=== PATIENT | male | born 1980 | race Caucasian/White ===

== ENCOUNTER 2021-09-10 12:20 | Emergency (ER) | payer MEDICAID, SELFPAY ==
[2021-09-10 12:48] VITALS: BP 107/55; PULSE 60; RESP 16; TEMP 36.7; O2SAT 99; BMI 38.3
[2021-09-10 13:46] LABS: MANUAL DIFF FLAG NO
[2021-09-10 13:49] LABS: Basophils Absolute Auto 0.1 X10*3/uL (0.0-0.2); Basophils Percent Auto 0.8 % (0-2); Eosinophils Absolute Auto 0.3 X10*3/uL (0.0-0.4); Eosinophils Percent Auto 4.6 % (0-4); Hematocrit 36.3 % (42.0-52.0); Hemoglobin 10.7 g/dl (14.0-18.0); Imm Gran Abs Auto 0.03 X10*3/uL (0.00-0.03); Imm Gran Pct Auto 0.5 % (0.0-0.4); Lymphocytes Percent Auto 31.7 % (20-40); Mean Corpuscular HGB Conc 29.5 g/dl (31.0-36.0); Mean Corpuscular Hemoglobin 20.7 pg (27.0-33.0); Mean Corpuscular Volume 70.1 fL (80.0-98.0); Mean Platelet Volume 9.8 fL (9.4-12.4); Monocytes Absolute Auto 0.5 X10*3/uL (0.1-1.2); Monocytes Percent Auto 7.6 % (2-11); Neutrophils Absolute Auto 3.5 x10*3/uL (2.0-8.3); Neutrophils Percent Auto 54.8 % (45-73); Platelet Count 247 X10*3/uL (160-400); Red Blood Count 5.18 X10*6/uL (4.60-5.80); Red Cell Distribution Width 19.3 % (11.0-16.0); White Blood Count 6.3 X10*3/uL (4.8-10.8)
[2021-09-10 14:06] LABS: Acetone, serum QL Negative (Negative)
[2021-09-10 14:10] LABS: Alanine Aminotransferase 11 U/L (0-40); Albumin Level 4.1 g/dL (3.5-5.0); Alkaline Phosphatase 96 U/L (39-117); Anion Gap 13 (12-20); Aspartate Amino Transferase 12 U/L (5-37); Bilirubin Total < 0.2 mg/dL (0.0-1.0); Blood Urea Nitrogen 14 mg/dL (9-16); Calcium 8.9 mg/dL (8.4-10.2); Carbon Dioxide 26 mmol/L (22-29); Chloride 104 mmol/L (96-108); Creatinine Clr Calc Pharmacy 173.2; Estimated Glomerular Filt Rate > 60; Glucose Random 164 mg/dL (60-115); Magnesium 2.1 mg/dL (1.6-2.6); Potassium 4.3 mmol/L (3.3-5.1); Sodium 139 mmol/L (135-145); Total Protein 7.9 g/dL (6.5-8.0)
--- NOTE | 2021-09-10 14:14 | ED_ITS ---
HPI - Neuro Symptoms/Deficit General Chief Complaint: General Medical Stated Complaint: Numb on feet Time Seen by Provider: 09/10/21 13:04 Source: patient Mode of arrival: ambulatory Limitations: no limitations History of Present Illness HPI Narrative: 41-year-old male reports he is a diabetic although has not been on his metformin for many years presenting to the ED with complaints of numbness to his feet and toes for the past few years that are getting worse. 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 Denies any headache, dizziness, changes in vision, jaw pain, chest pain, shortness of breath, dyspnea on exertion, orthopnea, palpitations, abdominal pain, dysuria, nausea/vomiting/diarrhea constipation, lower extremity edema or calf tenderness, recent travel or sick contacts, rashes, recent falls or injury or any other symptoms complaints concerns at this time. Related Data Previous Rx's Medication Instructions Recorded alcohol swabs (Alcohol Prep Pads) 1 pad topical BID As directed 09/10/21 check blood sugar twice a day before m #200 ea blood sugar diagnostic (FreeStyle #100 ea 09/10/21 Lite Strips) blood-glucose meter (FreeStyle #1 ea 09/10/21 Lite Meter kit) ferrous sulfate 325 mg (65 mg 325 mg PO DAILY anemia #30 tabs 09/10/21 iron) tablet lancets 28 gauge (FreeStyle #100 ea 09/10/21 Lancets) metformin 500 mg tablet 500 mg PO DAILY Diabetes #30 tabs 09/10/21 Allergies Allergy/AdvReac Type Severity Reaction Status Date / Time No Known Allergies Allergy Verified 09/10/21 12:51 [No Known Allergies*] Review of Systems Review of Systems: Constitutional : No Fever, No Chills, No Night Sweats, No Fatigue, No Malaise ENT/Mouth : No Ear Pain, No Nasal Congestion, No Sinus Pain, No sore throat, No Rhinorrhea Eyes: No Eye Pain, No Swelling, No Redness, No Foreign Body, No Discharge, No Vision Changes Cardiovascular : No Chest Pain, No SOB, No Dyspnea on Exertion, No Orthopnea, No Palpitations Respiratory : No Cough, No Sputum, No Wheezing, No Dyspnea Gastrointestinal : No Nausea, No Vomiting, No Diarrhea, No Constipation, No abdominal Pain, No Hematochezia, No Melena Genitourinary : No Dysuria, No Urinary Frequency, No Urinary Incontinence, No Urgency, No Flank Pain Musculoskeletal : No joint pain, No Myalgias Skin : No lacerations Neuro : + paresthesias to bilateral feet/toes, No Focal weakness, no general weakness, No Loss of Consciousness, No Dizziness, No Headache Yes all other systems are reviewed and are negative [facility] Past Medical History Attestation statement: The following information was validated with the patient. Source: old records reviewed and nursing notes reviewed Social History Social History Advance Directives: No Advance Directives Information Provided: No Physical Exam 2 Vital Signs: Vital Signs: Last Vital Signs Temp 98.0 F 09/10/21 12:48 Pulse 60 09/10/21 12:48 Resp 16 09/10/21 12:48 BP 107/55 L 09/10/21 12:48 Pulse Ox 99 09/10/21 12:48 O2 Del Method 09/10/21 12:48 BMI result Body Mass Index 38.3 vital signs have been reviewed as normal and appeared to be correct. Blood pressure 107/55. Heart rate normal. Respiration rate normal. Temperature normal. Oxygen saturation normal. Appearance: Alert. Oriented X3. No acute distress. Head: Normal external exam. Normocephalic. Atraumatic. Eyes: PERRLA. EOMI. Conjunctiva and sclera normal. Eyelids normal. ENT: Pharynx normal. Uvula midline. Moist mucous membranes. No lesions/ulcerations or masses noted on the tongue. Normal voice. No trismus noted. No drooling noted. No muffled voice noted. Neck: Normal inspection. Neck supple. FROM. No adenopathy. Thyroid Normal. No tracheal deviation noted. No crepitus is noted. No meningeal signs. No neck mass noted. No signs of trauma noted. CVS: Normal heart rate and rhythm. Heart sound normal. Pulses normal throughout. No murmurs/rales/gallops. Respiratory: No respiratory distress. Painless inspiration. Breath sounds normal. No wheezes/rales/rhonchi noted. Chest nontender. No crepitus is noted. No signs of trauma noted. No accessory muscle usage noted or decreased air movement noted. No signs of trauma. Abdomen: Soft and nontender. Bowel sounds normal in all 4 quadrants. No distention noted. No organomegaly noted. No visible injury noted. Back: No CVA tenderness. Full range of motion noted. Nontender. Skin: Skin warm and dry. Normal skin color. Normal skin turgor. No rashes/lesions/lacerations noted. Extremities: No lower extremity edema. No calf tenderness is noted. Extremities exhibit normal range of motion and nontender. Neuro: Oriented X 3. No motor deficit. No sensory deficit. Reflexes normal. Normal steady gait. No focal neuro deficits noted. CN's II-XII intact bilaterally? Vascular: + radial pulses/+ 2 distal pedal pulses/+2 dorsalis pedis b/l. Normal cap refill. No cyanosis noted to upper extremity nails and lower extremity toes nails. Course Course Course Narrative: 41-year-old male reports he is a diabetic although has not been on his metformin for many years presenting to the ED with complaints of numbness to his feet and toes for the past few years that are getting worse. 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 Labs were obtained and patient with the hemoglobin and hematocrit of 10.7/36.3. I discussed this with the patient and he reported that he does not have a history of anemia although intermittently he will have some bright red bloody stools that is mixed in the stool not just clots or bright red blood in the toilet without any stool. He has not had any and approximately a week or 2. He reports this is not occurring at this time. Denies any abdominal pain. I did recommend a stool occult exam or at least to visualize for possible hemorrhoids and patient is adamantly refusing. Reports that he cannot give us a sample at this time. Therefore he will be referred to GI for possible stool occult positive with anemia although cannot confirm at this time. Will start on iron supplements His random glucose is 164. Estimated average glucose is 130 and his hemoglobin A1c is 6.4. Therefore patient will be restarted back on his metformin will start on a low dose of 500 mg daily. Patient's acetone level negative. All other labs are within normal limits. Patient most likely paresthesias from untreated diabetes/neuropathy. Will DC home with instructions follow-up with PCP and Gastroenterology. Patient understands agrees this plan along with instructions return if any new or worsening symptoms. MDM - Neuro Symptoms/Deficit Medical Records Attestation: I reviewed the patient's medical records. Lab Data Attestation: I reviewed the patient's lab results. Result diagrams: 09/10/21 13:42 09/10/21 13:42 Labs: Lab Results 09/10/21 09/10/21 09/10/21 Range/Units 13:42 13:42 13:42 WBC 6.3 (4.8-10.8) X10*3/uL RBC 5.18 (4.60-5.80) X10*6/uL Hgb 10.7 L (14.0-18.0) g/dl Hct 36.3 L (42.0-52.0) % MCV 70.1 L (80.0-98.0) fL MCH 20.7 L (27.0-33.0) pg MCHC 29.5 L (31.0-36.0) g/dl RDW 19.3 H (11.0-16.0) % Plt Count 247 (160-400) X10*3/uL MPV 9.8 (9.4-12.4) fL Immature Gran % (Auto) 0.5 H (0.0-0.4) % Neut % (Auto) 54.8 (45-73) % Lymph % (Auto) 31.7 (20-40) % [place] % (Auto) 7.6 (2-11) % Eos % (Auto) 4.6 H (0-4) % Baso % (Auto) 0.8 (0-2) % Lymph # (Auto) 2.0 (1.2-4.9) X10*3/uL [place] # (Auto) 0.5 (0.1-1.2) X10*3/uL Eos # (Auto) 0.3 (0.0-0.4) X10*3/uL Baso # (Auto) 0.1 (0.0-0.2) X10*3/uL Abs Immat Gran (auto) 0.03 (0.00-0.03) X10*3/uL Absolute Neuts (auto) 3.5 (2.0-8.3) x10*3/uL Absolute Nucleated RBC 0.000 (0.0-0.012) X10*3/uL Nucleated RBC % (auto) 0.0 (0.0-0.2) /100WBC Sodium 139 (135-145) mmol/L Potassium 4.3 (3.3-5.1) mmol/L Chloride 104 (96-108) mmol/L Carbon Dioxide 26 (22-29) mmol/L Anion Gap 13 (12-20) BUN 14 (9-16) mg/dL Creatinine 0.77 (0.5-1.4) mg/dL Estim Creat Clear Calc 173.2 Estimated GFR > 60 Random Glucose 164 H (60-115) mg/dL Estimat Average Glucose 137 mg/dL Hemoglobin A1c % 6.4 % Calcium 8.9 (8.4-10.2) mg/dL Magnesium 2.1 (1.6-2.6) mg/dL Total Bilirubin < 0.2 (0.0-1.0) mg/dL AST 12 (5-37) U/L ALT 11 (0-40) U/L Alkaline Phosphatase 96 (39-117) U/L Total Creatine Kinase 78 (38-174) U/L Total Protein 7.9 (6.5-8.0) g/dL Albumin 4.1 (3.5-5.0) g/dL Acetone, Qual (Negative) 09/10/21 Range/Units 13:42 WBC (4.8-10.8) X10*3/uL RBC (4.60-5.80) X10*6/uL Hgb (14.0-18.0) g/dl Hct (42.0-52.0) % MCV (80.0-98.0) fL MCH (27.0-33.0) pg MCHC (31.0-36.0) g/dl RDW (11.0-16.0) % Plt Count (160-400) X10*3/uL MPV (9.4-12.4) fL Immature Gran % (Auto) (0.0-0.4) % Neut % (Auto) (45-73) % Lymph % (Auto) (20-40) % [place] % (Auto) (2-11) % Eos % (Auto) (0-4) % Baso % (Auto) (0-2) % Lymph # (Auto) (1.2-4.9) X10*3/uL [place] # (Auto) (0.1-1.2) X10*3/uL Eos # (Auto) (0.0-0.4) X10*3/uL Baso # (Auto) (0.0-0.2) X10*3/uL Abs Immat Gran (auto) (0.00-0.03) X10*3/uL Absolute Neuts (auto) (2.0-8.3) x10*3/uL Absolute Nucleated RBC (0.0-0.012) X10*3/uL Nucleated RBC % (auto) (0.0-0.2) /100WBC Sodium (135-145) mmol/L Potassium (3.3-5.1) mmol/L Chloride (96-108) mmol/L Carbon Dioxide (22-29) mmol/L Anion Gap (12-20) BUN (9-16) mg/dL Creatinine (0.5-1.4) mg/dL Estim Creat Clear Calc Estimated GFR Random Glucose (60-115) mg/dL Estimat Average Glucose mg/dL Hemoglobin A1c % % Calcium (8.4-10.2) mg/dL Magnesium (1.6-2.6) mg/dL Total Bilirubin (0.0-1.0) mg/dL AST (5-37) U/L ALT (0-40) U/L Alkaline Phosphatase (39-117) U/L Total Creatine Kinase (38-174) U/L Total Protein (6.5-8.0) g/dL Albumin (3.5-5.0) g/dL Acetone, Qual Negative (Negative) Discharge Plan Discharge Clinical Impression: Anemia, Diabetes, Neuropathy Patient Disposition: Home, Self-Care Instructions: Foot Care for People with Diabetes (ED), Peripheral Neuropathy (ED), Anemia (ED), How to Check your Blood Sugar (ED), Type 2 Diabetes Management for Adults (ED) Additional Instructions: You were noted to be anemic I did offer performing a rectal exam to perform a stool test to see if you are bleeding rectally although your refused. This is very important. Return if any new or worsening symptoms specially if you develop new or worsening rectal bleeding and follow-up with the inside sales person. You should check your blood sugar at least twice a day before meals. You should find a primary care provider you can continue your metformin. Prescriptions: New metformin 500 mg tablet 500 mg PO DAILY Qty: 30 0RF (DME) lancets [FreeStyle Lancets] 28 gauge misc See Rx Instructions .Route Qty: 100 0RF Rx Instructions: As directed at least twice a day check blood sugars and document (DME) blood-glucose meter [FreeStyle Lite Meter] Kit See Rx Instructions .Route Qty: 1 0RF Rx Instructions: As directed check blood sugar at least twice a day before meals (DME) FreeStyle Lite Strips Strip See Rx Instructions .Route Qty: 100 0RF Rx Instructions: As directed check blood sugar twice a day before meals alcohol swabs [Alcohol Prep Pads] Pads, Medicated 1 pad topical BID Qty: 200 0RF ferrous sulfate 325 mg (65 mg iron) tablet 325 mg PO DAILY Qty: 30 0RF Referrals: Rina Poole MD [Physician] - 1 week (For anemia ) Physician,None [Primary Care Provider] - 2 days (your pcp)
[2021-09-10 14:19] LABS: Estimated Average Glucose 137 mg/dL; Hemoglobin A1c % 6.4 %
== END 2021-09-10 14:48 | disposition home or self-care (01) ==
PROVIDERS: Physician Assistant Medical; Emergency Provider Internal Medicine
DX: E11.40 Type 2 diabetes mellitus with diabetic neuropathy, unspecified (principal); D64.9 Anemia, unspecified
CPT/HCPCS: 36415; 80053; 82009; 82550; 83036; 83735; 85025; 99283

== ENCOUNTER 2021-10-27 13:27 | Emergency (ER) | payer MEDICAID, SELFPAY ==
--- NOTE | ~2021-10-27 | US_ITS ---
EXAMINATION: US VENOUS ULTRASOUND WITH DOPPLER LOWER EXTREMITY, RIGHT CLINICAL INFORMATION: Right lower extremity pain COMPARISON: None TECHNIQUE: Ultrasound of the deep veins is performed from the hip to the calf with compression sonography and color and pulse Doppler assessment. Spectral analysis with color-flow imaging is performed. FINDINGS: There is normal venous compression and respiratory variation and augmented flow. The visualized common femoral vein, superficial femoral vein, profunda femoral vein, popliteal vein, and the trifurcation region shows no evidence of deep venous thrombosis. There is no significant popliteal fossa cyst. The contralateral left common femoral vein appears normal. If the patient's symptoms persist, followup ultrasound in 5 days 7 days might be of value to exclude proximal propagation from a non-visualized calf vein. US/US venous duplex LE RT IMPRESSION: No DVT demonstrated in the right lower extremity.
[2021-10-27 13:44] VITALS: BP 122/83; PULSE 90; RESP 16; TEMP 37.7; O2SAT 95; BMI 37.6
== END 2021-10-27 18:33 | disposition left against medical advice (07) ==
PROVIDERS: Emergency Provider Emergency Medicine
DX: R60.0 Localized edema (principal); Z91.14 Patient's other noncompliance with medication regimen
CPT/HCPCS: 93971; 99281; 99284

== ENCOUNTER 2022-02-25 05:32 | Emergency (ER) | payer MEDICAID, SELFPAY ==
--- NOTE | ~2022-02-25 | XR_ITS ---
EXAMINATION: XR CHEST CLINICAL INFORMATION: Chest pain and wheezing COMPARISON: None TECHNIQUE: 2 views of the chest were obtained. FINDINGS: Lungs are hypoinflated. Heart size normal. Peribronchial thickening is present. No focal consolidations or pleural effusions. No lung masses. Degenerative changes are seen spine. XR/XR chest 2V IMPRESSION: Hypoinflated lungs with peribronchial thickening. No focal consolidation.
--- NOTE | 2022-02-25 05:33 | ECG_ITS ---
Test Reason : chest pain Blood Pressure : / mmHG Vent. Rate : 079 BPM Atrial Rate : 079 BPM P-R Int : 168 ms QRS Dur : 094 ms QT Int : 398 ms P-R-T Axes : 048 001 -09 degrees QTc Int : 456 ms Normal sinus rhythm Normal ECG No previous ECGs available Referred By: Generic ED Physician Electronically Signed By:GREG KIMBALL MD
[2022-02-25 05:41] VITALS: BP 126/78; PULSE 77; RESP 16; O2SAT 98; BMI 37.6
[2022-02-25 06:01] LABS: Glucose, Whole Blood 151 mg/dL (60-115)
--- NOTE | 2022-02-25 06:29 | MHC.EDTECH ---
Patient is a difficult draw - Able to get labs. Delayed & difficult draw
[2022-02-25 06:42] LABS: Basophils Percent Auto 0.5 % (0-2); Eosinophils Absolute Auto 0.2 X10*3/uL (0.0-0.4); Hematocrit 35.6 % (42.0-52.0); Hemoglobin 10.9 g/dl (14.0-18.0); Imm Gran Abs Auto 0.02 X10*3/uL (0.00-0.03); Imm Gran Pct Auto 0.4 % (0.0-0.4); Lymphocytes Absolute Auto 1.7 X10*3/uL (1.2-4.9); Lymphocytes Percent Auto 31.4 % (20-40); MANUAL DIFF FLAG SCAN; Mean Corpuscular HGB Conc 30.6 g/dl (31.0-36.0); Mean Corpuscular Hemoglobin 22.3 pg (27.0-33.0); Mean Corpuscular Volume 72.8 fL (80.0-98.0); Monocytes Absolute Auto 0.4 X10*3/uL (0.1-1.2); Monocytes Percent Auto 7.7 % (2-11); Neutrophils Absolute Auto 3.1 x10*3/uL (2.0-8.3); PLT CLUMP 1; Red Blood Count 4.89 X10*6/uL (4.60-5.80); Red Cell Distribution Width 17.1 % (11.0-16.0); SCAN SMEAR FLAG 1
[2022-02-25 06:44] LABS: White Blood Count 5.5 X10*3/uL (4.8-10.8)
[2022-02-25 06:55] LABS: Anion Gap 15 (12-20); Blood Urea Nitrogen 14 mg/dL (9-16); Calcium 8.8 mg/dL (8.4-10.2); Carbon Dioxide 24 mmol/L (22-29); Chloride 104 mmol/L (96-108); Creatinine Clr Calc Pharmacy 174.3; Estimated Glomerular Filt Rate > 60; Glucose Random 158 mg/dL (60-115); Potassium 4.2 mmol/L (3.3-5.1); Sodium 139 mmol/L (135-145)
[2022-02-25 06:59] LABS: Platelet Count 234 X10*3/uL (160-400); SLIDE REVIEW VERIFIED
[2022-02-25 07:32] LABS: Troponin-I High Sensitivity < 3.5 ng/L (<3.5-35.0)
--- NOTE | 2022-02-25 07:44 | PC.NURSE ---
PAtient sleeping is easily aroused neuros intact no distress noted. Patient reports pain improved will CTM
--- NOTE | 2022-02-25 08:07 | PC.NURSE ---
Wheezing noted on auscultation patient said he initially came to ED with chest pain felt lump in chest. Pain resolved denies personal asthma history does report familial history will CTM
--- NOTE | 2022-02-25 08:11 | ED_ITS ---
HPI - Chest Pain General Chief Complaint: Chest Pain Stated Complaint: chest pain, leg pain Time Seen by Provider: 02/25/22 07:58 Source: patient Mode of arrival: ambulatory Limitations: no limitations History of Present Illness HPI narrative: 42-year-old male with history of diabetes, obesity, active smoker who presents to the ER for evaluation of central chest pain intermittent for the last 1 week. He states the pain comes and goes, got really bad last night. It did not radiate and was sharp, It was associated with some shortness of breath and wheezing. He has been coughing. No known fevers or sick contacts. No productive cough. No current chest pain. He is tired - he states he has not slept in 2 days because his kids have kept him up. MD complaint: chest pain Onset (ago): week(s) (1) Timing of current episode: episodic Prior episodes: Yes Onset: during rest Pain location: substernal Pain radiation: none Severity: moderate Quality: sharp Relieving factors: nothing Exacerbating factors: nothing Context: recent illness Associated symptoms: dyspnea Treatment prior to arrival: none Risk Factors Coronary artery disease risk factors: diabetes and smoking history Thoracic aortic dissection risk factors: none Related Data Previous Rx's Medication Instructions Recorded alcohol swabs (Alcohol Prep Pads) 1 pad topical BID As directed 09/10/21 check blood sugar twice a day before m #200 ea blood sugar diagnostic (FreeStyle #100 ea 09/10/21 Lite Strips) blood-glucose meter (FreeStyle #1 ea 09/10/21 Lite Meter kit) ferrous sulfate 325 mg (65 mg 325 mg PO DAILY anemia #30 tabs 09/10/21 iron) tablet lancets 28 gauge (FreeStyle #100 ea 09/10/21 Lancets) metformin 500 mg tablet 500 mg PO DAILY Diabetes #30 tabs 09/10/21 albuterol sulfate 90 mcg/actuation 1 inh inhalation QID PRN shortness 02/25/22 aerosol inhaler of breath or wheezing #6.7 grams prednisone 20 mg tablet 40 mg PO DAILY #10 tabs 02/25/22 Allergies Allergy/AdvReac Type Severity Reaction Status Date / Time No Known Allergies Allergy Verified 02/25/22 05:44 [No Known Allergies*] Review of Systems Review of Systems: Yes all other systems are reviewed and are negative [facility] Social History Social History Alcohol intake: unknown Smoked in Last 30 Days: No Use of substances other than those prescribed or required for medical reasons: Unknown Advance Directives: No Advance Directives Information Provided: Yes Physical Exam Vital Signs: Vital Signs: Last Vital Signs Pulse 66 02/25/22 08:36 Resp 18 02/25/22 08:36 BP 101/66 02/25/22 08:13 Pulse Ox 96 02/25/22 08:13 O2 Del Method 02/25/22 08:13 BMI result Body Mass Index 37.6 Appearance: Alert. Oriented X3. No acute distress. Eyes: Pupils equal, round and reactive to light. ENT: Pharynx normal. Neck: Normal inspection. Neck supple. CVS: Normal heart rate and rhythm. Pulses normal. Respiratory: No respiratory distress. Breath sounds With diffuse inspiratory and expiratory wheezes throughout. Abdomen: Soft and nontender. +BS x4 Skin: Skin warm and dry. Normal skin color. Normal skin turgor. No rashes. Extremities: No lower extremity edema. No calf tenderness or swelling. Neuro: Oriented X 3. No motor deficit. No sensory deficit. Course Course Course Narrative: 42-year-old male with history of diabetes, active smoker, noncompliant with medications who presents to the ER for evaluation of substernal chest pain intermittent for the last 1 week. Seems to be more associated with shortness of breath and wheezing. On exam he is wheezy throughout. Will check chest x-ray and viral swabs. His troponin is negative which is reassuring against ACS. No current chest pain at this time. Reevaluation(s) Reevaluation #1: CXR without infiltrate. aeration significantly improved and wheezing improved after nebulizer treatment. His cardiac workup was unremarkable. No current chest pain. Most likely related to his wheezing and chest congestion. Will discharge with albuterol and prednisone. Will have him follow up with pulmonology and his PCP. Stable for discharge home. The importance of compliance and follow-up was stress. Patient expressed understanding. Medications Administered Discontinued Medications Generic Name Dose Route Start Last Admin Trade Name Freq PRN Reason Stop Dose Admin Albuterol Sulfate 5 mg 02/25/22 08:05 02/25/22 08:36 Albuterol Sulfate (0.083%) 2.5 Mg/3 Ml Vial.Neb INHALE 02/25/22 08:06 5 mg ONCE ONE Administration Medical Decision Making Differential Diagnosis Differential Diagnoses: The differential diagnosis associated with the presentation includes atypical chest pain, ACS, costochondritis, bronchitis, asthma / COPD exacerbation, COVID, flu, viral process, less likely PE, dissection Lab Data [facility] Lab Attestation statement: I reviewed the patient's lab results. stable microcytic anemia, mild hyperglycemia 150s, no CKD, troponin is negative 02/25/22 06:28 02/25/22 06:28 Labs: Lab Results 02/25/22 02/25/22 02/25/22 Range/Units 05:40 06:28 06:28 WBC 5.5 (4.8-10.8) X10*3/uL RBC 4.89 (4.60-5.80) X10*6/uL Hgb 10.9 L (14.0-18.0) g/dl Hct 35.6 L (42.0-52.0) % MCV 72.8 L (80.0-98.0) fL MCH 22.3 L (27.0-33.0) pg MCHC 30.6 L (31.0-36.0) g/dl RDW 17.1 H (11.0-16.0) % Plt Count 234 (160-400) X10*3/uL MPV Not Reportable Immature Gran % (Auto) 0.4 (0.0-0.4) % Neut % (Auto) 56.0 (45-73) % Lymph % (Auto) 31.4 (20-40) % [place] % (Auto) 7.7 (2-11) % Eos % (Auto) 4.0 (0-4) % Baso % (Auto) 0.5 (0-2) % Lymph # (Auto) 1.7 (1.2-4.9) X10*3/uL [place] # (Auto) 0.4 (0.1-1.2) X10*3/uL Eos # (Auto) 0.2 (0.0-0.4) X10*3/uL Baso # (Auto) 0.0 (0.0-0.2) X10*3/uL Abs Immat Gran (auto) 0.02 (0.00-0.03) X10*3/uL Absolute Neuts (auto) 3.1 (2.0-8.3) x10*3/uL Absolute Nucleated RBC 0.000 (0.0-0.012) X10*3/uL Nucleated RBC % (auto) 0.0 (0.0-0.2) /100WBC Smear Tech's Comments VERIFIED Sodium 139 (135-145) mmol/L Potassium 4.2 (3.3-5.1) mmol/L Chloride 104 (96-108) mmol/L Carbon Dioxide 24 (22-29) mmol/L Anion Gap 15 (12-20) BUN 14 (9-16) mg/dL Creatinine 0.75 (0.5-1.4) mg/dL Estim Creat Clear Calc 174.3 Estimated GFR > 60 POC Glucose 151 H (60-115) mg/dL Random Glucose 158 H (60-115) mg/dL Calcium 8.8 (8.4-10.2) mg/dL Troponin I High Sens (<3.5-35.0) ng/L COVID-19 (ROSSANA) (Negative) COVID-19 Clin Com Influenza Type A (JONELLE) (Negative) Influenza Type B (JONELLE) (Negative) Influenza A & B Note 02/25/22 02/25/22 02/25/22 Range/Units 06:28 08:12 08:12 WBC (4.8-10.8) X10*3/uL RBC (4.60-5.80) X10*6/uL Hgb (14.0-18.0) g/dl Hct (42.0-52.0) % MCV (80.0-98.0) fL MCH (27.0-33.0) pg MCHC (31.0-36.0) g/dl RDW (11.0-16.0) % Plt Count (160-400) X10*3/uL MPV Immature Gran % (Auto) (0.0-0.4) % Neut % (Auto) (45-73) % Lymph % (Auto) (20-40) % [place] % (Auto) (2-11) % Eos % (Auto) (0-4) % Baso % (Auto) (0-2) % Lymph # (Auto) (1.2-4.9) X10*3/uL [place] # (Auto) (0.1-1.2) X10*3/uL Eos # (Auto) (0.0-0.4) X10*3/uL Baso # (Auto) (0.0-0.2) X10*3/uL Abs Immat Gran (auto) (0.00-0.03) X10*3/uL Absolute Neuts (auto) (2.0-8.3) x10*3/uL Absolute Nucleated RBC (0.0-0.012) X10*3/uL Nucleated RBC % (auto) (0.0-0.2) /100WBC Smear Tech's Comments Sodium (135-145) mmol/L Potassium (3.3-5.1) mmol/L Chloride (96-108) mmol/L Carbon Dioxide (22-29) mmol/L Anion Gap (12-20) BUN (9-16) mg/dL Creatinine (0.5-1.4) mg/dL Estim Creat Clear Calc Estimated GFR POC Glucose (60-115) mg/dL Random Glucose (60-115) mg/dL Calcium (8.4-10.2) mg/dL Troponin I High Sens < 3.5 (<3.5-35.0) ng/L COVID-19 (ROSSANA) Negative (Negative) COVID-19 Clin Com See Note Influenza Type A (JONELLE) Negative (Negative) Influenza Type B (JONELLE) Negative (Negative) Influenza A & B Note See Note Independent Interpretation I performed an independent interpretation of an: EKG and Plain X-Ray Interpretation: Chest x-ray without focal infiltrate EKG done at 05:40 showing normal sinus rhythm, ventricular rate 79 beats per minute, normal NH interval, normal QTC, no ST segment elevations or depressions. No prior EKGs to compare. Radiology Impression Discussion of test interpretation with radiology: I have reviewed the rad iologist's reading. Radiologist Impression: MPRESSION: Hypoinflated lungs with peribronchial thickening. No focal consolidation External Record Review External record reviewed: Outpatient record, Prior outpatient labs and Prior outpatient radiology Prescription Management I considered prescription management with: Antibiotic No formal diagnosis of COPD, no role in treating for COPD exacerbation at this time. Will hold off on antibiotics Chronic Conditions Patient?s care impacted by: Diabetes, Hypertension and Other ( noncompliance) Social Determinants Patient?s care significantly limited by Social Determinants of Health including: Other Social Determinant of Health noncompliance, poor outpatient follow-up Scores Heart Score History: -0- slightly suspicious ECG: -0- normal Age: -0- < or = 45 Risk factory: -2- 3 or more risk factors or treated atherosclerosis Troponin: -0- < or = normal limit Score: 2 Risk: 1.7% Critical Care Time Critical Care Time Critical Care Time: No Discharge Plan Discharge Clinical Impression: Bronchitis, Microcytic anemia, Diabetes Patient Disposition: Home, Self-Care Instructions: Acute Bronchitis (ED), Type 2 Diabetes Management for Adults (ED) Additional Instructions: Your lab workup today was unremarkable. Your EKG and blood work for your heart were normal. Your lungs were very wheezy, this is most likely what was causing your pain. Do your best to quit smoking. Recommend following up with pulmonology for further evaluation of your lungs. You most likely have underlying lung disease from your smoking. Take the prescribed steroid medication to help decrease the inflammation in your lungs. Use the prescribed inhaler every 4 hours as needed for wheezing and shortness of breath. Follow up with your PCP next week. It is important that you take all of your medications as directed. Prescriptions: New albuterol sulfate 90 mcg/actuation HFA aerosol inhaler 1 inh inhalation QID PRN (Reason: shortness of breath or wheezing) Qty: 6.7 0RF prednisone 20 mg tablet 40 mg PO DAILY Qty: 10 0RF No Action metformin 500 mg tablet 500 mg PO DAILY Qty: 30 0RF (DME) lancets [FreeStyle Lancets] 28 gauge misc See Rx Instructions .Route Qty: 100 0RF Rx Instructions: As directed at least twice a day check blood sugars and document (DME) blood-glucose meter [FreeStyle Lite Meter] Kit See Rx Instructions .Route Qty: 1 0RF Rx Instructions: As directed check blood sugar at least twice a day before meals (DME) FreeStyle Lite Strips Strip See Rx Instructions .Route Qty: 100 0RF Rx Instructions: As directed check blood sugar twice a day before meals alcohol swabs [Alcohol Prep Pads] Pads, Medicated 1 pad topical BID Qty: 200 0RF ferrous sulfate 325 mg (65 mg iron) tablet 325 mg PO DAILY Qty: 30 0RF Referrals: [facility] Pulmonology Services [Provider Group] (wheezing, smoker, no dx lung disease) Center,[facility] [Primary Care Provider] -
[2022-02-25 08:13] VITALS: BP 101/66; PULSE 59; RESP 14; O2SAT 96
[2022-02-25 08:35] LABS: COVID-19 Test Negative (Negative); IDNOW Serial# 16C4AD1C
[2022-02-25 08:36] VITALS: PULSE 66; RESP 18; O2SAT 97
[2022-02-25 08:36] LABS: IDNOW Serial# BCCEAD1C; Influenza A Negative (Negative); Influenza B2 Negative (Negative)
[2022-02-25] MEDS: Albuterol Sulfate (0.083%) 2.5 MG/3 ML VIAL.NEB 5 MG INHALE (08:36)
--- NOTE | 2022-02-25 08:46 | PC.NURSE ---
Addendum entered by Mike Haider RN 02/25/22 08:47: Not in error on wrong patient will CTM Original Note: Patient remains hypertensive reports some improvement in pain. Patient reports that she does still make urine will CTM
--- NOTE | 2022-02-25 09:37 | PC.NURSE ---
Improved breath sounds post breathing treatment no distress noted no wheezes appreciated post treatment
[2022-02-25 09:52] VITALS: BP 101/66
[2022-02-25 10:03] VITALS: BP 139/97; PULSE 85; RESP 20; TEMP 36.9; O2SAT 100
== END 2022-02-25 10:14 | disposition home or self-care (01) ==
PROVIDERS: Physician Assistant; Emergency Provider Emergency Medicine Emergency Medical Services
DX: J40 Bronchitis, not specified as acute or chronic (principal); D64.9 Anemia, unspecified; R07.89 Other chest pain; E11.9 Type 2 diabetes mellitus without complications; Z20.822 Contact with and (suspected) exposure to COVID-19; Z20.828 Contact with and (suspected) exposure to other viral communicable diseases; Z87.891 Personal history of nicotine dependence; Z79.899 Other long term (current) drug therapy; Z79.4 Long term (current) use of insulin
CPT/HCPCS: 36415; 71046; 80048; 82947; 84484; 85025; 87502; 87635; 93005; 94640; 99284; 99285

== ENCOUNTER 2022-04-21 10:32 | Emergency (ER) | payer MEDICAID, SELFPAY ==
--- NOTE | ~2022-04-21 | US_ITS ---
EXAMINATION: US VENOUS ULTRASOUND WITH DOPPLER LOWER EXTREMITY, RIGHT CLINICAL INFORMATION: Right leg redness and swelling COMPARISON: None TECHNIQUE: Ultrasound of the deep veins is performed from the hip to the calf with compression sonography and color and pulse Doppler assessment. Spectral analysis with color-flow imaging is performed. FINDINGS: There is normal venous compression and respiratory variation and augmented flow. The visualized common femoral vein, superficial femoral vein, profunda femoral vein, popliteal vein, and the trifurcation region shows no evidence of deep venous thrombosis. There is no significant popliteal fossa cyst. There is an prominent right groin lymph node present measuring 0.4 x 0.6 x 2.0 cm If the patient's symptoms persist, followup ultrasound in 5 days 7 days might be of value to exclude proximal propagation from a non-visualized calf vein. US/US venous duplex LE RT IMPRESSION: No DVT demonstrated in the right lower extremity.
[2022-04-21 10:41] VITALS: BP 141/87; PULSE 94; RESP 16; TEMP 36.8; O2SAT 99; BMI 36.2
[2022-04-21 12:10] VITALS: BP 109/63; PULSE 81; RESP 14; TEMP 37; O2SAT 95
--- NOTE | 2022-04-21 12:13 | ED_ITS ---
HPI - Extremity Injury (Lower) General Chief Complaint: Extremity Injury, Lower Stated Complaint: R leg swelling/redness Time Seen by Provider: 04/21/22 12:10 Source: patient Mode of arrival: ambulatory Limitations: no limitations History of Present Illness HPI Narrative: 42 yo male with history of active IV drug use presents to the ER for evaluation of RLE redness, swelling that he woke up with today. He states there was mild redness yesterday but it got acutely worse today. He denies every injecting into his legs. He denies any fever or chills at home. He denies any areas of drainage. He denies any injury to the area. He does report his grandparents have had history of blood clots and he is worried about that. He states he injects cocaine into his hands only. It is intermittent and not every day. 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 He denies any history of fentanyl or heroin use. complaint: leg injury Onset (ago): day(s) (1) Place: home Severity: mild Severity scale (1-10): 4 Exacerbating factors: palpation Context: other (IV drug use) Associated symptoms: ambulatory Other symptoms: none Related Data Previous Rx's Medication Instructions Recorded alcohol swabs (Alcohol Prep Pads) 1 pad topical BID As directed 09/10/21 check blood sugar twice a day before m #200 ea blood sugar diagnostic (FreeStyle #100 ea 09/10/21 Lite Strips) blood-glucose meter (FreeStyle #1 ea 09/10/21 Lite Meter kit) ferrous sulfate 325 mg (65 mg 325 mg PO DAILY anemia #30 tabs 09/10/21 iron) tablet lancets 28 gauge (FreeStyle #100 ea 09/10/21 Lancets) metformin 500 mg tablet 500 mg PO DAILY Diabetes #30 tabs 09/10/21 albuterol sulfate 90 mcg/actuation 1 inh inhalation QID PRN shortness 02/25/22 aerosol inhaler of breath or wheezing #6.7 grams prednisone 20 mg tablet 40 mg PO DAILY #10 tabs 02/25/22 cephalexin 500 mg capsule 500 mg PO Q6H 7 days #28 caps 04/21/22 doxycycline hyclate 100 mg tablet 100 mg PO BID #14 tabs 04/21/22 Allergies Allergy/AdvReac Type Severity Reaction Status Date / Time No Known Allergies Allergy Verified 04/21/22 10:41 [No Known Allergies*] Review of Systems Review of Systems: Yes all other systems are reviewed and are negative [facility] Past Medical History Medical History (Updated 04/21/22 @ 14:03 by PRASAD Villa) Hiatal hernia Social History Social History Alcohol intake: never Smoked in Last 30 Days: Yes Use of substances other than those prescribed or required for medical reasons: No Advance Directives: No Advance Directives Information Provided: Yes Physical Exam Vital Signs: Vital Signs: Last Vital Signs Temp 97.4 F 04/21/22 13:54 Pulse 77 04/21/22 13:54 Resp 18 04/21/22 13:54 BP 110/64 04/21/22 13:54 Pulse Ox 96 04/21/22 13:54 O2 Del Method 04/21/22 13:54 BMI result Body Mass Index 36.2 Appearance: Alert. Oriented X3. No acute distress. Eyes: Pupils equal, round and reactive to light. ENT: Pharynx normal. Neck: Normal inspection. Neck supple. CVS: Normal heart rate and rhythm. Pulses normal. No murmur Respiratory: No respiratory distress. Breath sounds normal. Abdomen: Soft and nontender. +BS x4 Skin: Skin warm and dry. Normal skin color. Normal skin turgor. No rashes. Extremities: right anterior lower leg over the rodriguez with diffuse erythema, warmth, mild tenderness. mild generalized swelling, no calf tenderness. NV intact distally. no track ashley on the LE. dry cracked skin on all finger and toes. Neuro: Oriented X 3. No motor deficit. No sensory deficit. Medical Decision Making Medical Decision Making MDM Narrative: 42-year-old male with history of IV cocaine use presents the ER for evaluation of right lower extremity redness, warmth, swelling and tenderness that started today. He does not inject in the lower extremities. No evidence of abscess on examination. Compartments are soft and compressible. No evidence of compartment syndrome. Most likely cellulitis. Vital signs stable. He does not appear septic. Ultrasound does not show any evidence of DVT or fluid collection. Will discharge home with oral antibiotics and outpatient follow-up. Stable for discharge home Differential Diagnosis Differential Diagnoses: The differential diagnosis associated with the presentation includes Lower extremity cellulitis, less likely deep tissue infection or abscess, dermatitis, erysipelas, lower extremity deep vein thrombosis Admission/Observation Consideration of admission/observation: Escalation of care including admission /observation considered Given his history of intravenous drug use, considered admission however he has no leukocytosis, fevers while in the emergency department and his workup is otherwise unremarkable. At this time comfortable discharge home with oral antibiotics and outpatient follow-up. Lab Data MDM Lab Attestation statement: I reviewed the patient's lab results. No leukocytosis, no major metabolic derangement, moderate elevation of the nonspecific inflammatory markers 04/21/22 12:51 04/21/22 12:51 Labs: Lab Results 04/21/22 04/21/22 04/21/22 Range/Units 12:51 12:51 12:51 WBC 6.8 (4.8-10.8) X10*3/uL RBC 4.31 L (4.60-5.80) X10*6/uL Hgb 9.9 L (14.0-18.0) g/dl Hct 31.7 L (42.0-52.0) % MCV 73.5 L (80.0-98.0) fL MCH 23.0 L (27.0-33.0) pg MCHC 31.2 (31.0-36.0) g/dl RDW 15.9 (11.0-16.0) % Plt Count 250 (160-400) X10*3/uL MPV 9.8 (9.4-12.4) fL Immature Gran % (Auto) 0.3 (0.0-0.4) % Neut % (Auto) 68.9 (45-73) % Lymph % (Auto) 19.4 L (20-40) % Placer % (Auto) 9.0 (2-11) % Eos % (Auto) 2.1 (0-4) % Baso % (Auto) 0.3 (0-2) % Lymph # (Auto) 1.3 (1.2-4.9) X10*3/uL Placer # (Auto) 0.6 (0.1-1.2) X10*3/uL Eos # (Auto) 0.1 (0.0-0.4) X10*3/uL Baso # (Auto) 0.0 (0.0-0.2) X10*3/uL Abs Immat Gran (auto) 0.02 (0.00-0.03) X10*3/uL Absolute Neuts (auto) 4.7 (2.0-8.3) x10*3/uL Absolute Nucleated RBC 0.000 (0.0-0.012) X10*3/uL Nucleated RBC % (auto) 0.0 (0.0-0.2) /100WBC ESR (0-15) MM/HR PT (10.0-13.1) SEC INR (0.9-1.1) APTT (26.0-36.4) SEC Sodium 136 (135-145) mmol/L Potassium 3.8 (3.3-5.1) mmol/L Chloride 102 (96-108) mmol/L Carbon Dioxide 27 (22-29) mmol/L Anion Gap 11 L (12-20) BUN 11 (9-16) mg/dL Creatinine 0.77 (0.5-1.4) mg/dL Estim Creat Clear Calc 166.5 Estimated GFR > 60 Random Glucose 170 H (60-115) mg/dL Lactic Acid 1.4 (0.5-2.0) mmol/L Calcium 8.8 (8.4-10.2) mg/dL Magnesium 1.9 (1.6-2.6) mg/dL Total Bilirubin 0.5 (0.0-1.0) mg/dL Direct Bilirubin < 0.2 (0.0-0.5) mg/dL AST 14 (5-37) U/L ALT 14 (0-40) U/L Alkaline Phosphatase 82 (39-117) U/L C-Reactive Protein 5.78 H (< or = 0.50) mg/dL B-Natriuretic Peptide (<100) pg/mL Total Protein 7.1 (6.5-8.0) g/dL Albumin 3.6 (3.5-5.0) g/dL Urine Color Urine Appearance Urine pH (5.0-9.0) Ur Specific [place] (1.005-1.025) Urine Protein (Neg-Trace) mg/dL Urine Glucose (UA) (Negative) mg/dL Urine Ketones (Negative) mg/dL Urine Blood (Negative) Urine Nitrite (Negative) Ur Leukocyte Esterase (Negative) COVID-19 (ROSSANA) (Negative) COVID-19 Clin Com 04/21/22 04/21/22 04/21/22 Range/Units 12:51 12:51 12:51 WBC (4.8-10.8) X10*3/uL RBC (4.60-5.80) X10*6/uL Hgb (14.0-18.0) g/dl Hct (42.0-52.0) % MCV (80.0-98.0) fL MCH (27.0-33.0) pg MCHC (31.0-36.0) g/dl RDW (11.0-16.0) % Plt Count (160-400) X10*3/uL MPV (9.4-12.4) fL Immature Gran % (Auto) (0.0-0.4) % Neut % (Auto) (45-73) % Lymph % (Auto) (20-40) % Placer % (Auto) (2-11) % Eos % (Auto) (0-4) % Baso % (Auto) (0-2) % Lymph # (Auto) (1.2-4.9) X10*3/uL [place]acer # (Auto) (0.1-1.2) X10*3/uL Eos # (Auto) (0.0-0.4) X10*3/uL Baso # (Auto) (0.0-0.2) X10*3/uL Abs Immat Gran (auto) (0.00-0.03) X10*3/uL Absolute Neuts (auto) (2.0-8.3) x10*3/uL Absolute Nucleated RBC (0.0-0.012) X10*3/uL Nucleated RBC % (auto) (0.0-0.2) /100WBC ESR 43 H (0-15) MM/HR PT 14.4 H (10.0-13.1) SEC INR 1.2 H (0.9-1.1) APTT 32.5 (26.0-36.4) SEC Sodium (135-145) mmol/L Potassium (3.3-5.1) mmol/L Chloride (96-108) mmol/L Carbon Dioxide (22-29) mmol/L Anion Gap (12-20) BUN (9-16) mg/dL Creatinine (0.5-1.4) mg/dL Estim Creat Clear Calc Estimated GFR Random Glucose (60-115) mg/dL Lactic Acid (0.5-2.0) mmol/L Calcium (8.4-10.2) mg/dL Magnesium (1.6-2.6) mg/dL Total Bilirubin (0.0-1.0) mg/dL Direct Bilirubin (0.0-0.5) mg/dL AST (5-37) U/L ALT (0-40) U/L Alkaline Phosphatase (39-117) U/L C-Reactive Protein (< or = 0.50) mg/dL B-Natriuretic Peptide (<100) pg/mL Total Protein (6.5-8.0) g/dL Albumin (3.5-5.0) g/dL Urine Color Urine Appearance Urine pH (5.0-9.0) Ur Specific [place] (1.005-1.025) Urine Protein (Neg-Trace) mg/dL Urine Glucose (UA) (Negative) mg/dL Urine Ketones (Negative) mg/dL Urine Blood (Negative) Urine Nitrite (Negative) Ur Leukocyte Esterase (Negative) COVID-19 (ROSSANA) Negative (Negative) COVID-19 Clin Com See Note 04/21/22 04/21/22 Range/Units 12:51 13:29 WBC (4.8-10.8) X10*3/uL RBC (4.60-5.80) X10*6/uL Hgb (14.0-18.0) g/dl Hct (42.0-52.0) % MCV (80.0-98.0) fL MCH (27.0-33.0) pg MCHC (31.0-36.0) g/dl RDW (11.0-16.0) % Plt Count (160-400) X10*3/uL MPV (9.4-12.4) fL Immature Gran % (Auto) (0.0-0.4) % Neut % (Auto) (45-73) % Lymph % (Auto) (20-40) % [place]acer % (Auto) (2-11) % Eos % (Auto) (0-4) % Baso % (Auto) (0-2) % Lymph # (Auto) (1.2-4.9) X10*3/uL Placer # (Auto) (0.1-1.2) X10*3/uL Eos # (Auto) (0.0-0.4) X10*3/uL Baso # (Auto) (0.0-0.2) X10*3/uL Abs Immat Gran (auto) (0.00-0.03) X10*3/uL Absolute Neuts (auto) (2.0-8.3) x10*3/uL Absolute Nucleated RBC (0.0-0.012) X10*3/uL Nucleated RBC % (auto) (0.0-0.2) /100WBC ESR (0-15) MM/HR PT (10.0-13.1) SEC INR (0.9-1.1) APTT (26.0-36.4) SEC Sodium (135-145) mmol/L Potassium (3.3-5.1) mmol/L Chloride (96-108) mmol/L Carbon Dioxide (22-29) mmol/L Anion Gap (12-20) BUN (9-16) mg/dL Creatinine (0.5-1.4) mg/dL Estim Creat Clear Calc Estimated GFR Random Glucose (60-115) mg/dL Lactic Acid (0.5-2.0) mmol/L Calcium (8.4-10.2) mg/dL Magnesium (1.6-2.6) mg/dL Total Bilirubin (0.0-1.0) mg/dL Direct Bilirubin (0.0-0.5) mg/dL AST (5-37) U/L ALT (0-40) U/L Alkaline Phosphatase (39-117) U/L C-Reactive Protein (< or = 0.50) mg/dL B-Natriuretic Peptide 17 (<100) pg/mL Total Protein (6.5-8.0) g/dL Albumin (3.5-5.0) g/dL Urine Color Yellow Urine Appearance Clear Urine pH 5.5 (5.0-9.0) Ur Specific [place] 1.020 (1.005-1.025) Urine Protein Trace (Neg-Trace) mg/dL Urine Glucose (UA) 100 H (Negative) mg/dL Urine Ketones Negative (Negative) mg/dL Urine Blood Negative (Negative) Urine Nitrite Negative (Negative) Ur Leukocyte Esterase Negative (Negative) COVID-19 (ROSSANA) (Negative) COVID-19 Clin Com Independent Interpretation I performed an independent interpretation of an: Ultrasound Interpretation: ultrasound reviewed, no evidence of acute DVT or fluid collection Radiology Impression Discussion of test interpretation with radiology: I have reviewed the radiologist's reading. Radiologist Impression: EXAMINATION:? US VENOUS ULTRASOUND WITH DOPPLER LOWER EXTREMITY, RIGHT CLINICAL INFORMATION:? Right leg redness and swelling COMPARISON:? None TECHNIQUE: Ultrasound of the deep veins is performed from the hip to the calf with compression sonography and color and pulse Doppler assessment. Spectral analysis with color-flow imaging is performed. FINDINGS: There is normal venous compression and respiratory variation and augmented flow. The visualized common femoral vein, superficial femoral vein, profunda femoral vein, popliteal vein, and the trifurcation region shows no evidence of deep venous thrombosis. ? There is no significant popliteal fossa cyst. There is an prominent right groin lymph node present measuring 0.4 x 0.6 x 2.0 cm If the patient's symptoms persist, followup ultrasound in 5 days 7 days might be of value to exclude proximal propagation from a non-visualized calf vein. US/US venous duplex LE RT IMPRESSION: No DVT demonstrated in the right lower extremity. External Record Review External record reviewed: Outpatient record and Prior outpatient labs Prescription Management I considered prescription management with: Antibiotic Chronic Conditions Patient?s care impacted by: Other (IV drug use) Critical Care Time Critical Care Time Critical Care Time: No Discharge Plan Discharge Clinical Impression: Cellulitis of right leg Patient Disposition: Home, Self-Care Instructions: Cellulitis (ED) Additional Instructions: Your lab workup today was reassuring. Your ultrasound did not show evidence of blood clot. Take the prescribed antibiotics as directed. Complete the entire course. Use warm compresses to the area to help increased blood flow. Elevate her leg when possible. Take Motrin and Tylenol as needed for pain. Do not use IV drugs, they can kill you. Recommend detox. If you develop new or worsening symptoms call 911 or come back to the ER for further evaluation. Prescriptions: New cephalexin 500 mg capsule 500 mg PO Q6H 7 Days Qty: 28 0RF doxycycline hyclate 100 mg tablet 100 mg PO BID Qty: 14 0RF No Action albuterol sulfate 90 mcg/actuation HFA aerosol inhaler 1 inh inhalation QID PRN (Reason: shortness of breath or wheezing) Qty: 6.7 0RF prednisone 20 mg tablet 40 mg PO DAILY Qty: 10 0RF metformin 500 mg tablet 500 mg PO DAILY Qty: 30 0RF (DME) lancets [FreeStyle Lancets] 28 gauge misc See Rx Instructions .Route Qty: 100 0RF Rx Instructions: As directed at least twice a day check blood sugars and document (DME) blood-glucose meter [FreeStyle Lite Meter] Kit See Rx Instructions .Route Qty: 1 0RF Rx Instructions: As directed check blood sugar at least twice a day before meals (DME) FreeStyle Lite Strips Strip See Rx Instructions .Route Qty: 100 0RF Rx Instructions: As directed check blood sugar twice a day before meals alcohol swabs [Alcohol Prep Pads] Pads, Medicated 1 pad topical BID Qty: 200 0RF ferrous sulfate 325 mg (65 mg iron) tablet 325 mg PO DAILY Qty: 30 0RF Interventions: ED Discharge Assessment Last Done: 04/21/22 14:10 Discharge Date/Time: 04/21/22 14:10
--- NOTE | 2022-04-21 12:25 | PC.NURSE ---
ultrasound at bedside will have labs drawn by tech when they are completed with the us
--- NOTE | 2022-04-21 12:37 | PC.NURSE ---
pt AOx3, VSS. RLL redness and swelling. US tech in.
[2022-04-21 13:00] LABS: MANUAL DIFF FLAG NO
[2022-04-21 13:06] LABS: Basophils Percent Auto 0.3 % (0-2); Eosinophils Absolute Auto 0.1 X10*3/uL (0.0-0.4); Eosinophils Percent Auto 2.1 % (0-4); Hematocrit 31.7 % (42.0-52.0); Hemoglobin 9.9 g/dl (14.0-18.0); Imm Gran Abs Auto 0.02 X10*3/uL (0.00-0.03); Imm Gran Pct Auto 0.3 % (0.0-0.4); Lymphocytes Absolute Auto 1.3 X10*3/uL (1.2-4.9); Lymphocytes Percent Auto 19.4 % (20-40); Mean Corpuscular HGB Conc 31.2 g/dl (31.0-36.0); Mean Corpuscular Volume 73.5 fL (80.0-98.0); Mean Platelet Volume 9.8 fL (9.4-12.4); Monocytes Absolute Auto 0.6 X10*3/uL (0.1-1.2); Neutrophils Absolute Auto 4.7 x10*3/uL (2.0-8.3); Neutrophils Percent Auto 68.9 % (45-73); Platelet Count 250 X10*3/uL (160-400); Red Blood Count 4.31 X10*6/uL (4.60-5.80); Red Cell Distribution Width 15.9 % (11.0-16.0); White Blood Count 6.8 X10*3/uL (4.8-10.8)
--- NOTE | 2022-04-21 13:09 | PC.NURSE ---
labs and blood cultures drawn and set to lab by tech
[2022-04-21 13:12] LABS: INTERNATIONAL NORM RATIO 1.2 (0.9-1.1); Prothrombin Time 14.4 SEC (10.0-13.1)
[2022-04-21 13:13] LABS: Lactic Acid 1.4 mmol/L (0.5-2.0)
[2022-04-21 13:14] LABS: Partial Thromboplastin Time 32.5 SEC (26.0-36.4)
[2022-04-21 13:18] LABS: COVID-19 Test Negative (Negative); IDNOW Serial# 08D9AD1C
[2022-04-21 13:19] LABS: Alanine Aminotransferase 14 U/L (0-40); Albumin Level 3.6 g/dL (3.5-5.0); Alkaline Phosphatase 82 U/L (39-117); Anion Gap 11 (12-20); Aspartate Amino Transferase 14 U/L (5-37); Bilirubin Direct < 0.2 mg/dL (0.0-0.5); Bilirubin Total 0.5 mg/dL (0.0-1.0); Blood Urea Nitrogen 11 mg/dL (9-16); C Reactive Protein 5.78 mg/dL (< or = 0.50); Calcium 8.8 mg/dL (8.4-10.2); Carbon Dioxide 27 mmol/L (22-29); Chloride 102 mmol/L (96-108); Creatinine Clr Calc Pharmacy 166.5; Estimated Glomerular Filt Rate > 60; Glucose Random 170 mg/dL (60-115); Magnesium 1.9 mg/dL (1.6-2.6); Potassium 3.8 mmol/L (3.3-5.1); Sodium 136 mmol/L (135-145); Total Protein 7.1 g/dL (6.5-8.0)
[2022-04-21 13:23] LABS: B Type Natriuretic Peptide 17 pg/mL (<100)
--- NOTE | 2022-04-21 13:29 | PC.NURSE ---
urine collected and sent to lab
[2022-04-21 13:41] LABS: Appearance Urine Clear; Color Urine Yellow; Glucose Urine UA 100 mg/dL (Negative); Leukocyte Esterase Urine Negative (Negative); Nitrite Urine Negative (Negative); PH 5.5 (5.0-9.0); Urine Blood Negative (Negative); Urine Ketones Negative (Negative); Urine Protein Trace mg/dL (Neg-Trace)
[2022-04-21 13:44] LABS: Erythrocyte Sedimentation Rate 43 MM/HR (0-15)
[2022-04-21 13:54] VITALS: BP 110/64; PULSE 77; RESP 18; TEMP 36.3; O2SAT 96
--- NOTE | 2022-04-21 13:55 | PC.NURSE ---
ppt resting, awaiting lab results. VSS. will cont to monitor.
--- NOTE | 2022-04-21 14:39 | MHC.RECOVRN ---
Attempted to meet with pt, however, was dc before meeting. Spoke with pt over the phone as pt had requested to meet with CARE Team in triage. Pt reports using cocaine, IV, intermittently and is not looking for support for reducing or abstaining at this time. Pt utilizes [facility] and will continue to do so. Denies other questions or concerns at this time.
== END 2022-04-21 14:10 | disposition home or self-care (01) ==
PROVIDERS: Physician Assistant; Emergency Provider Emergency Medicine
DX: L03.115 Cellulitis of right lower limb (principal); R60.0 Localized edema; R06.02 Shortness of breath; Z20.822 Contact with and (suspected) exposure to COVID-19; Z20.828 Contact with and (suspected) exposure to other viral communicable diseases; Z79.899 Other long term (current) drug therapy
CPT/HCPCS: 36415; 80048; 80076; 81003; 83605; 83735; 83880; 85025; 85610; 85652; 85730; 86140; 87040; 87635; 93971; 99284

== ENCOUNTER 2022-06-04 03:48 | Emergency (ER) | payer MEDICAID, SELFPAY ==
--- NOTE | ~2022-06-04 | CT_ITS ---
EXAMINATION: CT CHEST WITHOUT CONTRAST CLINICAL INFORMATION: Fall with left rib fracture. COMPARISON: Chest radiograph 02/25/2022 TECHNIQUE: Multidetector volumetric CT imaging of the chest was done. Axial MIP volume rendering provided. Sagittal and coronal reformatted images were obtained. This CT examination was performed using dose optimization techniques as appropriate, variously including the following: *Automated exposure control *Adjustment of mA and/or kV according to patient size (this includes techniques or standardized protocols for targeted exams where dose is matched to indication/reason for exam; i.e. extremities or head) *Use of iterative reconstruction technique DLP: 605 mGy-cm FINDINGS: CATTLE TESTER: Unremarkable. LUNGS: Minimal secretions in the right main bronchus. The central airways otherwise patent. Mild bronchial wall thickening. There is no consolidation. No pulmonary nodules identified. No pneumothorax. MEDIASTINUM: Normal heart size. No pericardial effusion. No mediastinal lymphadenopathy. Partially visualized thyroid gland appears normal. Moderate hiatal hernia. CORONARY ARTERY CALCIFICATION: None visualized on this study. PLEURA: There is no pleural effusion. No pleural mass or thickening. AXILLA: No lymphadenopathy. UPPER ABDOMEN: No acute abnormality. Prominent stool in the colon. OSSEOUS STRUCTURES: No acute or suspicious osseous abnormality. Bony fusion of the T9-T10 vertebral bodies. Posterior elements intact. Mild degenerative changes of the spine. No rib fractures are identified. CT/CT chest wo IV con IMPRESSION: 1. No acute traumatic finding of the chest. No rib fracture identified. 2. Moderate hiatal hernia. 3. Bronchial wall thickening can be seen with a small airways process such as asthma or atypical/viral infection. Fleischner guidelines were followed.
[2022-06-04 03:58] VITALS: BP 131/79; PULSE 78; RESP 20; TEMP 36.6; O2SAT 97; BMI 38.3
--- NOTE | 2022-06-04 04:34 | ED.GENADULT ---
HPI - General Adult General Chief complaint: General Medical Stated complaint: rib inj fell 2 days ago and feet issues Time Seen by Provider: 06/04/22 04:06 Source: patient Mode of arrival: ambulatory Limitations: no limitations History of Present Illness HPI narrative: Patient the Healthy was taking shower 2 days ago slipped and fell hitting his left lower ribs to the edge of the bathtub since then having the pain which got worse today after patient coughed no abdominal pain no nausea no vomiting no head injury no loss of consciousness no prior history of rib fracture no shortness of breath Related Data Previous Rx's Medication Instructions Recorded alcohol swabs (Alcohol Prep Pads) 1 pad topical BID As directed 09/10/21 check blood sugar twice a day before m #200 ea blood sugar diagnostic (FreeStyle #100 ea 09/10/21 Lite Strips) blood-glucose meter (FreeStyle #1 ea 09/10/21 Lite Meter kit) ferrous sulfate 325 mg (65 mg 325 mg PO DAILY anemia #30 tabs 09/10/21 iron) tablet lancets 28 gauge (FreeStyle #100 ea 09/10/21 Lancets) metformin 500 mg tablet 500 mg PO DAILY Diabetes #30 tabs 09/10/21 albuterol sulfate 90 mcg/actuation 1 inh inhalation QID PRN shortness 02/25/22 aerosol inhaler of breath or wheezing #6.7 grams prednisone 20 mg tablet 40 mg PO DAILY #10 tabs 02/25/22 cephalexin 500 mg capsule 500 mg PO Q6H 7 days #28 caps 04/21/22 doxycycline hyclate 100 mg tablet 100 mg PO BID #14 tabs 04/21/22 benzonatate 200 mg capsule 200 mg PO TID PRN cough #30 caps 06/04/22 oxycodone 5 mg tablet 5 mg PO Q6H PRN pain #20 tabs 06/04/22 Allergies Allergy/AdvReac Type Severity Reaction Status Date / Time No Known Allergies Allergy Verified 06/04/22 04:01 [No Known Allergies*] Review of Systems Review of Systems: Yes all other systems are reviewed and are negative PMFSH Past Medical History Medical History Hiatal hernia Social History Social History Alcohol intake: never Advance Directives: No Advance Directives Information Provided: Yes Physical Exam ED Vital Signs: Vital Signs - 24 hr 06/04/22 03:58 Temperature 97.8 F Pulse Rate 78 Respiratory Rate 20 Blood Pressure 131/79 Pulse Oximetry 97 Oxygen Delivery Method Room Air BMI result Body Mass Index 38.3 Appearance: Alert. Oriented X3. No acute distress. Eyes: PERRLA, ENT: Pharynx normal. Oral Mucosa moist Neck: Normal inspection. Neck supple. CVS: Normal heart rate and rhythm. Pulses normal. Respiratory: No respiratory distress. Equal air entry bilateral, no wheezing/rales/rhonchi tenderness left lower ribs anteriorly Abdomen: Soft and nontender. Bowel sounds are present, no mass palpable, no CVA tenderness Skin: Skin warm and dry. Normal skin color. Normal skin turgor. Extremities: No lower extremity edema. No calf tenderness Neuro: Oriented X 3. No motor deficit. No sensory deficit.No cerebellar signs , cranial nerves II-XII intact Medications Administered Discontinued Medications Generic Name Dose Route Start Last Admin Trade Name Freq PRN Reason Stop Dose Admin Morphine Sulfate 10 mg 06/04/22 05:02 06/04/22 05:12 Morphine Sulfate 10 Mg/Ml Cartridge IM 06/04/22 05:03 10 mg ONCE ONE Administration Protocol Procedures FAST Exam FAST Exam 1: Fluid in Morison's pouch: No Fluid in [place]: No Fluid around bladder, Transverse view: No Fluid around bladder, Sagittal view: No Fluid in Pericardial Sac: No Gross Wall Motion Abnormality: No Study normal for this patient: No Images saved for further review: No Additional Comments: Negative fast scan Medical Decision Making Medical Decision Making MDM Narrative: Patient with left rib contusion see CT scan in negative for fracture no pleural effusion fast is negative will discharge patient home on oxycodone for pain Discharge Plan Discharge Clinical Impression: Rib contusion Patient Disposition: Home, Self-Care Instructions: Rib Contusion (ED) Additional Instructions: A CT scan is negative for any fracture but possible you have microfractures Take pain medication as prescribed Report to ER if acute shortness of breath or worsening of pain Prescriptions: New benzonatate 200 mg capsule 200 mg PO TID PRN (Reason: cough) Qty: 30 0RF oxycodone 5 mg tablet 5 mg PO Q6H PRN (Reason: pain) Qty: 20 0RF Rx Instructions: Partial Fill upon patient request. No Action albuterol sulfate 90 mcg/actuation HFA aerosol inhaler 1 inh inhalation QID PRN (Reason: shortness of breath or wheezing) Qty: 6.7 0RF prednisone 20 mg tablet 40 mg PO DAILY Qty: 10 0RF cephalexin 500 mg capsule 500 mg PO Q6H 7 Days Qty: 28 0RF doxycycline hyclate 100 mg tablet 100 mg PO BID Qty: 14 0RF metformin 500 mg tablet 500 mg PO DAILY Qty: 30 0RF (DME) lancets [FreeStyle Lancets] 28 gauge misc See Rx Instructions .Route Qty: 100 0RF Rx Instructions: As directed at least twice a day check blood sugars and document (DME) blood-glucose meter [FreeStyle Lite Meter] Kit See Rx Instructions .Route Qty: 1 0RF Rx Instructions: As directed check blood sugar at least twice a day before meals (DME) FreeStyle Lite Strips Strip See Rx Instructions .Route Qty: 100 0RF Rx Instructions: As directed check blood sugar twice a day before meals alcohol swabs [Alcohol Prep Pads] Pads, Medicated 1 pad topical BID Qty: 200 0RF ferrous sulfate 325 mg (65 mg iron) tablet 325 mg PO DAILY Qty: 30 0RF
--- NOTE | 2022-06-04 04:59 | PC.NURSE ---
unable to obtain iv access on pt or blood work. 3 different RN's attempted iv line, followed by provider attempt at ultra sound guided iv. pt is tough stick and no luck with iv access - pt politely would like to stop trying for iv access. will obtain dry CT scan and give pain medicine IM. abdominal bed side ultra sound done by MD Bang to r/o splenic injury.
[2022-06-04] MEDS: Morphine Sulfate 10 MG/ML CARTRIDGE IM (05:12)
[2022-06-04 06:27] VITALS: RESP 18; O2SAT 98
== END 2022-06-04 06:28 | disposition home or self-care (01) ==
PROVIDERS: Emergency Provider Internal Medicine
DX: S20.212A Contusion of left front wall of thorax, initial encounter (principal); W18.2XXA Fall in (into) shower or empty bathtub, initial encounter; Y93.E1 Activity, personal bathing and showering; Y92.031 Bathroom in apartment as the place of occurrence of the external cause; Y99.8 Other external cause status; Z79.899 Other long term (current) drug therapy
CPT/HCPCS: 71250; 96372; 99283; 99284; J2270

== ENCOUNTER 2022-06-09 18:30 | Emergency (ER) | payer MEDICAID, SELFPAY ==
--- NOTE | ~2022-06-09 | XR_ITS ---
EXAMINATION: XR RIBS, LEFT CLINICAL INFORMATION: Fall. Left-sided pain. COMPARISON: None available. TECHNIQUE: Frontal view of the chest 3 views of the left ribs were obtained. A BB was placed in area of clinical concern at the lower left ribs. FINDINGS: Lungs are clear. No consolidation, pneumothorax, or pleural effusion. The cardiomediastinal silhouette and pulmonary vasculature are normal. Osseous structures are unremarkable. Ribs are intact. No fractures are identified. XR/XR ribs LT min 3V w CXR1V IMPRESSION: Unremarkable examination.
[2022-06-09 18:32] VITALS: BP 118/82; PULSE 84; RESP 18; TEMP 36.6; O2SAT 98; BMI 37.7
--- NOTE | 2022-06-09 18:34 | ED.GENADULT ---
HPI - General Adult General Stated complaint: rib fx left side ,sob,swollen area Related Data Previous Rx's Medication Instructions Recorded alcohol swabs (Alcohol Prep Pads) 1 pad topical BID As directed 09/10/21 check blood sugar twice a day before m #200 ea blood sugar diagnostic (FreeStyle #100 ea 09/10/21 Lite Strips) blood-glucose meter (FreeStyle #1 ea 09/10/21 Lite Meter kit) ferrous sulfate 325 mg (65 mg 325 mg PO DAILY anemia #30 tabs 09/10/21 iron) tablet lancets 28 gauge (FreeStyle #100 ea 09/10/21 Lancets) metformin 500 mg tablet 500 mg PO DAILY Diabetes #30 tabs 09/10/21 albuterol sulfate 90 mcg/actuation 1 inh inhalation QID PRN shortness 02/25/22 aerosol inhaler of breath or wheezing #6.7 grams prednisone 20 mg tablet 40 mg PO DAILY #10 tabs 02/25/22 cephalexin 500 mg capsule 500 mg PO Q6H 7 days #28 caps 04/21/22 doxycycline hyclate 100 mg tablet 100 mg PO BID #14 tabs 04/21/22 benzonatate 200 mg capsule 200 mg PO TID PRN cough #30 caps 06/04/22 oxycodone 5 mg tablet 5 mg PO Q6H PRN pain #20 tabs 06/04/22 Allergies Allergy/AdvReac Type Severity Reaction Status Date / Time No Known Allergies Allergy Verified 06/04/22 04:01 [No Known Allergies*] PMFSH Past Medical History Medical History Hiatal hernia Social History Social History Alcohol intake: never Course Course Course Narrative: This is an RME: Additional HPI, ROS, PE not included below will be deferred to primary provider. 42-year-old male presents with left-sided rib pain to lower ribs, patient reports a fall about a week ago, since then has been having increasing shortness of breath, pain, trouble with deep breathing. Physical exam left-sided tenderness to anterior/ lateral ribs lower. Vital signs stable. Breath sounds present. Unlikely pneumothorax. Will obtain x-ray and rib series. To note patient had a CT of the chest done on 06/04/2022 which showed no acute traumatic findings on the chest. No rib fractures. Moderate hiatal hernia. Rhonchial wall thickening. However no rib fractures was diagnosed with rib contusion Discharge Plan Discharge Prescriptions: No Action albuterol sulfate 90 mcg/actuation HFA aerosol inhaler 1 inh inhalation QID PRN (Reason: shortness of breath or wheezing) Qty: 6.7 0RF prednisone 20 mg tablet 40 mg PO DAILY Qty: 10 0RF cephalexin 500 mg capsule 500 mg PO Q6H 7 Days Qty: 28 0RF doxycycline hyclate 100 mg tablet 100 mg PO BID Qty: 14 0RF metformin 500 mg tablet 500 mg PO DAILY Qty: 30 0RF (DME) lancets [FreeStyle Lancets] 28 gauge misc See Rx Instructions .Route Qty: 100 0RF Rx Instructions: As directed at least twice a day check blood sugars and document (DME) blood-glucose meter [FreeStyle Lite Meter] Kit See Rx Instructions .Route Qty: 1 0RF Rx Instructions: As directed check blood sugar at least twice a day before meals (DME) FreeStyle Lite Strips Strip See Rx Instructions .Route Qty: 100 0RF Rx Instructions: As directed check blood sugar twice a day before meals alcohol swabs [Alcohol Prep Pads] Pads, Medicated 1 pad topical BID Qty: 200 0RF ferrous sulfate 325 mg (65 mg iron) tablet 325 mg PO DAILY Qty: 30 0RF benzonatate 200 mg capsule 200 mg PO TID PRN (Reason: cough) Qty: 30 0RF oxycodone 5 mg tablet 5 mg PO Q6H PRN (Reason: pain) Qty: 20 0RF Rx Instructions: Partial Fill upon patient request.
== END 2022-06-09 19:52 | disposition left against medical advice (07) ==
PROVIDERS: Emergency Provider Emergency Medicine
DX: R07.81 Pleurodynia (principal); R06.02 Shortness of breath
CPT/HCPCS: 71101; 99282; 99283

== ENCOUNTER 2022-09-17 12:08 | Emergency (ER) | payer MEDICAID, SELFPAY ==
--- NOTE | ~2022-09-17 | XR_ITS ---
EXAMINATION: XR CHEST CLINICAL INFORMATION: Cough and fever. Rule out pneumonia. COMPARISON: 06/09/2022 TECHNIQUE: Frontal view of the chest was obtained. FINDINGS: The lungs are well expanded. There is no focal consolidation, edema, or effusion. Bronchial wall thickening noted. No pneumothorax. The cardiomediastinal silhouette is within normal limits. No acute osseous abnormality. XR/XR chest 1V IMPRESSION: No dense consolidation. Bronchial wall thickening can be seen with a small airways process such as asthma or atypical/viral infection.
[2022-09-17 12:19] VITALS: BP 133/86; BP 158/90; PULSE 100; PULSE 71; RESP 16; TEMP 36.6; O2SAT 100; O2SAT 98; BMI 26.5
--- NOTE | 2022-09-17 13:00 | ECG_ITS ---
Test Reason : CHEST PAIN Blood Pressure : / mmHG Vent. Rate : 078 BPM Atrial Rate : 078 BPM P-R Int : 148 ms QRS Dur : 090 ms QT Int : 414 ms P-R-T Axes : 058 018 016 degrees QTc Int : 471 ms Normal sinus rhythm Normal ECG When compared with ECG of 25-FEB-2022 05:40, No significant change was found Referred By: Carl Avila Electronically Signed By:Charli Haddad
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
[2022-09-17] MEDS: LORazepam 2 MG/ML VIAL IVPUSH (13:08)
[2022-09-17] MEDS: 0.9 % Sodium Chloride 1,000 ML 999 ML IV (13:09)
--- NOTE | 2022-09-17 13:22 | PC.NURSE ---
Pt had a 30 min seizure iv access L arm pit current getting labs.
[2022-09-17 13:40] LABS: MANUAL DIFF FLAG NO
[2022-09-17 13:44] LABS: Basophils Percent Auto 0.6 % (0-2); Eosinophils Absolute Auto 0.1 X10*3/uL (0.0-0.4); Eosinophils Percent Auto 1.4 % (0-4); Hematocrit 36.8 % (42.0-52.0); Hemoglobin 11.3 g/dl (14.0-18.0); Imm Gran Abs Auto 0.02 X10*3/uL (0.00-0.03); Imm Gran Pct Auto 0.3 % (0.0-0.4); Lymphocytes Absolute Auto 0.8 X10*3/uL (1.2-4.9); Mean Corpuscular HGB Conc 30.7 g/dl (31.0-36.0); Mean Corpuscular Volume 74.9 fL (80.0-98.0); Monocytes Absolute Auto 0.3 X10*3/uL (0.1-1.2); Monocytes Percent Auto 3.9 % (2-11); Neutrophils Absolute Auto 5.6 x10*3/uL (2.0-8.3); Neutrophils Percent Auto 81.8 % (45-73); Platelet Count 201 X10*3/uL (160-400); Red Blood Count 4.91 X10*6/uL (4.60-5.80); Red Cell Distribution Width 16.7 % (11.0-16.0); White Blood Count 6.9 X10*3/uL (4.8-10.8)
[2022-09-17 13:52] LABS: INTERNATIONAL NORM RATIO 1.2 (0.9-1.1); Prothrombin Time 14.1 SEC (11.1-13.3)
[2022-09-17 13:55] LABS: Partial Thromboplastin Time 32.9 SEC (26.0-36.4)
[2022-09-17 14:07] LABS: Lactic Acid 1.5 mmol/L (0.5-2.0)
[2022-09-17 14:12] LABS: Amphetamine Screen Urine Not Detected (Not Detect); Barbiturates, Urine Not Detected (Not Detect); Benzodiazepines Screen Urine Not Detected (Not Detect); Cannabinoid Screen Urine Not Detected (Not Detect); Cocaine Screen Urine POSITIVE (Not Detect); Fentanyl, urine POSITIVE (Not Detect); Opiate Screen Urine POSITIVE (Not Detect); Phencyclidine Screen Urine Not Detected (Not Detect)
[2022-09-17 14:14] LABS: Alanine Aminotransferase 15 U/L (0-40); Albumin Level 3.8 g/dL (3.5-5.0); Alkaline Phosphatase 82 U/L (39-117); Anion Gap 10 (12-20); Aspartate Amino Transferase 18 U/L (5-37); Bilirubin Total 0.3 mg/dL (0.0-1.0); Blood Urea Nitrogen 15 mg/dL (9-16); Calcium 9.2 mg/dL (8.4-10.2); Carbon Dioxide 29 mmol/L (22-29); Chloride 109 mmol/L (96-108); Creatinine Clr Calc Pharmacy 143.2; Estimated Glomerular Filt Rate > 60; Glucose Random 94 mg/dL (60-115); Lipase 72 U/L (8-78); Potassium 3.6 mmol/L (3.3-5.1); Sodium 144 mmol/L (135-145); Total Protein 7.3 g/dL (6.5-8.0)
[2022-09-17 14:15] LABS: Erythrocyte Sedimentation Rate 16 MM/HR (0-15)
[2022-09-17 14:17] LABS: Ethanol < 10 mg/dL
[2022-09-17 14:19] LABS: COVID-19 Test Negative (Negative); IDNOW Serial# 08D9AD1C
[2022-09-17 14:30] LABS: Troponin-I High Sensitivity < 2.7 ng/L (<3.5-35.0)
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
[2022-09-17] MEDS: methADONE HCl 20 MG/2 ML ORAL.CONC PO (18:22)
[2022-09-17] MEDS: Naloxone HCl Nasal TAKE HOME 4 MG SPRAY 8 MG NOSTRILALT (18:22)
[2022-09-17] MEDS: levETIRAcetam 1,000 MG TABLET 1000 MG PO (18:22)
[2022-09-17 18:31] VITALS: BP 145/84; PULSE 84; RESP 16; TEMP 37; O2SAT 98
--- NOTE | 2022-09-17 18:37 | MHC.RECOVSUP ---
? Reason for consult:OPI o? Current location:[facility]? o? Identified substance use concern:? -? Overdose -? Support ?? Intervention: o? Community resources provided ? Plan:Outpatient treatment ? Additional information:assistant softball coach met with this pt and discussed treatment options, pt declined because he isn't going to leave his gf behind I offered to help them both but this pt stated he wants to try to outpatient treatment first before he tries inpatient.
== END 2022-09-17 18:32 | disposition home or self-care (01) ==
PROVIDERS: Emergency Provider Emergency Medicine Emergency Medical Services
DX: G40.409 Other generalized epilepsy and epileptic syndromes, not intractable, without status epilepticus (principal); T40.1X1A Poisoning by heroin, accidental (unintentional), initial encounter; T40.5X1A Poisoning by cocaine, accidental (unintentional), initial encounter; T40.411A Poisoning by fentanyl or fentanyl analogs, accidental (unintentional), initial encounter; R40.4 Transient alteration of awareness; Y92.9 Unspecified place or not applicable; E11.9 Type 2 diabetes mellitus without complications; I10 Essential (primary) hypertension; F11.20 Opioid dependence, uncomplicated; Z20.822 Contact with and (suspected) exposure to COVID-19
CPT/HCPCS: 36415; 71045; 80053; 80307; 83605; 83690; 84484; 85025; 85610; 85652; 85730; 86140; 87040; 87635; 93005; 96361; 96374; 99284; J2060

== ENCOUNTER → 2022-09-17 13:00 | Outpatient (BNV) | payer MEDICAID, SELFPAY | PROVIDERS: Emergency Provider Emergency Medicine Emergency Medical Services; Visit Provider Internal Medicine Cardiovascular Disease | DX: R07.9 Chest pain, unspecified (principal) | CPT/HCPCS: 93010 ==

== ENCOUNTER 2023-11-11 18:20 | Inpatient (IN) | payer MEDICAID, SELFPAY ==
--- NOTE | ~2023-11-11 | US_ITS ---
EXAMINATION: US ABDOMEN LIMITED CLINICAL INFORMATION: This assess for abscess. COMPARISON: Previous day CT scan TECHNIQUE: Targeted ultrasound of the left scapular region. FINDINGS: Targeted ultrasound demonstrates diffuse subcutaneous edema but no organized fluid collection. No soft tissue mass or adenopathy. US/US abdomen limited IMPRESSION: No abscess. Electronically signed by: Denys Bianchi MD 11/12/2023 05:24 PM EDT
--- NOTE | ~2023-11-11 | CT_ITS ---
EXAMINATION: CT LUMBAR SPINE WITHOUT AND WITH CONTRAST CLINICAL INFORMATION: Excruciating mid and lower back pain, IV drug use, staph bacteremia COMPARISON: None available. TECHNIQUE: CT imaging of the lumbar spine without contrast. This CT examination was performed using dose optimization techniques as appropriate, variously including the following: *Automated exposure control *Adjustment of mA and/or kV according to patient size (this includes techniques or standardized protocols for targeted exams where dose is matched to indication/reason for exam; i.e. extremities or head) *Use of iterative reconstruction technique DLP: 697 mGy-cm FINDINGS: The lumbar spine maintains normal alignment. Vertebral body heights are maintained. There is a small disc osteophyte complex and mild ligamentum flavum hypertrophy resulting in mild canal and bilateral foraminal stenosis at L3-L4 and L4-L5. At S1, there is a large disc osteophyte complex resulting in mild-moderate canal stenosis. The paravertebral soft tissues and psoas musculature is unremarkable. There is a trace left pleural effusion. CT/CT lumbar spine wo/w IV con IMPRESSION: 1. Mild degenerative disease of the lumbar spine. 2. Trace left pleural effusion. Electronically signed by: Raiza Valenzuela MD 11/14/2023 12:28 PM EDT
--- NOTE | ~2023-11-11 | CT_ITS ---
EXAMINATION: CT CHEST WITH CONTRAST CLINICAL INFORMATION: Left-sided chest pain, febrile with left posterior thoracic mass COMPARISON: Chest radiograph 09/17/2022, CT chest 06/04/2022 TECHNIQUE: Multidetector volumetric CT imaging of the chest was obtained after the administration of 85 mL of Omnipaque 350 intravenous contrast without immediate adverse reactions. Axial MIP volume rendering provided. Sagittal and coronal reformatted images were obtained. This CT examination was performed using dose optimization techniques as appropriate, variously including the following: *Automated exposure control *Adjustment of mA and/or kV according to patient size (this includes techniques or standardized protocols for targeted exams where dose is matched to indication/reason for exam; i.e. extremities or head) *Use of iterative reconstruction technique DLP: 594 mGy-cm FINDINGS: LUNGS: There is a groundglass infiltrate in the right upper lobe measuring 2.0 x 1.7 x 1.3 cm mean (5:241 and 7:106). No other nodules, masses or infiltrates are seen. MEDIASTINUM: The mediastinum is normal. PLEURA: There is no pleural effusion. No pleural mass or thickening. AXILLA: Multiple prominent lymph nodes are present in the left axilla with none measuring greater than 1 cm in short axis dimension CHEST WALL: In the left chest wall, there are expansile changes in the posterior musculature, the serratus anterior and the latissimus dorsi, with surrounding streaky changes in the subcutaneous fat. UPPER ABDOMEN: The spleen is enlarged at 13.3 cm. The liver is enlarged measuring at least 19 cm in length but is not all included on this study. Probable fatty infiltration. A small hiatal hernia is present. OSSEOUS STRUCTURES: Unremarkable. CT/CT chest w IV con IMPRESSION: 1. Expansile changes in the left chest wall musculature with surrounding streaky changes in the subcutaneous fat. Findings are most consistent with an infectious process. No discrete abscess is seen. 2. Groundglass infiltrate right upper lobe. 3. Incidental note made of enlarged fatty liver, splenomegaly and small hiatal hernia. Fleischner guidelines were followed. Electronically signed by: Charles Gaytan MD 11/12/2023 02:04 AM EDT
--- NOTE | 2023-11-11 18:23 | ECG_ITS ---
Test Reason : chest pain Blood Pressure : / mmHG Vent. Rate : 094 BPM Atrial Rate : 094 BPM P-R Int : 152 ms QRS Dur : 086 ms QT Int : 340 ms P-R-T Axes : 059 029 018 degrees QTc Int : 425 ms Normal sinus rhythm Normal ECG When compared with ECG of 17-SEP-2022 13:41, QT has shortened Referred By: Generic ED Physician Electronically Signed By:GEOVANNY CROOKS
[2023-11-11 19:12] VITALS: BP 109/75; PULSE 87; RESP 20; TEMP 37.4; O2SAT 93; BMI 26.0
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
[2023-11-11 20:31] LABS: MANUAL DIFF FLAG NO
[2023-11-11 20:32] LABS: Basophils Percent Auto 0.2 % (0-2); Eosinophils Absolute Auto 0.3 X10*3/uL (0.0-0.4); Eosinophils Percent Auto 2.3 % (0-4); Hematocrit 34.3 % (42.0-52.0); Hemoglobin 11.1 g/dl (14.0-18.0); Imm Gran Abs Auto 0.08 X10*3/uL (0.00-0.03); Imm Gran Pct Auto 0.6 % (0.0-0.4); Lymphocytes Absolute Auto 1.6 X10*3/uL (1.2-4.9); Lymphocytes Percent Auto 11.3 % (20-40); Mean Corpuscular HGB Conc 32.4 g/dl (31.0-36.0); Mean Corpuscular Hemoglobin 24.5 pg (27.0-33.0); Mean Corpuscular Volume 75.7 fL (80.0-98.0); Mean Platelet Volume 9.1 fL (9.4-12.4); Monocytes Absolute Auto 0.9 X10*3/uL (0.1-1.2); Neutrophils Absolute Auto 11.4 x10*3/uL (2.0-8.3); Neutrophils Percent Auto 79.6 % (45-73); Platelet Count 359 X10*3/uL (160-400); Red Blood Count 4.53 X10*6/uL (4.60-5.80); Red Cell Distribution Width 14.5 % (11.0-16.0); White Blood Count 14.4 X10*3/uL (4.8-10.8)
[2023-11-11 20:41] LABS: Lactic Acid 1.2 mmol/L (0.5-2.0)
[2023-11-11 20:46] LABS: Alanine Aminotransferase 9 U/L (0-40); Albumin Level 3.8 g/dL (3.5-5.0); Alkaline Phosphatase 81 U/L (39-117); Anion Gap 11 (12-20); Aspartate Amino Transferase 11 U/L (5-37); Bilirubin Total 0.3 mg/dL (0.0-1.0); Blood Urea Nitrogen 10 mg/dL (9-16); C Reactive Protein 9.68 mg/dL (< or = 0.50); Calcium 9.3 mg/dL (8.4-10.2); Carbon Dioxide 28 mmol/L (22-29); Chloride 101 mmol/L (96-108); Estimated Glomerular Filt Rate > 60; Glucose Random 141 mg/dL (60-115); Lipase 10 U/L (8-78); Magnesium 2.3 mg/dL (1.6-2.6); Potassium 4.4 mmol/L (3.3-5.1); Sodium 136 mmol/L (135-145); Total Protein 8.8 g/dL (6.5-8.0)
[2023-11-11 20:47] LABS: Ethanol < 10 mg/dL
[2023-11-11 20:57] LABS: Troponin-I High Sensitivity < 2.7 ng/L (<3.5-35.0)
[2023-11-11 22:33] VITALS: BP 107/51; PULSE 84; RESP 16; TEMP 38.4; O2SAT 96
[2023-11-11] MEDS: Albuterol Sulfate 2.5 MG, Albuterol/Iprat 2.5/0.5MG 3 ML 3 ML INHALE (22:38)
[2023-11-11 22:39] VITALS: PULSE 94; RESP 22; O2SAT 95
[2023-11-11] MEDS: Acetaminophen 325 MG TABLET 975 MG PO (22:43)
[2023-11-11 23:15] LABS: Erythrocyte Sedimentation Rate 83 MM/HR (0-15)
[2023-11-11] MEDS: cefTRIAXone sodium 1 GM in 0.9 % Sodium Chloride 50 ML IV (23:34)
[2023-11-11] MEDS: 0.9 % Sodium Chloride 1,000 ML 999 ML IV (23:34)
[2023-11-12] VITALS (18 sets, daily range): BP systolic 92–129; BP diastolic 48–80; PULSE 68–98; RESP 16–25; TEMP 36.6–39.1; O2SAT 90–98
[2023-11-12] MEDS: iohexoL 350 MG/ML 100 ML INFUS..BTL 85 ML IV (00:07)
[2023-11-12] MEDS: LORazepam 2 MG/ML VIAL IVPUSH (00:13)
[2023-11-12] MEDS: methADONE HCl 20 MG/2 ML ORAL.CONC 30 MG PO (00:13)
[2023-11-12 00:48] LABS: Appearance Urine Clear; Color Urine Yellow; Glucose Urine UA Negative (Negative); Leukocyte Esterase Urine Negative (Negative); Nitrite Urine Negative (Negative); Urine Blood Negative (Negative); Urine Ketones Negative (Negative); Urine Protein Negative (Neg-Trace)
[2023-11-12 00:59] LABS: Amphetamine Screen Urine Not Detected (Not Detect); Barbiturates, Urine Not Detected (Not Detect); Benzodiazepines Screen Urine Not Detected (Not Detect); Buprenorphine Scr Not Detected (Not Detect); Cannabinoid Screen Urine Not Detected (Not Detect); Cocaine Screen Urine POSITIVE (Not Detect); Fentanyl, urine POSITIVE (Not Detect); Methadone Screen, Urine Not Detected (Not Detect); Opiate Screen Urine POSITIVE (Not Detect); Oxycodone Screen Urine Not Detected (Not Detect); Phencyclidine Screen Urine Not Detected (Not Detect)
[2023-11-12] MEDS: 0.9 % Sodium Chloride 1,000 ML 999 ML IV (01:30)
--- NOTE | 2023-11-12 01:38 | PC.NURSE ---
This RN attempted to get IV, unsuccessfully, request other RN to try which was also unsuccessful. Provider made aware. T/w requested to give abx IM but provider uncomfortable ordering abx IM for sepsis pt. Medication delayed d/t IV access. Provider will attempt with U/S. placed #20 IV in R-AC, 2nd set of bc received and sent to lab, abx and fluids administered. BP 90/50's Provider made aware and another L-fluids ordered.
[2023-11-12 02:07] LABS: Influenza A PCR NEGATIVE (Negative); Influenza B PCR NEGATIVE (Negative); Resp Syncy Virus RNA Qual PCR NEGATIVE (Negative); SARS COV2 PCR INHOUSE NEGATIVE (Negative)
--- NOTE | 2023-11-12 03:45 | P.HPHOSP_ITS ---
History of Present Illness Date of Service: 11/12/23 Attending physician on admission: Dannie Lynn Chief Complaint: Left-sided chest pain At the time of my evaluation patient was sedated as he received treatment with Ativan 2 mg and methadone 30 mg PO. Saul Caro is a 43 years old man with past medical history significant for IVDU that according to ED provider he came to the emergency department complaining of left-sided chest pain and left upper back mass that the patient noted 3 days ago. Patient also had a mechanical fall a week ago. A chest CTA was obtained that showed expansile changes in the left chest wall musculature with surrounding streaky changes in the subcutaneous fat consistent with infectious process with no discrete abscess seen. It also showed ground-glass infiltrates in the right upper lobe. His blood workup showed leukocytosis of 14.4. Hemoglobin is at baseline and platelets are normal. There are no significant electrolyte imbalances. Renal function and LFTs are normal. Lipase is normal. CRP is 9.68. ECG showed normal sinus rhythm without ischemic changes. ED tx: APAP 975 mg p.o., ceftriaxone 1 g IV, NS 1 L bolus, methadone 30 mg p.o., albuterol inhaler, Lilly Zofran 2 mg IV, NS 2 L bolus. Review of Systems 2 Review of Systems: Unable to stand, patient is very sedated [facility] Medical History (Updated 11/12/23 @ 04:32 by Dannie Lynn MD) IVDU (intravenous drug user) Type 2 diabetes mellitus Hiatal hernia Social History Alcohol intake: never Smoked in Last 30 Days: Yes Substance Use Type: Crack/Cocaine, IV Drugs and Opiates Substance Use Frequency: Chronic Longstanding Last Used Substance: Hours (ago) Advance Directives: No Advance Directives Information Provided: No Meds Allergies Allergy/AdvReac Type Severity Reaction Status Date / Time No Known Allergies Allergy Verified 11/11/23 19:22 [No Known Allergies*] Active Medications: Current Medications Acetaminophen (Acetaminophen 325 Mg Tablet) 650 mg PO Q6H PRN PRN Reason: Pain, Mild (Pain Scale 1-3), fever or headache Enoxaparin Sodium (Enoxaparin Sodium 40 Mg/0.4 Ml Syringe) 40 mg SUBCUT Q24H [facility] Vancomycin HCl (Vancomycin/Ns) 2,000 mg in 500 mls @ 250 mls/hr IV ONCE ONE Stop: 11/12/23 05:11 Lactated Ringer's (Lr) 1,000 mls @ 999 mls/hr IV .Q1H1M STA Stop: 11/12/23 04:38 Lactated Ringer's (Lr) 1,000 mls @ 150 mls/hr IVCONT .Q6H40M [facility] Ondansetron HCl (Ondansetron Hcl 4 Mg/2 Ml Vial) 4 mg IVPUSH Q8H PRN PRN Reason: Nausea and Vomiting Pharmacy Consult (Consult Rx Vancomycin Dosing) 1 each MISCELLANE DAILY PRN PRN Reason: Consult order Pharmacy Consult (Consult Rx Vancomycin Dosing) 1 each MISCELLANE DAILY PRN PRN Reason: Consult order Sodium Chloride (0.9 % Sodium Chloride Flush 3 Ml Syringe) 3 ml IVFLUSH QSHIFT MARU Physical Exam 2 Vital Signs and Narrative: Vital Signs: Last Vital Signs Temp 98.7 F 11/12/23 02:05 Pulse 81 11/12/23 02:05 Resp 23 H 11/12/23 02:05 BP 100/52 L 11/12/23 02:05 Pulse Ox 94 11/12/23 02:05 O2 Del Method Nasal Cannula 11/12/23 02:05 O2 Flow Rate 2 11/12/23 02:05 BMI result Body Mass Index 26.0 Constitutional - Sedated, difficult to arouse HEENT - Atraumatic head. Heart - RRR, No murmurs. Lungs - Normal lung expansion, Normal respiratory effort, No respiratory distress, CTA bilaterally Abdomen - NT / ND; +BS; No rebound or guarding - No CVA tenderness Extremities - no calf tenderness bilaterally, no swelling Musculoskeletal - Normal inspection, normal ROM Skin - Warm/Dry Neurological - Alert & oriented x3, CN II-XII in tact, 5/5 strength BUE and BLE Psychological - Appropriate affect Results Labs 11/11/23 20:24 11/11/23 20:24 Labs: Laboratory Results - last 24 hr 11/11/23 11/12/23 11/12/23 20:24 00:38 01:25 MCV 75.7 L MCH 24.5 L MCHC 32.4 RDW 14.5 Plt Count 359 D MPV 9.1 L Immature Gran % (Auto) 0.6 H Neut % (Auto) 79.6 H Lymph % (Auto) 11.3 L [place] % (Auto) 6.0 Eos % (Auto) 2.3 Baso % (Auto) 0.2 Lymph # (Auto) 1.6 [place] # (Auto) 0.9 Eos # (Auto) 0.3 Baso # (Auto) 0.0 Abs Immat Gran (auto) 0.08 H Absolute Neuts (auto) 11.4 H Absolute Nucleated RBC 0.000 Nucleated RBC % (auto) 0.0 ESR 83 H Anion Gap 11 L Estim Creat Clear Calc 150.0 Estimated GFR > 60 Random Glucose 141 H Lactic Acid 1.2 Calcium 9.3 Magnesium 2.3 Total Bilirubin 0.3 AST 11 ALT 9 Alkaline Phosphatase 81 Troponin I High Sens < 2.7 C-Reactive Protein 9.68 H Total Protein 8.8 H Albumin 3.8 Lipase 10 Urine Color Yellow Urine Appearance Clear Urine pH 7.0 Ur Specific [place] 1.010 Urine Protein Negative Urine Glucose (UA) Negative Urine Ketones Negative Urine Blood Negative Urine Nitrite Negative Ur Leukocyte Esterase Negative Urine Opiates Screen POSITIVE H Ur Buprenorphine Scrn Not Detected Ur Oxycodone Screen Not Detected Urine Methadone Screen Not Detected Urine Fentanyl Screen POSITIVE H Ur Barbiturates Screen Not Detected Ur Phencyclidine Scrn Not Detected Ur Amphetamines Screen Not Detected U Benzodiazepines Scrn Not Detected Urine Cocaine Screen POSITIVE H U Marijuana (THC) Screen Not Detected Ethyl Alcohol < 10 Influenza Type A (PCR) NEGATIVE Influenza Type B (PCR) NEGATIVE RSV RNA Qual (PCR) NEGATIVE SARS-CoV-2 RNA (RT-PCR) NEGATIVE Imaging Radiologist's Impressions: Impressions Chest CT 11/11/23 21:37 IMPRESSION: 1. Expansile changes in the left chest wall musculature with surrounding streaky changes in the subcutaneous fat. Findings are most consistent with an infectious process. No discrete abscess is seen. 2. Groundglass infiltrate right upper lobe. 3. Incidental note made of enlarged fatty liver, splenomegaly and small hiatal hernia. Fleischner guidelines were followed. Electronically signed by: Charles Gaytan MD 11/12/2023 02:04 AM EDT Assessment and Plan (1) Pneumonia: Qualifiers: Pneumonia type: aspiration pneumonia Laterality: right Lung location: upper lobe of lung Aspiration pneumonia type: unspecified Qualified Code(s): J 69.0 - Pneumonitis due to inhalation of food and vomit Status: Acute (2) Cellulitis of chest wall: Status: Acute Plan Saul Caro is a 43 y/o woman admitted with: * SIRS criteria (not severe sepsis) secondary to left extensive chest wall cellulitis --> extending to left upper back. Admit to hospitalist service. Continue vancomycin. Blood cultures obtained -will follow results. * Shortness on breath, ground-glass infiltrate in the right upper lobe, aspiration? Aspiration precautions. NPO. Start treatment with Zosyn 3.375 g IV every 6 hours. Pulse oximetry. Supplemental oxygen as needed. Bronchodilator therapy as needed. * Polysubstance abuse: Urine drug screen positive for cocaine, fentanyl and opiates. Received Ativan 2 mg IV and methadone 30 mg PO by ED. Patient is currently sedated. It is unclear to me if patient is on a methadone program. Addiction medicine consult. * Type 2 diabetes mellitus. Blood glucose monitoring every 6 hours while NPO. Insulin sliding scale. Check hemoglobin A1c. DVT prophylaxis: Lovenox Code status: Full Patient will need hospitalization for at least 2 midnights for extensive chest wall cellulitis management with IV antibiotic therapy Quality Stroke Does the patient have a stroke diagnosis?: No VTE Prior VTE?: No VTE Risk Level:: Medical - moderate - high VTE Device Contraindication: Treatment Not Indicated VTE Drug Contraindication: N/A - Med Ordered
[2023-11-12] MEDS: vancomycin/NS 2,000 MG/500 ML PLAST..BAG 250 MG IV (03:53)
[2023-11-12] MEDS: Lactated Ringers 1,000 ML 999 ML IV (03:53)
[2023-11-12 04:56] LABS: Glucose, Whole Blood 78 mg/dL (60-115)
[2023-11-12] MEDS: Lactated Ringers 1,000 ML 150 ML IVCONT ×3 (05:02→20:05)
[2023-11-12] MEDS: Enoxaparin Sodium 40 MG/0.4 ML SYRINGE SUBCUT (06:18)
[2023-11-12] MEDS: Piperacillin Sodium/Tazobactam 3.375 GM in 0.9 % Sodium Chloride 50 ML IV ×3 (06:19→20:05)
--- NOTE | 2023-11-12 07:15 | PHA.PROG ---
Admission Date/Time: November 12, 2023 03:36 Indication: Skin Weight in k.7 kg Adjusted body weight in Kg: Ione body weight in Kg: Obesity Dosing Indication % IBW: Serum Creatinine - Last 168 Hours 11/11/23 20:24 Creatinine 0.69 Estimated CrCl and GFR - Last 168 Hours 11/11/23 20:24 Estim Creat Clear Calc 150.0 Estimated GFR > 60 Vancomycin Loading Dose: 2000 mg Current Vancomycin Dosing Regimen: 1250mg q12h Vancomycin Monitoring using AUC goal of 400 - 600 range with trough as surrogate marker: 459 mg/L Date and Time for next Vancomycin Level to be drawn: 11/12 @1400 Pharmacist Comments on Vancomycin Plan: Will start 1250 mg q12h, aiming for a projected trough of 13.4 for skin infection. Vancomycin dosing will take advantage of [facility] as a clinical decision support tool that uses Bayesian modeling to calculate individual patient's pharmacokinetic parameters and forecast the patient's drug concentration time course with the target goal AUC 24 range of 400 - 600 mg/L/hr.
[2023-11-12 08:03] LABS: Glucose, Whole Blood 73 mg/dL (60-115)
[2023-11-12 08:23] LABS: MANUAL DIFF FLAG NO
[2023-11-12 08:26] LABS: Basophils Percent Auto 0.4 % (0-2); Eosinophils Absolute Auto 0.3 X10*3/uL (0.0-0.4); Eosinophils Percent Auto 2.5 % (0-4); Hematocrit 31.7 % (42.0-52.0); Hemoglobin 10.1 g/dl (14.0-18.0); Imm Gran Abs Auto 0.05 X10*3/uL (0.00-0.03); Imm Gran Pct Auto 0.4 % (0.0-0.4); Lymphocytes Absolute Auto 1.5 X10*3/uL (1.2-4.9); Lymphocytes Percent Auto 12.9 % (20-40); Mean Corpuscular HGB Conc 31.9 g/dl (31.0-36.0); Mean Corpuscular Hemoglobin 24.3 pg (27.0-33.0); Mean Corpuscular Volume 76.2 fL (80.0-98.0); Mean Platelet Volume 9.2 fL (9.4-12.4); Monocytes Absolute Auto 0.8 X10*3/uL (0.1-1.2); Monocytes Percent Auto 7.1 % (2-11); Neutrophils Absolute Auto 8.7 x10*3/uL (2.0-8.3); Neutrophils Percent Auto 76.7 % (45-73); Platelet Count 288 X10*3/uL (160-400); Red Blood Count 4.16 X10*6/uL (4.60-5.80); Red Cell Distribution Width 14.7 % (11.0-16.0); White Blood Count 11.3 X10*3/uL (4.8-10.8)
[2023-11-12 08:41] LABS: Anion Gap 11 (12-20); Blood Urea Nitrogen 7 mg/dL (9-16); Calcium 8.6 mg/dL (8.4-10.2); Carbon Dioxide 25 mmol/L (22-29); Chloride 106 mmol/L (96-108); Creatinine Clr Calc Pharmacy 166.9; Estimated Glomerular Filt Rate > 60; Glucose Random 84 mg/dL (60-115); Potassium 4.2 mmol/L (3.3-5.1); Sodium 138 mmol/L (135-145)
--- NOTE | 2023-11-12 08:42 | PHA.MEDREC ---
Addendum entered by Armando Reina 11/12/23 08:49: reviewed Original Note: Pharmacy Consult ? Medication Reconciliation Pharmacy has completed the medication reconciliation. Spouse confirms pt not on any prescribed medications. Was on methadone 80 mg daily at [facility] per spouse, but has been off for a while now.
--- NOTE | 2023-11-12 10:02 | PM.EVENT ---
Event Note Date of Service: 11/12/23 Event Note: pt seen/examined, admitted this morning vitals stable, somnolent 43/m diabetes, polysub abuse here with sepsis d/t left chest wall cellulitis, aspiration PNA Sepsis d/t Left chest wall cellulitis and Asp PNA, 1/2 gram positive cocci in blood -Continue Vanc and Zosyn, started 11/11 -Follow cultures. Polysubstance abuse (opioid, cocaine, fentanyl) -given ativan 2 mg , methadone 30 in ED , no record of outpatient Methadone -addiction med consult -follow resp status closely, fairly somnolent now ? [id number] and random glucose normal, last A1C in 2021 was 6, today 5.9 Time Spent With Patient Time: Total time managing care of this patient today ____ minutes.
[2023-11-12 10:16] LABS: Estimated Average Glucose 123 mg/dL; Hemoglobin A1C 106.8079 umol/L; Hemoglobin A1c % 5.9 % (<6.0); Total Hemoglobin (HGBA1C) 2597.1789 umol/L
--- NOTE | 2023-11-12 10:28 | HO.ADDICT_ITS ---
History of Present Illness Date of Service: 11/12/2023 Chief Complaint: Left chest wall cellulitis Reason for Consult: SERA Sources of Information: chart reviewed Additional Sources of Information: patient's girlfriend HPI Narrative: Patient medically admitted with pneumonia and chest wall cellulitis During admission in ED, patient reported to ED provider that he was experiencing opiate withdrawal sx Methadone 30mg administered UDS +fentanyl, opiates and cocaine Patient seen in room 367 History obtained from GF as patient would not wake for interview She reports he uses approx 20 bundles daily denies alcohol use reports that he was previously on methadone (more than a year ago, and at that time his dose was 75mg) He appeared comfortable while sleeping --no diaphoresis or restlessness noted GF reports he appears more comfortable than when he presented to ED initially Review of Systems Review of Systems Yes Unobtainable due to mental status Diagnostics Vital Signs (24Hr): Vital Signs - 24 hr 11/11/23 19:12 11/11/23 22:33 11/11/23 22:39 Temperature 99.3 F 101.1 F H Pulse Rate 87 84 94 Respiratory Rate 20 16 22 H Blood Pressure 109/75 107/51 L Pulse Oximetry 93 96 Oxygen Delivery Method Room Air Room Air Oxygen Flow Rate 11/12/23 00:15 11/12/23 00:45 11/12/23 01:21 Temperature 98.9 F Pulse Rate 87 89 86 Respiratory Rate 18 25 H 22 H Blood Pressure 102/52 L 93/48 L 94/55 L Pulse Oximetry 92 92 92 Oxygen Delivery Method Room Air Room Air Room Air Oxygen Flow Rate 11/12/23 01:29 11/12/23 02:05 11/12/23 03:00 Temperature 98.7 F 98.7 F 98.6 F Pulse Rate 83 81 78 Respiratory Rate 20 23 H 24 H Blood Pressure 94/53 L 100/52 L 95/56 L Pulse Oximetry 90 L 94 95 Oxygen Delivery Method Room Air Nasal Cannula Nasal Cannula Oxygen Flow Rate 2 2 11/12/23 03:30 11/12/23 04:00 11/12/23 04:16 Temperature 98 F 98.0 F Pulse Rate 79 78 75 Respiratory Rate 24 H 24 H 22 H Blood Pressure 102/65 101/64 103/63 Pulse Oximetry 96 96 96 Oxygen Delivery Method Nasal Cannula Nasal Cannula Nasal Cannula Oxygen Flow Rate 2 2 2 11/12/23 04:30 11/12/23 05:31 11/12/23 06:41 Temperature 98 F Pulse Rate 73 68 78 Respiratory Rate 23 H 18 24 H Blood Pressure 108/70 114/73 92/58 L Pulse Oximetry 98 95 95 Oxygen Delivery Method Nasal Cannula Nasal Cannula Nasal Cannula Oxygen Flow Rate 2 2 2 11/12/23 06:50 11/12/23 07:11 Temperature 98.4 F 98.7 F Pulse Rate 69 70 Respiratory Rate 21 H 24 H Blood Pressure 106/70 122/80 Pulse Oximetry 97 97 Oxygen Delivery Method Nasal Cannula Nasal Cannula Oxygen Flow Rate 2 2 BMI result Body Mass Index 26.0 Labs 11/12/23 08:15 11/12/23 08:15 Labs: Laboratory Results - last 48 hr 11/11/23 11/12/23 11/12/23 20:24 00:38 01:25 WBC 14.4 H RBC 4.53 L Hgb 11.1 L Hct 34.3 L MCV 75.7 L MCH 24.5 L MCHC 32.4 RDW 14.5 Plt Count 359 D MPV 9.1 L Immature Gran % (Auto) 0.6 H Neut % (Auto) 79.6 H Lymph % (Auto) 11.3 L [place] % (Auto) 6.0 Eos % (Auto) 2.3 Baso % (Auto) 0.2 Lymph # (Auto) 1.6 [place] # (Auto) 0.9 Eos # (Auto) 0.3 Baso # (Auto) 0.0 Abs Immat Gran (auto) 0.08 H Absolute Neuts (auto) 11.4 H Absolute Nucleated RBC 0.000 Nucleated RBC % (auto) 0.0 ESR 83 H Sodium 136 Potassium 4.4 Chloride 101 Carbon Dioxide 28 Anion Gap 11 L BUN 10 Creatinine 0.69 Estim Creat Clear Calc 150.0 Estimated GFR > 60 POC Glucose Random Glucose 141 H Estimat Average Glucose Hemoglobin A1c % Lactic Acid 1.2 Calcium 9.3 Magnesium 2.3 Total Bilirubin 0.3 AST 11 ALT 9 Alkaline Phosphatase 81 Troponin I High Sens < 2.7 C-Reactive Protein 9.68 H Total Protein 8.8 H Albumin 3.8 Lipase 10 Urine Color Yellow Urine Appearance Clear Urine pH 7.0 Ur Specific [place] 1.010 Urine Protein Negative Urine Glucose (UA) Negative Urine Ketones Negative Urine Blood Negative Urine Nitrite Negative Ur Leukocyte Esterase Negative Urine Opiates Screen POSITIVE H Ur Buprenorphine Scrn Not Detected Ur Oxycodone Screen Not Detected Urine Methadone Screen Not Detected Urine Fentanyl Screen POSITIVE H Ur Barbiturates Screen Not Detected Ur Phencyclidine Scrn Not Detected Ur Amphetamines Screen Not Detected U Benzodiazepines Scrn Not Detected Urine Cocaine Screen POSITIVE H U Marijuana (THC) Screen Not Detected Ethyl Alcohol < 10 Influenza Type A (PCR) NEGATIVE Influenza Type B (PCR) NEGATIVE RSV RNA Qual (PCR) NEGATIVE SARS-CoV-2 RNA (RT-PCR) NEGATIVE 11/12/23 11/12/23 11/12/23 04:52 07:59 08:15 WBC 11.3 H RBC 4.16 L Hgb 10.1 L Hct 31.7 L MCV 76.2 L MCH 24.3 L MCHC 31.9 RDW 14.7 Plt Count 288 MPV 9.2 L Immature Gran % (Auto) 0.4 Neut % (Auto) 76.7 H Lymph % (Auto) 12.9 L [place] % (Auto) 7.1 Eos % (Auto) 2.5 Baso % (Auto) 0.4 Lymph # (Auto) 1.5 [place] # (Auto) 0.8 Eos # (Auto) 0.3 Baso # (Auto) 0.0 Abs Immat Gran (auto) 0.05 H Absolute Neuts (auto) 8.7 H Absolute Nucleated RBC 0.000 Nucleated RBC % (auto) 0.0 ESR Sodium 138 Potassium 4.2 Chloride 106 Carbon Dioxide 25 Anion Gap 11 L BUN 7 L Creatinine 0.62 Estim Creat Clear Calc 166.9 Estimated GFR > 60 POC Glucose 78 73 Random Glucose 84 Estimat Average Glucose 123 Hemoglobin A1c % 5.9 Lactic Acid Calcium 8.6 D Magnesium 2.0 Total Bilirubin AST ALT Alkaline Phosphatase Troponin I High Sens C-Reactive Protein Total Protein Albumin Lipase Urine Color Urine Appearance Urine pH Ur Specific [place] Urine Protein Urine Glucose (UA) Urine Ketones Urine Blood Urine Nitrite Ur Leukocyte Esterase Urine Opiates Screen Ur Buprenorphine Scrn Ur Oxycodone Screen Urine Methadone Screen Urine Fentanyl Screen Ur Barbiturates Screen Ur Phencyclidine Scrn Ur Amphetamines Screen U Benzodiazepines Scrn Urine Cocaine Screen U Marijuana (THC) Screen Ethyl Alcohol Influenza Type A (PCR) Influenza Type B (PCR) RSV RNA Qual (PCR) SARS-CoV-2 RNA (RT-PCR) Imaging Radiology Impressions: ITS Impressions Chest CT 11/11/23 21:37 IMPRESSION: 1. Expansile changes in the left chest wall musculature with surrounding streaky changes in the subcutaneous fat. Findings are most consistent with an infectious process. No discrete abscess is seen. 2. Groundglass infiltrate right upper lobe. 3. Incidental note made of enlarged fatty liver, splenomegaly and small hiatal hernia. Fleischner guidelines were followed. Electronically signed by: Charles Gaytan MD 11/12/2023 02:04 AM EDT Mental Status Exam Mental Status Exam Level of Consciousness: Lethargic (asleep) Medications Medications Current Medications Acetaminophen (Acetaminophen 325 Mg Tablet) 975 mg PO Q6H PRN PRN Reason: Pain, Mild (Pain Scale 1-3), fever or headache Albuterol Sulfate (Albuterol Sulfate (0.083%) 2.5 Mg/3 Ml Vial.Neb) 2.5 mg INHALE Q2H PRN PRN Reason: Shortness of Breath/Wheezing Enoxaparin Sodium (Enoxaparin Sodium 40 Mg/0.4 Ml Syringe) 40 mg SUBCUT Q24H [facility] Glucose (Glucose Gel 15 Gm Gel..Gram.) 15 gm PO Q15M PRN; Protocol PRN Reason: per Hypoglycemia Standing Ord. Lactated Ringer's (Lr) 1,000 mls @ 150 mls/hr IVCONT .Q6H40M [facility] Last Admin: 11/12/23 05:02 Dose: 150 mls/hr Dextrose (D10) 250 mls @ 750 mls/hr IV Q15M PRN; Protocol PRN Reason: per Hypoglycemia Standing Ord. Piperacillin Sod/Tazobactam (Sod 3.375 gm/ Sodium Chloride) 50 mls @ 100 mls/hr IV Q6H [facility] Vancomycin HCl 1,250 mg/ (Sodium Chloride) 250 mls @ 166.667 mls/hr IV Q12H [facility] Insulin Human Lispro (Insulin Lispro 100 Unit/Ml 3 Ml Vial) 0.1 - 10 unit SUBCUT Q6H [facility]; Protocol Last Admin: 11/12/23 07:29 Dose: Not Given Ondansetron HCl (Ondansetron Hcl 4 Mg/2 Ml Vial) 4 mg IVPUSH Q8H PRN PRN Reason: Nausea and Vomiting Pharmacy Consult (Consult Rx Vancomycin Dosing) 1 each MISCELLANE DAILY PRN PRN Reason: Consult order Sodium Chloride (0.9 % Sodium Chloride Flush 3 Ml Syringe) 3 ml IVFLUSH QSHIFT [facility] Last Admin: 11/12/23 07:27 Dose: Not Given Allergies Allergies Allergy/AdvReac Type Severity Reaction Status Date / Time No Known Allergies Allergy Verified 11/11/23 19:22 [No Known Allergies*] Assessment & Plan Assessment & Plan (1) Opioid use disorder, severe, dependence: Status: Acute Code(s): F11.20 - Opioid dependence, uncomplicated Assessment and Plan: * methadone 10mg PRN max 2 doses * AM dose to be determined Total time managing care of this patient today __25__ minutes. PMFSH Past Medical History Medical History (Updated 11/12/23 @ 17:24 by Levi Hart MD) IVDU (intravenous drug user) Type 2 diabetes mellitus Hiatal hernia Social History Social History Household Members: Unknown / Unable to assess Housing: Unknown / Unable to assess Do you presently have visiting nurse or other home services: No Alcohol intake: never Patient Tobacco Use Status: Tobacco use Unknown Substance Use Type: Crack/Cocaine service: No
[2023-11-12 11:10] LABS: Glucose, Whole Blood 85 mg/dL (60-115)
--- NOTE | 2023-11-12 15:13 | MHC.CM.PN ---
Male 43 DX Chest wall cellulitis aspiration PNA. PMH TBI OD. Patient lives with his . She reports that he was on Methadone in the past for a while . She states that there was a plan for admission to a treatment program arranged for yesterday. T/w spoke with patients regarding the [facility]. She was informed that the Recovery team with meet with the patient during this admission. Emotional support and encouragement were provided. Discharge planning was discussed with patients . It was explained that if IV ABX are needed terminal carman(6 weeks), the patient will need to go to a facility. If Methadone is continued, pt will need to be placed in a SNF located in the [facility]. There are no local SNFs providing methadone tx at this time. CM will follow for discharge needs.
[2023-11-12] MEDS: vancomycin HCL 1,250 MG in 0.9 % Sodium Chloride 250 ML 166.67 MG IV (16:53)
--- NOTE | 2023-11-12 17:21 | PM.CNGS ---
History of Present Illness Consult details Consult date: 11/12/23 Narrative: Patient is a 43-year-old male with history of polysubstance abuse, diabetes, and recent a (approximately week ago) to the left chest tube presents here with apparently chest wall cellulitis. He had a CT scan at that time which demonstrated this but did not comment on a fluid collection which is evident in the posterior left chest in the infra scapular area. Patient was very sedated and somnolent and not able to give a coherent history. [facility] Past Medical History Medical History (Updated 11/12/23 @ 17:24 by Levi Hart MD) IVDU (intravenous drug user) Type 2 diabetes mellitus Hiatal hernia Social History Social History Household Members: Unknown / Unable to assess Housing: Unknown / Unable to assess Do you presently have visiting nurse or other home services: No Alcohol intake: never Patient Tobacco Use Status: Tobacco use Unknown Substance Use Type: Crack/Cocaine service: No Meds Allergies Allergy/AdvReac Type Severity Reaction Status Date / Time No Known Allergies Allergy Verified 11/11/23 19:22 [No Known Allergies*] Active Medications: Current Medications Acetaminophen (Acetaminophen 325 Mg Tablet) 975 mg PO Q6H PRN PRN Reason: Pain, Mild (Pain Scale 1-3), fever or headache Albuterol Sulfate (Albuterol Sulfate (0.083%) 2.5 Mg/3 Ml Vial.Neb) 2.5 mg INHALE Q2H PRN PRN Reason: Shortness of Breath/Wheezing Enoxaparin Sodium (Enoxaparin Sodium 40 Mg/0.4 Ml Syringe) 40 mg SUBCUT Q24H [facility] Glucose (Glucose Gel 15 Gm Gel..Gram.) 15 gm PO Q15M PRN; Protocol PRN Reason: per Hypoglycemia Standing Ord. Lactated Ringer's (Lr) 1,000 mls @ 150 mls/hr IVCONT .Q6H40M [facility] Last Admin: 11/12/23 11:38 Dose: 150 mls/hr Dextrose (D10) 250 mls @ 750 mls/hr IV Q15M PRN; Protocol PRN Reason: per Hypoglycemia Standing Ord. Piperacillin Sod/Tazobactam (Sod 3.375 gm/ Sodium Chloride) 50 mls @ 100 mls/hr IV Q6H [facility] Last Infusion: 11/12/23 13:49 Dose: Infused Vancomycin HCl 1,250 mg/ (Sodium Chloride) 250 mls @ 166.667 mls/hr IV Q12H [facility] Last Admin: 11/12/23 16:53 Dose: 166.67 mls/hr Insulin Human Lispro (Insulin Lispro 100 Unit/Ml 3 Ml Vial) 0.1 - 10 unit SUBCUT Q6H [facility]; Protocol Last Admin: 11/12/23 13:08 Dose: Not Given Methadone HCl (Methadone Hcl 20 Mg/2 Ml Oral.Conc) 10 mg PO Q3H PRN PRN Reason: Opiate Withdrawal Morphine Sulfate (Morphine Sulfate 2 Mg/Ml Cartridge) 2 mg IVPUSH Q4H PRN; Protocol PRN Reason: Pain, Severe (Pain Scale 7-10) Ondansetron HCl (Ondansetron Hcl 4 Mg/2 Ml Vial) 4 mg IVPUSH Q8H PRN PRN Reason: Nausea and Vomiting Pharmacy Consult (Consult Rx Vancomycin Dosing) 1 each MISCELLANE DAILY PRN PRN Reason: Consult order Sodium Chloride (0.9 % Sodium Chloride Flush 3 Ml Syringe) 3 ml IVFLUSH QSHIFT [facility] Last Admin: 11/12/23 15:38 Dose: Not Given Home Medications ?Medication ?Instructions ?Recorded ?Confirmed ?Last Taken ?Type No Known Home Meds 11/12/23 11/12/23 Unknown History Physical Exam Vital Signs: Vital Signs: Last Vital Signs Temp 102.3 F H 11/12/23 15:03 Pulse 98 11/12/23 15:03 Resp 18 11/12/23 15:03 BP 129/69 11/12/23 15:03 Pulse Ox 98 11/12/23 15:03 O2 Del Method Nasal Cannula 11/12/23 15:03 O2 Flow Rate 2 11/12/23 15:03 BMI result Body Mass Index 26.0 Chest: Other: Patient has a fluctuant area of the left mid chest wall just below the scapula. This can be consistent with either hematoma, seroma, or abscess. Ultrasound of the area is ordered. Results Labs 11/12/23 08:15 11/12/23 08:15 Labs: Abnormal lab results 11/11/23 11/12/23 11/12/23 Range/Units 20:24 00:38 08:15 WBC 14.4 H 11.3 H (4.8-10.8) X10*3/uL RBC 4.53 L 4.16 L (4.60-5.80) X10*6/uL Hgb 11.1 L 10.1 L (14.0-18.0) g/dl Hct 34.3 L 31.7 L (42.0-52.0) % MCV 75.7 L 76.2 L (80.0-98.0) fL MCH 24.5 L 24.3 L (27.0-33.0) pg MPV 9.1 L 9.2 L (9.4-12.4) fL Immature Gran % (Auto) 0.6 H (0.0-0.4) % Neut % (Auto) 79.6 H 76.7 H (45-73) % Lymph % (Auto) 11.3 L 12.9 L (20-40) % Abs Immat Gran (auto) 0.08 H 0.05 H (0.00-0.03) X10*3/uL Absolute Neuts (auto) 11.4 H 8.7 H (2.0-8.3) x10*3/uL ESR 83 H (0-15) MM/HR Anion Gap 11 L 11 L (12-20) BUN 7 L (9-16) mg/dL Random Glucose 141 H (60-115) mg/dL C-Reactive Protein 9.68 H (< or = 0.50) mg/dL Total Protein 8.8 H (6.5-8.0) g/dL Urine Opiates Screen POSITIVE H (Not Detect) Urine Fentanyl Screen POSITIVE H (Not Detect) Urine Cocaine Screen POSITIVE H (Not Detect) Short CBC 11/11/23 11/12/23 Range/Units 20:24 08:15 WBC 14.4 H 11.3 H (4.8-10.8) X10*3/uL Hgb 11.1 L 10.1 L (14.0-18.0) g/dl Hct 34.3 L 31.7 L (42.0-52.0) % Plt Count 359 D 288 (160-400) X10*3/uL BMP 11/11/23 11/12/23 20:24 08:15 Sodium 136 138 Potassium 4.4 4.2 Chloride 101 106 Carbon Dioxide 28 25 BUN 10 7 L Creatinine 0.69 0.62 Calcium 9.3 8.6 D Liver Function 11/11/23 Range/Units 20:24 Total Bilirubin 0.3 (0.0-1.0) mg/dL AST 11 (5-37) U/L ALT 9 (0-40) U/L Alkaline Phosphatase 81 (39-117) U/L Albumin 3.8 (3.5-5.0) g/dL Urine 11/12/23 Range/Units 00:38 Urine Color Yellow Urine Appearance Clear Urine pH 7.0 (5.0-9.0) Ur Specific [place] 1.010 (1.005-1.025) Urine Protein Negative (Neg-Trace) mg/dL Urine Glucose (UA) Negative (Negative) mg/dL All other labs normal. Assessment and Plan (1) Opioid use disorder, severe, dependence: Status: Acute (2) Cellulitis of chest wall: Status: Acute (3) Pneumonia: Qualifiers: Aspiration pneumonia type: unspecified Laterality: right Lung location: upper lobe of lung Pneumonia type: aspiration pneumonia Qualified Code(s): J69.0 - Pneumonitis due to inhalation of food and vomit Status: Acute (4) Chest wall trauma: Status: Acute Plan Further interventions and studies will be directed by the patient's clinical course and results of ultrasound. Consideration for IR drainage of this collection with pigtail catheter is recommended. To follow with you Procedures Date of Service Date of Service: 11/12/23
[2023-11-12 20:04] LABS: Glucose, Whole Blood 270 mg/dL (60-115)
[2023-11-12] MEDS: 0.9 % Sodium Chloride Flush 3 ML SYRINGE IVFLUSH (20:08)
[2023-11-12] MEDS: Insulin Lispro 100 UNIT/ML 3 ML VIAL SUBCUT (20:13)
[2023-11-12] MEDS: Morphine Sulfate 2 MG/ML CARTRIDGE IVPUSH (22:39)
[2023-11-12] MEDS: methADONE HCl 20 MG/2 ML ORAL.CONC 10 MG PO (23:06)
[2023-11-13] VITALS (12 sets, daily range): BP systolic 115–138; BP diastolic 59–86; PULSE 61–88; RESP 16–20; TEMP 35.9–37.3; O2SAT 93–95
[2023-11-13] MEDS: Piperacillin Sodium/Tazobactam 3.375 GM in 0.9 % Sodium Chloride 50 ML IV ×4 (01:42→20:57)
[2023-11-13] MEDS: Lactated Ringers 1,000 ML 150 ML IVCONT ×2 (02:14→10:51)
[2023-11-13] MEDS: vancomycin HCL 1,250 MG in 0.9 % Sodium Chloride 250 ML 166.67 MG IV (02:16)
--- NOTE | 2023-11-13 03:00 | PC.NURSE ---
took pt care at 1900 with pt sleeping on and off in chair, camera in room. around 2300, pt woke up suddenly crying in pain unable to sit or lay down. prn morphine given for pain with little to no result. withdraw? pt anxious , restless, shaking, unable to sit still with stuffy nose and sweating c/o withdraw. prn methadone given. pt observed more comfortable asleep in chair. chair alarm in place, pt room next to nursing station, camera in room. [facility]
[2023-11-13] MEDS: Albuterol Sulfate (0.083%) 2.5 MG/3 ML VIAL.NEB INHALE ×2 (07:34→09:30)
[2023-11-13 07:46] LABS: Glucose, Whole Blood 104 mg/dL (60-115)
[2023-11-13 07:55] LABS: Creatinine Clr Calc Pharmacy 166.9; Estimated Glomerular Filt Rate > 60
[2023-11-13] MEDS: methADONE HCl 20 MG/2 ML ORAL.CONC 30 MG PO (08:19)
[2023-11-13] MEDS: Magnesium Sulfate/H2O 2 GM/50 ML PIGGYBACK IV (09:11)
[2023-11-13] MEDS: predniSONE 20 MG TABLET 40 MG PO (09:57)
[2023-11-13] MEDS: Morphine Sulfate 2 MG/ML CARTRIDGE IVPUSH ×3 (10:38→20:00)
[2023-11-13] MEDS: guaiFENesin DM 100/10/5 ML 5 ML SYRUP PO ×2 (10:51→23:54)
[2023-11-13] MEDS: methADONE HCl 20 MG/2 ML ORAL.CONC 10 MG PO ×2 (11:16→13:08)
[2023-11-13 11:19] LABS: Glucose, Whole Blood 319 mg/dL (60-115)
[2023-11-13] MEDS: Insulin Lispro 100 UNIT/ML 3 ML VIAL SUBCUT ×3 (11:27→20:57)
[2023-11-13] MEDS: Acetaminophen 325 MG TABLET 975 MG PO (12:19)
[2023-11-13 12:32] LABS: Glucose, Whole Blood 195 mg/dL (60-115)
--- NOTE | 2023-11-13 13:04 | PC.NURSE ---
PT recieved 30mg methadone 10/6 AM per APR, pt reports being sweaty, hot and cold, anxious, headache, and body aches. Given PRN 2mg morphine per APR. Upon reassessment pt still having withdrawal symptoms- given 10mg PRN methadone per APR. 1230 pt complains of continued hot and cold feeling, sweaty and headache, POC checked 195. Melissa Lockwood made aware of continued withdrawal symptoms. Telephone order for 1x dose of 10mg methadone now and his daily dose will be adjusted tomorrow. methadone given per APR.
--- NOTE | 2023-11-13 13:19 | PM.PNGS ---
Subjective Subjective Date of Service: 11/13/23 Interval history: Patient is still somnolent, sleepy. Communicative minimally Ultrasound demonstrates edema of left back but no drainable collection. Physical Exam Vital Signs: Vital Signs: Last Vital Signs Temp 99.1 F 11/13/23 12:00 Pulse 85 11/13/23 12:00 Resp 20 11/13/23 12:00 BP 115/65 11/13/23 12:00 Pulse Ox 95 11/13/23 12:00 O2 Del Method Room Air 11/13/23 12:00 O2 Flow Rate 2 11/12/23 19:26 BMI result Body Mass Index 26.0 Chest: Other: Left back area status quo. No evidence of overlying erythema. What was felt clinical to be a seroma is just edema by ultrasound. Objective Data Active Medications Acetaminophen (Acetaminophen 325 Mg Tablet) 975 mg PO Q6H PRN PRN Reason: Pain, Mild (Pain Scale 1-3), fever or headache Last Admin: 11/13/23 12:19 Dose: 975 mg Documented By: CB Albuterol Sulfate (Albuterol Sulfate (0.083%) 2.5 Mg/3 Ml Vial.Neb) 2.5 mg INHALE Q2H PRN PRN Reason: Shortness of Breath/Wheezing Last Admin: 11/13/23 09:30 Dose: 2.5 mg Documented By: ANNA Enoxaparin Sodium (Enoxaparin Sodium 40 Mg/0.4 Ml Syringe) 40 mg SUBCUT Q24H [facility] Last Admin: 11/13/23 05:19 Dose: Not Given Documented By: GEOVANY Non-Admin Reason: Patient Refused Glucose (Glucose Gel 15 Gm Gel..Gram.) 15 gm PO Q15M PRN; Protocol PRN Reason: per Hypoglycemia Standing Ord. Guaifenesin/Dextromethorphan (Guaifenesin Dm 100/10/5 Ml 5 Ml Syrup) 5 ml PO Q4H PRN PRN Reason: Cough Last Admin: 11/13/23 10:51 Dose: 5 ml Documented By: AINSLEY Dextrose (D10) 250 mls @ 750 mls/hr IV Q15M PRN; Protocol PRN Reason: per Hypoglycemia Standing Ord. Vancomycin HCl 1,250 mg/ (Sodium Chloride) 250 mls @ 166.667 mls/hr IV Q12H [facility] Last Infusion: 11/13/23 04:04 Dose: Infused Documented By: GEOVANY Piperacillin Sod/Tazobactam (Sod 3.375 gm/ Sodium Chloride) 50 mls @ 100 mls/hr IV Q6H [facility] Last Infusion: 11/13/23 09:11 Dose: Infused Documented By: CB Insulin Human Lispro (Insulin Lispro 100 Unit/Ml 3 Ml Vial) 0.1 - 10 unit SUBCUT QIDACHS [facility]; Protocol Last Admin: 11/13/23 11:27 Dose: 8 unit Documented By: CB Methadone HCl (Methadone Hcl 20 Mg/2 Ml Oral.Conc) 30 mg PO DAILY@0800 [facility] Last Admin: 11/13/23 08:19 Dose: 30 mg Documented By: CB Co-signed By: ONI Morphine Sulfate (Morphine Sulfate 2 Mg/Ml Cartridge) 2 mg IVPUSH Q4H PRN; Protocol PRN Reason: Pain, Severe (Pain Scale 7-10) Last Admin: 11/13/23 10:38 Dose: 2 mg Documented By: CB Ondansetron HCl (Ondansetron Hcl 4 Mg/2 Ml Vial) 4 mg IVPUSH Q8H PRN PRN Reason: Nausea and Vomiting Pharmacy Consult (Consult Rx Vancomycin Dosing) 1 each MISCELLANE DAILY PRN PRN Reason: Consult order Prednisone (Prednisone 20 Mg Tablet) 40 mg PO DAILY [facility] Last Admin: 11/13/23 09:57 Dose: 40 mg Documented By: CB Sodium Chloride (0.9 % Sodium Chloride Flush 3 Ml Syringe) 3 ml IVFLUSH QSHIFT [facility] Last Admin: 11/13/23 06:58 Dose: Not Given Documented By: CB Non-Admin Reason: IV Running Labs 11/12/23 08:15 11/13/23 06:53 Labs: Laboratory Results - last 24 hr 11/12/23 11/13/23 11/13/23 19:33 06:53 07:33 Estim Creat Clear Calc 166.9 Estimated GFR > 60 POC Glucose 270 H 104 Total Creatine Kinase 27 L 11/13/23 11/13/23 11:04 12:28 Estim Creat Clear Calc Estimated GFR POC Glucose 319 H 195 H Total Creatine Kinase Microbiology Microbiology Results: Microbiology 11/11/23 23:39 Blood Culture - Preliminary Blood - Venous Staphylococcus aureus 11/11/23 20:24 Blood Culture - Preliminary Blood - Venous Staphylococcus aureus Procedures Date of Service Date of Service: 11/13/23 Progress Note: A&P Assessment and plan (1) Chest wall trauma: Status: Acute (2) Cellulitis of chest wall: Status: Acute Plan Continue current plan. No acute surgical issues at this time. Time Spent With Patient Time: Total time managing care of this patient today ____ minutes. Quality Stroke Does the patient have a stroke diagnosis?: No VTE Prior VTE?: No VTE Risk Level:: Medical - moderate - high VTE Device Contraindication: Treatment Not Indicated VTE Drug Contraindication: N/A - Med Ordered
--- NOTE | 2023-11-13 13:49 | HO.PM.IMPN ---
Subjective Subjective Date of Service: 11/13/23 Interval History: c/o dyspnea, wheeze, cough last fever 102.3 yesterday at 15:00 L chest wall pain improved Review of Systems Review of Systems: Yes all other systems are reviewed and are negative Physical Exam Vital Signs: Vital Signs: Last Vital Signs Temp 99.1 F 11/13/23 12:00 Pulse 85 11/13/23 12:00 Resp 20 11/13/23 12:00 BP 115/65 11/13/23 12:00 Pulse Ox 95 11/13/23 12:00 O2 Del Method Room Air 11/13/23 12:00 O2 Flow Rate 2 11/12/23 19:26 BMI result Body Mass Index 26.0 Gen: in no acute distress HEENT: sclera anicteric, moist mucus membranes Neck: supple Lungs: coarse inspiratory rhonchi and expiratory wheezing throughout Heart: regular rate and rhythm, no murmurs Abd: soft, non-tender, non-distended Ext: no edema Skin: warm/well-perfused Neuro: alert and oriented x3, no focal findings Psych: appropriate affect Objective Data Active Medications Acetaminophen (Acetaminophen 325 Mg Tablet) 975 mg PO Q6H PRN PRN Reason: Pain, Mild (Pain Scale 1-3), fever or headache Last Admin: 11/13/23 12:19 Dose: 975 mg Documented By: CB Albuterol Sulfate (Albuterol Sulfate (0.083%) 2.5 Mg/3 Ml Vial.Neb) 2.5 mg INHALE Q2H PRN PRN Reason: Shortness of Breath/Wheezing Last Admin: 11/13/23 09:30 Dose: 2.5 mg Documented By: ANNA Enoxaparin Sodium (Enoxaparin Sodium 40 Mg/0.4 Ml Syringe) 40 mg SUBCUT Q24H [facility] Last Admin: 11/13/23 05:19 Dose: Not Given Documented By: GEOVANY Non-Admin Reason: Patient Refused Glucose (Glucose Gel 15 Gm Gel..Gram.) 15 gm PO Q15M PRN; Protocol PRN Reason: per Hypoglycemia Standing Ord. Guaifenesin/Dextromethorphan (Guaifenesin Dm 100/10/5 Ml 5 Ml Syrup) 5 ml PO Q4H PRN PRN Reason: Cough Last Admin: 11/13/23 10:51 Dose: 5 ml Documented By: AINSLEY Dextrose (D10) 250 mls @ 750 mls/hr IV Q15M PRN; Protocol PRN Reason: per Hypoglycemia Standing Ord. Vancomycin HCl 1,250 mg/ (Sodium Chloride) 250 mls @ 166.667 mls/hr IV Q12H [facility] Last Infusion: 11/13/23 04:04 Dose: Infused Documented By: GEOVANY Piperacillin Sod/Tazobactam (Sod 3.375 gm/ Sodium Chloride) 50 mls @ 100 mls/hr IV Q6H [facility] Last Infusion: 11/13/23 09:11 Dose: Infused Documented By: CB Insulin Human Lispro (Insulin Lispro 100 Unit/Ml 3 Ml Vial) 0.1 - 10 unit SUBCUT QIDACHS [facility]; Protocol Last Admin: 11/13/23 11:27 Dose: 8 unit Documented By: CB Methadone HCl (Methadone Hcl 20 Mg/2 Ml Oral.Conc) 30 mg PO DAILY@0800 [facility] Last Admin: 11/13/23 08:19 Dose: 30 mg Documented By: CB Co-signed By: ONI Morphine Sulfate (Morphine Sulfate 2 Mg/Ml Cartridge) 2 mg IVPUSH Q4H PRN; Protocol PRN Reason: Pain, Severe (Pain Scale 7-10) Last Admin: 11/13/23 10:38 Dose: 2 mg Documented By: CB Ondansetron HCl (Ondansetron Hcl 4 Mg/2 Ml Vial) 4 mg IVPUSH Q8H PRN PRN Reason: Nausea and Vomiting Pharmacy Consult (Consult Rx Vancomycin Dosing) 1 each MISCELLANE DAILY PRN PRN Reason: Consult order Prednisone (Prednisone 20 Mg Tablet) 40 mg PO DAILY [facility] Last Admin: 11/13/23 09:57 Dose: 40 mg Documented By: CB Sodium Chloride (0.9 % Sodium Chloride Flush 3 Ml Syringe) 3 ml IVFLUSH QSHIFT [facility] Last Admin: 11/13/23 06:58 Dose: Not Given Documented By: CB Non-Admin Reason: IV Running Labs 11/12/23 08:15 11/13/23 06:53 Labs: Laboratory Results - last 24 hr 11/12/23 11/13/23 11/13/23 19:33 06:53 07:33 Estim Creat Clear Calc 166.9 Estimated GFR > 60 POC Glucose 270 H 104 Total Creatine Kinase 27 L 11/13/23 11/13/23 11:04 12:28 Estim Creat Clear Calc Estimated GFR POC Glucose 319 H 195 H Total Creatine Kinase Microbiology Microbiology Results: Microbiology 11/11/23 23:39 Blood Culture - Preliminary Blood - Venous Staphylococcus aureus 11/11/23 20:24 Blood Culture - Preliminary Blood - Venous Staphylococcus aureus Assessment and Plan (1) Staphylococcus aureus bacteremia: Status: Acute Plan d2 43yo M with DM2, polysubstance abuse disorder admitted for sepsis due to left chest wall cellulitis, aspiration PNA, and Staphylococcus aureus bacteremia sepsis due to left chest wall cellulitis, aspiration PNA, and Staphylococcus aureus bacteremia - continue vancomycin + piperacillin-tazobactam 11/11-, follow BCx susceptibilities, TTE, ID consult, repeat BCx 11/13 reactive airways disease - magnesium, prednisone polysubstance abuse disorder - Addiction Medicine consulted, started on methadone DM2 with hyperglycemia - A1c only 5.9 - jose-dose lispro VTE ppx - enoxaparin dispo - eventual STR Total time managing care of this patient today: 40 minutes. Quality Stroke Does the patient have a stroke diagnosis?: No VTE Prior VTE?: No VTE Risk Level:: Medical - moderate - high VTE Device Contraindication: Treatment Not Indicated VTE Drug Contraindication: N/A - Med Ordered
[2023-11-13] MEDS: 0.9 % Sodium Chloride Flush 3 ML SYRINGE IVFLUSH (15:14)
[2023-11-13 15:43] LABS: Vancomycin Random 3.2 mcg/mL (15-20)
[2023-11-13 16:17] LABS: Glucose, Whole Blood 241 mg/dL (60-115)
[2023-11-13] MEDS: vancomycin HCL 1,500 MG in 0.9 % Sodium Chloride 500 ML 333.33 MG IV ×2 (16:33→23:48)
[2023-11-13 20:21] LABS: Glucose, Whole Blood 244 mg/dL (60-115)
[2023-11-14] MEDS: Morphine Sulfate 2 MG/ML CARTRIDGE IVPUSH (00:28)
[2023-11-14] MEDS: 0.9 % Sodium Chloride Flush 3 ML SYRINGE IVFLUSH (01:34)
[2023-11-14] MEDS: HYDROmorphone HCl 1 MG/ML SYRINGE IVPUSH (02:37)
[2023-11-14] MEDS: Piperacillin Sodium/Tazobactam 3.375 GM in 0.9 % Sodium Chloride 50 ML IV ×2 (02:41→08:22)
--- NOTE | 2023-11-14 02:51 | PC.NURSE ---
0024; Patient stating he has 10/10 lower back pain after receiving 30 minutes of ABX- Dr Warren notified and PRN Morphine given/ hot packs 0050: Patient reported morphine had no effect on his lower back pain. 0221: Patient stating he is in 10/10 excruciating mid pack/spinal cord pain- patient stated its going to my spinal cord, the pain its so bad while patient is rolling around in bed and tearful. Dr Warren notified and came to bedside and ordered Dilaudid and a CT lumbar/spine
[2023-11-14 03:24] VITALS: BP 118/88; PULSE 77; RESP 18; TEMP 36.4; O2SAT 95
[2023-11-14] MEDS: iohexoL 350 MG/ML 100 ML INFUS..BTL 85 ML IV (03:24)
[2023-11-14 03:56] VITALS: PULSE 71; RESP 20; O2SAT 95
[2023-11-14] MEDS: Albuterol Sulfate (0.083%) 2.5 MG/3 ML VIAL.NEB INHALE (03:56)
[2023-11-14 05:09] LABS: Appearance Urine Clear; Color Urine Yellow; Glucose Urine UA Negative (Negative); Leukocyte Esterase Urine Negative (Negative); Nitrite Urine Negative (Negative); Specific Gravity - Urine >= 1.030 (1.005-1.025); Urine Blood Negative (Negative); Urine Ketones Negative (Negative); Urine Protein Trace mg/dL (Neg-Trace)
[2023-11-14] MEDS: guaiFENesin DM 100/10/5 ML 5 ML SYRUP PO (05:32)
[2023-11-14] MEDS: Acetaminophen 325 MG TABLET 975 MG PO (05:32)
--- NOTE | 2023-11-14 07:00 | CA_ITS ---
Transthoracic Echocardiogram Patient (Last, First, Middle): Saul Caro, Gender: Male Date of : 1980 Age: 43 Procedure Date: 11/14/2023 Procedure Type: Transthoracic Echocardiogram Location: S3E Height: 180.34 cm Weight: 84.37 kg BSA: 2.04 m2 Heart Rate: bpm BP: 118 / 59 mmHg Corporate Director: CATHERINE Noriega MD: Joshua Stewart MD Fur Repairer: Tc Payan MD Symptoms: GPC bacteremia, r/o IE Study Quality: Fair ECG Rhythm: Sinus Conclusions: - 1. No obvious vegetation seen on this study 2. Normal biventricular function 3. Normal cardiac valvular Doppler 4. Normal RV systolic pressure Findings Procedure Information The study quality is limited by the patients inability to tolerate the test. Left Ventricle Normal left ventricular size, thickness, and systolic function. The visually estimated ejection fraction is between 60-65%. Diastolic function is normal for age. Right Ventricle Normal right ventricular cavity size and systolic function. Atria Both atria are normal in size. There is no evidence of interatrial shunt. Aortic Valve The aortic valve structure and function is likely normal. There is no aortic valve stenosis. There is no aortic valve regurgitation. Mitral Valve Normal mitral valve structure and function. There is mild anterior and posterior mitral leaflet thickening. There is no mitral valve regurgitation. There is no mitral valve stenosis. Pulmonic Valve The pulmonic valve was not well visualized. Tricuspid Valve Likely normal tricuspid valve structure and function. There is trace tricuspid valve regurgitation. Tricuspid regurgitation envelope is inadequate for calculation of right ventricular systolic pressure. Normal right atrial pressure. There is no evidence of pulmonary hypertension. Great Vessels All visible segments of the aorta are normal in size. The pulmonary artery was not well visualized. Venous The inferior vena cava is normal in size and collapses greater than 50% with inspiration. Pericardium/Pleural There is no evidence of pericardial effusion. Prior Study Comparison No prior study available for comparison. Recommendations, Care & Conclusions Consider a GUME if clinically appropriate. Measurements 2D Linear Measurements IVSd: 1.16 0.6-0.9/0.6-1.0 cm LVIDd: 5.20 3.9-5.3/4.2-5.9 cm LVIDd Index: 2.55 2.4-3.2/2.2-3.1 cm/m2 LVIDs: 3.13 2.0-3.6 cm LVPWd: 1.01 0.7-1.1 cm LA Diam: 4.00 2.7-3.8/3.0-4.0 cm LAIDs Index: 1.96 1.5-2.3 cm/m2 LV Mass: 270.10 67-162/88-224 g LV Mass Index: 132.40 43-95/49-115 g/m2 LVOT Diam: 2.20 3.0+(-)1.3 cm 2D Systolic Function EF 4C: 55.00 >55% EF 2C: 63.30 >55% EF BiP: 60.20 >55% Mitral Valve MV Pk E: 0.87 MV PK A: 0.63 MV Decel Time: 156.00 E/A: 1.40 E'Lateral: 10.30 E'Medial: 8.27 E/E' Med: 10.50 E/E' Lat: 8.40 PHT: 46.00 MVA PHT: 4.78 Decel [place]: 5.53 Aortic Valve AoV Pk Mike: 1.17 AoV Mn Mike: 0.88 AoV VTI: 0.26 AoV Pk Grad: 5.00 Aov Mn Grad: 3.00 SHANELL Cont.VTI: 3.45 LVOT LVOT Pk Mike: 1.17 LVOT Mn Mike: 0.79 LVOT VTI: 0.24 LVOT Pk Grad: 5.00 LVOT Mn Grad: 3.00 LVOT Diam: 2.20 LVOT Area: 3.80 Diastolic Function MV Pk E: 0.87 MV Pk A: 0.63 E/A: 1.40 E'Medial: 8.27 E/E' Med: 10.50 E' Laterial: 10.30 E/E' Lat: 8.40 Right Ventricle TAPSE (mm): 27.80 TVS' Mike: 12.30 Tricuspid Valve TR Pk Mike: 1.82 TR Pk Grad: 13.00 RA Press: 3.00 RVSP: 16.00 Great Vessels Aorta Sinus of Valsalva: 3.50 2.0-3.5 cm Ao Asc: 3.70 2.1-3.4 cm Pulmonary Valve PV Pk Mike: 0.80 Peak PV Grad: 3.00 Updated in Other Vendor System with Status of Final Tc Payan MD electronically signed on 11/14/2023 11:16:44 AM with status of Final
[2023-11-14 07:08] VITALS: BP 125/69; PULSE 64; RESP 16; TEMP 36.3; O2SAT 95
[2023-11-14 07:26] LABS: Glucose, Whole Blood 126 mg/dL (60-115)
[2023-11-14] MEDS: Insulin Lispro 100 UNIT/ML 3 ML VIAL SUBCUT ×2 (08:21→11:57)
[2023-11-14] MEDS: predniSONE 20 MG TABLET 40 MG PO (08:22)
[2023-11-14] MEDS: vancomycin HCL 1,500 MG in 0.9 % Sodium Chloride 500 ML 333.33 MG IV (08:24)
[2023-11-14] MEDS: methADONE HCl 20 MG/2 ML ORAL.CONC 55 MG PO (08:26)
--- NOTE | 2023-11-14 08:31 | PM.PNGS ---
Subjective Subjective Date of Service: 11/14/23 <Sofia Rao PA-C - Last Filed: 11/14/23 08:36> 11/14/23 <Levi Hart MD - Last Filed: 11/14/23 09:15> Interval history: States pain is more in his spine today. <Sofia Rao PA-C - Last Filed: 11/14/23 08:36> Physical Exam Vital Signs: Vital Signs: Last Vital Signs Temp 97.4 F 11/14/23 07:08 Pulse 64 11/14/23 07:08 Resp 16 11/14/23 07:08 BP 125/69 11/14/23 07:08 Pulse Ox 95 11/14/23 07:08 O2 Del Method Room Air 11/14/23 07:08 O2 Flow Rate 2 11/12/23 19:26 BMI result Body Mass Index 26.0 <KRYSTAL Kuhn Last Filed: 11/14/23 08:36> Const: General: comfortable, no acute distress and alert <Sofia Rao PA-C - Last Filed: 11/14/23 08:36> Orientation/consciousness: patient oriented x3 <KRYSTAL Kuhn Last Filed: 11/14/23 08:36> Resp: Effort & Inspection: normal respiratory effort <KRYSTAL Kuhn Last Filed: 11/14/23 08:36> Skin: Other: very mild edema of left back/flank just inferior to left arm, no overlying skin changes, area nontender <KRYSTAL Kuhn Last Filed: 11/14/23 08:36> Neuro: General: patient oriented x3 and moves all extremities <KRYSTAL Kuhn Last Filed: 11/14/23 08:36> Objective Data Active Medications Acetaminophen (Acetaminophen 325 Mg Tablet) 975 mg PO Q6H PRN PRN Reason: Pain, Mild (Pain Scale 1-3), fever or headache Last Admin: 11/14/23 05:32 Dose: 975 mg Documented By: KYLAH Albuterol Sulfate (Albuterol Sulfate (0.083%) 2.5 Mg/3 Ml Vial.Neb) 2.5 mg INHALE Q2H PRN PRN Reason: Shortness of Breath/Wheezing Last Admin: 11/14/23 03:56 Dose: 2.5 mg Documented By: RADHA Enoxaparin Sodium (Enoxaparin Sodium 40 Mg/0.4 Ml Syringe) 40 mg SUBCUT Q24H [facility] Last Admin: 11/14/23 05:35 Dose: Not Given Documented By: KYLAH Non-Admin Reason: Patient Refused Glucose (Glucose Gel 15 Gm Gel..Gram.) 15 gm PO Q15M PRN; Protocol PRN Reason: per Hypoglycemia Standing Ord. Guaifenesin/Dextromethorphan (Guaifenesin Dm 100/10/5 Ml 5 Ml Syrup) 5 ml PO Q4H PRN PRN Reason: Cough Last Admin: 11/14/23 05:32 Dose: 5 ml Documented By: KYLAH Hydromorphone HCl (Hydromorphone Hcl 1 Mg/Ml Syringe) 1 mg IVPUSH Q3H PRN; Protocol PRN Reason: Pain, Severe (Pain Scale 7-10) Dextrose (D10) 250 mls @ 750 mls/hr IV Q15M PRN; Protocol PRN Reason: per Hypoglycemia Standing Ord. Piperacillin Sod/Tazobactam (Sod 3.375 gm/ Sodium Chloride) 50 mls @ 100 mls/hr IV Q6H [facility] Last Admin: 11/14/23 08:22 Dose: 100 mls/hr Documented By: JUANI Vancomycin HCl 1,500 mg/ (Sodium Chloride) 500 mls @ 333.333 mls/hr IV Q8H [facility] Last Admin: 11/14/23 08:24 Dose: 333.33 mls/hr Documented By: UJANI Insulin Human Lispro (Insulin Lispro 100 Unit/Ml 3 Ml Vial) 0.1 - 10 unit SUBCUT QIDACHS [facility]; Protocol Last Admin: 11/14/23 08:21 Dose: 2 unit Documented By: JUANI Methadone HCl (Methadone Hcl 20 Mg/2 Ml Oral.Conc) 55 mg PO DAILY@0800 [facility] Last Admin: 11/14/23 08:26 Dose: 55 mg Documented By: JUANI Co-signed By: JACQUI Ondansetron HCl (Ondansetron Hcl 4 Mg/2 Ml Vial) 4 mg IVPUSH Q8H PRN PRN Reason: Nausea and Vomiting Pharmacy Consult (Consult Rx Vancomycin Dosing) 1 each MISCELLANE DAILY PRN PRN Reason: Consult order Prednisone (Prednisone 20 Mg Tablet) 40 mg PO DAILY [facility] Last Admin: 11/14/23 08:22 Dose: 40 mg Documented By: JUANI Sodium Chloride (0.9 % Sodium Chloride Flush 3 Ml Syringe) 3 ml IVFLUSH QSHIFT [facility] Last Admin: 11/14/23 01:34 Dose: 3 ml Documented By: KYLAH <KRYSTAL Kuhn Last Filed: 11/14/23 08:36> Labs CBC & Chem 7: 11/12/23 08:15 11/13/23 06:53 <KRYSTAL Kuhn Last Filed: 11/14/23 08:36> Labs: Laboratory Results - last 24 hr 11/13/23 11/13/23 11/13/23 11:04 12:28 14:38 POC Glucose 319 H 195 H Urine Color Urine Appearance Urine pH Ur Specific [place] Urine Protein Urine Glucose (UA) Urine Ketones Urine Blood Urine Nitrite Ur Leukocyte Esterase Random Vancomycin 3.2 L 11/13/23 11/13/23 11/14/23 16:09 20:17 04:57 POC Glucose 241 H 244 H Urine Color Yellow Urine Appearance Clear Urine pH 8.0 Ur Specific [place] >= 1.030 H Urine Protein Trace Urine Glucose (UA) Negative Urine Ketones Negative Urine Blood Negative Urine Nitrite Negative Ur Leukocyte Esterase Negative Random Vancomycin 11/14/23 07:13 POC Glucose 126 H Urine Color Urine Appearance Urine pH Ur Specific [place] Urine Protein Urine Glucose (UA) Urine Ketones Urine Blood Urine Nitrite Ur Leukocyte Esterase Random Vancomycin <KRYSTAL Kuhn Last Filed: 11/14/23 08:36> Microbiology Microbiology Results: Microbiology 11/11/23 23:39 Blood Culture - Preliminary Blood - Venous Staphylococcus aureus 11/11/23 20:24 Blood Culture - Preliminary Blood - Venous Staphylococcus aureus <KRYSTAL Kuhn Last Filed: 11/14/23 08:36> Procedures Date of Service Date of Service: 11/14/23 <Sofia Rao PA-C - Last Filed: 11/14/23 08:36> 11/14/23 <Levi Hart MD - Last Filed: 11/14/23 09:15> Progress Note: A&P Assessment and plan (1) Chest wall trauma: Status: Acute <KRYSTAL Kuhn Last Filed: 11/14/23 08:36> (2) Cellulitis of chest wall: Status: Acute <Sofia Rao PA-C - Last Filed: 11/14/23 08:36> Assessment and Plan: US suggestive of edema of back which is overall improved without any overlying skin changes. Patient stable. No acute surgical intervention needed. Will sign off at this time. <Sofia Rao PA-C - Last Filed: 11/14/23 08:36> US suggestive of edema of back which is overall improved without any overlying skin changes. Patient stable. No acute surgical intervention needed. Will sign off at this time. As noted above <Levi Hart MD - Last Filed: 11/14/23 09:15> Time Spent With Patient Time: Total time managing care of this patient today ____ minutes. <Sofia Rao PA-C - Last Filed: 11/14/23 08:36> Quality Stroke Does the patient have a stroke diagnosis?: No <Sofia Rao PA-C - Last Filed: 11/14/23 08:36> VTE Prior VTE?: No <Sofia Rao PA-C - Last Filed: 11/14/23 08:36> VTE Risk Level:: Medical - moderate - high <Sofia Rao PA-C - Last Filed: 11/14/23 08:36> VTE Device Contraindication: Treatment Not Indicated <Sofia Rao PA-C - Last Filed: 11/14/23 08:36> VTE Drug Contraindication: N/A - Med Ordered <Sofia Rao PA-C - Last Filed: 11/14/23 08:36>
[2023-11-14 10:05] LABS: Hematocrit 30.2 % (42.0-52.0); Hemoglobin 9.5 g/dl (14.0-18.0); Mean Corpuscular HGB Conc 31.5 g/dl (31.0-36.0); Mean Corpuscular Hemoglobin 23.7 pg (27.0-33.0); Mean Corpuscular Volume 75.3 fL (80.0-98.0); Mean Platelet Volume 9.9 fL (9.4-12.4); Platelet Count 287 X10*3/uL (160-400); Red Blood Count 4.01 X10*6/uL (4.60-5.80); Red Cell Distribution Width 14.6 % (11.0-16.0); White Blood Count 10.2 X10*3/uL (4.8-10.8)
[2023-11-14 10:22] LABS: Anion Gap 11 (12-20); Blood Urea Nitrogen 7 mg/dL (9-16); C Reactive Protein 8.95 mg/dL (< or = 0.50); Carbon Dioxide 25 mmol/L (22-29); Chloride 106 mmol/L (96-108); Creatinine Clr Calc Pharmacy 172.5; Estimated Glomerular Filt Rate > 60; Glucose Random 71 mg/dL (60-115); Potassium 3.4 mmol/L (3.3-5.1); Sodium 139 mmol/L (135-145)
[2023-11-14 10:56] LABS: HBS Num1 299.22 mIU/mL (0-7.99); HBc Num1 0.16 S/CO (0.00-0.79); HBsAGNum1 0.29 S/CO (0.00-0.99); HIV AB/AG Nonreactive (Nonreactive); HIV Num 1 0.05 S/CO (0.00-0.99); Hepatitis B Core Antibody Nonreactive (Nonreactive); Hepatitis B Surface Antigen Negative (Negative); ~HepC Num1 0.52 S/CO (0.00-0.79); ~Hepatitis B Surface Antibody REACTIVE (Nonreactive); ~Hepatitis C Antibody Nonreactive (Nonreactive)
[2023-11-14 11:23] LABS: Glucose, Whole Blood 139 mg/dL (60-115)
[2023-11-14] MEDS: ceFAZolin Sodium/Dextrose,Iso 2 GM/50 ML PIGGYBACK IV (12:05)
--- NOTE | 2023-11-14 12:06 | HO.WOUND ---
Wound Consult: Attempted 43yr old?male admitted to [facility] on 11/12/23 - See progress notes and H&P for detailed history.? Wound consult placed for left chest cellulitis. Chart review and discussion with direct care nurse reveals no open wound. No topical interventions needed at this time. TT to provider to inform not seen by inpatient wound care nurse. ?Will defer treatment to Hospitalist team for systemic treatment.
--- NOTE | 2023-11-14 12:51 | P.PNIM_ITS ---
Subjective Subjective Date of Service: 11/14/23 Interval History: c/o severe back pain no fever Review of Systems Review of Systems: Yes all other systems are reviewed and are negative Physical Exam 2 Vital Signs: Vital Signs: Last Vital Signs Temp 97.4 F 11/14/23 07:08 Pulse 64 11/14/23 07:08 Resp 16 11/14/23 07:08 BP 125/69 11/14/23 07:08 Pulse Ox 95 11/14/23 07:08 O2 Del Method Room Air 11/14/23 07:08 O2 Flow Rate 2 11/12/23 19:26 BMI result Body Mass Index 26.0 Gen: in no acute distress HEENT: sclera anicteric, moist mucus membranes Neck: supple Lungs: a few scattered exp wheezes Heart: regular rate and rhythm, no murmurs Abd: soft, non-tender, non-distended Ext: no edema Skin: warm/well-perfused Neuro: alert and oriented x3, no focal findings Psych: appropriate affect Objective Data Active Medications Acetaminophen (Acetaminophen 325 Mg Tablet) 975 mg PO Q6H PRN PRN Reason: Pain, Mild (Pain Scale 1-3), fever or headache Last Admin: 11/14/23 05:32 Dose: 975 mg Documented By: KYLAH Albuterol Sulfate (Albuterol Sulfate (0.083%) 2.5 Mg/3 Ml Vial.Neb) 2.5 mg INHALE Q2H PRN PRN Reason: Shortness of Breath/Wheezing Last Admin: 11/14/23 03:56 Dose: 2.5 mg Documented By: RADHA Enoxaparin Sodium (Enoxaparin Sodium 40 Mg/0.4 Ml Syringe) 40 mg SUBCUT Q24H [facility] Last Admin: 11/14/23 05:35 Dose: Not Given Documented By: KYLAH Non-Admin Reason: Patient Refused Glucose (Glucose Gel 15 Gm Gel..Gram.) 15 gm PO Q15M PRN; Protocol PRN Reason: per Hypoglycemia Standing Ord. Guaifenesin/Dextromethorphan (Guaifenesin Dm 100/10/5 Ml 5 Ml Syrup) 5 ml PO Q4H PRN PRN Reason: Cough Last Admin: 11/14/23 05:32 Dose: 5 ml Documented By: KYLAH Hydromorphone HCl (Hydromorphone Hcl 1 Mg/Ml Syringe) 2 mg IVPUSH Q4H PRN; Protocol PRN Reason: Pain, Severe (Pain Scale 7-10) Dextrose (D10) 250 mls @ 750 mls/hr IV Q15M PRN; Protocol PRN Reason: per Hypoglycemia Standing Ord. Cefazolin Sodium/Dextrose (Ancef) 2 gm in 50 mls @ 100 mls/hr IV Q8H [facility] Last Infusion: 11/14/23 12:38 Dose: Infused Documented By: JUANI Insulin Human Lispro (Insulin Lispro 100 Unit/Ml 3 Ml Vial) 0.1 - 10 unit SUBCUT QIDACHS [facility]; Protocol Last Admin: 11/14/23 11:57 Dose: 2 unit Documented By: JUANI Methadone HCl (Methadone Hcl 20 Mg/2 Ml Oral.Conc) 55 mg PO DAILY@0800 [facility] Last Admin: 11/14/23 08:26 Dose: 55 mg Documented By: JUANI Co-signed By: JACQUI Ondansetron HCl (Ondansetron Hcl 4 Mg/2 Ml Vial) 4 mg IVPUSH Q8H PRN PRN Reason: Nausea and Vomiting Prednisone (Prednisone 20 Mg Tablet) 40 mg PO DAILY [facility] Last Admin: 11/14/23 08:22 Dose: 40 mg Documented By: JUANI Sodium Chloride (0.9 % Sodium Chloride Flush 3 Ml Syringe) 3 ml IVFLUSH QSHIFT [facility] Last Admin: 11/14/23 08:41 Dose: Not Given Documented By: JUANI Non-Admin Reason: IV Running Labs 11/14/23 09:46 11/14/23 09:42 Labs: Laboratory Results - last 24 hr 11/13/23 11/13/23 11/13/23 14:38 16:09 20:17 MCV MCH MCHC RDW Plt Count MPV Absolute Nucleated RBC Nucleated RBC % (auto) Anion Gap Estim Creat Clear Calc Estimated GFR POC Glucose 241 H 244 H Random Glucose Calcium C-Reactive Protein Urine Color Urine Appearance Urine pH Ur Specific [place] Urine Protein Urine Glucose (UA) Urine Ketones Urine Blood Urine Nitrite Ur Leukocyte Esterase Random Vancomycin 3.2 L Hep Bs Antigen Hep Bs Antibody Hep B Core Total Ab Hepatitis C Ab (EIA) HIV 1&2 Ab/P24 Ag 4thGn 11/14/23 11/14/23 11/14/23 04:57 07:13 09:42 MCV MCH MCHC RDW Plt Count MPV Absolute Nucleated RBC Nucleated RBC % (auto) Anion Gap 11 L Estim Creat Clear Calc 172.5 Estimated GFR > 60 POC Glucose 126 H Random Glucose 71 Calcium 9.0 C-Reactive Protein 8.95 H Urine Color Yellow Urine Appearance Clear Urine pH 8.0 Ur Specific [place] >= 1.030 H Urine Protein Trace Urine Glucose (UA) Negative Urine Ketones Negative Urine Blood Negative Urine Nitrite Negative Ur Leukocyte Esterase Negative Random Vancomycin Hep Bs Antigen Negative Hep Bs Antibody REACTIVE Hep B Core Total Ab Nonreactive Hepatitis C Ab (EIA) Nonreactive HIV 1&2 Ab/P24 Ag 4thGn Nonreactive 11/14/23 11/14/23 09:46 11:18 MCV 75.3 L MCH 23.7 L MCHC 31.5 RDW 14.6 Plt Count 287 MPV 9.9 Absolute Nucleated RBC 0.000 Nucleated RBC % (auto) 0.0 Anion Gap Estim Creat Clear Calc Estimated GFR POC Glucose 139 H Random Glucose Calcium C-Reactive Protein Urine Color Urine Appearance Urine pH Ur Specific [place] Urine Protein Urine Glucose (UA) Urine Ketones Urine Blood Urine Nitrite Ur Leukocyte Esterase Random Vancomycin Hep Bs Antigen Hep Bs Antibody Hep B Core Total Ab Hepatitis C Ab (EIA) HIV 1&2 Ab/P24 Ag 4thGn ITS Impressions Chest CT 11/11/23 21:37 IMPRESSION: 1. Expansile changes in the left chest wall musculature with surrounding streaky changes in the subcutaneous fat. Findings are most consistent with an infectious process. No discrete abscess is seen. 2. Groundglass infiltrate right upper lobe. 3. Incidental note made of enlarged fatty liver, splenomegaly and small hiatal hernia. Fleischner guidelines were followed. Electronically signed by: Charles Gaytan MD 11/12/2023 02:04 AM EDT RP Abdomen Ultrasound 11/12/23 17:04 IMPRESSION: No abscess. Electronically signed by: Denys Bianchi MD 11/12/2023 05:24 PM EDT RP Lumbar Spine CT 11/14/23 03:10 IMPRESSION: 1. Mild degenerative disease of the lumbar spine. 2. Trace left pleural effusion. Electronically signed by: Raiza Valenzuela MD 11/14/2023 12:28 PM EDT RP TTE 11/14/23 1. No obvious vegetation seen on this study 2. Normal biventricular function 3. Normal cardiac valvular Doppler 4. Normal RV systolic pressure Microbiology Microbiology Results: Microbiology 11/11/23 23:39 Blood Culture - Final Blood - Venous Staphylococcus aureus 11/11/23 20:24 Blood Culture - Final Blood - Venous Staphylococcus aureus Assessment and Plan (1) Staphylococcus aureus bacteremia: Status: Acute Plan d3 43yo M with DM2, polysubstance abuse disorder admitted for sepsis due to left chest wall cellulitis, aspiration PNA, and MSSA bacteremia sepsis due to left chest wall cellulitis, aspiration PNA, and MSSA bacteremia - was on vancomycin + piperacillin-tazobactam 11/11-11/13, change to cefazolin today 11/13-, repeat BCx pending, TTE without vegetations, ID consult pending back pain - no SEA on contrast CT; treat pain with IV hydromorphone reactive airways disease - magnesium, prednisone 11/12- polysubstance abuse disorder - Addiction Medicine consulted, started on methadone and dose increased DM2 with hyperglycemia - A1c only 5.9 - jose-dose lispro VTE ppx - enoxaparin dispo - eventual STR In my clinical judgment, the patient requires continued inpatient hospitalization for the following reasons: bacteremia, IV ABX Family updated at bedside Total time managing care of this patient today: 40 minutes. Quality Stroke Does the patient have a stroke diagnosis?: No VTE Prior VTE?: No VTE Risk Level:: Medical - moderate - high VTE Device Contraindication: Treatment Not Indicated VTE Drug Contraindication: N/A - Med Ordered
--- NOTE | 2023-11-14 15:12 | PC.NURSE ---
Pt left AMA. pt educated by MD and nursing staff that he should stay and receive treatment. Pt left AMA.
--- NOTE | 2023-11-14 15:38 | MHC.CM.PN ---
PER MD ROUNDS, PT WILL NEED IV ABX AT [place] CM ATTEMPTED TO MEET WITH PT TO INFORM PT THE ONLY [facility] ACCEPTING WAS [facility] HOWEVER, DISCUSSION DID NOT OCCUR PT WAS UPSET ABOUT HIS GF NOT BEING ALLOWED TO VISIT AND LEFT AMA
--- NOTE | 2023-11-14 18:23 | P.DS_ITS ---
DS: Providers Provider Date of Service: 11/14/23 Date of admission: 11/12/23 03:36 Primary care physician: [facility] Consults: 11/12/23 04:12 Addiction Medicine Routine Consulting Provider: Addiction Covering Reason for consultation: Polysubstance abuse Has provider been notified: No 11/12/23 16:05 Addiction Medicine Routine Consulting Provider: Addiction [facility]ing Reason for consultation: opioid dependence Has provider been notified: No 11/12/23 16:21 Consult to General Surgery Routine Consulting Provider: [facility] Reason for consultation: left scapula area abscess Has provider been notified: No 11/13/23 13:58 Consult to Infectious Diseases Routine Consulting Provider: [facility] Reason for consultation: staph aureus bacteremia DS: Diagnosis Discharge Diagnosis (1) Staphylococcus aureus bacteremia: Status: Acute (2) Left against medical advice: Status: Acute (3) Opioid abuse: Status: Acute (4) Pneumonia: Status: Acute (5) Sepsis: Status: Acute DS: Summary Hospital Course Hospital Course: From the history and physical by the admitting hospitalist, Dannie Lynn MD, 11/12/23: At the time of my evaluation patient was sedated as he received treatment with Ativan 2 mg and methadone 30 mg PO. Saul Caro is a 43 years old man with past medical history significant for IVDU that according to ED provider he came to the emergency department compla ining of left-sided chest pain and left upper back mass that the patient noted 3 days ago. Patient also had a mechanical fall a week ago. A chest CTA was obtained that showed expansile changes in the left chest wall musculature with surrounding streaky changes in the subcutaneous fat consistent with infectious process with no discrete abscess seen. It also showed ground-glass infiltrates in the right upper lobe. His blood workup showed leukocytosis of 14.4. Hemoglobin is at baseline and platelets are normal. There are no significant electrolyte imbalances. Renal function and LFTs are normal. Lipase is normal. CRP is 9.68. ECG showed normal sinus rhythm without ischemic changes. ED tx: APAP 975 mg p.o., ceftriaxone 1 g IV, NS 1 L bolus, methadone 30 mg p.o., albuterol inhaler, Lilly Zofran 2 mg IV, NS 2 L bolus. 43yo M with DM2, polysubstance abuse disorder admitted for sepsis due to left chest wall cellulitis, aspiration PNA, and MSSA bacteremia. Blood cultures from 11/10 positive for MSSA; repeat BCx drawn 11/13 and pending. No vegetation on TTE. No epidural abscess on contrast CT. He did have reactive airway disease vs. asthma exacerbation treated with prednisone. For his substance abuse, he was started on methadone. HCV/HIV screening negative. He was treated with vancomycin + Zosyn 11/11-11/14/23 then changed to cefazolin 2g IV q8h 11/13. Plan was for 6 wk of IV cefazolin from 1st day of culture clearance. Unfortunately, he signed out of the hospital AGAINST MEDICAL ADVICE despite extensive counseling on the dire consequences of incompletely treated bacteremia. He was advised to return to the hospital [facility]. 4 Time Attestation Discharge Coordination Time (in mins): 45 Quality: Safe Use of Opioids Does Pt have an Active Cancer Diagnosis on the Problem List?: No Quality: Stroke Does the patient have a stroke diagnosis?: No Physical Exam Vital Signs: Vital Signs: Last Vital Signs Temp 97.4 F 11/14/23 07:08 Pulse 64 11/14/23 07:08 Resp 16 11/14/23 07:08 BP 125/69 11/14/23 07:08 Pulse Ox 95 11/14/23 07:08 O2 Del Method Room Air 11/14/23 07:08 O2 Flow Rate 2 11/12/23 19:26 BMI result Body Mass Index 26.0 DS: Data Data Completed and Pending Labs on day of discharge: Laboratory Results - last 24 hr 11/13/23 11/14/23 11/14/23 20:17 04:57 07:13 WBC RBC Hgb Hct MCV MCH MCHC RDW Plt Count MPV Absolute Nucleated RBC Nucleated RBC % (auto) Sodium Potassium Chloride Carbon Dioxide Anion Gap BUN Creatinine Estim Creat Clear Calc Estimated GFR POC Glucose 244 H 126 H Random Glucose Calcium C-Reactive Protein Urine Color Yellow Urine Appearance Clear Urine pH 8.0 Ur Specific [place] >= 1.030 H Urine Protein Trace Urine Glucose (UA) Negative Urine Ketones Negative Urine Blood Negative Urine Nitrite Negative Ur Leukocyte Esterase Negative Hep Bs Antigen Hep Bs Antibody Hep B Core Total Ab Hepatitis C Ab (EIA) HIV 1&2 Ab/P24 Ag 4thGn 11/14/23 11/14/23 11/14/23 09:42 09:46 11:18 WBC 10.2 RBC 4.01 L Hgb 9.5 L Hct 30.2 L MCV 75.3 L MCH 23.7 L MCHC 31.5 RDW 14.6 Plt Count 287 MPV 9.9 Absolute Nucleated RBC 0.000 Nucleated RBC % (auto) 0.0 Sodium 139 Potassium 3.4 Chloride 106 Carbon Dioxide 25 Anion Gap 11 L BUN 7 L Creatinine 0.60 Estim Creat Clear Calc 172.5 Estimated GFR > 60 POC Glucose 139 H Random Glucose 71 Calcium 9.0 C-Reactive Protein 8.95 H Urine Color Urine Appearance Urine pH Ur Specific [place] Urine Protein Urine Glucose (UA) Urine Ketones Urine Blood Urine Nitrite Ur Leukocyte Esterase Hep Bs Antigen Negative Hep Bs Antibody REACTIVE Hep B Core Total Ab Nonreactive Hepatitis C Ab (EIA) Nonreactive HIV 1&2 Ab/P24 Ag 4thGn Nonreactive Discharge Plan Discharge Patient Disposition: Left Against Medical Advice Discharge Diagnosis: MSSA BACTEREMIA OPIOID ABUSE LEFT AGAINST MEDICAL ADVICE Referrals: [facility] [Primary Care Provider] - 1 Week Discharge Medications: No Action No Known Home Meds Discharge Orders: Discharge Order (Routine); Ordered 11/14/23 Ordered By: Joshua Stewart Print Language: Lithuanian Care Plan Goals: cure of infection Health Concerns: MSSA BACTEREMIA OPIOID ABUSE LEFT AGAINST MEDICAL ADVICE Plan of Treatment: RETURN TO THE HOSPITAL [facility] TO RESUME TREATMENT FOR THIS LIFE-THREATENING INFECTION Assessment: See Discharge Summary. Discharge Date/Time: 11/14/23 15:14
--- NOTE | 2023-11-15 04:18 | PC.NURSE ---
Patient requested to be medicated with Tylenol for 4/10 lower back pain.
[2023-11-15 22:59] LABS: Levetiracetam Keppra <2.0 mcg/mL (6.0-46.0)
== END 2023-11-14 15:14 | disposition left against medical advice (07) | DRG 720 ==
LOC: HO.ED 11-12 03:12 → HO.EDOVER 11-12 03:43 → HO.S3 11-12 04:24
PROVIDERS: Internal Medicine; Nurse Practitioner Family; Physician Assistant Medical; Admitting Provider Internal Medicine; Emergency Provider Internal Medicine; Visit Provider Family Medicine
DX: A41.9 Sepsis, unspecified organism (principal); J69.0 Pneumonitis due to inhalation of food and vomit; L03.313 Cellulitis of chest wall; F11.20 Opioid dependence, uncomplicated; E11.65 Type 2 diabetes mellitus with hyperglycemia; J45.909 Unspecified asthma, uncomplicated; B95.61 Methicillin susceptible Staphylococcus aureus infection as the cause of diseases classified elsewhere; F17.210 Nicotine dependence, cigarettes, uncomplicated; Z71.6 Tobacco abuse counseling; F19.10 Other psychoactive substance abuse, uncomplicated; Z20.822 Contact with and (suspected) exposure to COVID-19; Z79.899 Other long term (current) drug therapy
CPT/HCPCS: 0241U; 36415; 71260; 72133; 76705; 80048; 80053; 80177; 80202; 80307; 81003; 82550; 82565; 82947; 83036; 83605; 83690; 83735; 84484; 85025; 85027; 85652; 86140; 86704; 86706; 86803; 87040; 87077; 87147; 87186; 87205; 87340; 87389; 93005; 93306; 94640; 99285; J0690; J0696; J1171; J1650; J2060; J2270; J2543; J3370; J3371; J3475; J7120; Q9957; Q9967

== ENCOUNTER 2023-11-12 03:36 | Outpatient (BNV) | payer MEDICAID, SELFPAY | END 2023-11-14 07:00 | PROVIDERS: Admitting Provider Internal Medicine; Emergency Provider Internal Medicine; Visit Provider Internal Medicine Cardiovascular Disease | DX: A41.01 Sepsis due to Methicillin susceptible Staphylococcus aureus (principal) | CPT/HCPCS: 93306 ==

== ENCOUNTER → 2023-11-12 03:36 | Outpatient (BNV) | payer MEDICAID, SELFPAY | PROVIDERS: Admitting Provider Internal Medicine; Emergency Provider Internal Medicine; Visit Provider Surgery | DX: S29.9XXA Unspecified injury of thorax, initial encounter (principal); L03.313 Cellulitis of chest wall | CPT/HCPCS: 99222; 99231; 99232 ==

== ENCOUNTER → 2023-11-12 03:36 | Outpatient (BNV) | payer MEDICAID, SELFPAY | PROVIDERS: Admitting Provider Internal Medicine; Emergency Provider Internal Medicine; Visit Provider Internal Medicine | DX: A41.01 Sepsis due to Methicillin susceptible Staphylococcus aureus (principal); Z53.29 Procedure and treatment not carried out because of patient's decision for other reasons; F11.10 Opioid abuse, uncomplicated; J69.0 Pneumonitis due to inhalation of food and vomit | CPT/HCPCS: 99223; 99232; 99499 ==

== ENCOUNTER → 2023-11-12 03:36 | Outpatient (BNV) | payer MEDICAID, SELFPAY | PROVIDERS: Admitting Provider Internal Medicine; Emergency Provider Internal Medicine; Visit Provider Nurse Practitioner Psychiatric/Mental Health | DX: F11.20 Opioid dependence, uncomplicated (principal) | CPT/HCPCS: 99221 ==

== ENCOUNTER 2023-11-14 15:42 | Inpatient (IN) | payer MEDICAID, SELFPAY ==
[2023-11-14 16:23] VITALS: BP 113/70; PULSE 80; RESP 19; TEMP 37.2; O2SAT 94; BMI 25.1
--- NOTE | 2023-11-14 16:25 | ED_ITS ---
HPI - Recheck/Abnormal Lab/Rx General Chief Complaint: General Medical Stated Complaint: infection lefted ama Time Seen by Provider: 11/14/23 23:32 Source: patient and family Mode of arrival: ambulatory Limitations: no limitations History of Present Illness ED Provider: DR. Cook HPI narrative: 43-year-old male history of IVDU initially was admitted for left chest wall cellulitis had a CTA consistent with subcutaneous infectious process with no discrete abscess patient also had a positive blood culture for staph aureus patient was admitted for IV antibiotic, had TTE showed no vegetation, no epidural abscess on the CT, patient initially was treated with vancomycin and Zosyn then was changed to cefazolin and the plan is to insert a PICC line and placing for 6 weeks course of antibiotic patient signed AMA before finish the course of antibiotic returned back today requesting readmission. Related Data Home Medications ?Medication ?Instructions ?Recorded ?Confirmed No Known Home Meds 11/12/23 11/12/23 Allergies Allergy/AdvReac Type Severity Reaction Status Date / Time No Known Allergies Allergy Verified 11/14/23 16:26 [No Known Allergies*] Review of Systems Review of Systems: All other systems are reviewed and are negative Constitutional: Reports as per HPI and Reports no additional constitutional complaints Eyes: Reports as per HPI and Reports no additional eye complaints Reports system reviewed and no additional complaints, except as documented Cardiovascular: Reports as per HPI and Reports no additional cardiovascular complaints Respiratory: Reports as per HPI and Reports no additional respiratory complaints Gastrointestinal: Reports as per HPI and Reports no additional gastrointestinal complaints Genitourinary: Reports no additional female genitourinary complaints Musculoskeletal: Reports no additional musculoskeletal complaints Skin/Breast: Reports system reviewed and no additional complaints, except as docu Psychiatric: Reports no additional psychiatric complaints Endocrine: Reports no additional endocrine complaints Hematologic/Lymphatic: Reports no additional hematologic/lymphatic complaints Allergic/Immunologic: Reports no additional allergic/immunologic complaints Reports system reviewed and no additional complaints, except as documented and Reports Abnormal speech present [facility] Past Medical History Medical History Sepsis Staphylococcus aureus bacteremia Opioid abuse Left against medical advice IVDU (intravenous drug user) Type 2 diabetes mellitus Hiatal hernia Social History Social History Household Members: Unknown / Unable to assess Housing: Unknown / Unable to assess Do you presently have visiting nurse or other home services: No Alcohol intake: never Patient Tobacco Use Status: Tobacco use Unknown Substance Use Type: Crack/Cocaine Advance Directives: No Advance Directives Information Provided: No Do you have a plan to hurt others: No Plan service: No Physical Exam Vital Signs: Vital Signs: Last Vital Signs Temp 98.2 F 11/14/23 22:31 Pulse 66 11/14/23 22:31 Resp 16 11/14/23 22:31 BP 113/71 11/14/23 22:31 Pulse Ox 96 11/14/23 22:31 O2 Del Method Room Air 11/14/23 22:31 BMI result Body Mass Index 25.1 Vital signs have been reviewed and appear to be correct. Blood pressure elevated. Heart rate normal. Respiratory rate normal. Temperature normal. Oxygen saturation normal. Appearance: Alert. Oriented X3. No acute distress. Head: Normal external exam. Normocephalic. Atraumatic. No Malhotra signs noted. No raccoon eyes noted Eyes: PERRLA. EOMI. Conjunctiva and sclera normal. Eyelids normal. ENT: TM's Normal. Pharynx normal. Uvula midline. Moist mucous membranes. No trismus noted. No drooling noted. No muffled voice noted. Neck: Normal inspection. Neck supple. FROM. No adenopathy. Thyroid Normal. No meningeal signs. No neck mass noted. CVS: Normal heart rate and rhythm. Heart sound normal. No murmurs noted. Pulses normal throughout. Respiratory: No respiratory distress. Painless inspiration. Breath sounds normal. No wheezes/rales/rhonchi noted. Chest nontender. No accessory muscle usage noted or decreased air movement noted. Abdomen: Soft and nontender. Bowel sounds normal in all 4 quadrants. No distention noted. No organomegaly noted. No visible injury noted. Back: No CVA tenderness. Full range of motion noted. Skin: Skin warm and dry. Normal skin color. Normal skin turgor. No rashes/lesions/lacerations noted. Extremities: No lower extremity edema. Extremities exhibit normal range of motion. Extremities nontender. Neuro: Oriented X 3. Cranial nerve exam: II-XII are grossly intact No motor deficit. No sensory deficit. Reflexes normal. Course Course Course Narrative: This is a Rapid Medical Examination (RME) performed by Penny Gomez PA-C in triage. Full HPI, ROS, assessment and treatment plan per primary provider in the Main ED. 43 yo male with recent admission for MSSA bacteremia who presents back to the ER for re-evaluation after he left against medical advice 45 minutes ago. reports getting IV antibiotics a few hours ago upstairs. he said he made a poor decision leaving and is willing to come back in to complete his treatment. he is AAO x3, nonfocal and does not appear to be under the influence of drugs or alcohol. Plan: he is agreeable to re-admission Reevaluation(s) Reevaluation #1: Return after signed AMA, requesting readmission for IV antibiotic will restart cefazolin IV and readmit the patient. Time: 23:44 Medical Decision Making Differential Diagnosis Differential Diagnoses: The differential diagnosis associated with the presentation includes ( Bacteremia, cellulitis of the left chest wall.) Admission/Observation Consideration of admission/observation: Escalation of care including admission/observation considered Consult Healthcare Provider Management of the patient was discussed with: Hospitalist ( Dr. Gonzalez) Lab Data [facility] Lab Attestation statement: I reviewed the patient's lab results. Discharge Plan Discharge Clinical Impression: Cellulitis of chest wall, Staphylococcus aureus bacteremia Patient Disposition: Admitted As Inpatient Prescriptions: No Action No Known Home Meds Print Language: Nicar[place]
[2023-11-14 22:31] VITALS: BP 113/71; PULSE 66; RESP 16; TEMP 36.8; O2SAT 96
--- NOTE | 2023-11-14 23:49 | P.HPHOSP_ITS ---
History of Present Illness Date of Service: 11/15/23 Chief Complaint: Bacteremia This is a 43-year-old male with pertinent history of IV polysubstance use disorder who presents to the emergency department for concerns of bloodstream infection. Of note patient was admitted on 11/11 with sepsis due to chest wall cellulitis, aspiration pneumonia and MSSA bacteremia. He was being treated with IV antibiotics but left against medical advice on 11/13. Patient states he used 1 bag of IV heroin while he was gone. Admits he made a bad decision and hence he decided to come back to the ER for treatment of bacteremia. Continues to have cough and wheezing. Denies nausea, vomiting, fever, chills, chest pain, palpitations, shortness of breath, abdominal pain, changes in urinary or bowel habits. In the emergency department, patient was given IV cefazolin and blood cultures obtained Review of Systems 2 Constitutional: Constitutional: Reports fatigue and Reports malaise Cardiovascular: Cardiovascular: Reports no additional cardiovascular complaints Respiratory: Respiratory: Reports cough and Reports wheezing Gastrointestinal: Gastrointestinal: Reports no additional gastrointestinal complaints Genitourinary: Genitourinary: Reports no additional male genitourinary complaints Endocrine: Endocrine: Reports fatigue Allergic/Immunologic: Allergic/Immunologic: Reports wheezing PMFSH Medical History Sepsis Staphylococcus aureus bacteremia Opioid abuse Left against medical advice IVDU (intravenous drug user) Type 2 diabetes mellitus Hiatal hernia Pertinent family history: No family history of early CAD Social History Household Members: Unknown / Unable to assess Housing: Unknown / Unable to assess Do you presently have visiting nurse or other home services: No Alcohol intake: never Patient Tobacco Use Status: Current everyday Tobacco user Smoked in Last 30 Days: Yes Substance Use Type: Crack/Cocaine and Heroin Substance Use Frequency: Daily Last Used Substance: Days (ago) Advance Directives: No Advance Directives Information Provided: No Do you have a plan to hurt others: No Plan Nutrition Risks: No Nutritional Risk service: No Meds Allergies Allergy/AdvReac Type Severity Reaction Status Date / Time No Known Allergies Allergy Verified 11/14/23 16:26 [No Known Allergies*] Active Medications: Current Medications Cefazolin Sodium/Dextrose (Ancef) 2 gm in 50 mls @ 100 mls/hr IV ONCE ONE Stop: 11/15/23 00:12 Home Medications ?Medication ?Instructions ?Recorded ?Confirmed ?Last Taken ?Type No Known Home Meds 11/12/23 11/12/23 Unknown History Physical Exam 2 Vital Signs and Narrative: Vital Signs: Last Vital Signs Temp 98.2 F 11/14/23 22:31 Pulse 66 11/14/23 22:31 Resp 16 11/14/23 22:31 BP 113/71 11/14/23 22:31 Pulse Ox 96 11/14/23 22:31 O2 Del Method Room Air 11/14/23 22:31 BMI result Body Mass Index 25.1 Middle-aged male lying in bed in no distress Neck supple, no JVD Regular rate and rhythm, S1-S2 heard Bilateral wheezing appreciated Abdomen soft nontender, no guarding, no rigidity Patient is awake, alert and oriented to self, place, time and person ; no focal motor deficit Psych: Normal mood No pedal edema Results Labs 11/14/23 23:57 11/14/23 23:57 Assessment and Plan (1) Staphylococcus aureus bacteremia: Status: Acute Plan This is a 43-year-old male with pertinent history of IV polysubstance use disorder who presents to the emergency department for concerns of bloodstream infection. #. MSSA bacteremia: Will admit patient with IV cefazolin. Repeat blood cultures pending. TTE without vegetations. ID consult pending #. Reactive airway disease: Initiating p.o. prednisone, scheduled and p.r.n. DuoNebs #. Polysubstance use disorder: Appreciate Addiction Team. Was started on methadone during previous admission #. Microcytic anemia: Obtaining iron panel DVT prophylaxis: Lovenox Full code Admit as inpatient and will require two night minimum hospital stay for IV antibiotics (as above), which is not possible in a lesser acute setting. Specialist consult pending Quality Stroke Does the patient have a stroke diagnosis?: No VTE Prior VTE?: No VTE Risk Level:: Medical - moderate - high VTE Device Contraindication: Treatment Not Indicated VTE Drug Contraindication: N/A - Med Ordered
--- OUTSIDE RECORDS SUMMARY | 2023-11-14 23:54 | XMS_ITS | Continuity of Care Document ---
Author Organization [facility] Address [address] [place] [address]- Care Team Providers Care Environmental Field Services Technician Name Role Phone Ezio Javier MD Primary Care Physician Encounter [facility] Date(s): 09/11/20 - 09/12/[address] [address]- Encounter Diagnosis Right orbital fracture(Final) - 09/12/20 Discharge Disposition: A-D/C Home Attending Physician: Mane Peters DO Admitting Physician: Mane Peters DO Referring Physician: Not on Staff, Referring MD Allergies, Adverse Reactions, Alerts Substance Reaction Severity Status NKA Active Medications Augmentin 875 mg-125 mg oral tablet 1 tablet, By Mouth, Every 12 hours, for 7 days, # 14 tablet, 0 Refills, Acute 09/19/20 0:26:00 EDT,09/12/20 0:26:00 EDT, Tablet, [facility] #[id number], Partial fill upon patient request if the prescription is for a schedule II opioid drug., 180, cm, ... Start Date: 09/12/20 Stop Date: 09/19/20 Status: Ordered ibuprofen 600 mg oral tablet 600 mg, 1, tablet, By Mouth, Every 8 hours, PRN, for 10 days, # 50 tablet, Refills 0, Tot. Refills 0, Acute 09/22/20 0:26:00 EDT, as needed for pain, 09/12/20 0:26:00 EDT, Route to Pharmacy Electronically, [facility] #[id number], Partial fill upon patient... Start Date: 09/12/20 Stop Date: 09/22/20 Status: Ordered oxyCODONE 5 mg oral tablet 5 mg, 1, tablet, By Mouth, Every 6 hours, PRN, for 3 days, # 10 tablet, Refills 0, Tot. Refills 0, Acute 09/15/20 0:26:00 EDT, as needed for pain, 09/12/20 0:26:00 EDT, Route to Pharmacy Electronically, [facility] #[id number], Partial fill upon patient re... Start Date: 09/12/20 Stop Date: 09/15/20 Status: Ordered Suboxone 4 mg-1 mg sublingual film 1 film, Sublingual, Daily, dissolve under the tongue, 0 Refills, Maintenance, 04/20/19 15:21:00 EDT, Film Start Date: 04/20/19 Status: Ordered Vital Signs Most recent to oldest [Reference Range]: 1 2 Height 180 cm (09/11/20 11:40 PM) 180 cm (09/11/20 8:37 PM) Weight 127.5 kg (09/11/20 8:37 PM) Oxygen Saturation [94-100 %] 96 % (09/11/20 11:40 PM) 96 % (09/11/20 8:37 PM) Pulse Rate [55-90 bpm] 70 bpm (09/11/20 11:40 PM) 83 bpm (09/11/20 8:37 PM) Blood Pressure [90-138/55-84 mm Hg] 131/ 83mm Hg (09/11/20 11:40 PM) 130/82mm Hg (09/11/20 8:37 PM) Respiratory Rate [16-30 br/min] 18 br/mi n (09/11/20 11:40 PM) 16 br/min (09/11/20 8:37 PM) Temperature [96.8-100.4 DegF] 98.0 DegF (09/11/20 11:40 PM) 97 DegF (09/11/20 8:37 PM) Mode of Delivery (Oxygen) Room air (09/11/20 11:40 PM) Room air (09/11/20 8:37 PM) Blood pressure sites Arm, left (09/11/20 11:40 PM) Arm, left (09/11/20 8:37 PM) Temperature Route Oral (09/11/20 11:40 PM) Temporal (09/11/20 8:37 PM) Dry Weight 127.5 kg (09/11/20 8:37 PM) Dry Weight Obtained Via Patient/family s tated (8/5/21 8:37 PM) Social History Social History Type Response Smoking Status Current every day sm oker; Other: Pt uses e - cig; entered on: 08/11/17 Sex
--- OUTSIDE RECORDS SUMMARY | 2023-11-14 23:54 | XMS_ITS | Continuity of Care Document ---
Author Organization [facility] Address [address] [place] [address]- Care Team Providers Care Spiral Gear Generator Name Role Phone Ezio Javier MD Primary Care Physician Encounter [facility] Date(s): 04/20/19 - 04/20/[address] [address]- [facility] Discharge Disposition: A-D/C Home Attending Physician: Carlos Ornelas MD Admitting Physician: Carlos Ornelas MD Referring Physician: Not on Staff, Referring MD Allergies, Adverse Reactions, Alerts Substance Reaction Severity Status NKA Active Medications Suboxone 4 mg-1 mg sublingual film 1 film, Sublingual, Daily, dissolve under the tongue, 0 Refills, Maintenance, 04/20/19 15:21:00 EDT, Film Start Date: 04/20/19 Status: Ordered Vital Signs Most recent to oldest [Reference Range]: 1 Height 180 cm (04/20/19 3:15 PM) Weight 123 kg (04/20/19 3:15 PM) Oxygen Saturation [94-100 %] 100 % (04/20/19 3:15 PM) Pulse Rate [55-90 bpm] 78 bpm (04/20/19 3:15 PM) Blood Pressure [90-138/55-84 mm Hg] 127/ 77mm Hg (04/20/19 3:15 PM) Respiratory Rate [16-30 br/min] 22 br/mi n (04/20/19 3:15 PM) Temperature [96.8-100.4 DegF] 97.9 DegF (04/20/19 3:15 PM) Blood pressure sites Arm, left (04/20/19 3:15 PM) Temperature Route Temporal (04/20/19 3:15 PM) Dry Weight 123 kg (04/20/19 3:15 PM) Social History Social History Type Response Smoking Status Current every day sm oksammi; Other: Pt uses e - cig; entered on: 08/11/17 Sex
--- OUTSIDE RECORDS SUMMARY | 2023-11-14 23:54 | XMS_ITS | Continuity of Care Document ---
Author Organization [facility] Address [address] [facility] [address], [address], [address] [place] [id number]- Care Team Providers Care Specialty Trimmer Name Role Phone Not on Staff, PCP Primary Care Physician Unavail able Encounter [facility] Date(s): 09/03/22 - 10/03/22 [facility] [address], [address], [address] [place] [id number] Allergies, Adverse Reactions, Alerts No Known Allergies Immunizations Given and Recorded Vaccine Date Status Refusal Reason influenza virus vaccine, inactivated 03/05/21 Give n influenza virus vaccine, inactivated 01/12/16 Ezekiel rded pneumococcal 23-valent vaccine 01/12/16 Recorded tetanus/diphtheria/pertussis, acel(Tdap) 01/12/16 Recorded Medications Suboxone 4 mg-1 mg sublingual film 1 film, Sublingual, Daily, dissolve under the tongue, 0 Refills, Maintenance, 04/20/19 15:21:00 EDT, Film Start Date: 04/20/19 Status: Ordered Problem List Condition Confirmation Course Effective Dates Status Health St atus Informant Obese class I Confirmed Active Social History Social History Type Response Smoking Status Current every day sm oker; Other: Pt uses e - cig; entered on: 08/11/17 Sex Patient Care team information Care Team Personnel Name: Irasema Can RN Position: [facility] RN Member Role: Primary Care Nurse Name: Miguel Gallo RN Position: [facility] RN Member Role: Primary Care Nurse Name: Naima Davidson RN Position: [facility] RN Member Role: Primary Care Nurse Name: Not on Staff, PCP Position: [facility] Physician (General Medicine) Member Role: PCP Name: Tamra Lobato RN Position: [facility] SN RN Member Role: Primary Care Nurse Care Team Related Persons Name: ISAI OSULLIVAN
--- OUTSIDE RECORDS SUMMARY | 2023-11-14 23:54 | XMS_ITS | Continuity of Care Document ---
Author Organization [facility] Address [address] [place] [id number]- Care Team Providers Care Quality Supervisor Name Role Phone Yaya OSWALD, Ezio Bowling Primary Care Physician [place] [facility] [place] 03/08/[address] [id number] Discharge Disposition: A-D/C AMA Attending Physician: Precious De Los Santos MD Admitting Physician: Domenic Flores MD Referring Physician: Not on Staff, Referring MD Allergies, Adverse Reactions, Alerts No Known Allergies Immunizations Given and Recorded Vaccine Date Status Refusal Reason influenza virus vaccine, inactivated 03/05/21 Give n influenza virus vaccine, inactivated 01/12/16 Ezekiel rded pneumococcal 23-valent vaccine 01/12/16 Recorded tetanus/diphtheria/pertussis, acel(Tdap) 01/12/16 Recorded Medications Dilaudid Inj 2 mg, Injection, IV Push Slowly, Every 4 hours, PRN for Pain , Severe, Routine, 03/04/21 5:31:00 EST Start Date: 03/04/21 Stop Date: 03/08/21 Status: Discontinued Suboxone 4 mg-1 mg sublingual film 1 film, Sublingual, Daily, dissolve under the tongue, 0 Refills, Maintenance, 04/20/19 15:21:00 EDT, Film Start Date: 04/20/19 Status: Ordered Procedures Procedure Date Related Diagnosis Body Site Status Incision and drainage, shoul elpidio area; deep abscess or hematoma 1 03/04/21 Compl eted 1left AC joint and perijoint abcess Results Orders for Microbiology Reports Name Date Blood Culture 03/05/21 Blood Culture #2 03/05/21 Anaerobic Culture (ANAEROBIC CULTURE) Wound Deep Culture w/ Gram Smear (DEEP W OUND CULTURE) 03/04/21 Anaerobic Culture (Culture Anaerobic) Sterile Body Fluid Culture W / Gram Smear (Culture Sterile Body Fluid w/ Gram Smear) 03/04/21 Blood Culture 03/04/21 Blood Culture #2 03/04/21 Microbiology Reports TEST:Blood Culture, Second Order STATUS:Unauthenticated BODY SITE: SOURCE:Blood COLLECTED DATE/TIME:03/05/21 4:07 PM Blood Culture, Second Order SPECIMEN DESCRIPTION : BLOOD NO SITE SPECIAL REQUESTS : NONE CULTURE : NO GROWTH 3 DAYS REPORT STATUS : PRELIMINARY REPORT TEST:Blood Culture STATUS:Unauthenticated BODY SITE: SOURCE:Blood COLLECTED DATE/TIME:03/05/21 12:54 PM Blood Culture SPECIMEN DESCRIPTION : BLOOD R SPECIAL REQUESTS : NONE CULTURE : NO GROWTH 3 DAYS REPORT STATUS : PRELIMINARY REPORT TEST:Anaerobic Culture STATUS:Auth (Verified) BODY SITE: SOURCE:PUS COLLECTED DATE/TIME:03/04/21 6:23 PM Anaerobic Culture SPECIMEN DESCRIPTION : PUS L AC JOINT SPECIAL REQUESTS : NONE CULTURE : NO ANAEROBES ISOLATED REPORT STATUS : FINAL 03/06/2021 TEST:Deep Wound Culture STATUS:Auth (Verified) BODY SITE: SOURCE:PUS COLLECTED DATE/TIME:03/04/21 6:23 PM Deep Wound Culture SPECIMEN DESCRIPTION : PUS L AC JOINT SPECIAL REQUESTS : NONE GRAM STAIN : 3+ POLYMORPHONUCLEAR LEUKOCYTES 2+ GRAM POSITIVE COCCI CULTURE : 4+ STAPHYLOCOCCUS AUREUS. REPORT STATUS : FINAL 03/07/2021 ORGANISM 4+ STAPHYLOCOCCUS AUREUS. METHOD MIN. INHIB. CONC. (MCG/ML) CIPROFLOXACIN SUSCEPTIBLE CLINDAMYCIN SUSCEPTIBLE ERYTHROMYCIN SUSCEPTIBLE LEVOFLOXACIN SUSCEPTIBLE OXACILLIN SUSCEPTIBLE PENICILLIN RESISTANT RIFAMPIN SUSCEPTIBLE RIFAMPIN RIFAMPIN SHOULD NOT BE USED ALONE FOR ANTIMICROBIAL RIFAMPIN THERAPY. TETRACYCLINE SUSCEPTIBLE TRIMETH/SULFAMETHOX SUSCEPTIBLE VANCOMYCIN SUSCEPTIBLE TEST:Anaerobic Culture STATUS:Auth (Verified) BODY SITE: SOURCE:ASPIRA COLLECTED DATE/TIME:03/04/21 1:45 AM Anaerobic Culture SPECIMEN DESCRIPTION : ASPIRATE SHOULDER LT PLEASE NOTE THAT CULTURE RESULTS MAY BE COMPROMISED BY THE LIMITED VOLUME OF SPECIMEN RECEIVED SPECIAL REQUESTS : NONE CULTURE : NO ANAEROBES ISOLATED REPORT STATUS : FINAL 03/06/2021 TEST:Sterile Fluid Culture STATUS:Auth (Verified) BODY SITE: SOURCE:JOINT COLLECTED DATE/TIME:03/04/21 1:45 AM Sterile Fluid Culture SPECIMEN DESCRIPTION : JOINT FLUID L SHOULDER PLEASE NOTE THAT CULTURE RESULTS MAY BE COMPROMISED BY THE LIMITED VOLUME OF SPECIMEN RECEIVED SPECIAL REQUESTS : NONE GRAM STAIN : 4+ POLYMORPHONUCLEAR LEUKOCYTES 3+ GRAM POSITIVE COCCI CRITICAL VALUE CALLED AND VERIFIED BY READBACK FOR: SMEAR RESULTS TO [id number], D3B, 03/04/21 0720, BY TECH [id number] CULTURE : 4+ STAPHYLOCOCCUS AUREUS. REPORT STATUS : FINAL 03/06/2021 ORGANISM 4+ STAPHYLOCOCCUS AUREUS. METHOD MIN. INHIB. CONC. (MCG/ML) CIPROFLOXACIN SUSCEPTIBLE CLINDAMYCIN SUSCEPTIBLE ERYTHROMYCIN INTERMEDIATE LEVOFLOXACIN SUSCEPTIBLE OXACILLIN SUSCEPTIBLE PENICILLIN RESISTANT RIFAMPIN SUSCEPTIBLE RIFAMPIN RIFAMPIN SHOULD NOT BE USED ALONE FOR ANTIMICROBIAL RIFAMPIN THERAPY. TETRACYCLINE SUSCEPTIBLE TRIMETH/SULFAMETHOX SUSCEPTIBLE VANCOMYCIN SUSCEPTIBLE TEST:Blood Culture STATUS:Auth (Verified) BODY SITE: SOURCE:Blood COLLECTED DATE/TIME:03/04/21 12:47 AM Blood Culture SPECIMEN DESCRIPTION : BLOOD R HAND SPECIAL REQUESTS : CRITICAL VALUE CALLED AND VERIFIED BY READBACK FOR: [place] [id number] BY TECH [id number] 03/04/21 1658 CULTURE : STAPHYLOCOCCUS AUREUS. S. aureus was identified by multi-plex PCR. MecA NOT detected. The absence of the mecA gene is associated with susceptibility to methicillin (MSSA). FOR SUSCEPTIBILITY RESULT REFER TO BLOOD CULTURE REPORT STATUS : FINAL 03/06/2021 TEST:Blood Culture, Second Order STATUS:Auth (Verified) BODY SITE: SOURCE:Blood COLLECTED DATE/TIME:03/04/21 12:47 AM Blood Culture, Second Order SPECIMEN DESCRIPTION : BLOOD NOSITE SPECIAL REQUESTS : NONE CULTURE : STAPHYLOCOCCUS AUREUS. REPORT STATUS : FINAL 03/06/2021 ORGANISM STAPHYLOCOCCUS AUREUS. METHOD MIN. INHIB. CONC. (MCG/ML) CIPROFLOXACIN SUSCEPTIBLE CLINDAMYCIN SUSCEPTIBLE ERYTHROMYCIN SUSCEPTIBLE LEVOFLOXACIN SUSCEPTIBLE OXACILLIN SUSCEPTIBLE PENICILLIN RESISTANT RIFAMPIN SUSCEPTIBLE RIFAMPIN RIFAMPIN SHOULD NOT BE USED ALONE FOR ANTIMICROBIAL RIFAMPIN THERAPY. TETRACYCLINE SUSCEPTIBLE TRIMETH/SULFAMETHOX SUSCEPTIBLE VANCOMYCIN SUSCEPTIBLE Radiology Reports * Exam Date Time Procedure Performing Provider Status 03/05/21 7:37 PM Chest Portable Yamil Malcolm; Auth ( Verified) Notes: (Chest Portable) Reason For Exam: Shortness of Breath RESULT: Chest Portable Chest Portable Reason: Shortness of Breath; Clinical Question(s): CHF COMPARISON: 08/11/2017. FINDINGS: LINES AND TUBES: None. LUNGS AND PLEURA: Clear lungs. Normal pulmonary vascularity. No pleural effusion. No pneumothorax. HEART, MEDIASTINUM AND UMESH: Heart is at the upper limits of normal for size, accentuated by AP technique. Normal upper mediastinal and hilar contour. BONES AND SOFT TISSUES: No acute abnormality. IMPRESSION: No acute abnormality. WSN: [id number] Ordering Physician: Jack Polo Dictated By: Alycia Neil MD Dictated Date/Time: 03/05/21 7:45 pm Reviewed By: Alycia Neil MD Signed By: Alycia Neil MD Signed Date/Time: 03/05/21 7:45 pm Transcribed By: TRES Transcribed Date/Time: 03/05/21 7:42 pm Vital Signs Most recent to oldest [Reference Range]: 1 2 3 Oxygen Saturation [94-100 %] 98 % (03/08/21 3:57 PM) 99 % (03/08/21 11:57 AM) 97 % (03/08/21 7:10 AM) Pulse Rate [55-90 bpm] 70 bpm (03/08/21 3:57 PM) 75 bpm (03/08/21 11:57 AM) 86 bpm (03/08/21 7:10 AM) Blood Pressure [90-138/55-84 mm Hg] 103/69mm Hg (03/08/21 3:57 PM) 147/89mm Hg *H* (03/08/21 11:57 AM) 153/84mm Hg *H* (03/08/21 7:10 AM) Respiratory Rate [16-30 br/min] 17 br/min (03/08/21 3:57 PM) 18 br/min (03/08/21 11:57 AM) 18 br/min (03/08/21 9:39 AM) Temperature [96.8-100.4 DegF] 98.0 DegF (03/08/21 3:57 PM) 97.3 DegF (03/08/21 11:57 AM) 98.2 DegF (03/08/21 7:10 AM) Liters per Minute 6 L/min (03/04/21 7:15 PM) 6 L/min (03/04/21 7:00 PM) Mode of Delivery (Oxygen) Room air (03/08/21 3:57 PM) Room air (03/08/21 11:57 AM) Room air (03/08/21 7:10 AM) Blood pressure sites Arm, right (03/08/21 3:57 PM) Arm, left (03/08/21 11:57 AM) Arm, left (03/08/21 7:10 AM) Temperature Route Oral (03/08/21 3:57 PM) Oral (03/08/21 11:57 AM) Oral (03/08/21 7:10 AM) Social History Social History Type Response Smoking Status Current every day chinmay boyce; Other: Pt uses e - cig; entered on: 08/11/17 Sex
--- OUTSIDE RECORDS SUMMARY | 2023-11-14 23:54 | XMS_ITS | Continuity of Care Document ---
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 coronal planes.Noncontrast spiral CT through the facial bones and cervical spine was formatted in 3 planes. Automatic tube modulation was used for the cervical spine and iterative dose reconstruction was used for both the head and cervical spine to optimize scan parameters and image quality. CTDIvol Body: 15.60 mGy, DLP Body: 626 mGy*cm. CTDIvol Head: 39.80 mGy, DLP Head: 1679 mGy*cm. COMPARISON: None. FINDINGS: Suboptimal exam due to motion artifact. Guard Supervisor View Findings, Lines and Tubes: None. BRAIN AND EXTRA-AXIAL SPACES: Trace pneumocephalus is seen anterior to the right temporal lobe (series 302:55, and at the right infratentorium (series 302:9), and at/adjacent to the right sigmoid sinus (series 202:17m. No parenchymal hemorrhage, midline shift, or mass effect. Stein-white matter differentiation is wellpreserved. No acute infarct. Negative insular ribbon sign. Atherosclerotic vascular calcification of the carotid arteries but negative hyperdense vessel sign. Ventricles, sulci, and basilar cisterns are normal. No white matter lesions. No subarachnoid hemorrhage. No subdural or epidural collection. CALVARIUM, SKULL BASE, AND SOFT TISSUES: Longitudinal right temporal bone fracture involving the mastoid air cells and extending superiorly through the right parietal bone. This also involves the medial and lateral ferris of the condylar canal (series 303:12), and spares the otic capsule which appears intact. The fracture line also extends into the posterior aspect of the right occipital condyle (series 411:39). Mild mucosal thickening of the anterior and posterior ethmoid air cells. Small to moderate fluid within the right mastoid air cells likely represents blood products. The remaining paranasal sinuses and left mastoid air cells are clear. Visualized orbits and globes are intact. The extracranial soft tissues are unremarkable. MAXILLOFACIAL: Facial soft tissues: No hematoma or swelling. Nasal bones: No fracture. Orbits and orbital ferris: No fracture of the orbital ferris. No intraorbital hematoma. Maxilla and alveolus: No fracture. Extensive dental caries. Pterygoid plates: No fracture. Visualized parapharyngeal spaces: Symmetric without suspicious or acute abnormality. Zygomatic arches: No fracture. Mandible: The portions included on the exam are normal. No fracture or dislocation. CERVICAL SPINE: No fracture. No acute osseous abnormalities. Normal alignment. No locked or perched facet. Mild multilevel degenerative disc space narrowing andend plate irregularity. OTHER BONES: No acute abnormality. CERVICAL SOFT TISSUES AND LUNG APICES: Normal soft tissues. Visualized lung apices are clear. IMPRESSION: Longitudinal right temporal bone fracture involving the mastoid air cells and extending superiorly through the right parietal bone. This also involves the medial and lateral ferris of the condylar canal, and spares the otic capsule which appears intact. Trace pneumocephalus and small right mastoid air cell effusion likely representing blood products. No definite intracranial hemorrhage. No acute abnormality of the face, or cervical spine. Results were conveyed in person by Dr. Jayy Wolfe to Dr. Collin Smalls on 06/28/2022 at 6:40AM. I have personally reviewed the images and I agree with this report. WSN: [id number] Ordering Physician: Alycia Hutson Dictated By: Jayy Wolfe MD Dictated Date/Time: 06/28/22 8:01 am Reviewed By: Brad Fitzgerald MD Signed By: Brad Fitzgerald MD Signed Date/Time: 06/28/22 8:06 am Transcribed By: TRES Transcribed Date/Time: 06/28/22 6:[address] Maxillofacial region WO contrast * BHSPowerscribe , CIS S: TRANSCRIBE Brad Fitzgerald MD: VERIFY Jayy Wolfe MD: SIGN Event Display: Result: Authored Date: [id number] CT Head/Brain W/O Contrast, CT Maxilloface W/O Contrast, CT Cervical Spine W/O Contrast INDICATION: Reason: Other:; Head trauma, mod-severe; Clinical Question(s): Hematoma TECHNIQUE: Noncontrast head CT using axial technique was reconstructed in axial and coronal planes.Noncontrast spiral CT through the facial bones and cervical spine was formatted in 3 planes. Automatic tube modulation was used for the cervical spine and iterative dose reconstruction was used for both the head and cervical spine to optimize scan parameters and image quality. CTDIvol Body: 15.60 mGy, DLP Body: 626 mGy*cm. CTDIvol Head: 39.80 mGy, DLP Head: 1679 mGy*cm. COMPARISON: None. FINDINGS: Suboptimal exam due to motion artifact. Guard Supervisor View Findings, Lines and Tubes: None. BRAIN AND EXTRA-AXIAL SPACES: Trace pneumocephalus is seen anterior to the right temporal lobe (series 302:55, and at the right infratentorium (series 302:9), and at/adjacent to the right sigmoid sinus (series 202:17m. No parenchymal hemorrhage, midline shift, or mass effect. Stein-white matter differentiation is wellpreserved. No acute infarct. Negative insular ribbon sign. Atherosclerotic vascular calcification of the carotid arteries but negative hyperdense vessel sign. Ventricles, sulci, and basilar cisterns are normal. No white matter lesions. No subarachnoid hemorrhage. No subdural or epidural collection. CALVARIUM, SKULL BASE, AND SOFT TISSUES: Longitudinal right temporal bone fracture involving the mastoid air cells and extending superiorly through the right parietal bone. This also involves the medial and lateral ferris of the condylar canal (series 303:12), and spares the otic capsule which appears intact. The fracture line also extends into the posterior aspect of the right occipital condyle (series 411:39). Mild mucosal thickening of the anterior and posterior ethmoid air cells. Small to moderate fluid within the right mastoid air cells likely represents blood products. The remaining paranasal sinuses and left mastoid air cells are clear. Visualized orbits and globes are intact. The extracranial soft tissues are unremarkable. MAXILLOFACIAL: Facial soft tissues: No hematoma or swelling. Nasal bones: No fracture. Orbits and orbital ferris: No fracture of the orbital ferris. No intraorbital hematoma. Maxilla and alveolus: No fracture. Extensive dental caries. Pterygoid plates: No fracture. Visualized parapharyngeal spaces: Symmetric without suspicious or acute abnormality. Zygomatic arches: No fracture. Mandible: The portions included on the exam are normal. No fracture or dislocation. CERVICAL SPINE: No fracture. No acute osseous abnormalities. Normal alignment. No locked or perched facet. Mild multilevel degenerative disc space narrowing andend plate irregularity. OTHER BONES: No acute abnormality. CERVICAL SOFT TISSUES AND LUNG APICES: Normal soft tissues. Visualized lung apices are clear. IMPRESSION: Longitudinal right temporal bone fracture involving the mastoid air cells and extending superiorly through the right parietal bone. This also involves the medial and lateral ferris of the condylar canal, and spares the otic capsule which appears intact. Trace pneumocephalus and small right mastoid air cell effusion likely representing blood products. No definite intracranial hemorrhage. No acute abnormality of the face, or cervical spine. Results were conveyed in person by Dr. Jayy Wolfe to Dr. Collin Smalls on 06/28/2022 at 6:40AM. I have personally reviewed the images and I agree with this report. WSN: [id number] Ordering Physician: Alycia Hutson Dictated By: Jayy Wolfe MD Dictated Date/Time: 06/28/22 8:01 am Reviewed By: Brad Fitzgerald MD Signed By: Brad Fitzgerald MD Signed Date/Time: 06/28/22 8:06 am Transcribed By: TRES Transcribed Date/Time: 06/28/22 6:44 am XR Elbow - right GE 3 Views * BHSPowerscribe , CIS S: TRANSCRIBE Sandra Arrington MD: VERIFY Event Display: Result: Authored Date: [id number] Examination: Right elbow performed on 06/28/2022. History: Reason: Trauma; with Pain; Clinical Question(s): Fracture Findings: Frontal, oblique, and lateral views of the right elbow are submitted. No fractures or dislocations are demonstrated. There is no elbow joint effusion. IMPRESSION: There is no acute osseous abnormality. WSN: [id number] Ordering Physician: Alycia Hutson Dictated By: Sandra Arrington MD Dictated Date/Time: 06/28/22 8:05 am Reviewed By: Sandra Arrington MD Signed By: Sandra Arrington MD Signed Date/Time: 06/28/22 8:05 am Transcribed By: TRES Transcribed Date/Time: 06/28/22 8:04 am XR Hand - left GE 3 Views * LAWSPowerted , CIS S: TRANSCRIBE Sandra Arrington MD: VERIFY Event Display: Result: Authored Date: [id number] Examination: Left hand performed on 06/28/2022. History: Reason: Pain; Clinical Question(s): Fracture Findings: Frontal, oblique, and lateral views of the left hand are submitted. Evaluation of the second digit is limited due to overlying support apparatus. No fractures or dislocations are demonstrated. Soft tissue swelling overlies the dorsum of the wrist. IMPRESSION: Soft tissue swelling. There is no acute osseous abnormality. WSN: [id number] Ordering Physician: Collin Smalls Dictated By: Sandra Arrington MD Dictated Date/Time: 06/28/22 8:06 am Reviewed By: Sandra Arrington MD Signed By: Sandra Arrington MD Signed Date/Time: 06/28/22 8:06 am Transcribed By: TRES Transcribed Date/Time: 06/28/22 8:05 am Portable XR Chest Views * HERMES Hawkins S: TRANSCRIBE Rin Caldwell MD: VERIFY Event Display: Result: Authored Date: [id number] Chest Portable CLINICAL INDICATION: Reason: Other:; Pain; Clinical Question(s): Other:; Fracture, pneumothorax, pulmonary contusion COMPARISON: None available. FINDINGS: The cardiac silhouette is within normal limits. Hilar and mediastinal contours are normal. The lungs are clear. There is no pleural effusion, pneumothorax, or evidence of CHF. No acute osseous abnormality is noted. IMPRESSION: No acute cardiopulmonary process. WSN: [id number] Ordering Physician: Alycia Hutson Dictated By: Rin Caldwell MD Dictated Date/Time: 06/28/22 8:18 am Reviewed By: Rin Caldwell MD Signed By: Rin Caldwell MD Signed Date/Time: 06/28/22 8:18 am Transcribed By: TRES Transcribed Date/Time: 06/28/22 8:14 am CTA Neck vessels W contrast IV * BHSPowerscrisusan , HERMES S: TRANSCRIBE Surjit OSWALD, Salbador Diaz: VERIFY Event Display: Result: Authored Date: [id number] CT Angio Head, CT Angio Neck Reason: Trauma; mastoid fracture on CTH; r o vasc inj; Clinical Question(s): Other:; Order Comment:bl-scan v-[facility] cortext collin smalls-(prov) @ 06 28 2022 07:32:21 EDT. / Other: TECHNIQUE: CT angiogram of the head and neck was performed after bolus administration of intravenous contrast. 100 mL of Omnipaque 300 was administered intravenously. Coronal and sagittal MIP reformatted images were obtained. Additional 3-D images were created on a separate workstation under concurrent supervision by the attending radiologist. All stenoses are measured using NASCET criteria. Weight-based protocol using automatic tube modulation was used to optimize exposure parameters. RADIATION DOSE PARAMETERS: CTDIvol Body: 22.90 mGy, DLP Body: 546 mGy*cm. COMPARISON: Noncontrast CT head performed concurrently. FINDINGS: CTA OF THE NECK: Arch: There is a three vessel aortic arch. Origins of the supra-aortic vessels are degraded by beam-hardening artifact, but patent. Right carotid system: The common carotid and cervical internal carotid arteries are patent. No stenosis (0%) by NASCET criteria. There is no dissection or aneurysm. Left carotid system: The common carotid and cervical internal carotid arteries are patent. No stenosis (0%) by NASCET criteria. There is no dissection or aneurysm. There is a co-dominant vertebral artery system. Right vertebral: No significant stenosis. No evidence of dissection or aneurysm. Left vertebral: The origin is partially obscured by streak artifact from adjacent venous contrast. The remainder of the vessel is normal. Other: Soft tissues and bones: No evidence of lymphadenopathy or mass. CTA OF THE HEAD: Anterior circulation: The intracranial internal carotid arteries are normal as are the anterior andmiddle cerebral arteries. Posterior circulation: The vertebral, basilar, superior cerebellar and posterior cerebral arteries are normal. Veins: Extra-axial collection medial to the mastoid fracture indents the sigmoid sinus. This measures 4 to 6 mm in thickness and 16 mm in diameter. The sigmoid sinus is narrowed by approximately 75% at this level. Distally the jugular bulb is normal. The left transverse sinus is normal. Other: Soft tissues and bones: No midline shift or effacement of the basal cisterns. No parenchymal hemorrhage. No territorial loss of stein-white matter differentiation. There is a transverse fracture again shown through the right mastoid. Blood is present in the mastoid antrum. There also appears to be blood present in the middle ear cavity. The fracture line does not appear to extend through the labyrinth or middle ear cavity. There is no extension to the carotidcanal. There are several trauma limits of intracranial air present adjacent to the fracture. Soft tissue emphysema is noted inferior to the right mastoid. The fracture extends into the squamous portion of the temporal bone. IMPRESSION: 1. Small epidural hematoma at the inferomedial margin of the right mastoid fracture, indenting the sigmoid sinus and narrowing it by approximately 75%. The jugular bulb distally is widely patent and the left transverse sinus is normal. 2. No evidence of arterial injury. The small epidural hematoma and mastoid fracture were not noted in the preliminary interpretation by [facility]. This amended report was paged to the trauma surgery team (Dr. Hutson) at 0839 hours on 06/28/2022. WSN: [id number] Ordering Physician: Alycia Hutson Dictated By: Salbador Eddy MD Dictated Date/Time: 06/28/22 8:42 am Reviewed By: Salbador Eddy MD Signed By: Salbador Eddy MD Signed Date/Time: 06/28/22 8:42 am Transcribed By: TRES Transcribed Date/Time: 06/28/22 8:22 am CTA Head vessels W contrast IV * BHSPowerscribe , CIS S: TRANSCRIBE Salbador Eddy MD: VERIFY Event Display: Result: Authored Date: [id number] CT Angio Head, CT Angio Neck Reason: Trauma; mastoid fracture on CTH; r o vasc inj; Clinical Question(s): Other:; Order Comment:bl-scan v-rad nichelle smalls-(prov) @ 06 28 2022 07:32:21 EDT. / Other: TECHNIQUE: CT angiogram of the head and neck was performed after bolus administration of intravenous contrast. 100 mL of Omnipaque 300 was administered intravenously. Coronal and sagittal MIP reformatted images were obtained. Additional 3-D images were created on a separate workstation under concurrent supervision by the attending radiologist. All stenoses are measured using NASCET criteria. Weight-based protocol using automatic tube modulation was used to optimize exposure parameters. RADIATION DOSE PARAMETERS: CTDIvol Body: 22.90 mGy, DLP Body: 546 mGy*cm. COMPARISON: Noncontrast CT head performed concurrently. FINDINGS: CTA OF THE NECK: Arch: There is a three vessel aortic arch. Origins of the supra-aortic vessels are degraded by beam-hardening artifact, but patent. Right carotid system: The common carotid and cervical internal carotid arteries are patent. No stenosis (0%) by NASCET criteria. There is no dissection or aneurysm. Left carotid system: The common carotid and cervical internal carotid arteries are patent. No stenosis (0%) by NASCET criteria. There is no dissection or aneurysm. There is a co-dominant vertebral artery system. Right vertebral: No significant stenosis. No evidence of dissection or aneurysm. Left vertebral: The origin is partially obscured by streak artifact from adjacent venous contrast. The remainder of the vessel is normal. Other: Soft tissues and bones: No evidence of lymphadenopathy or mass. CTA OF THE HEAD: Anterior circulation: The intracranial internal carotid arteries are normal as are the anterior andmiddle cerebral arteries. Posterior circulation: The vertebral, basilar, superior cerebellar and posterior cerebral arteries are normal. Veins: Extra-axial collection medial to the mastoid fracture indents the sigmoid sinus. This measures 4 to 6 mm in thickness and 16 mm in diameter. The sigmoid sinus is narrowed by approximately 75% at this level. Distally the jugular bulb is normal. The left transverse sinus is normal. Other: Soft tissues and bones: No midline shift or effacement of the basal cisterns. No parenchymal hemorrhage. No territorial loss of stein-white matter differentiation. There is a transverse fracture again shown through the right mastoid. Blood is present in the mastoid antrum. There also appears to be blood present in the middle ear cavity. The fracture line does not appear to extend through the labyrinth or middle ear cavity. There is no extension to the carotidcanal. There are several trauma limits of intracranial air present adjacent to the fracture. Soft tissue emphysema is noted inferior to the right mastoid. The fracture extends into the squamous portion of the temporal bone. IMPRESSION: 1. Small epidural hematoma at the inferomedial margin of the right mastoid fracture, indenting the sigmoid sinus and narrowing it by approximately 75%. The jugular bulb distally is widely patent and the left transverse sinus is normal. 2. No evidence of arterial injury. The small epidural hematoma and mastoid fracture were not noted in the preliminary interpretation by [facility]. This amended report was paged to the trauma surgery team (Dr. Hutson) at 0839 hours on 06/28/2022. WSN: [id number] Ordering Physician: Alycia Hutson Dictated By: Salbador Eddy MD Dictated Date/Time: 06/28/22 8:42 am Reviewed By: Salbador Eddy MD Signed By: Salbador Eddy MD Signed Date/Time: 06/28/22 8:42 am Transcribed By: TRES Transcribed Date/Time: 06/28/22 8:22 am Patient Care team information Care Team Personnel Name: Irasema Can RN Position: [facility] RN Member Role: Primary Care Nurse Name: Miguel Gallo RN Position: [facility] RN Member Role: Primary Care Nurse Name: Naima Davidson RN Position: [facility] RN Member Role: Primary Care Nurse Name: Not on Staff, PCP Position: [facility] Physician (General Medicine) Member Role: PCP Name: *[facility], Trauma Attending Position: [facility] ED Attendings Patient Name: Genet Oliveira Position: [facility] ED OA Charge Member Role: ED Associate Name: Radha Infante Position: [facility] ED RN W/OE and Tasks Member Role: Patient Care Provider Name: Radha Padgett RN Position: [facility] RN Member Role: Patient Care Provider Name: Laura Lucia Position: [facility] TA Member Role: Patient Care Provider Name: Riaz Tate MD Position: [facility] Resident Member Role: ED Resident Address: Address: [address] [place] [address] Name: Lilly Samano RN Position: [facility] ED RN W/OE and Tasks Member Role: Patient Care Provider Name: Ashkan Ramos Position: [facility] ED TA [facility] Member Role: Patient Care Provider Name: Collin Smalls DO Position: [facility] Resident Member Role: ED Resident Address: Address: [address] [place] [address], [place] [address]- Care Team Related Persons Name: ISAI OSULLIVAN
--- OUTSIDE RECORDS SUMMARY | 2023-11-14 23:54 | XMS_ITS | Continuity of Care Document ---
Author Organization [facility] Address [address] [place] [address]- Care Team Providers Care Funeral Driver Name Role Phone Ezio Javier MD Primary Care Physician Encounter [facility] Date(s): 04/25/20 - 04/25/[address] [address]- Discharge Disposition: A-D/C Home Attending Physician: Yamil Baldwin MD Admitting Physician: Yamil Baldwin MD Referring Physician: Not on Staff, Referring MD Allergies, Adverse Reactions, Alerts Substance Reaction Severity Status NKA Active Medications Suboxone 4 mg-1 mg sublingual film 1 film, Sublingual, Daily, dissolve under the tongue, 0 Refills, Maintenance, 04/20/19 15:21:00 EDT, Film Start Date: 04/20/19 Status: Ordered Results Radiology Reports * Exam Date Time Procedure Performing Provider Status 04/25/20 3:59 PM Finger 4th Left Hand Adam Lester; Jimena [facility] (Verified) Notes: (Finger 4th Left Hand) Reason For Exam: Trauma RESULT: Finger 4th Left Hand Finger 4th Left Hand, 3 views Reason: Trauma, fall at home; COMPARISON: None. FINDINGS: No fractures or bone lesions. No arthritic changes. Soft tissue injury of the ulnar aspect of the fourth distal phalanx. IMPRESSION: No evidence of acute fracture or dislocation. I have personally reviewed the images and I agree with this report. WSN: [id number] Ordering Physician: Yamil Baldwin Dictated By: Cayetano Nunes DO Dictated Date/Time: 04/25/20 4:05 pm Reviewed By: Collin Harrison MD Signed By: Collin Harrison MD Signed Date/Time: 04/25/20 4:10 pm Transcribed By: TRES Transcribed Date/Time: 04/25/20 4:01 pm Vital Signs Most recent to oldest [Reference Range]: 1 2 Height 180 cm (04/25/20 3:30 PM) 180 cm (04/25/20 3:29 PM) Weight 122.3 kg (04/25/20 3:30 PM) 122.3 kg (04/25/20 3:29 PM) Oxygen Saturation [94-100 %] 98 % (04/25/20 3:29 PM) Pulse Rate [55-90 bpm] 89 bpm (04/25/20 3:29 PM) Body Mass Index [18.5-24.99] 37.75 *>HHI* (04/25/20 3:29 PM) Blood Pressure [90-138/55-84 mm Hg] 144/ 84mm Hg *H* (04/25/20 3:29 PM) Respiratory Rate [16-30 br/min] 18 br/mi n (04/25/20 3:29 PM) Temperature [96.8-100.4 DegF] 97.5 DegF (04/25/20 3:29 PM) Mode of Delivery (Oxygen) Room air (04/25/20 3:29 PM) Blood pressure sites Arm, right (04/25/20 3:29 PM) Temperature Route Temporal (04/25/20 3:29 PM) Dry Weight 122.3 kg (04/25/20 3:30 PM) 122.3 kg (04/25/20 3:29 PM) Weight Obtained Via Standing scale (04/25/20 3:29 PM) Dry Weight Obtained Via Standing scale (04/25/20 3:29 PM) Social History Social History Type Response Smoking Status Current every day chinmay boyce; Other: Pt uses e - cig; entered on: 08/11/17 Sex
--- OUTSIDE RECORDS SUMMARY | 2023-11-14 23:54 | XMS_ITS | Continuity of Care Document ---
Author Organization [facility] Address [address] [place] [address]- Care Team Providers Care Recruitment Internship Name Role Phone Ezio Javier MD Primary Care Physician Encounter [facility] Date(s): 05/18/20 - 05/18/[address] [address]- Discharge Disposition: A-D/C Home Attending Physician: Ezio Mascorro MD Admitting Physician: Ezio Mascorro MD Referring Physician: Not on Staff, Referring MD Allergies, Adverse Reactions, Alerts Substance Reaction Severity Status NKA Active Medications Suboxone 4 mg-1 mg sublingual film 1 film, Sublingual, Daily, dissolve under the tongue, 0 Refills, Maintenance, 04/20/19 15:21:00 EDT, Film Start Date: 04/20/19 Status: Ordered Vital Signs Most recent to oldest [Reference Range]: 1 2 Height 181 cm (05/18/20 10:40 AM) 181 cm (05/18/20 10:38 AM) Weight 123.1 kg (05/18/20 10:40 AM) 123.1 kg (05/18/20 10:38 AM) Oxygen Saturation [94-100 %] 99 % (05/18/20 10:38 AM) Pulse Rate [55-90 bpm] 77 bpm (05/18/20 10:38 AM) Body Mass Index [18.5-24.99] 37.58 *>HHI* (05/18/20 10:38 AM) Blood Pressure [90-138/55-84 mm Hg] 154/ 96mm Hg *H* (05/18/20 10:38 AM) Respiratory Rate [16-30 br/min] 20 br/mi n (05/18/20 10:38 AM) Temperature [96.8-100.4 DegF] 96.6 DegF *L* (05/18/20 10:38 AM) Mode of Delivery (Oxygen) Room air (05/18/20 10:38 AM) Blood pressure sites Arm, left (05/18/20 10:38 AM) Temperature Route Temporal (05/18/20 10:38 AM) Dry Weight 123.1 kg (05/18/20 10:40 AM) 123.1 kg (05/18/20 10:38 AM) Weight Obtained Via Standing scale (05/18/20 10:38 AM) Dry Weight Obtained Via Standing scale (05/18/20 10:38 AM) Social History Social History Type Response Smoking Status Current every day chinmay boyce; Other: Pt uses e - cig; entered on: 08/11/17 Sex
[2023-11-15] VITALS (7 sets, daily range): BP systolic 94–119; BP diastolic 55–74; PULSE 57–77; RESP 14–18; TEMP 36.3–37; O2SAT 93–97; BMI 25.1
[2023-11-15 00:04] LABS: MANUAL DIFF FLAG NO
[2023-11-15 00:06] LABS: Basophils Percent Auto 0.4 % (0-2); Eosinophils Absolute Auto 0.1 X10*3/uL (0.0-0.4); Eosinophils Percent Auto 0.5 % (0-4); Hematocrit 30.1 % (42.0-52.0); Hemoglobin 9.4 g/dl (14.0-18.0); Imm Gran Abs Auto 0.03 X10*3/uL (0.00-0.03); Imm Gran Pct Auto 0.3 % (0.0-0.4); Lymphocytes Absolute Auto 1.7 X10*3/uL (1.2-4.9); Lymphocytes Percent Auto 17.5 % (20-40); Mean Corpuscular HGB Conc 31.2 g/dl (31.0-36.0); Mean Corpuscular Hemoglobin 23.3 pg (27.0-33.0); Mean Corpuscular Volume 74.7 fL (80.0-98.0); Mean Platelet Volume 9.6 fL (9.4-12.4); Monocytes Absolute Auto 0.6 X10*3/uL (0.1-1.2); Monocytes Percent Auto 6.1 % (2-11); Neutrophils Absolute Auto 7.3 x10*3/uL (2.0-8.3); Neutrophils Percent Auto 75.2 % (45-73); Platelet Count 346 X10*3/uL (160-400); Red Blood Count 4.03 X10*6/uL (4.60-5.80); Red Cell Distribution Width 14.6 % (11.0-16.0); White Blood Count 9.7 X10*3/uL (4.8-10.8)
[2023-11-15 00:17] LABS: Lactic Acid 1.8 mmol/L (0.5-2.0)
[2023-11-15] MEDS: ceFAZolin Sodium/Dextrose,Iso 2 GM/50 ML PIGGYBACK IV ×4 (00:17→23:40)
[2023-11-15 00:24] LABS: Anion Gap 13 (12-20); Blood Urea Nitrogen 8 mg/dL (9-16); Calcium 8.8 mg/dL (8.4-10.2); Carbon Dioxide 23 mmol/L (22-29); Chloride 107 mmol/L (96-108); Creatinine Clr Calc Pharmacy 159.2; Estimated Glomerular Filt Rate > 60; Glucose Random 129 mg/dL (60-115); Potassium 4.1 mmol/L (3.3-5.1); Sodium 139 mmol/L (135-145)
--- NOTE | 2023-11-15 01:05 | PC.NURSE ---
Patient is alert and oriented x4, VSS. 20 G IV line established in L hand, labs drawn and sent to lab. Patient medicated per APR. Call garrido in reach, POC ongoing.
[2023-11-15] MEDS: predniSONE 20 MG TABLET 40 MG PO ×2 (04:16→08:20)
[2023-11-15] MEDS: Acetaminophen 325 MG TABLET 650 MG PO (04:18)
--- NOTE | 2023-11-15 04:18 | PC.NURSE ---
Patient requested to be medicated with Tylenol for 4/10 pain.
--- NOTE | 2023-11-15 07:27 | PC.NURSE ---
report recieved from previous RN, patient resting on stretcher, complaining of back pain at this time, patient also states yesterday they gave him 55mg of methadone, confirmed in chart history, admitting MD made aware patient is requesting a dose for today. all safety maintained at this time
[2023-11-15] MEDS: Albuterol/Iprat 2.5/0.5MG 3 ML AMPUL.NEB INHALE ×2 (07:43→15:04)
--- NOTE | 2023-11-15 08:08 | HE.PHANOTE ---
METHADONE Pt received 55mg methadone on 11/14/23 @ 0826. On Last admission ([id number]).
[2023-11-15] MEDS: Enoxaparin Sodium 40 MG/0.4 ML SYRINGE SUBCUT (08:19)
[2023-11-15] MEDS: methADONE HCl 20 MG/2 ML ORAL.CONC 55 MG PO (08:22)
--- NOTE | 2023-11-15 08:45 | PHA.MEDREC ---
Addendum entered by Soraya Ambrocio RPh 11/15/23 08:47: Reviewed by [facility] Original Note: Pharmacy Consult ? Medication Reconciliation Pharmacy has completed the medication reconciliation. Patient confirmed he is not taking anything for prescription or OTC medications.
--- NOTE | 2023-11-15 09:37 | PC.NURSE ---
ambulated with steady gait to bathroom, patient returned to stretcher on own, family at bedside, patient medicated per APR.
--- NOTE | 2023-11-15 09:40 | P.PNIM_ITS ---
Subjective Subjective Date of Service: 11/15/23 Interval History: left AMA yesterday and returned 1 hr later no fever back pain improved Review of Systems Review of Systems: Yes all other systems are reviewed and are negative Physical Exam 2 Vital Signs: Vital Signs: Last Vital Signs Temp 97.6 F 11/15/23 06:36 Pulse 58 11/15/23 07:43 Resp 16 11/15/23 07:43 BP 119/74 11/15/23 06:36 Pulse Ox 95 11/15/23 06:36 O2 Del Method Room Air 11/15/23 06:36 BMI result Body Mass Index 25.1 Gen: in no acute distress HEENT: sclera anicteric, moist mucus membranes Neck: supple Lungs: clear to auscultation bilaterally Heart: regular rate and rhythm, no murmurs Abd: soft, non-tender, non-distended Ext: no edema Skin: warm/well-perfused Neuro: alert and oriented x3, no focal findings Psych: appropriate affect Objective Data Active Medications Acetaminophen (Acetaminophen 325 Mg Tablet) 650 mg PO Q6H PRN PRN Reason: Pain, Mild (Pain Scale 1-3), fever or headache Last Admin: 11/15/23 04:18 Dose: 650 mg Documented By: JESSICA Albuterol/Ipratropium (Albuterol/Iprat 2.5/0.5mg 3 Ml Ampul.Neb) 3 ml INHALE RQ4H WHILE AWAKE [facility] Last Admin: 11/15/23 07:43 Dose: 3 ml Documented By: UMBERTO Albuterol/Ipratropium (Albuterol/Iprat 2.5/0.5mg 3 Ml Ampul.Neb) 3 ml INHALE Q4H PRN PRN Reason: Wheezing Calcium Carbonate (Calcium Carbonate 750 Mg Tab.Chew) 750 mg PO Q4H PRN PRN Reason: Heartburn Enoxaparin Sodium (Enoxaparin Sodium 40 Mg/0.4 Ml Syringe) 40 mg SUBCUT Q24H [facility] Last Admin: 11/15/23 08:19 Dose: 40 mg Documented By: OMID Hydromorphone HCl (Hydromorphone Hcl 1 Mg/Ml Syringe) 1 mg IM Q4H PRN; Protocol PRN Reason: Pain, Severe (Pain Scale 7-10) Cefazolin Sodium/Dextrose (Ancef) 2 gm in 50 mls @ 100 mls/hr IV Q8H [facility] Last Infusion: 11/15/23 09:22 Dose: Infused Documented By: GLENIS Magnesium Hydroxide (Milk Of Magnesia 30 Ml Oral.Susp) 30 ml PO DAILY PRN PRN Reason: Constipation Melatonin (Melatonin 3 Mg Tablet) 6 mg PO BEDTIME PRN PRN Reason: Insomnia Methadone HCl (Methadone Hcl 20 Mg/2 Ml Oral.Conc) 55 mg PO DAILY@0800 [facility] Last Admin: 11/15/23 08:22 Dose: 55 mg Documented By: OMID Co-signed By: GLENIS Ondansetron HCl (Ondansetron Hcl 4 Mg/2 Ml Vial) 4 mg IVPUSH Q8H PRN PRN Reason: Nausea and Vomiting Prednisone (Prednisone 20 Mg Tablet) 40 mg PO DAILY [facility] Last Admin: 11/15/23 08:20 Dose: 40 mg Documented By: OMID Sodium Chloride (0.9 % Sodium Chloride Flush 3 Ml Syringe) 3 ml IVFLUSH QSHIFT [facility] Last Admin: 11/15/23 08:25 Dose: Not Given Documented By: OMID Non-Admin Reason: IV Running Labs 11/14/23 23:57 11/14/23 23:57 Labs: Laboratory Results - last 24 hr 11/14/23 23:57 MCV 74.7 L MCH 23.3 L MCHC 31.2 RDW 14.6 Plt Count 346 MPV 9.6 Immature Gran % (Auto) 0.3 Neut % (Auto) 75.2 H Lymph % (Auto) 17.5 L [place] % (Auto) 6.1 Eos % (Auto) 0.5 Baso % (Auto) 0.4 Lymph # (Auto) 1.7 [place] # (Auto) 0.6 Eos # (Auto) 0.1 Baso # (Auto) 0.0 Abs Immat Gran (auto) 0.03 Absolute Neuts (auto) 7.3 Absolute Nucleated RBC 0.000 Nucleated RBC % (auto) 0.0 Anion Gap 13 Estim Creat Clear Calc 159.2 Estimated GFR > 60 Random Glucose 129 H Lactic Acid 1.8 Calcium 8.8 Assessment and Plan (1) Staphylococcus aureus bacteremia: Status: Acute Plan d4 [pt admitted 11/11, left AMA 11/13, returned and re-admitted 11/13] 43yo M with DM2, polysubstance abuse disorder admitted for sepsis due to left chest wall cellulitis, aspiration PNA, and MSSA bacteremia sepsis due to left chest wall cellulitis, aspiration PNA, and MSSA bacteremia - was on vancomycin + piperacillin-tazobactam 11/11-11/13, changed to cefazolin 11/13-, repeat BCx from 11/13 pending, TTE without vegetations, ID consult pending, likely needs 6 wk IV ABX back pain - no SEA on contrast CT; treat pain with IV hydromorphone reactive airways disease - magnesium, prednisone 11/12-11/16 polysubstance abuse disorder - Addiction Medicine consulted, started on methadone DM2 with hyperglycemia - A1c only 5.9 - jose-dose lispro VTE ppx - enoxaparin dispo - eventual STR In my clinical judgment, the patient requires continued inpatient hospitalization for the following reasons: bacteremia, IV ABX Total time managing care of this patient today: 40 minutes. Quality Stroke Does the patient have a stroke diagnosis?: No VTE Prior VTE?: No VTE Risk Level:: Medical - moderate - high VTE Device Contraindication: Treatment Not Indicated VTE Drug Contraindication: N/A - Med Ordered
--- NOTE | 2023-11-15 10:32 | PC.NURSE ---
Late Entry 11/14/23. 1400. Pt left AMA, IV was removed, he was A&Ox3, aware of own poor medical decisions. MD was notified and went to the bedside. Pt left unaccompanied and refused to sign AMA paperwork. Signed by two RNs.
[2023-11-15 12:13] LABS: Glucose, Whole Blood 196 mg/dL (60-115)
--- NOTE | 2023-11-15 12:26 | W.PM.IDCN ---
History of Present Illness Data of Consult Service Date: 11/14/23 Requesting physician: Joshua Stewart Primary Care Provider: None Physician HPI Reason for consult: MSSA bacteremia,11/10 He presents with chest wall redness for last 4-5 days. He uses IV drugs,heroin. He has reported erythema chest wall ,but now clear He has area infection/abscess but no OM seen. MSSA bacteremia 11/10. Review of Systems Review of Systems: Yes all other systems are reviewed and are negative PMFSH Past Medical History Medical History Sepsis Staphylococcus aureus bacteremia Opioid abuse Left against medical advice IVDU (intravenous drug user) Type 2 diabetes mellitus Hiatal hernia Family History Family history: reviewed and not pertinent Social History Social History Household Members: Unknown / Unable to assess Housing: Unknown / Unable to assess Do you presently have visiting nurse or other home services: No Alcohol intake: never Patient Tobacco Use Status: Current everyday Tobacco user Smoked in Last 30 Days: Yes Substance Use Type: Crack/Cocaine and Heroin Substance Use Frequency: Daily Last Used Substance: Days (ago) Advance Directives: No Advance Directives Information Provided: No Do you have a plan to hurt others: No Plan Nutrition Risks: No Nutritional Risk service: No Meds Allergies Allergy/AdvReac Type Severity Reaction Status Date / Time No Known Allergies Allergy Verified 11/14/23 16:26 [No Known Allergies*] Active Medications: Current Medications Acetaminophen (Acetaminophen 325 Mg Tablet) 650 mg PO Q6H PRN PRN Reason: Pain, Mild (Pain Scale 1-3), fever or headache Last Admin: 11/15/23 04:18 Dose: 650 mg Albuterol/Ipratropium (Albuterol/Iprat 2.5/0.5mg 3 Ml Ampul.Neb) 3 ml INHALE RQ4H WHILE AWAKE [facility] Last Admin: 11/15/23 11:23 Dose: Not Given Albuterol/Ipratropium (Albuterol/Iprat 2.5/0.5mg 3 Ml Ampul.Neb) 3 ml INHALE Q4H PRN PRN Reason: Wheezing Calcium Carbonate (Calcium Carbonate 750 Mg Tab.Chew) 750 mg PO Q4H PRN PRN Reason: Heartburn Enoxaparin Sodium (Enoxaparin Sodium 40 Mg/0.4 Ml Syringe) 40 mg SUBCUT Q24H [facility] Last Admin: 11/15/23 08:19 Dose: 40 mg Glucose (Glucose Gel 15 Gm Gel..Gram.) 15 gm PO Q15M PRN; Protocol PRN Reason: per Hypoglycemia Standing Ord. Hydromorphone HCl (Hydromorphone Hcl 1 Mg/Ml Syringe) 1 mg IM Q4H PRN; Protocol PRN Reason: Pain, Severe (Pain Scale 7-10) Cefazolin Sodium/Dextrose (Ancef) 2 gm in 50 mls @ 100 mls/hr IV Q8H [facility] Last Infusion: 11/15/23 09:22 Dose: Infused Dextrose (D10) 250 mls @ 750 mls/hr IV Q15M PRN; Protocol PRN Reason: per Hypoglycemia Standing Ord. Insulin Human Lispro (Insulin Lispro 100 Unit/Ml 3 Ml Vial) 0 unit SUBCUT QIDACHS [facility]; Protocol Magnesium Hydroxide (Milk Of Magnesia 30 Ml Oral.Susp) 30 ml PO DAILY PRN PRN Reason: Constipation Melatonin (Melatonin 3 Mg Tablet) 6 mg PO BEDTIME PRN PRN Reason: Insomnia Methadone HCl (Methadone Hcl 20 Mg/2 Ml Oral.Conc) 55 mg PO DAILY@0800 [facility] Last Admin: 11/15/23 08:22 Dose: 55 mg Ondansetron HCl (Ondansetron Hcl 4 Mg/2 Ml Vial) 4 mg IVPUSH Q8H PRN PRN Reason: Nausea and Vomiting Prednisone (Prednisone 20 Mg Tablet) 40 mg PO DAILY [facility] Last Admin: 11/15/23 08:20 Dose: 40 mg Sodium Chloride (0.9 % Sodium Chloride Flush 3 Ml Syringe) 3 ml IVFLUSH QSHIFT [facility] Last Admin: 11/15/23 08:25 Dose: Not Given Home Medications ?Medication ?Instructions ?Recorded ?Confirmed ?Last Taken ?Type No Known Home Meds 11/12/23 11/12/23 Unknown History Physical Exam Vital Signs: Vital Signs: Last Vital Signs Temp 97.3 F 11/15/23 12:08 Pulse 57 11/15/23 12:08 Resp 14 11/15/23 12:08 BP 94/56 L 11/15/23 12:08 Pulse Ox 96 11/15/23 12:08 O2 Del Method Room Air 11/15/23 12:08 BMI result Body Mass Index 25.1 Const: General: cooperative HEENT: Head: Yes normal to inspection Face and sinus: Yes normal facial exam Mouth: Normal oral and palatal mucosa present Teeth and gingiva: dentition normal Eyes: General: appearance normal, both eyes and all related structures Pupils: Equal, round and reactive pupils present Chest: Other: chest wall area appears clear Resp: Effort & Inspection: normal respiratory effort Cardio: Rate: regular rate Rhythm: regular rhythm GI: Palpation (GI): Soft to palpation and nontender : General: Yes no CVA tenderness Back/Spine/Pelvis: Back: no CVA tenderness Skin: General skin exam: no rashes or lesions noted Neuro: General: moves all extremities Cranial nerves: Yes Equal, round and reactive pupils present Extrem: General: Yes normal to inspection Psych: Appearance: grossly normal Results Labs 11/14/23 23:57 11/14/23 23:57 Labs: Short CBC 11/14/23 Range/Units 23:57 WBC 9.7 (4.8-10.8) X10*3/uL Hgb 9.4 L (14.0-18.0) g/dl Hct 30.1 L (42.0-52.0) % Plt Count 346 (160-400) X10*3/uL BMP 11/14/23 23:57 Sodium 139 Potassium 4.1 D Chloride 107 Carbon Dioxide 23 BUN 8 L Creatinine 0.65 Calcium 8.8 Assessment and Plan (1) Sepsis: Status: Acute (2) Opioid abuse: Status: Acute (3) Left against medical advice: Status: Acute (4) Staphylococcus aureus bacteremia: Status: Acute Plan He has MSSA bacteremia,risk factor for explained to patient than unless gets minimum 4 weeks IV antibiotics in facility risk for due to MSSA sepsis despite cleared bacteremia. He has no HIV or Hepatitis C Source bacteremia IVDU 4 weeks IV Kezol 2 g tid in facility Could use Daptomycin 6-8 mg /kg if desires once daily antibiotic. Can give one month po Doxycycline 100 mg bid if refuses and goes AMA. He has no neurologic LE compromise but still too somnolent for length of time in hospital so unless using drugs here if somnolence persists check MRI brain with contrast evaluate abscess and LP if negative.
[2023-11-15] MEDS: Insulin Lispro 100 UNIT/ML 3 ML VIAL SUBCUT ×3 (13:15→20:29)
[2023-11-15] MEDS: HYDROmorphone HCl 1 MG/ML SYRINGE IVPUSH ×2 (14:43→20:29)
--- NOTE | 2023-11-15 15:10 | MHC.CM.PN ---
PT LIVES WITH S/O WILL BE GETTING A PICC LINE WILL NEED IV ANTIBIOTICS FOR 4 TO 6 WEEKS PT IS AWARE THAT HIS PLACEMENT WILL NOT BE IN THIS AREA AND [facility] HE IS AGREEABLE TO THIS PLAN
[2023-11-15 16:28] LABS: Glucose, Whole Blood 235 mg/dL (60-115)
[2023-11-15] MEDS: 0.9 % Sodium Chloride Flush 3 ML SYRINGE IVFLUSH ×2 (16:28→20:30)
[2023-11-15 19:38] LABS: Glucose, Whole Blood 214 mg/dL (60-115)
[2023-11-16] MEDS: HYDROmorphone HCl 1 MG/ML SYRINGE IVPUSH ×3 (03:06→19:24)
[2023-11-16 03:42] VITALS: BP 111/66; PULSE 60; RESP 16; TEMP 36.2; O2SAT 94
[2023-11-16] MEDS: Acetaminophen 325 MG TABLET 650 MG PO (05:33)
[2023-11-16 07:35] VITALS: BP 110/64; PULSE 58; RESP 18; TEMP 36.2; O2SAT 98
[2023-11-16 07:45] LABS: Glucose, Whole Blood 74 mg/dL (60-115)
[2023-11-16] MEDS: ceFAZolin Sodium/Dextrose,Iso 2 GM/50 ML PIGGYBACK IV ×3 (07:56→23:20)
[2023-11-16] MEDS: Enoxaparin Sodium 40 MG/0.4 ML SYRINGE SUBCUT (07:57)
[2023-11-16] MEDS: predniSONE 20 MG TABLET 40 MG PO (07:57)
[2023-11-16] MEDS: methADONE HCl 20 MG/2 ML ORAL.CONC 55 MG PO (07:58)
[2023-11-16] MEDS: 0.9 % Sodium Chloride Flush 3 ML SYRINGE IVFLUSH ×3 (08:02→23:20)
[2023-11-16] MEDS: guaiFENesin DM 100/10/5 ML 5 ML SYRUP PO (10:27)
--- NOTE | 2023-11-16 10:40 | HO.PM.IMPN ---
Subjective Subjective Date of Service: 11/16/23 Interval History: no fever back pain improved coughing Review of Systems Review of Systems: Yes all other systems are reviewed and are negative Physical Exam Vital Signs: Vital Signs: Last Vital Signs Temp 97.1 F 11/16/23 07:35 Pulse 58 11/16/23 07:35 Resp 18 11/16/23 07:35 BP 110/64 11/16/23 07:35 Pulse Ox 98 11/16/23 07:35 O2 Del Method Room Air 11/16/23 07:35 BMI result Body Mass Index 25.1 Gen: in no acute distress HEENT: sclera anicteric, moist mucus membranes Neck: supple Lungs: a few expiratory wheezes Heart: regular rate and rhythm, no murmurs Abd: soft, non-tender, non-distended Ext: no edema Skin: warm/well-perfused Neuro: alert and oriented x3, no focal findings Psych: appropriate affect Objective Data Active Medications Acetaminophen (Acetaminophen 325 Mg Tablet) 650 mg PO Q6H PRN PRN Reason: Pain, Mild (Pain Scale 1-3), fever or headache Last Admin: 11/16/23 05:33 Dose: 650 mg Documented By: ZEFERINO Albuterol/Ipratropium (Albuterol/Iprat 2.5/0.5mg 3 Ml Ampul.Neb) 3 ml INHALE RQ4H WHILE AWAKE [facility] Last Admin: 11/16/23 07:41 Dose: Not Given Documented By: ANNA Non-Admin Reason: Patient Asleep Albuterol/Ipratropium (Albuterol/Iprat 2.5/0.5mg 3 Ml Ampul.Neb) 3 ml INHALE Q4H PRN PRN Reason: Wheezing Calcium Carbonate (Calcium Carbonate 750 Mg Tab.Chew) 750 mg PO Q4H PRN PRN Reason: Heartburn Enoxaparin Sodium (Enoxaparin Sodium 40 Mg/0.4 Ml Syringe) 40 mg SUBCUT Q24H [facility] Last Admin: 11/16/23 07:57 Dose: 40 mg Documented By: ANKUR Glucose (Glucose Gel 15 Gm Gel..Gram.) 15 gm PO Q15M PRN; Protocol PRN Reason: per Hypoglycemia Standing Ord. Guaifenesin/Dextromethorphan (Guaifenesin Dm 100/10/5 Ml 5 Ml Syrup) 5 ml PO Q4H PRN PRN Reason: Cough Last Admin: 11/16/23 10:27 Dose: 5 ml Documented By: ANKUR Hydromorphone HCl (Hydromorphone Hcl 1 Mg/Ml Syringe) 1 mg IVPUSH Q4H PRN; Protocol PRN Reason: Pain, Severe (Pain Scale 7-10) Last Admin: 11/16/23 03:06 Dose: 1 mg Documented By: ZEFERINO Cefazolin Sodium/Dextrose (Ancef) 2 gm in 50 mls @ 100 mls/hr IV Q8H [facility] Last Infusion: 11/16/23 08:38 Dose: Infused Documented By: ANKUR Dextrose (D10) 250 mls @ 750 mls/hr IV Q15M PRN; Protocol PRN Reason: per Hypoglycemia Standing Ord. Insulin Human Lispro (Insulin Lispro 100 Unit/Ml 3 Ml Vial) 0 unit SUBCUT QIDACHS [facility]; Protocol Last Admin: 11/16/23 07:49 Dose: Not Given Documented By: ANKUR Non-Admin Reason: No Insulin Coverage Magnesium Hydroxide (Milk Of Magnesia 30 Ml Oral.Susp) 30 ml PO DAILY PRN PRN Reason: Constipation Melatonin (Melatonin 3 Mg Tablet) 6 mg PO BEDTIME PRN PRN Reason: Insomnia Methadone HCl (Methadone Hcl 20 Mg/2 Ml Oral.Conc) 55 mg PO DAILY@0800 [facility] Last Admin: 11/16/23 07:58 Dose: 55 mg Documented By: ANKUR Co-signed By: TURNER Ondansetron HCl (Ondansetron Hcl 4 Mg/2 Ml Vial) 4 mg IVPUSH Q8H PRN PRN Reason: Nausea and Vomiting Prednisone (Prednisone 20 Mg Tablet) 40 mg PO DAILY [facility] Last Admin: 11/16/23 07:57 Dose: 40 mg Documented By: ANKUR Sodium Chloride (0.9 % Sodium Chloride Flush 3 Ml Syringe) 3 ml IVFLUSH QSHIFT [facility] Last Admin: 11/16/23 08:02 Dose: 3 ml Documented By: ANKUR Labs 11/14/23 23:57 11/14/23 23:57 Labs: Laboratory Results - last 24 hr 11/15/23 11/15/23 11/15/23 12:07 16:22 19:29 POC Glucose 196 H 235 H 214 H 11/16/23 07:34 POC Glucose 74 Microbiology Microbiology Results: Microbiology 11/14/23 23:57 Blood Culture - Preliminary Blood - Venous No growth after 24 hours. 11/14/23 23:57 Blood Culture - Preliminary Blood - Venous No growth after 24 hours. Assessment and Plan (1) Staphylococcus aureus bacteremia: Status: Acute Plan d45[pt admitted 11/11, left AMA 11/13, returned and re-admitted 11/13] 43yo M with DM2, polysubstance abuse disorder admitted for sepsis due to left chest wall cellulitis, aspiration PNA, and MSSA bacteremia sepsis due to left chest wall cellulitis, aspiration PNA, and MSSA bacteremia - was on vancomycin + piperacillin-tazobactam 11/11-11/13, changed to cefazolin 11/13-, TTE without vegetations, ID consulted and recommends 4 wk of IV cefazolin; if BCx from 11/[address]ICC tomorrow back pain - no SEA on contrast CT; treat pain with IV hydromorphone reactive airways disease - magnesium, prednisone 11/12-11/16 polysubstance abuse disorder - Addiction Medicine consulted, started on methadone; HBV immune, HCV negative, HIV negative DM2 with hyperglycemia - A1c only 5.9 - jose-dose lispro VTE ppx - enoxaparin dispo - eventual STR In my clinical judgment, the patient requires continued inpatient hospitalization for the following reasons: bacteremia, IV ABX Total time managing care of this patient today: 40 minutes. Quality Stroke Does the patient have a stroke diagnosis?: No VTE Prior VTE?: No VTE Risk Level:: Medical - moderate - high VTE Device Contraindication: Treatment Not Indicated VTE Drug Contraindication: N/A - Med Ordered
[2023-11-16 11:11] VITALS: PULSE 58; RESP 18; O2SAT 94
[2023-11-16] MEDS: Albuterol/Iprat 2.5/0.5MG 3 ML AMPUL.NEB INHALE ×2 (11:11→15:29)
--- NOTE | 2023-11-16 11:49 | MHC.RECOVRN ---
Met with pt in 379 after consult placed to Addiction Medicine for substance use. Pt had been admitted to [facility] from 11/11-11/13, left AMA 11/13 and represented shortly after dc. 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 Pt had been initiated on methadone during previous admission, currently at 55 mg daily. Pt sitting in bed, awake, alert, easily engages in conversation. Pt reports feeling okay, however, reports body aches and inability to sleep at night. Pt states I feel like it wears off around 8PM and then I am awake all night. Pt requesting increase in dose. Reports previously had been at 97 mg daily and that was an effective dose. Pt denies other questions or concerns for t/w. Discussed with Melissa Lockwood APRN.
[2023-11-16 11:51] LABS: Glucose, Whole Blood 195 mg/dL (60-115)
[2023-11-16] MEDS: Insulin Lispro 100 UNIT/ML 3 ML VIAL SUBCUT ×3 (12:40→20:18)
--- NOTE | 2023-11-16 13:04 | MHC.CM.PN ---
EMR reviewed and per MD rounds, pt is not medically cleared for discharge due to management of bacteremia with PICC line placement pending tentatively tomorrow. Plan will be for pt to discharge to [facility] for 4 weeks IV antibiotics.
[2023-11-16 15:07] VITALS: BP 110/61; PULSE 60; RESP 20; TEMP 36.1; O2SAT 97
[2023-11-16 15:30] VITALS: PULSE 60; RESP 20; O2SAT 97
[2023-11-16 16:20] LABS: Glucose, Whole Blood 168 mg/dL (60-115)
[2023-11-16 19:37] VITALS: BP 115/62; PULSE 76; RESP 20; TEMP 36.8; O2SAT 98
[2023-11-16 19:44] LABS: Glucose, Whole Blood 205 mg/dL (60-115)
[2023-11-17 03:34] VITALS: BP 95/62; PULSE 51; RESP 14; TEMP 36.3; O2SAT 98
[2023-11-17 03:55] VITALS: BP 117/66; PULSE 60
[2023-11-17] MEDS: HYDROmorphone HCl 1 MG/ML SYRINGE IVPUSH ×2 (03:59→08:31)
[2023-11-17] MEDS: Albuterol/Iprat 2.5/0.5MG 3 ML AMPUL.NEB INHALE (04:43)
[2023-11-17 04:45] VITALS: PULSE 61; RESP 16; O2SAT 99
[2023-11-17 07:22] VITALS: BP 104/61; PULSE 68; RESP 18; TEMP 36.2; O2SAT 99
[2023-11-17 07:33] LABS: Glucose, Whole Blood 110 mg/dL (60-115)
[2023-11-17] MEDS: predniSONE 20 MG TABLET 40 MG PO (08:31)
[2023-11-17] MEDS: methADONE HCl 20 MG/2 ML ORAL.CONC 65 MG PO (08:31)
[2023-11-17] MEDS: 0.9 % Sodium Chloride Flush 3 ML SYRINGE IVFLUSH ×2 (08:32→22:16)
[2023-11-17] MEDS: ceFAZolin Sodium/Dextrose,Iso 2 GM/50 ML PIGGYBACK IV ×3 (08:32→23:30)
[2023-11-17] MEDS: Enoxaparin Sodium 40 MG/0.4 ML SYRINGE SUBCUT (08:32)
[2023-11-17 09:26] LABS: Hematocrit 32.5 % (42.0-52.0); Hemoglobin 10.2 g/dl (14.0-18.0); Mean Corpuscular HGB Conc 31.4 g/dl (31.0-36.0); Mean Corpuscular Hemoglobin 23.9 pg (27.0-33.0); Mean Corpuscular Volume 76.1 fL (80.0-98.0); Mean Platelet Volume 9.6 fL (9.4-12.4); Platelet Count 362 X10*3/uL (160-400); Red Blood Count 4.27 X10*6/uL (4.60-5.80); White Blood Count 10.2 X10*3/uL (4.8-10.8)
[2023-11-17 10:05] LABS: Erythrocyte Sedimentation Rate 64 MM/HR (0-15)
--- NOTE | 2023-11-17 10:38 | HO.PM.IMPN ---
Subjective Subjective Date of Service: 11/17/23 Interval History: afebrile back pain improved blood cultures cleared Review of Systems Review of Systems: Yes all other systems are reviewed and are negative Physical Exam Vital Signs: Vital Signs: Last Vital Signs Temp 97.2 F 11/17/23 07:22 Pulse 68 11/17/23 07:22 Resp 18 11/17/23 07:22 BP 104/61 11/17/23 07:22 Pulse Ox 99 11/17/23 07:22 O2 Del Method Room Air 11/17/23 07:22 BMI result Body Mass Index 25.1 Gen: in no acute distress HEENT: sclera anicteric, moist mucus membranes Neck: supple Lungs: clear bilaterally Heart: regular rate and rhythm, no murmurs Abd: soft, non-tender, non-distended Ext: no edema Skin: warm/well-perfused Neuro: alert and oriented x3, no focal findings Psych: appropriate affect Objective Data Active Medications Acetaminophen (Acetaminophen 325 Mg Tablet) 650 mg PO Q6H PRN PRN Reason: Pain, Mild (Pain Scale 1-3), fever or headache Last Admin: 11/16/23 05:33 Dose: 650 mg Documented By: ZEFERINO Albuterol/Ipratropium (Albuterol/Iprat 2.5/0.5mg 3 Ml Ampul.Neb) 3 ml INHALE RQ4H WHILE AWAKE [facility] Last Admin: 11/17/23 04:43 Dose: 3 ml Documented By: RADHA Albuterol/Ipratropium (Albuterol/Iprat 2.5/0.5mg 3 Ml Ampul.Neb) 3 ml INHALE Q4H PRN PRN Reason: Wheezing Calcium Carbonate (Calcium Carbonate 750 Mg Tab.Chew) 750 mg PO Q4H PRN PRN Reason: Heartburn Enoxaparin Sodium (Enoxaparin Sodium 40 Mg/0.4 Ml Syringe) 40 mg SUBCUT Q24H [facility] Last Admin: 11/17/23 08:32 Dose: 40 mg Documented By: TRE Glucose (Glucose Gel 15 Gm Gel..Gram.) 15 gm PO Q15M PRN; Protocol PRN Reason: per Hypoglycemia Standing Ord. Guaifenesin/Dextromethorphan (Guaifenesin Dm 100/10/5 Ml 5 Ml Syrup) 5 ml PO Q4H PRN PRN Reason: Cough Last Admin: 11/16/23 10:27 Dose: 5 ml Documented By: ANKUR Hydromorphone HCl (Hydromorphone Hcl 1 Mg/Ml Syringe) 1 mg IVPUSH Q4H PRN; Protocol PRN Reason: Pain, Severe (Pain Scale 7-10) Last Admin: 11/17/23 08:31 Dose: 1 mg Documented By: TRE Cefazolin Sodium/Dextrose (Ancef) 2 gm in 50 mls @ 100 mls/hr IV Q8H [facility] Last Infusion: 11/17/23 08:45 Dose: 0 mls/hr Documented By: TRE Dextrose (D10) 250 mls @ 750 mls/hr IV Q15M PRN; Protocol PRN Reason: per Hypoglycemia Standing Ord. Insulin Human Lispro (Insulin Lispro 100 Unit/Ml 3 Ml Vial) 0 unit SUBCUT QIDACHS [facility]; Protocol Last Admin: 11/17/23 08:16 Dose: Not Given Documented By: TRE Non-Admin Reason: No Insulin Coverage Magnesium Hydroxide (Milk Of Magnesia 30 Ml Oral.Susp) 30 ml PO DAILY PRN PRN Reason: Constipation Melatonin (Melatonin 3 Mg Tablet) 6 mg PO BEDTIME PRN PRN Reason: Insomnia Methadone HCl (Methadone Hcl 20 Mg/2 Ml Oral.Conc) 65 mg PO DAILY@0800 [facility] Last Admin: 11/17/23 08:31 Dose: 65 mg Documented By: TRE Co-signed By: HALEIGH Ondansetron HCl (Ondansetron Hcl 4 Mg/2 Ml Vial) 4 mg IVPUSH Q8H PRN PRN Reason: Nausea and Vomiting Prednisone (Prednisone 20 Mg Tablet) 40 mg PO DAILY [facility] Last Admin: 11/17/23 08:31 Dose: 40 mg Documented By: TRE Sodium Chloride (0.9 % Sodium Chloride Flush 3 Ml Syringe) 3 ml IVFLUSH QSHIFT [facility] Last Admin: 11/17/23 08:32 Dose: 3 ml Documented By: TRE Labs 11/17/23 09:03 11/14/23 23:57 Labs: Laboratory Results - last 24 hr 11/16/23 11/16/23 11/16/23 11:45 16:17 19:39 MCV MCH MCHC RDW Plt Count MPV Absolute Nucleated RBC Nucleated RBC % (auto) ESR POC Glucose 195 H 168 H 205 H 11/17/23 11/17/23 07:22 09:03 MCV 76.1 L MCH 23.9 L MCHC 31.4 RDW 15.0 Plt Count 362 MPV 9.6 Absolute Nucleated RBC 0.000 Nucleated RBC % (auto) 0.0 ESR 64 H POC Glucose 110 Microbiology Microbiology Results: Microbiology 11/14/23 23:57 Blood Culture - Preliminary Blood - Venous No growth after 48 hours. 11/14/23 23:57 Blood Culture - Preliminary Blood - Venous No growth after 48 hours. Assessment and Plan (1) Staphylococcus aureus bacteremia: Status: Acute Plan d6 [pt admitted 11/11, left AMA 11/13, returned and re-admitted 11/13] 43yo M with DM2, polysubstance abuse disorder admitted for sepsis due to left chest wall cellulitis, aspiration PNA, and MSSA bacteremia sepsis due to left chest wall cellulitis, aspiration PNA, and MSSA bacteremia - was on vancomycin + piperacillin-tazobactam 11/11-11/13, changed to cefazolin 11/13-, TTE without vegetations, ID consulted and recommends 4 wk of IV cefazolin; BCx from 11/13 negative; place midline catheter today back pain - no SEA on contrast CT; transition from IV hydromorphone to PO oxycodone reactive airways disease - magnesium, prednisone 11/12-11/16, prn nebs polysubstance abuse disorder - Addiction Medicine consulted, started on methadone and now on 65 mg daily; HBV immune, HCV negative, HIV negative DM2 with hyperglycemia - A1c only 5.9 - jose-dose lispro VTE ppx - enoxaparin dispo - STR after midline catheter In my clinical judgment, the patient requires continued inpatient hospitalization for the following reasons: bacteremia, IV ABX Total time managing care of this patient today: 40 minutes. Quality Stroke Does the patient have a stroke diagnosis?: No VTE Prior VTE?: No VTE Risk Level:: Medical - moderate - high VTE Device Contraindication: Treatment Not Indicated VTE Drug Contraindication: N/A - Med Ordered
--- NOTE | 2023-11-17 11:21 | MHC.RECOVRN ---
Pts referral faxed to [facility]. CM aware.
[2023-11-17] MEDS: oxyCODONE HCl Immed Release 5 MG TABLET 10 MG PO ×3 (11:28→22:17)
[2023-11-17 11:31] LABS: Glucose, Whole Blood 174 mg/dL (60-115)
[2023-11-17 11:34] LABS: Anion Gap 10 (12-20); Blood Urea Nitrogen 15 mg/dL (9-16); C Reactive Protein 1.14 mg/dL (< or = 0.50); Calcium 8.9 mg/dL (8.4-10.2); Carbon Dioxide 26 mmol/L (22-29); Chloride 106 mmol/L (96-108); Creatinine Clr Calc Pharmacy 169.7; Estimated Glomerular Filt Rate > 60; Glucose Random 73 mg/dL (60-115); Potassium 3.7 mmol/L (3.3-5.1); Sodium 138 mmol/L (135-145)
[2023-11-17] MEDS: Insulin Lispro 100 UNIT/ML 3 ML VIAL SUBCUT ×3 (12:56→22:14)
--- NOTE | 2023-11-17 14:19 | MHC.CM.PN ---
Addendum entered by Blossom Gupta RN 11/17/23 14:51: Rick Robert @ [facility], guest dosing approved. Original Note: [facility] market specialist has faxed all documentation to [facility] for guest dosing. In MD review. [facility] has accepted MDS pending dc summary w/ less than 30. Midline to be placed today. Plan for dc tomorrow. CM will continue to follow.
--- NOTE | 2023-11-17 14:52 | HO.MIDLINE ---
Midline Insertion MIDLINE INSERTION Diagnosis: STAP AUREUS BACTEREMIA Indication: 4 WEEKS OF ANTIBX Pertinent Labs: REVIEWED Technique: Using sterile technique including cap and mask, glove and drape, the LEFT arm was prepped and draped in the usual sterile fashion of full barrier technique with CHG. Using ultrasound guidance, LEFT BASILIC vein access was obtained ON THE FIRST ATTEMPT. [id number] NON-PASV POWERMIDLINE CATHETER WHICH WAS TRIMMED TO 12CM was positioned. The procedure was performed in RM 272. Ultrasound was used to document vein patency and for needle entry. A formal ultrasound picture was recorded. [employer] Software Engineer has released the line for use and it is currently dressed with a StatLock, Tegaderm, and CHG disc. Verification has been performed for blood return and line patency. Arm Circumference: 31CM Equipment: BARD POWERMIDLINE CATHETER Catheter Type: [id number] NON-PASV POWERMIDLINE CATHETER Lot #: [id number]
[2023-11-17 15:24] VITALS: BP 110/64; PULSE 64; RESP 20; TEMP 36.2; O2SAT 98
[2023-11-17 16:13] LABS: Glucose, Whole Blood 213 mg/dL (60-115)
[2023-11-17] MEDS: Heparin Sodium,Porcine Flush 50 UNITS, 0.9 % Sodium Chloride Flush 5 ML IVFLUSH ×2 (16:38→22:15)
[2023-11-17 19:22] VITALS: BP 100/55; PULSE 68; RESP 20; TEMP 36.2; O2SAT 97
[2023-11-17 19:33] LABS: Glucose, Whole Blood 162 mg/dL (60-115)
--- NOTE | 2023-11-17 20:35 | PC.NURSE ---
Late entry: This RN assumed care at 1900, Pt AOx4, responds appropiately. Pt reports 8/10 throbbing back pain. Lungs wheezy on auscultation: RT called for Daniella. BS x4, no pain with palpation, pt is independent in the room, midline to ANDRE. Meds given per APR. pt respirations even &non-labored, VSS with no apparent distress, call garrido within reach.
[2023-11-18 00:25] VITALS: PULSE 68; RESP 20; O2SAT 98
[2023-11-18] MEDS: Albuterol/Iprat 2.5/0.5MG 3 ML AMPUL.NEB INHALE ×3 (00:25→11:14)
[2023-11-18 03:33] VITALS: BP 101/59; PULSE 55; RESP 18; TEMP 36.9; O2SAT 98
[2023-11-18 07:35] VITALS: BP 111/72; PULSE 75; RESP 18; TEMP 36.5; O2SAT 99
[2023-11-18 07:42] LABS: Glucose, Whole Blood 74 mg/dL (60-115)
[2023-11-18] MEDS: Enoxaparin Sodium 40 MG/0.4 ML SYRINGE SUBCUT (08:27)
[2023-11-18] MEDS: ceFAZolin Sodium/Dextrose,Iso 2 GM/50 ML PIGGYBACK IV (08:27)
[2023-11-18] MEDS: methADONE HCl 20 MG/2 ML ORAL.CONC 70 MG PO (08:27)
[2023-11-18] MEDS: Heparin Sodium,Porcine Flush 50 UNITS, 0.9 % Sodium Chloride Flush 5 ML IVFLUSH ×2 (08:28→15:14)
[2023-11-18] MEDS: 0.9 % Sodium Chloride Flush 3 ML SYRINGE IVFLUSH (08:28)
[2023-11-18] MEDS: oxyCODONE HCl Immed Release 5 MG TABLET 10 MG PO ×2 (08:35→12:52)
[2023-11-18 08:46] VITALS: PULSE 67; RESP 15; O2SAT 97
--- NOTE | 2023-11-18 09:56 | PM.DS ---
DS: Providers Provider Date of Service: 11/18/23 Date of admission: 11/14/23 23:47 Primary care physician: None Physician Consults: 11/14/23 23:49 Addiction Medicine Routine Consulting Provider: Addiction Covering Reason for consultation: polysubstance use disorder 11/14/23 23:51 Consult to Infectious Diseases Routine Consulting Provider: [facility] Reason for consultation: MSSA bacteremia DS: Diagnosis Discharge Diagnosis (1) MSSA bacteremia: Status: Acute (2) Cellulitis of chest wall: Status: Acute (3) Sepsis: Status: Acute (4) Opioid use disorder, severe, dependence: Status: Acute (5) Mild intermittent asthma with (acute) exacerbation: Status: Acute (6) Aspiration pneumonia: Status: Acute DS: Summary Hospital Course Hospital Course: From the history and physical by the admitting hospitalist, Dannie Lynn MD, 11/12/23: At the time of my evaluation patient was sedated as he received treatment with Ativan 2 mg and methadone 30 mg PO. Saul Caro is a 43 years old man with past medical history significant for IVDU that according to ED provider he came to the emergency department complaining of left-sided chest pain and left upper back mass that the patient noted 3 days ago. Patient also had a mechanical fall a week ago. A chest CTA was obtained that showed expansile changes in the left chest wall musculature with surrounding streaky changes in the subcutaneous fat consistent with infectious process with no discrete abscess seen. It also showed ground-glass infiltrates in the right upper lobe. His blood workup showed leukocytosis of 14.4. Hemoglobin is at baseline and platelets are normal. There are no significant electrolyte imbalances. Renal function and LFTs are normal. Lipase is normal. CRP is 9.68. ECG showed normal sinus rhythm without ischemic changes. ED tx: APAP 975 mg p.o., ceftriaxone 1 g IV, NS 1 L bolus, methadone 30 mg p.o., albuterol inhaler, Lilly Zofran 2 mg IV, NS 2 L bolus. From my discharge summary, 11/14/23: 43yo M with DM2, polysubstance abuse disorder admitted for sepsis due to left chest wall cellulitis, aspiration PNA, and MSSA bacteremia. Blood cultures from 11/10 positive for MSSA; repeat BCx drawn 11/13 and pending. No vegetation on TTE. No epidural abscess on contrast CT. He did have reactive airway disease vs. asthma exacerbation treated with prednisone. For his substance abuse, he was started on methadone. HCV/HIV screening negative. He was treated with vancomycin + Zosyn 11/11-11/14/23 then changed to cefazolin 2g IV q8h 11/13. Plan was for 6 wk of IV cefazolin from 1st day of culture clearance. Unfortunately, he signed out of the hospital AGAINST MEDICAL ADVICE despite extensive counseling on the dire consequences of incompletely treated bacteremia. He was advised to return to the hospital [facility]. And from the history and physical by the admitting hospitalist, Stephanie Gonzalez MD, 11/14/23: This is a 43-year-old male with pertinent history of IV polysubstance use disorder who presents to the emergency department for concerns of bloodstream infection. Of note patient was admitted on 11/11 with sepsis due to chest wall cellulitis, aspiration pneumonia and MSSA bacteremia. He was being treated with IV antibiotics but left against medical advice on 11/13. Patient states he used 1 bag of IV heroin while he was gone. Admits he made a bad decision and hence he decided to come back to the ER for treatment of bacteremia. Continues to have cough and wheezing. Denies nausea, vomiting, fever, chills, chest pain, palpitations, shortness of breath, abdominal pain, changes in urinary or bowel habits. In the emergency department, patient was given IV cefazolin and blood cultures obtained 43yo M with DM2, polysubstance abuse disorder originally admitted 11/12/23 for sepsis due to left chest wall cellulitis, aspiration PNA, and MSSA bacteremia. He was on vancomycin + piperacllin-tazobactam 11/11-11/14/23. Blood cultures from 11/12/23 returned MSSA and he was narrowed to cefzolin 11/14/23. TTE without vegetations. ID consulted and recommended 4 wk of IV cefazolin 2g q8h from culture clearance date, which was 11/14/23. Midline catheter was placed 11/17/23 and he was discharged to short-term rehabilitation 11/18/23. Pain control with IV hydromorphone thne PO oxycodone. No evidence of spinal epidural abscess on contrast CT of the L-spine. He did get prednisone for asthma flare and was also treated with nebulized albuterol. He was seen by Addiction Medicine and started on methadone, titrated to 70 mg/d. Screening for chronic viral infections negative for HCV and HIV; he is HBV-immune. Time Attestation Discharge Coordination Time (in mins): 45 Quality: Safe Use of Opioids Does Pt have an Active Cancer Diagnosis on the Problem List?: No Quality: Stroke Does the patient have a stroke diagnosis?: No Physical Exam Vital Signs: Vital Signs: Last Vital Signs Temp 97.7 F 11/18/23 07:35 Pulse 67 11/18/23 08:46 Resp 15 11/18/23 08:46 BP 111/72 11/18/23 07:35 Pulse Ox 99 11/18/23 07:35 O2 Del Method Room Air 11/18/23 07:35 BMI result Body Mass Index 25.1 Gen: in no acute distress HEENT: sclera anicteric, moist mucus membranes Neck: supple Lungs: clear to auscultation bilaterally Heart: regular rate and rhythm, no murmurs Abd: soft, non-tender, non-distended Ext: no edema Skin: warm/well-perfused Neuro: alert and oriented x3, no focal findings Psych: appropriate affect DS: Data Data Completed and Pending Completed studies during hospitalization [Text1]: Laboratory Results WBC 10.2 X10*3/uL (4.8-10.8) 11/17/23 09:03 RBC 4.27 X10*6/uL (4.60-5.80) L 11/17/23 09:03 Hgb 10.2 g/dl (14.0-18.0) L 11/17/23 09:03 Hct 32.5 % (42.0-52.0) L 11/17/23 09:03 MCV 76.1 fL (80.0-98.0) L 11/17/23 09:03 MCH 23.9 pg (27.0-33.0) L 11/17/23 09:03 MCHC 31.4 g/dl (31.0-36.0) 11/17/23 09:03 RDW 15.0 % (11.0-16.0) 11/17/23 09:03 Plt Count 362 X10*3/uL (160-400) 11/17/23 09:03 MPV 9.6 fL (9.4-12.4) 11/17/23 09:03 Immature Gran % (Auto) 0.3 % (0.0-0.4) 11/14/23 23:57 Neut % (Auto) 75.2 % (45-73) H 11/14/23 23:57 Lymph % (Auto) 17.5 % (20-40) L 11/14/23 23:57 [place] % (Auto) 6.1 % (2-11) 11/14/23 23:57 Eos % (Auto) 0.5 % (0-4) 11/14/23 23:57 Baso % (Auto) 0.4 % (0-2) 11/14/23 23:57 Lymph # (Auto) 1.7 X10*3/uL (1.2-4.9) 11/14/23 23:57 [place] # (Auto) 0.6 X10*3/uL (0.1-1.2) 11/14/23 23:57 Eos # (Auto) 0.1 X10*3/uL (0.0-0.4) 11/14/23 23:57 Baso # (Auto) 0.0 X10*3/uL (0.0-0.2) 11/14/23 23:57 Abs Immat Gran (auto) 0.03 X10*3/uL (0.00-0.03) 11/14/23 23:57 Absolute Neuts (auto) 7.3 x10*3/uL (2.0-8.3) 11/14/23 23:57 Absolute Nucleated RBC 0.000 X10*3/uL (0.0-0.012) 11/17/23 09:03 Nucleated RBC % (auto) 0.0 /100WBC (0.0-0.2) 11/17/23 09:03 ESR 64 MM/HR (0-15) H 11/17/23 09:03 Sodium 138 mmol/L (135-145) 11/17/23 09:03 Potassium 3.7 mmol/L (3.3-5.1) 11/17/23 09:03 Chloride 106 mmol/L (96-108) 11/17/23 09:03 Carbon Dioxide 26 mmol/L (22-29) 11/17/23 09:03 Anion Gap 10 (12-20) L 11/17/23 09:03 BUN 15 mg/dL (9-16) 11/17/23 09:03 Creatinine 0.61 mg/dL (0.5-1.4) 11/17/23 09:03 Estim Creat Clear Calc 169.7 11/17/23 09:03 Estimated GFR > 60 11/17/23 09:03 POC Glucose 74 mg/dL (60-115) 11/18/23 07:38 Random Glucose 73 mg/dL (60-115) 11/17/23 09:03 Lactic Acid 1.8 mmol/L (0.5-2.0) 11/14/23 23:57 Calcium 8.9 mg/dL (8.4-10.2) 11/17/23 09:03 C-Reactive Protein 1.14 mg/dL (< or = 0.50) H 11/17/23 09:[address] with IV contrast 11/11/23 1. Expansile changes in the left chest wall musculature with surrounding streaky changes in the subcutaneous fat. Findings are most consistent with an infectious process. No discrete abscess is seen. 2. Groundglass infiltrate right upper lobe. 3. Incidental note made of enlarged fatty liver, splenomegaly and small hiatal hernia. abd US 11/12/[address] L-spine with/without IV contrast 11/14/23 1. Mild degenerative disease of the lumbar spine. 2. Trace left pleural effusion. Discharge Plan Discharge Anticipated Discharge Date/Time: 11/18/23 09:49 Patient Disposition: Xfer SNF Discharge Diagnosis: MSSA bacteremia cellulitis of chest wall opioid use disorder asthma exacerbation Referrals: [facility] [Provider Group] - 1 Week [facility] [Outside] - 1 Day (For completion of IV antibiotics) Julia Swift MD [Physician] - 2 Weeks Physician,Tawanda [Primary Care Provider] - 1 Week Discharge Medications: New methadone [Methadose] 10 mg/mL Concentrate 70 mg PO DAILY@0800 Qty: 1 0RF Rx Instructions: Partial Fill upon patient request. oxycodone 5 mg Tablet 10 mg PO Q4H PRN (Reason: Pain, Severe (Pain Scale 7-10)) Qty: 36 0RF Rx Instructions: Partial Fill upon patient request. sodium chloride 0.9 % (flush) [Normal Saline Flush] Syringe 5 ml IVFLUSH TID Qty: 72 0RF heparin, porcine (PF) [Heparin LockFlush(Porcine)(PF)] 10 unit/mL Syringe 50 unit IVFLUSH TID Qty: 72 0RF cefazolin in dextrose (iso-os) 2 gram/50 mL Piggyback 50 ml IV Q8H Qty: 72 0RF albuterol sulfate 2.5 mg /3 mL (0.083 %) solution for nebulization 2.5 mg inhalation Q4-6H PRN (Reason: shortness of breath or wheezing) Qty: 75 0RF Discharge Orders: Discharge Order (Routine); Ordered 11/18/23 Ordered By: Joshua Stewart Diet: Advance to usual diet Activity on Discharge: As tolerated Stand Alone Forms: Patient Portal Discharge page Print Language: Estonian Care Plan Goals: cure of infection abstinence from drugs Health Concerns: MSSA bacteremia cellulitis of chest wall opioid use disorder asthma exacerbation Plan of Treatment: cefazolin 2 grams every 8 hours via midline catheter, end date 12/12/23 oxycodone as needed for severe pain, acetaminophen for mild-moderate pain methadone avoid drug abuse as-needed nebulizer treatments follow up with Dr Swift from [facility] Infectious Disease in 2 weeks establish primary care [facility] return to hospital if any worsening symptoms I anticipate that the patient will stay at the half-way facility for less than 30 days. Assessment: See Discharge Summary.
[2023-11-18] MEDS: HYDROmorphone HCl 2 MG/ML VIAL 1.5 MG IVPUSH ×2 (10:09→15:13)
--- NOTE | 2023-11-18 10:30 | MHC.CM.PN ---
Per MD rounds patient medically cleared for dc to SNF for IV abx. BLS transport scheduled to [place] at noon. Patient, RN and MD aware. DC summary w/ less than 30 faxed to [facility].
[2023-11-18 11:08] LABS: Glucose, Whole Blood 118 mg/dL (60-115)
[2023-11-18 11:14] VITALS: PULSE 68; RESP 16; O2SAT 97
--- NOTE | 2023-12-01 13:16 | P.CDIM_ITS ---
PROVIDER RESPONSE TEXT: To clarify, the appropriate diagnosis supported by the clinical indicators: MSSA Bacteremia: documented QUERY TEXT: PHYSICIAN'S DOCUMENTATION REQUEST Date of Query: 11/30/2023 09:15 AM EDT Patient Name: Saul Caro Admit Date: 11/15/2023 Dear Joshua Stewart MD, RETROSPECTIVE QUERY A review of the medical record indicates additional documentation may be needed. Please review below and update the documentation accordingly. Documentation for consistency and clarity due to documented Sepsis vs. Bacteremia within the medical record: The patient's infectious clinical indicators include: H&P 11/14: MSSA Bacteremia, IV Cefazolin. Progress notes 11/14, 11/15, 11/16 - Sepsis due to left chest well cellulitis, aspiration pna and MSSA bacteremia ID 11/14: Staphylococcus aureus Bacteremia/Sepsis Discharge summary dated 11/17 - Dx: MSSA Bacteremia/Sepsis Discharge diagnosis: MSSA Bacteremia, cellulitis of chest wall. Plan of treatment: Cefazolin 2 grams every 8 hours via midline catheter, end date 12/12/23. Based on the above information Sepsis present on admission, possible suspected, resolved etc. MSSA Bacteremia suspected, resolved, possible etc. Other (explain) Clinically unable to determine (explain) Thank you, Rosalind Gamboa, CCS, CDIS Use of terms such as suspected, likely, concern for, or probable (associated with a specific diagnosi s that is being evaluated, monitored, or treated as if it exists) are acceptable and can be coded in the inpatient se tting, when documented at the time of discharge. Please use your independent medical judgment in providing your response. THIS QUERY IS PART OF THE PERMANENT MEDICAL RECORD
== END 2023-11-18 16:20 | disposition skilled nursing facility (03) | DRG 724 ==
LOC: HO.ED 23:46 → HO.EDOVER 23:52 → HO.S3 11-15 13:38
PROVIDERS: Admitting Provider Student in an Organized Health Care Education/Training Program; Emergency Provider Emergency Medicine; Visit Provider Family Medicine
DX: R78.81 Bacteremia (principal); J69.0 Pneumonitis due to inhalation of food and vomit; L03.313 Cellulitis of chest wall; J45.21 Mild intermittent asthma with (acute) exacerbation; B95.61 Methicillin susceptible Staphylococcus aureus infection as the cause of diseases classified elsewhere; E11.65 Type 2 diabetes mellitus with hyperglycemia; D50.9 Iron deficiency anemia, unspecified; F11.20 Opioid dependence, uncomplicated; F17.210 Nicotine dependence, cigarettes, uncomplicated; F19.90 Other psychoactive substance use, unspecified, uncomplicated; Z71.6 Tobacco abuse counseling; Z79.899 Other long term (current) drug therapy
CPT/HCPCS: 36410; 36415; 80048; 82947; 83605; 85025; 85027; 85652; 86140; 87040; 94640; 99285; C1751; J0690; J1171; J1642; J1650

== ENCOUNTER → 2023-11-14 23:47 | Outpatient (BNV) | payer MEDICAID, SELFPAY | PROVIDERS: Admitting Provider Student in an Organized Health Care Education/Training Program; Emergency Provider Emergency Medicine; Visit Provider Student in an Organized Health Care Education/Training Program | DX: A41.01 Sepsis due to Methicillin susceptible Staphylococcus aureus (principal); J69.0 Pneumonitis due to inhalation of food and vomit; L03.313 Cellulitis of chest wall; F11.20 Opioid dependence, uncomplicated; J45.21 Mild intermittent asthma with (acute) exacerbation | CPT/HCPCS: 99232; 99233; 99239 ==

== ENCOUNTER → 2023-11-14 23:47 | Outpatient (BNV) | payer MEDICAID, SELFPAY | PROVIDERS: Admitting Provider Student in an Organized Health Care Education/Training Program; Emergency Provider Emergency Medicine; Visit Provider Internal Medicine | DX: A41.9 Sepsis, unspecified organism (principal); F11.10 Opioid abuse, uncomplicated; Z53.29 Procedure and treatment not carried out because of patient's decision for other reasons; R78.81 Bacteremia; B95.61 Methicillin susceptible Staphylococcus aureus infection as the cause of diseases classified elsewhere | CPT/HCPCS: 99222 ==

== ENCOUNTER 2024-01-23 03:31 | Inpatient (IN) | payer MEDICAID, SELFPAY ==
[2024-01-23] VITALS (8 sets, daily range): BP systolic 93–130; BP diastolic 50–76; PULSE 55–82; RESP 12–20; TEMP 36.6–37.2; O2SAT 97–99; BMI 25.1
--- NOTE | ~2024-01-23 | CT_ITS ---
EXAMINATION: CT LUMBAR SPINE CLINICAL INFORMATION: Elevated inflammatory markers, IVDA, concern for abscess. Patient cannot get MRI. COMPARISON: Comparison made with CT lumbar 11/14/2023. Correlation also made with CT chest 05/27/2022. TECHNIQUE: Spiral CT imaging of the lumbar spine was performed after the administration of 85 mL Omnipaque 350 IV contrast. Sagittal, coronal, and thin section axial reformatted images were constructed from the axial data set. This CT examination was performed using dose optimization techniques as appropriate, variously including the following: *Automated exposure control *Adjustment of mA and/or kV according to patient size (this includes techniques or standardized protocols for targeted exams where dose is matched to indication/reason for exam; i.e. extremities or head) *Use of iterative reconstruction technique DLP: 562 mGy-cm FINDINGS: Abnormal, there are bony destructive changes involving endplates of T11-T12 as discussed on the thoracic spine CT report, highly concerning for discitis/osteomyelitis. Please refer to the dedicated thoracic spine report. CORONAL ALIGNMENT: -Normal. SAGITTAL ALIGNMENT: - Normal. -No subluxations. LUMBOSACRAL JUNCTION: -Normal. There are 5 [id number] lumbar-type vertebral bodies. VERTEBRAL BODIES/BONE: -No compression deformities, fractures, or suspicious bone lesions spanning L1 through the sacrum. -There is mild generalized osteopenia for age. -Normal facet alignment without pars defects. DISCS: -Mild disc degeneration present at T12-L1, and L5-S1. SPINAL CANAL: -No abnormal developmental findings. AXIAL DISC SPACE IMAGES: T12-L1: Decreased disc osteophytic bulge. No central canal or neural foraminal narrowing. L1-L2: No central canal or neural foraminal narrowing. L2-L3: No significant disc pathology. Mild hypertrophic facet changes bilaterally. Mild central canal narrowing, and minimal bilateral neural foraminal narrowing. L3-L4: There is a shallow diffuse disc bulge with mild disc calcification. This results in mild central canal narrowing. There is minimal bilateral foraminal narrowing. L4-L5: Shallow bulging disc present, indenting upon the ventral thecal sac, and compatible with mild to moderate hypertrophic degenerative facet changes is resulting in moderate central canal stenosis, and moderate bilateral neural foraminal stenosis. L5-S1: There is a diffuse disc osteophytic bulge present, slightly irregular contour, more prominent centrally and left laterally, indenting wide ventral thecal sac, and coupled with mild hypertrophic degenerative facet changes is resulting in moderate to severe central canal stenosis, with the AP diameter of the thecal sac reduced to 8.7 mm. There is moderate to severe bilateral neural foraminal encroachment. IMAGED SI JOINTS: -No abnormalities. PARAVERTEBRAL AND INCLUDED EXTRASPINAL SOFT TISSUES: -Tiny right and trace left pleural effusion. -Paravertebral soft tissue thickening and inflammation surrounding T11 and T12, described on the dedicated thoracic CT report, consistent with discitis/osteomyelitis. CT/CT lumbar spine w IV con IMPRESSION: 1. Severe erosive changes of the endplates at T11-12, consistent with acute discitis/osteomyelitis, with focal kyphotic deformity. Please refer to the dedicated CT thoracic spine report for further detail. 2. No acute findings of the lumbar spine. There are disc bulges at L3-4, L4-5, and L5-S1 with associated mild facet hypertrophy, resulting in moderate central canal narrowing L4-5, and moderate to severe central canal narrowing L5-S1. See above for details. Findings communicated to emergency department via phone call at 4:10 PM, 01/23/2024 Electronically signed by: Brice Ernandez MD 01/23/2024 04:10 PM [facility]
--- NOTE | ~2024-01-23 | XR_ITS ---
EXAMINATION: XR PRE-MRI SCREENING CLINICAL INFORMATION: Patient hit with a chisel in eye, rule out metal in eye prior to MRI. COMPARISON: None available. TECHNIQUE: 3 views of the orbits. FINDINGS: A 0.5 cm density, possibly metallic, overlies the far left lateral side of the face, roughly at the level of the nose, lower level of the orbits, concerning for a foreign body given clinical history. Correlation with clinical exam and possible additional imaging with CT scan recommended for further evaluation. XR/XR pre mri screening IMPRESSION: A 0.5 cm density, possibly metallic, overlies the far left lateral side of the face, roughly at the level of the nose, lower level of the orbits, concerning for a foreign body given clinical history. Correlation with clinical exam and possible additional imaging with CT scan recommended for further evaluation prior to MRI imaging. This study was presented today, January 23, 2024, for interpretation. Stat results provided at this time as requested by referring provider. Electronically signed by: Vandana Leiva MD 01/23/2024 11:37 AM EST
--- NOTE | ~2024-01-23 | CT_ITS ---
EXAMINATION: CT ABDOMEN AND PELVIS WITHOUT CONTRAST CT THORACIC SPINE WITH CONTRAST CLINICAL INFORMATION: Abdominal pain. Known discitis, reassess. Back pain. COMPARISON: CT thoracic spine 01/23/2024 TECHNIQUE: Multidetector volumetric imaging was performed of the abdomen and pelvis following without intravenous contrast. No oral contrast material.. Sagittal and coronal reformatted images were obtained on the technologist's workstation. CT of the thoracic spine was performed following intravenous administration of 85 mL Omnipaque 350 iodinated contrast. Sagittal and coronal reformats were performed. This CT examination was performed using dose optimization techniques as appropriate, variously including the following: *Automated exposure control *Adjustment of mA and/or kV according to patient size (this includes techniques or standardized protocols for targeted exams where dose is matched to indication/reason for exam; i.e. extremities or head) *Use of iterative reconstruction technique DLP: 994 mGy-cm FINDINGS: LUNG BASES: Trace right pleural effusion. Mild bibasilar atelectasis. Moderately sized hiatal hernia. No pericardial effusion. LIVER, GALLBLADDER, AND BILIARY TREE: The liver is normal in size, shape, and attenuation. No focal hepatic lesion or biliary ductal dilatation is present. The gallbladder is unremarkable with no evidence of radiopaque gallstones, gallbladder wall thickening, or obvious pericholecystic inflammatory changes. PANCREAS: Unremarkable SPLEEN: Mild splenomegaly. ADRENAL GLANDS: Unremarkable KIDNEYS AND URETERS: The kidneys are normal in size, shape, and attenuation. No hydronephrosis, hydroureter, or calculi seen. No perinephric stranding. BLADDER: Unremarkable GASTROINTESTINAL TRACT: There is circumferential wall thickening from the mid transverse colon distally, including the descending and sigmoid colon. The rectum is moderately distended with stool. No small bowel dilatation. Normal appendix. ABDOMINAL WALL: No significant hernia is appreciated. LYMPH NODES: Normal VASCULAR: Unremarkable PELVIC VISCERA: Unremarkable OSSEOUS STRUCTURES: Destruction/erosion of the inferior endplate of T11 and the superior endplate of T12 with paraspinal soft tissue thickening compatible with discitis does not appear significantly changed. Again noted is chronic fusion of the T9-T10 vertebral bodies and anterior bridging osteophytes of T8-T9. CT/CT abdomen pelvis wo IV con IMPRESSION: 1. There is circumferential wall thickening of the colon from the mid transverse colon distally, including the descending and sigmoid colon and rectum consistent with colitis. The rectum is moderately distended with stool. 2. No significant change in the appearance of the prominent active discitis/osteomyelitis at T11-T12. 3. Trace right pleural effusion. 4. Moderately sized hiatal hernia. 5. Mild splenomegaly. Fleischner guidelines were followed. Electronically signed by: Wei Gayle MD 01/29/2024 01:02 PM [facility]
--- NOTE | ~2024-01-23 | CT_ITS ---
EXAMINATION: CT THORACIC SPINE CLINICAL INFORMATION: Back pain, elevated inflammatory markers, IVDA, concern for abscess/infection. Patient cannot get MRI. COMPARISON: Comparison made to CT lumbar 11/14/2023, and correlation made with CT chest 05/27/2022. TECHNIQUE: Spiral CT examination of the thoracic spine was performed in axial plane without IV contrast. Sagittal, coronal, and thin section axial reformatted images were constructed from the axial data set. This CT examination was performed using dose optimization techniques as appropriate, variously including the following: *Automated exposure control *Adjustment of mA and/or kV according to patient size (this includes techniques or standardized protocols for targeted exams where dose is matched to indication/reason for exam; i.e. extremities or head) *Use of iterative reconstruction technique DLP: 562 mGy-cm FINDINGS: THORACIC SPINE: -Of note, there are severe erosive endplate changes at T11-T12 with associated sclerosis, paravertebral soft tissue thickening and phlegmonous changes, findings consistent with discitis/osteomyelitis, relatively advanced in severity. There is a focal kyphotic deformity at this level. There is approximately 30% loss of height of the ventral inferior endplate of T11, and approximately 50% loss of height of the ventral T12 superior endplate. There are irregular permeative endplate changes present. -No definite extension by CT into the facet joints although they have a somewhat sclerotic appearance, indicating possible involvement. -At T11-T12, and on assess the central canal on this examination due to CT artifact. Suspect there is some degree of epidural phlegmon/abscess, and some degree of mass effect upon the thecal sac/cord. At T10-T11, there is a disc osteophytic ridge complex with superimposed right paracentral and lateral disc protrusion, indenting on the right ventral thecal sac and resulting in moderate to severe central canal stenosis and probable cord impingement. -There is no central canal narrowing of significance above the T10 level. -The T9-10 vertebral bodies are fused with complete bony fusion of the disc space. -There is exaggerated thoracic kyphosis. -There is a minimal dextroconvex scoliosis. PARAVERTEBRAL SOFT TISSUES: -Extensive paravertebral soft tissue thickening and phlegmonous changes at the T11-T12 level, with a thick rind of inflammation/phlegmonous-type granulation tissue surrounding the T11-12 disc space. (Series 7, image 143). This measures up to 1.7 cm in thickness. -There are is a tiny right and trace left pleural effusion. -There is a central line extending into the cavoatrial junction. -There is a moderate-sized paraesophageal hiatus hernia. LUNGS: -Imaging of the lung parenchyma is significantly limited due to respiratory motion artifact. No consolidations seen. Only mild passive also atelectasis abutting the effusions. CT/CT thoracic spine w IV con IMPRESSION: 1. Findings of ADVANCED DISCITIS/OSTEOMYELITIS T11-T12 with destructive vertebral body and endplate changes at this level, extensive paravertebral phlegmonous changes, and soft tissue thickening. There is a focal kyphotic deformity at this level. There is likely some degree of epidural phlegmon/abscess with some degree of compression upon the thecal sac. 2. Fusion of T9-10, which may be on the basis of prior surgery, congenital, or previous healed discitis/osteomyelitis. 3. Mild scoliosis, exaggerated kyphosis, and age advanced degenerative spondylosis of the thoracic spine. -3 attempted phone calls were made to inform the Emergency Department provider of the above findings, spanning 4:00-4:15 PM, 01/23/2024, however the phone calls were disconnected 3 of 3 times. Electronically signed by: Brice Ernandez MD 01/23/2024 04:27 PM [facility]
--- NOTE | ~2024-01-23 | XR_ITS ---
EXAMINATION: XR CHEST CLINICAL INFORMATION: central line placement COMPARISON: Chest CT dated November 11, 2023. Chest x-ray dated September 17, 2022. TECHNIQUE: Portable AP view of the chest was obtained. FINDINGS: The study is limited by portable technique and suboptimal inspiration. The tip of a presumed right internal jugular central venous line projects over the expected location of the junction of superior vena cava and the right atrium. No infiltrate, effusion, or pneumothorax is seen. The cardiovascular structures, diaphragm, bones, and soft tissues appear unremarkable. Suspect small to moderate hiatus hernia. XR/XR chest 1V IMPRESSION: Findings as above. Electronically signed by: Arnaldo Morse MD 01/23/2024 07:50 AM EST
[2024-01-23 04:20] LABS: Basophils Percent Auto 0.5 % (0-2); Eosinophils Absolute Auto 0.1 X10*3/uL (0.0-0.4); Eosinophils Percent Auto 2.5 % (0-4); Hematocrit 32.7 % (42.0-52.0); Hemoglobin 10.1 g/dl (14.0-18.0); Imm Gran Abs Auto 0.02 X10*3/uL (0.00-0.03); Imm Gran Pct Auto 0.4 % (0.0-0.4); Lymphocytes Absolute Auto 1.1 X10*3/uL (1.2-4.9); Lymphocytes Percent Auto 19.5 % (20-40); MANUAL DIFF FLAG NO; Mean Corpuscular HGB Conc 30.9 g/dl (31.0-36.0); Mean Corpuscular Hemoglobin 21.9 pg (27.0-33.0); Mean Corpuscular Volume 70.8 fL (80.0-98.0); Mean Platelet Volume 8.6 fL (9.4-12.4); Monocytes Absolute Auto 0.5 X10*3/uL (0.1-1.2); Neutrophils Absolute Auto 3.8 x10*3/uL (2.0-8.3); Neutrophils Percent Auto 68.1 % (45-73); Platelet Count 277 X10*3/uL (160-400); Red Blood Count 4.62 X10*6/uL (4.60-5.80); Red Cell Distribution Width 16.1 % (11.0-16.0); White Blood Count 5.6 X10*3/uL (4.8-10.8)
[2024-01-23 04:21] LABS: Appearance Urine Turbid; Color Urine Yellow; Glucose Urine UA Negative (Negative); Leukocyte Esterase Urine Negative (Negative); Nitrite Urine Negative (Negative); PH 7.5 (5.0-9.0); UMIC TRIGGER UACC YES; Urine Blood Negative (Negative); Urine Ketones Negative (Negative); Urine Protein 30 (1+) mg/dL (Neg-Trace)
[2024-01-23 04:29] LABS: Bacteria Urine None Seen (None Seen); RBC Urine 0-2 /HPF (0-2); WBC Urine 0-5 /HPF (0-5)
[2024-01-23 04:36] LABS: Alanine Aminotransferase 13 U/L (0-40); Albumin Level 3.8 g/dL (3.5-5.0); Alkaline Phosphatase 81 U/L (39-117); Amphetamine Screen Urine Not Detected (Not Detect); Anion Gap 13 (12-20); Aspartate Amino Transferase 18 U/L (5-37); Barbiturates, Urine Not Detected (Not Detect); Benzodiazepines Screen Urine Not Detected (Not Detect); Bilirubin Total 0.4 mg/dL (0.0-1.0); Blood Urea Nitrogen 11 mg/dL (9-16); Buprenorphine Scr Not Detected (Not Detect); Calcium 9.4 mg/dL (8.4-10.2); Cannabinoid Screen Urine Not Detected (Not Detect); Carbon Dioxide 26 mmol/L (22-29); Chloride 103 mmol/L (96-108); Cocaine Screen Urine POSITIVE (Not Detect); Creatinine Clr Calc Pharmacy 147.9; Estimated Glomerular Filt Rate > 60; Fentanyl, urine POSITIVE (Not Detect); Glucose Random 83 mg/dL (60-115); Methadone Screen, Urine Positive (Not Detect); Opiate Screen Urine POSITIVE (Not Detect); Oxycodone Screen Urine Not Detected (Not Detect); Phencyclidine Screen Urine Not Detected (Not Detect); Potassium 3.8 mmol/L (3.3-5.1); Sodium 138 mmol/L (135-145); Total Protein 9.3 g/dL (6.5-8.0)
[2024-01-23 05:03] LABS: C Reactive Protein 2.31 mg/dL (< or = 0.50)
--- NOTE | 2024-01-23 05:03 | ED_ITS ---
HPI - General Adult General Chief complaint: General Medical Stated complaint: back pain, ? infection Time Seen by Provider: 01/23/24 04:41 Source: patient and EMS Mode of arrival: EMS Limitations: no limitations History of Present Illness ED Provider: Dr. Urvashi Ndiaye HPI narrative: Patient comes to the emergency room complaining of middle and lower back pain for over a month. Patient states that he is able to walk, has no loss of strength in lower extremities, denies urinary retention. Patient states that movement makes the pain much worse. Patient denies fever chills. Patient known to be IV drug user. Patient was discharged from the hospital approximately 2 months ago. Patient was seen for a chest wall abscess MSSA. Per discharge, PICC line was placed, sent to rehab. According to the patient his stayed there for 1-2 weeks, was supposed to be there for 6 weeks receiving IV antibiotics, IV cefazolin q.8 hours. However, patient got upset because his states that they gave him the wrong medication and they were giving him IV meds through a line feel with bubbles, got scared, removed his PICC line and left AMA. Patient states that since he left, patient has had pain in the back but gradually getting much worse. Today he could not tolerate any further and decided to come to the hospital. Related Data Previous Rx's ?Medication ?Instructions ?Recorded albuterol sulfate 2.5 mg/3 mL 2.5 mg (3 mL) inhalation Q4-6H PRN 11/18/23 (0.083 %) solution for nebulization shortness of breath or wheezing #75 mL cefazolin 2 gram/50 mL in dextrose 50 ml IV Q8H #72 ea 11/18/23 (iso-osmotic) intravenous piggyback heparin, porcine (PF) 10 unit/mL 50 unit (5 mL) IVFLUSH TID #72 ea 11/18/23 intravenous syringe (Heparin Lock Flush (Porcine) (PF)) methadone 10 mg/mL oral 70 mg (7 mL) PO DAILY@0800 #1 mL 11/18/23 concentrate (Methadose) oxycodone 5 mg tablet 10 mg (2 x 5 mg) PO Q4H PRN Pain, 11/18/23 Severe (Pain Scale 7-10) #36 tabs sodium chloride 0.9 % (flush) 5 ml IVFLUSH TID #72 ea 11/18/23 (Normal Saline Flush 0.9 % injection syringe) Allergies Allergy/AdvReac Type Severity Reaction Status Date / Time No Known Allergies Allergy Verified 01/23/24 03:40 [No Known Allergies*] Review of Systems 2 Review of Systems: Constitutional : No Weight loss, No Fever, No Chills, No Night Sweats, No Fatigue, No Malaise ENT/Mouth : No Hearing loss, No Ear Pain, No Nasal Congestion, No Sinus Pain, No Hoarseness, No sore throat, No Rhinorrhea, No Swallowing Difficulty Eyes: No Eye Pain, No Swelling, No Redness, No Foreign Body, No Discharge, No Vision Changes Cardiovascular : No Chest Pain, No SOB, No Dyspnea on Exertion, No Orthopnea, No Edema, No Palpitations Respiratory : No Cough, No Sputum, No Wheezing, No Smoke Exposure, No Dyspnea Gastrointestinal : No Nausea, No Vomiting, No Diarrhea, No Constipation, No abdominal Pain, No Hematochezia, No Melena Genitourinary : no irregular bleeding, No Dysuria, No Urinary Frequency, No Hematuria, No Urinary Incontinence, No Urgency, No Flank Pain, No Urinary Flow Changes, No Hesitancy Musculoskeletal : Complaining of middle and lower back pain, No joint pain, No Myalgias, No Joint Swelling Skin : No Skin Lesions, No rash Neuro : No Weakness, No Numbness, No Paresthesias, No Loss of Consciousness, No Dizziness, No Headache Psych : No Anxiety/Panic, No Depression, No SI/HI/AH/VH, No Social Issues, Heme/Lymph: No Bruising, No Bleeding,No Lymphadenopathy Endocrine : No Polyuria, No Polydipsia, No Temperature Intolerance [facility] Past Medical History Medical History Sepsis Staphylococcus aureus bacteremia Opioid abuse Left against medical advice IVDU (intravenous drug user) Type 2 diabetes mellitus Hiatal hernia Social History Social History Household Members: Significant Other Housing: Apartment Do you presently have visiting nurse or other home services: No Alcohol intake: never Patient Tobacco Use Status: Current everyday Tobacco user Cigarette Packs Per Day: 1 Cigarettes Per Day: 20.0 Smoked in Last 30 Days: Yes Substance Use Type: Marijuana Advance Directives: No Advance Directives Information Provided: Yes Do you have a plan to hurt others: No Plan service: No Physical Exam ED Vital Signs: Vital Signs - 24 hr 01/23/24 03:36 01/23/24 03:42 Temperature 98.9 F 98.9 F Pulse Rate 75 75 Respiratory Rate 20 20 Blood Pressure 117/73 117/73 Pulse Oximetry 99 99 Oxygen Delivery Method Room Air Room Air BMI result Body Mass Index 25.1 Const Other: Appearance: Alert. Oriented X3. No acute distress. Eyes: Pupils equal, round and reactive to light. ENT: Pharynx normal. Neck: Normal inspection. Neck supple. No lymph nodes noted. No crepitus CVS: Normal heart rate and rhythm. Pulses normal. Normal S1 and S2 Respiratory: No respiratory distress. Breath sounds normal. No Wheezing. No rales Abdomen: Soft and nontender. No rigidity. No distention. Back: Pain to palpation over the lower thoracic/upper lumbar spine area. Skin: Skin warm and dry. Normal skin color. Normal skin turgor. Extremities: No lower extremity edema. No Lacerations. No Rash Neuro: Oriented X 3. No motor deficit. No sensory deficit. Moving all extremities. No slurred speech. CN 2 through 12 grossly intact Psych: calm, cooperative, normal affect Course Course Course Narrative: All of patient's labs pending. Patient has not had any episodes of hypotension, tachycardia, fever. Sepsis not suspected. -patient will empirically get IV fluids, vanco and Zosyn -CT scan pending Procedures Central Line Placement Right IJ: Time Out Performed: Yes Patient Placed on Monitor/Pulse Ox: Yes MD Prep: mask, gown and gloves Central Line Prep: Chlorhexidine scrub Local Anesthetic: lidocaine 1% Amount of anesthesia used (mL): 5 Ultrasound Used for Placement: Yes Central Line Lumen Inserted: triple Post Procedure: sutured in place, good blood return, all ports aspirated, flushed, capped and sterile dressing applied Post Procedure X-Ray: tip of catheter in good position and no pneumothorax seen Patient Tolerated Procedure: well and no complications Complications: none Medical Decision Making Medical Decision Making MDM Narrative: -it was impossible to get peripheral access , multiple nurses tried even with ultrasound. I discussed with the patient that the best next option would be a central line Patient agrees with plan. Chest x-ray obtained after central line: Good placement. -patient receiving IV fluids, Zosyn, vancomycin, IV Dilaudid -now that we have a line, we can get the CT scans done with contrast. My interpretation of labs:, patient's white blood cell count within normal limits. ESR and CRP elevated, no electrolyte abnormality, lactic acid 2.0. My interpretation of chest x-ray after the central line placement: Good placement, no pneumothorax. Initially, a CT scan of the thoracic and lumbar spine were ordered as well as of the ches to to previous history of chest wall cellulitis. After discussing it with our CT technicians, it would be best to order a CT scan of chest abdomen or pelvis -patient received a dose of IV Dilaudid. Imaging will be done now. -sign-out given to my colleague Dr. Martinez Differential Diagnosis Differential Diagnoses: The differential diagnosis associated with the presentation includes (Epidural abscess, musculoskeletal pain) Admission/Observation Consideration of admission/observation: Escalation of care including admission/observation considered Lab Data MDM Lab Attestation statement: I reviewed the patient's lab results. 01/23/24 04:13 01/23/24 04:13 Labs: Lab Results 01/23/24 01/23/24 Range/Units 04:13 05:09 WBC 5.6 (4.8-10.8) X10*3/uL RBC 4.62 (4.60-5.80) X10*6/uL Hgb 10.1 L (14.0-18.0) g/dl Hct 32.7 L (42.0-52.0) % MCV 70.8 L (80.0-98.0) fL MCH 21.9 L (27.0-33.0) pg MCHC 30.9 L (31.0-36.0) g/dl RDW 16.1 H (11.0-16.0) % Plt Count 277 (160-400) X10*3/uL MPV 8.6 L (9.4-12.4) fL Immature Gran % (Auto) 0.4 (0.0-0.4) % Neut % (Auto) 68.1 (45-73) % Lymph % (Auto) 19.5 L (20-40) % [place] % (Auto) 9.0 (2-11) % Eos % (Auto) 2.5 (0-4) % Baso % (Auto) 0.5 (0-2) % Lymph # (Auto) 1.1 L (1.2-4.9) X10*3/uL [place] # (Auto) 0.5 (0.1-1.2) X10*3/uL Eos # (Auto) 0.1 (0.0-0.4) X10*3/uL Baso # (Auto) 0.0 (0.0-0.2) X10*3/uL Abs Immat Gran (auto) 0.02 (0.00-0.03) X10*3/uL Absolute Neuts (auto) 3.8 (2.0-8.3) x10*3/uL Absolute Nucleated RBC 0.000 (0.0-0.012) X10*3/uL Nucleated RBC % (auto) 0.0 (0.0-0.2) /100WBC ESR 81 H (0-15) MM/HR Sodium 138 (135-145) mmol/L Potassium 3.8 (3.3-5.1) mmol/L Chloride 103 (96-108) mmol/L Carbon Dioxide 26 (22-29) mmol/L Anion Gap 13 (12-20) BUN 11 (9-16) mg/dL Creatinine 0.70 (0.5-1.4) mg/dL Estim Creat Clear Calc 147.9 Estimated GFR > 60 Random Glucose 83 (60-115) mg/dL Lactic Acid 2.0 (0.5-2.0) mmol/L Calcium 9.4 (8.4-10.2) mg/dL Total Bilirubin 0.4 (0.0-1.0) mg/dL AST 18 (5-37) U/L ALT 13 (0-40) U/L Alkaline Phosphatase 81 (39-117) U/L C-Reactive Protein 2.31 H (< or = 0.50) mg/dL Total Protein 9.3 H (6.5-8.0) g/dL Albumin 3.8 (3.5-5.0) g/dL Urine Color Yellow Urine Appearance Turbid Urine pH 7.5 (5.0-9.0) Ur Specific Rena [place] 1.020 (1.005-1.025) Urine Protein 30 (1+) H (Neg-Trace) mg/dL Urine Glucose (UA) Negative (Negative) mg/dL Urine Ketones Negative (Negative) mg/dL Urine Blood Negative (Negative) Urine Nitrite Negative (Negative) Ur Leukocyte Esterase Negative (Negative) Urine RBC 0-2 (0-2) /HPF Urine WBC 0-5 (0-5) /HPF Ur Squamous Epith Cells 3-5 (0-2) /HPF Urine Bacteria None Seen (None Seen) Hyaline Casts 3-5 (0-2) /LPF Urine Opiates Screen POSITIVE H (Not Detect) Ur Buprenorphine Scrn Not Detected (Not Detect) ng/mL Ur Oxycodone Screen Not Detected (Not Detect) ng/mL Urine Methadone Screen Positive H (Not Detect) ng/mL Urine Fentanyl Screen POSITIVE H (Not Detect) Ur Barbiturates Screen Not Detected (Not Detect) Ur Phencyclidine Scrn Not Detected (Not Detect) Ur Amphetamines Screen Not Detected (Not Detect) U Benzodiazepines Scrn Not Detected (Not Detect) Urine Cocaine Screen POSITIVE H (Not Detect) U Marijuana (THC) Screen Not Detected (Not Detect) Independent Interpretation I performed an independent interpretation of an: Plain X-Ray Critical Care Time Critical Care Time Critical Care Time: Yes Total Critical Care Time: 60 Attestation: I have personally provided critical care time. Time includes review of lab data, radiology results, discussion with consultants, and monitoring for potential decompensation. Intervention performed as documented. Discharge Plan Discharge Clinical Impression: Severe back pain Patient Disposition: Still a Patient Prescriptions: No Action methadone [Methadose] 10 mg/mL Concentrate 70 mg PO DAILY@0800 Qty: 1 0RF Rx Instructions: Partial Fill upon patient request. oxycodone 5 mg Tablet 10 mg PO Q4H PRN (Reason: Pain, Severe (Pain Scale 7-10)) Qty: 36 0RF Rx Instructions: Partial Fill upon patient request. sodium chloride 0.9 % (flush) [Normal Saline Flush] Syringe 5 ml IVFLUSH TID Qty: 72 0RF heparin, porcine (PF) [Heparin LockFlush(Porcine)(PF)] 10 unit/mL Syringe 50 unit IVFLUSH TID Qty: 72 0RF cefazolin in dextrose (iso-os) 2 gram/50 mL Piggyback 50 ml IV Q8H Qty: 72 0RF albuterol sulfate 2.5 mg /3 mL (0.083 %) solution for nebulization 2.5 mg inhalation Q4-6H PRN (Reason: shortness of breath or wheezing) Qty: 75 0RF Print Language: Turkmen
[2024-01-23 05:27] LABS: Erythrocyte Sedimentation Rate 81 MM/HR (0-15)
[2024-01-23] MEDS: Piperacillin Sodium/Tazobactam 3.375 GM in 0.9 % Sodium Chloride 50 ML IV ×2 (07:22→14:59)
[2024-01-23] MEDS: HYDROmorphone HCl 1 MG/ML SYRINGE IVPUSH ×5 (07:22→23:52)
[2024-01-23] MEDS: 0.9 % Sodium Chloride 1,000 ML 999 ML IVCONT (07:25)
[2024-01-23] MEDS: vancomycin/NS 2,000 MG/500 ML PLAST..BAG 250 MG IV (08:04)
--- NOTE | 2024-01-23 10:43 | HE.PHANOTE ---
METHADONE Pt received from [facility] ([phone]). Pt receives 70mg in AM and 55mg in PM at clinic. Pt was last given 70mg dose of 01/18/24 @ 0958, and sent home with 55mg PM dose, per DEEJAY Saleh at facility.
--- NOTE | 2024-01-23 11:46 | PC.NURSE ---
pt off unit to MRI
[2024-01-23] MEDS: iohexoL 350 MG/ML 100 ML INFUS..BTL 85 ML IV (13:01)
[2024-01-23] MEDS: methADONE HCl 20 MG/2 ML ORAL.CONC 35 MG PO (13:31)
--- NOTE | 2024-01-23 13:40 | PC.NURSE ---
pt unable to take part in MRI d/t having a metal fragment in his eye
--- NOTE | 2024-01-23 15:37 | PC.NURSE ---
white port of triple lumen not able to flush or draw back. other two lines are patent with good blood return. informed DO Juan.
--- NOTE | 2024-01-23 17:43 | PC.NURSE ---
pt Dr Gilbert, pt ok to eat
--- NOTE | 2024-01-23 18:09 | PHA.MEDREC ---
Addendum entered by Antoine Dhaliwal RPh 01/23/24 19:11: Med rec was reviewed by Jc. Original Note: Pharmacy Consult ? Medication Reconciliation Pharmacy has completed the medication reconciliation. Spoke with patient and he stated he is not taking any medications but the Methadone and confirmed he was taking 70mg in the morning and 55mg at bedtime but also states he has not had his last dose in about 5 days.
--- NOTE | 2024-01-23 19:22 | PC.NURSE ---
pt ambulated independent to the bathroom with walker. gait even and steady, pt requesting pain medication upon return to room
--- NOTE | 2024-01-23 19:32 | PM.IMHP ---
History of Present Illness Date of Service: 01/23/24 Chief Complaint: Back pain This is a 43-year-old male with pertinent history of MSSA bacteremia, polysubstance use disorder who presents to the emergency department for evaluation of back pain. Patient was previously admitted on 11/12/2023 with sepsis due to chest wall cellulitis, aspiration pneumonia and emesis a bacteremia. Left AMA on 11/13. Patient was readmitted on 11/13 and discharged on 11/17 to post acute care with 4 weeks of IV cefazolin. Patient states he left AMA from post acute care after about a week of IV antibiotics as he thought that nursing at outside facility gave him the wrong antibiotics and also he saw an air bubble while he was being given IV antibiotics at short-term rehab. He did not complete his antibiotic course for MSSA bacteremia. Does endorse using IV drugs in his last usage was couple of days ago. He has been having lower back pain for months now which has been gradually getting worse. Denies lower extremity weakness, tingling or numbness, loss of bladder or bowel control. No fever, chills, chest pain, palpitations, shortness of breath, changes in urinary or bowel habits. In the emergency department, CT thoracic spine with diskitis/osteomyelitis and phlegmon. Neurosurgery was consulted at [facility] and it was deemed that there was no surgical intervention warranted. Was recommended to admit patient with IV antibiotics. Patient was given vancomycin and Zosyn in the ER with hospitalist consult Review of Systems Constitutional: Constitutional: Reports fatigue and Reports malaise Cardiovascular: Cardiovascular: Reports no additional cardiovascular complaints Respiratory: Respiratory: Reports no additional respiratory complaints Gastrointestinal: Gastrointestinal: Reports no additional gastrointestinal complaints Genitourinary: Genitourinary: Reports no additional male genitourinary complaints Endocrine: Endocrine: Reports fatigue PMFSH Medical History Sepsis Staphylococcus aureus bacteremia Opioid abuse Left against medical advice IVDU (intravenous drug user) Type 2 diabetes mellitus Hiatal hernia Pertinent family history: No family history of early CAD Social History Household Members: Significant Other Housing: Apartment Do you presently have visiting nurse or other home services: No Alcohol intake: never Patient Tobacco Use Status: Current everyday Tobacco user Cigarette Packs Per Day: 1 Cigarettes Per Day: 20.0 Smoked in Last 30 Days: Yes Substance Use Type: Marijuana Advance Directives: No Advance Directives Information Provided: Yes Do you have a plan to hurt others: No Plan service: No Meds Allergies Allergy/AdvReac Type Severity Reaction Status Date / Time No Known Allergies Allergy Verified 01/23/24 03:40 [No Known Allergies*] Active Medications: Current Medications Acetaminophen (Acetaminophen 325 Mg Tablet) 650 mg PO Q6H PRN PRN Reason: Pain, Mild (Pain Scale 1-3), fever or headache Calcium Carbonate (Calcium Carbonate 750 Mg Tab.Chew) 750 mg PO Q4H PRN PRN Reason: Heartburn Hydromorphone HCl (Hydromorphone Hcl 1 Mg/Ml Syringe) 1 mg IVPUSH Q3H PRN; Protocol PRN Reason: Pain, Moderate(Pain Scale 4-6) Last Admin: 01/23/24 19:30 Dose: 1 mg Lactated Ringer's (Lr) 1,000 mls @ 999 mls/hr IV .Q1H1M MARU Stop: 01/23/24 20:30 Piperacillin Sod/Tazobactam (Sod 4.5 gm/ Sodium Chloride) 100 mls @ 200 mls/hr IV Q6H MARU Magnesium Hydroxide (Milk Of Magnesia 30 Ml Oral.Susp) 30 ml PO DAILY PRN PRN Reason: Constipation Melatonin (Melatonin 3 Mg Tablet) 6 mg PO BEDTIME PRN PRN Reason: Insomnia Ondansetron HCl (Ondansetron Hcl 4 Mg/2 Ml Vial) 4 mg IVPUSH Q8H PRN PRN Reason: Nausea and Vomiting Pharmacy Consult (Consult Rx Vancomycin Dosing) 1 each MISCELLANE DAILY PRN PRN Reason: Consult order Sodium Chloride (0.9 % Sodium Chloride Flush 3 Ml Syringe) 3 ml IVFLUSH QSHIFT [facility] Home Medications ?Medication ?Instructions ?Recorded ?Confirmed ?Last Taken ?Type methadone 10 mg/mL oral 55 mg PO BEDTIME 01/23/24 01/23/24 01/18/24 History concentrate (Methadone Intensol) Physical Exam Vital Signs and Narrative: Vital Signs: Last Vital Signs Temp 97.8 F 01/23/24 18:28 Pulse 77 01/23/24 18:28 Resp 14 01/23/24 18:28 BP 93/50 L 01/23/24 18:28 Pulse Ox 98 01/23/24 18:28 O2 Del Method Room Air 01/23/24 18:28 BMI result Body Mass Index 25.1 Middle-aged male lying in bed in no distress Neck supple, no JVD Regular rate and rhythm, S1-S2 heard Regular breath sounds bilaterally, no wheezing or crackles appreciated Abdomen soft nontender, no guarding, no rigidity Patient is awake, alert and oriented to self, place, time and person ; no focal motor deficit Tenderness to palpation over lower thoracic spine Psych: Normal mood No pedal edema Results Labs 01/23/24 04:13 01/23/24 04:13 Labs: Laboratory Results - last 24 hr 01/23/24 01/23/24 04:13 05:09 MCV 70.8 L MCH 21.9 L MCHC 30.9 L RDW 16.1 H Plt Count 277 MPV 8.6 L Immature Gran % (Auto) 0.4 Neut % (Auto) 68.1 Lymph % (Auto) 19.5 L [place] % (Auto) 9.0 Eos % (Auto) 2.5 Baso % (Auto) 0.5 Lymph # (Auto) 1.1 L [place] # (Auto) 0.5 Eos # (Auto) 0.1 Baso # (Auto) 0.0 Abs Immat Gran (auto) 0.02 Absolute Neuts (auto) 3.8 Absolute Nucleated RBC 0.000 Nucleated RBC % (auto) 0.0 ESR 81 H Anion Gap 13 Estim Creat Clear Calc 147.9 Estimated GFR > 60 Random Glucose 83 Lactic Acid 2.0 Calcium 9.4 Total Bilirubin 0.4 AST 18 ALT 13 Alkaline Phosphatase 81 C-Reactive Protein 2.31 H Total Protein 9.3 H Albumin 3.8 Urine Color Yellow Urine Appearance Turbid Urine pH 7.5 Ur Specific [place] 1.020 Urine Protein 30 (1+) H Urine Glucose (UA) Negative Urine Ketones Negative Urine Blood Negative Urine Nitrite Negative Ur Leukocyte Esterase Negative Urine RBC 0-2 Urine WBC 0-5 Ur Squamous Epith Cells 3-5 Urine Bacteria None Seen Hyaline Casts 3-5 Urine Opiates Screen POSITIVE H Ur Buprenorphine Scrn Not Detected Ur Oxycodone Screen Not Detected Urine Methadone Screen Positive H Urine Fentanyl Screen POSITIVE H Ur Barbiturates Screen Not Detected Ur Phencyclidine Scrn Not Detected Ur Amphetamines Screen Not Detected U Benzodiazepines Scrn Not Detected Urine Cocaine Screen POSITIVE H U Marijuana (THC) Screen Not Detected Imaging Radiologist's Impressions: Impressions Chest X-Ray 01/23/24 06:59 IMPRESSION: Findings as above. Electronically signed by: Arnaldo Morse MD 01/23/2024 07:50 AM EST RP Orbit X-Ray 01/23/24 09:48 IMPRESSION: A 0.5 cm density, possibly metallic, overlies the far left lateral side of the face, roughly at the level of the nose, lower level of the orbits, concerning for a foreign body given clinical history. Correlation with clinical exam and possible additional imaging with CT scan recommended for further evaluation prior to MRI imaging. This study was presented today, January 23, 2024, for interpretation. Stat results provided at this time as requested by referring provider. Electronically signed by: Vandana Leiva MD 01/23/2024 11:37 AM EST RP Lumbar Spine CT 01/23/24 12:14 IMPRESSION: 1. Severe erosive changes of the endplates at T11-12, consistent with acute discitis/osteomyelitis, with focal kyphotic deformity. Please refer to the dedicated CT thoracic spine report for further detail. 2. No acute findings of the lumbar spine. There are disc bulges at L3-4, L4-5, and L5-S1 with associated mild facet hypertrophy, resulting in moderate central canal narrowing L4-5, and moderate to severe central canal narrowing L5-S1. See above for details. Findings communicated to emergency department via phone call at 4:10 PM, 01/23/2024 Electronically signed by: Brice Ernandez MD 01/23/2024 04:10 PM EST RP Thoracic Spine CT 01/23/24 12:14 IMPRESSION: 1. Findings of ADVANCED DISCITIS/OSTEOMYELITIS T11-T12 with destructive vertebral body and endplate changes at this level, extensive paravertebral phlegmonous changes, and soft tissue thickening. There is a focal kyphotic deformity at this level. There is likely some degree of epidural phlegmon/abscess with some degree of compression upon the thecal sac. 2. Fusion of T9-10, which may be on the basis of prior surgery, congenital, or previous healed discitis/osteomyelitis. 3. Mild scoliosis, exaggerated kyphosis, and age advanced degenerative spondylosis of the thoracic spine. -3 attempted phone calls were made to inform the Emergency Department provider of the above findings, spanning 4:00-4:15 PM, 01/23/2024, however the phone calls were disconnected 3 of 3 times. Electronically signed by: Brice Ernandez MD 01/23/2024 04:27 PM [facility] Assessment and Plan (1) Discitis of thoracic region: Status: Acute (2) Osteomyelitis of thoracic spine: Status: Acute Plan This is a 43-year-old male with pertinent history of MSSA bacteremia, polysubstance use disorder who presents to the emergency department for evaluation of back pain. #. Discitis/osteomyelitis of thoracic spine with phlegmonous changes. Will admit patient with IV vancomycin and Zosyn. Consulted Infectious Disease. Case discussed with Neurosurgery at [facility], PRASAD Stanton>> no surgical drainage or any neurosurgical intervention warranted as no neuro deficits. Patient only needs IV antibiotics for now. No sepsis. Monitor blood culture. Previous incomplete antibiotic course for MSSA bacteremia as patient left AMA from short-term rehab facility. Unable to perform MRI as possible metallic density over left lateral side of face. #. Polysubstance use disorder: UDS positive for opiates/fentanyl and cocaine. Continue home methadone. Consulted Addiction Team #. Prediabetes: A1c 5.9 in 11/27/2023. Continue to monitor DVT prophylaxis: Lovenox Full code Admit as inpatient and will require two night minimum hospital stay for IV antibiotics (as above), which is not possible in a lesser acute setting. Quality Stroke Does the patient have a stroke diagnosis?: No VTE Prior VTE?: No VTE Risk Level:: Medical - moderate - high VTE Device Contraindication: Treatment Not Indicated VTE Drug Contraindication: N/A - Med Ordered
[2024-01-23] MEDS: Piperacillin Sodium/Tazobactam 4.5 GM in 0.9 % Sodium Chloride 100 ML IV (20:01)
[2024-01-23] MEDS: Lactated Ringers 1,000 ML 999 ML IV (20:01)
[2024-01-23] MEDS: methADONE HCl 20 MG/2 ML ORAL.CONC 55 MG PO (20:49)
--- NOTE | 2024-01-23 21:03 | PHA.PROG ---
Admission Date/Time: January 23, 2024 19:29 Indication: BONE AND JOINT INFECTION Weight in k.647 kg Adjusted body weight in Kg: [place] body weight in Kg: Obesity Dosing Indication % IBW: Serum Creatinine - Last 168 Hours 01/23/24 04:13 Creatinine 0.70 Estimated CrCl and GFR - Last 168 Hours 01/23/24 04:13 Estim Creat Clear Calc 147.9 Estimated GFR > 60 Vancomycin Loading Dose: 2000 MG Current Vancomycin Dosing Regimen: 1500 MG Q12H Vancomycin Monitoring using AUC goal of 400 - 600 range with trough as surrogate marker: IVD=575 TROUGH=16 Date and Time for next Vancomycin Level to be drawn: 01/24/24 @1999 Pharmacist Comments on Vancomycin Plan: Vancomycin dosing will take advantage of [employer] as a clinical decision support tool that uses Bayesian modeling to calculate individual patient's pharmacokinetic parameters and forecast the patient's drug concentration time course with the target goal AUC 24 range of 400 - 600 mg/L/hr.
[2024-01-23] MEDS: vancomycin HCL 1,500 MG in 0.9 % Sodium Chloride 500 ML 333.33 MG IV (22:08)
[2024-01-24] MEDS: Piperacillin Sodium/Tazobactam 4.5 GM in 0.9 % Sodium Chloride 100 ML IV ×4 (02:29→20:01)
[2024-01-24] MEDS: HYDROmorphone HCl 1 MG/ML SYRINGE IVPUSH ×4 (04:55→20:06)
[2024-01-24 05:18] LABS: MANUAL DIFF FLAG NO
[2024-01-24 05:20] LABS: Basophils Percent Auto 0.4 % (0-2); Eosinophils Absolute Auto 0.3 X10*3/uL (0.0-0.4); Eosinophils Percent Auto 5.3 % (0-4); Hematocrit 29.5 % (42.0-52.0); Hemoglobin 8.9 g/dl (14.0-18.0); Imm Gran Abs Auto 0.02 X10*3/uL (0.00-0.03); Imm Gran Pct Auto 0.4 % (0.0-0.4); Lymphocytes Absolute Auto 1.5 X10*3/uL (1.2-4.9); Lymphocytes Percent Auto 31.1 % (20-40); Mean Corpuscular HGB Conc 30.2 g/dl (31.0-36.0); Mean Corpuscular Hemoglobin 21.4 pg (27.0-33.0); Mean Corpuscular Volume 70.9 fL (80.0-98.0); Mean Platelet Volume 9.2 fL (9.4-12.4); Monocytes Absolute Auto 0.5 X10*3/uL (0.1-1.2); Monocytes Percent Auto 10.4 % (2-11); Neutrophils Absolute Auto 2.5 x10*3/uL (2.0-8.3); Neutrophils Percent Auto 52.4 % (45-73); Platelet Count 266 X10*3/uL (160-400); Red Blood Count 4.16 X10*6/uL (4.60-5.80); Red Cell Distribution Width 16.3 % (11.0-16.0); White Blood Count 4.7 X10*3/uL (4.8-10.8)
[2024-01-24 05:35] LABS: Estimated Glomerular Filt Rate > 60
[2024-01-24 05:37] LABS: Anion Gap 11 (12-20); Blood Urea Nitrogen 8 mg/dL (9-16); Carbon Dioxide 28 mmol/L (22-29); Chloride 102 mmol/L (96-108); Creatinine Clr Calc Pharmacy 141.8; Estimated Glomerular Filt Rate > 60; Glucose Random 73 mg/dL (60-115); Sodium 137 mmol/L (135-145)
--- NOTE | 2024-01-24 07:00 | CA_ITS ---
Transthoracic Echocardiogram Patient (Last, First, Middle): Saul Caro, Gender: Male Date of : 1980 Age: 43 Procedure Date: 01/24/2024 Procedure Type: Transthoracic Echocardiogram Location: ER Height: 180.34 cm Weight: 81.65 kg BSA: 2.02 m2 Heart Rate: 55 bpm BP: 102 / 65 mmHg Software Educator: MAIA Referring MD: Bruce Lopez MD Symptoms: bacteremia rule endocarditis Study Quality: Adequate ECG Rhythm: Bradycardia Conclusions: - The left ventricular systolic function is normal. The calculated ejection fraction is 61% by biplane method. - No obvious valvular pathology seen on this study. Findings Left Ventricle Normal left ventricular cavity size. There is normal left ventricular wall thickness. The left ventricular systolic function is normal. The calculated ejection fraction is 61% by biplane method. There is no evidence of regional wall motion abnormalities. Diastolic function is normal for age. Right Ventricle Moderately increased right ventricular cavity size. There is normal right ventricular systolic function. Atria The left atrium is moderately dilated. The right atrium is mildly dilated. Aortic Valve There is a normal trileaflet aortic valve. There is no aortic valve stenosis. There is no aortic valve regurgitation. Mitral Valve The mitral valve appears normal. There is no mitral valve regurgitation. There is no mitral valve stenosis. Pulmonic Valve The pulmonic valve is likely normal. Tricuspid Valve There is trace tricuspid valve regurgitation. There is no evidence of pulmonary hypertension. Great Vessels The asc aorta and aortic arch are normal in size. Venous The inferior vena cava is normal in size and collapses greater than 50% with inspiration. Pericardium/Pleural There is no evidence of pericardial effusion. Prior Study Comparison No significant change compared to prior study dated: 11/14/2023. Recommendations, Care & Conclusions No obvious valvular pathology seen on this study. Measurements 2D Linear Measurements IVSd: 1.00 0.6-0.9/0.6-1.0 cm LVIDd: 5.52 3.9-5.3/4.2-5.9 cm LVIDd Index: 2.73 2.4-3.2/2.2-3.1 cm/m2 LVIDs: 3.37 2.0-3.6 cm LVPWd: 0.92 0.7-1.1 cm LA Diam: 3.80 2.7-3.8/3.0-4.0 cm LAIDs Index: 1.88 1.5-2.3 cm/m2 LV Mass: 252.52 67-162/88-224 g LV Mass Index: 125.01 43-95/49-115 g/m2 LVOT Diam: 2.20 3.0+(-)1.3 cm 2D Systolic Function EF 4C: 60.80 >55% EF 2C: 61.40 >55% EF BiP: 60.90 >55% Mitral Valve MV Pk E: 0.86 MV PK A: 0.45 MV Decel Time: 239.00 E/A: 1.90 E'Lateral: 11.30 E'Medial: 8.59 E/E' Med: 10.00 E/E' Lat: 7.60 PHT: 70.00 MVA PHT: 3.14 Decel [place]: 3.58 Aortic Valve AoV Pk Mike: 1.40 AoV Mn Mike: 1.00 AoV VTI: 0.34 AoV Pk Grad: 8.00 Aov Mn Grad: 4.00 SHANELL Cont.VTI: 3.14 LVOT LVOT Pk Mike: 1.36 LVOT Mn Mike: 0.88 LVOT VTI: 0.28 LVOT Pk Grad: 7.00 LVOT Mn Grad: 4.00 LVOT Diam: 2.20 LVOT Area: 3.80 Diastolic Function MV Pk E: 0.86 MV Pk A: 0.45 E/A: 1.90 E'Medial: 8.59 E/E' Med: 10.00 E' Laterial: 11.30 E/E' Lat: 7.60 Right Ventricle TAPSE (mm): 35.50 TVS' Mike: 14.50 Tricuspid Valve RA Press: 3.00 Great Vessels Aorta Sinus of Valsalva: 3.49 2.0-3.5 cm Ao Asc: 3.40 2.1-3.4 cm Ao Arch: 2.60 Updated in Other Vendor System with Status of Final Jc Coley MD electronically signed on 01/24/2024 11:21:10 AM with status of Final
--- NOTE | 2024-01-24 07:17 | HO.PM.IMPN ---
Subjective Subjective Date of Service: 01/24/24 Interval History: f/u disckitis and osteomylitis of spine in drug user c/o pain Physical Exam Vital Signs: Vital Signs: Last Vital Signs Temp 98.9 F 01/23/24 22:39 Pulse 55 01/23/24 22:39 Resp 20 01/23/24 22:39 BP 102/65 01/23/24 22:39 Pulse Ox 97 01/23/24 22:39 O2 Del Method Room Air 01/23/24 22:39 BMI result Body Mass Index 25.1 Const: Other: Appearance: Alert. Oriented X3. No acute distress. Neck: Normal inspection. Neck supple. No lymph nodes noted. No crepitus CVS: Normal heart rate and rhythm. Pulses normal. Normal S1 and S2 Respiratory: No respiratory distress. Breath sounds normal. No Wheezing. No rales Abdomen: Soft and nontender. No rigidity. No distention. Back: Pain to palpation over the lower thoracic/upper lumbar spine area. Skin: Skin warm and dry. Normal skin color. Normal skin turgor. Extremities: No lower extremity edema. No Lacerations. No Rash Neuro: Oriented X 3. No motor deficit. No sensory deficit. Moving all extremities. No slurred speech. CN 2 through 12 grossly intact Psych: calm, cooperative, normal affect Objective Data Active Medications Acetaminophen (Acetaminophen 325 Mg Tablet) 650 mg PO Q6H PRN PRN Reason: Pain, Mild (Pain Scale 1-3), fever or headache Calcium Carbonate (Calcium Carbonate 750 Mg Tab.Chew) 750 mg PO Q4H PRN PRN Reason: Heartburn Hydromorphone HCl (Hydromorphone Hcl 1 Mg/Ml Syringe) 1 mg IVPUSH Q3H PRN; Protocol PRN Reason: Pain, Moderate(Pain Scale 4-6) Last Admin: 01/24/24 04:55 Dose: 1 mg Documented By: MARV Piperacillin Sod/Tazobactam (Sod 4.5 gm/ Sodium Chloride) 100 mls @ 200 mls/hr IV Q6H [facility] Last Infusion: 01/24/24 03:10 Dose: Infused Documented By: MARV Vancomycin HCl 1,500 mg/ (Sodium Chloride) 500 mls @ 333.333 mls/hr IV Q12H [facility] Last Infusion: 01/23/24 23:53 Dose: Infused Documented By: MARV Magnesium Hydroxide (Milk Of Magnesia 30 Ml Oral.Susp) 30 ml PO DAILY PRN PRN Reason: Constipation Melatonin (Melatonin 3 Mg Tablet) 6 mg PO BEDTIME PRN PRN Reason: Insomnia Methadone HCl (Methadone Hcl 20 Mg/2 Ml Oral.Conc) 55 mg PO BEDTIME [facility] Last Admin: 01/23/24 20:49 Dose: 55 mg Documented By: MARV Co-signed By: DOMENICO Methadone HCl (Methadone Hcl 20 Mg/2 Ml Oral.Conc) 70 mg PO DAILY@0800 [facility] Ondansetron HCl (Ondansetron Hcl 4 Mg/2 Ml Vial) 4 mg IVPUSH Q8H PRN PRN Reason: Nausea and Vomiting Pharmacy Consult (Consult Rx Vancomycin Dosing) 1 each MISCELLANE DAILY PRN PRN Reason: Consult order Sodium Chloride (0.9 % Sodium Chloride Flush 3 Ml Syringe) 3 ml IVFLUSH QSHIFT [facility] Last Admin: 01/24/24 00:00 Dose: 3 ml Documented By: MARV Labs 01/24/24 04:50 01/25/24 05:46 Labs: Laboratory Results - last 24 hr 01/24/24 01/24/24 01/24/24 04:50 04:50 04:50 MCV 70.9 L MCH 21.4 L MCHC 30.2 L RDW 16.3 H Plt Count 266 MPV 9.2 L Immature Gran % (Auto) 0.4 Neut % (Auto) 52.4 Lymph % (Auto) 31.1 [place] % (Auto) 10.4 Eos % (Auto) 5.3 H Baso % (Auto) 0.4 Lymph # (Auto) 1.5 [place] # (Auto) 0.5 Eos # (Auto) 0.3 Baso # (Auto) 0.0 Abs Immat Gran (auto) 0.02 Absolute Neuts (auto) 2.5 Absolute Nucleated RBC 0.000 Nucleated RBC % (auto) 0.0 Anion Gap 11 L Estim Creat Clear Calc 138.0 141.8 Estimated GFR > 60 > 60 Random Glucose 73 Calcium 9.0 Assessment and Plan (1) Discitis: Status: Acute Plan 43-year-old male with pertinent history of MSSA bacteremia in november( did not complete recommended antibiotics) polysubstance use disorder who presents to the emergency department for evaluation of back pain and found to have Discitis/osteomyelitis of thoracic spine with phlegmonous changes. -Presented to [facility] --no surgical intervention -Continue Vanco and Zosyn -ID consult -Follow cultures. -echo to rule endocarditis Polysubstance use disorder: + opiates/fentanyl and cocaine. -addiction med consult - Continue home methadone. Prediabetes: A1c 5.9 in 11/27/2023. Continue to monitor DVT prophylaxis: Lovenox Full code need for inpt: IV Abx for discitis and osteomylitis of the spine Quality Stroke Does the patient have a stroke diagnosis?: No VTE Prior VTE?: No VTE Risk Level:: Medical - moderate - high VTE Device Contraindication: Treatment Not Indicated VTE Drug Contraindication: N/A - Med Ordered
[2024-01-24] MEDS: methADONE HCl 20 MG/2 ML ORAL.CONC 70 MG PO (08:18)
[2024-01-24] MEDS: 0.9 % Sodium Chloride Flush 3 ML SYRINGE IVFLUSH ×2 (08:19)
[2024-01-24 08:31] VITALS: BP 105/70; PULSE 59; RESP 15; TEMP 37.3; O2SAT 100
[2024-01-24] MEDS: oxyCODONE HCl Immed Release 5 MG TABLET 10 MG PO ×2 (11:00→20:43)
[2024-01-24] MEDS: vancomycin HCL 1,500 MG in 0.9 % Sodium Chloride 500 ML 333.33 MG IV ×2 (11:01→22:07)
--- NOTE | 2024-01-24 12:19 | HO.ADDICTCON ---
History of Present Illness Date of Service: 01/24/2024 Chief Complaint: back pain Reason for Consult: Substance use Sources of Information: patient interviewed and chart reviewed HPI Narrative: Patient is a 43 year old male with OUD, known to this writer technical publications via previous medical admission and ACS consult Patient currently medically admitted with osteo of the spine. Chart review shows he is currently engaged in treatment for OUD and methadone dose is 70mg in AM and 55mg in evening He is seen in overflow room 4. He is laying in bed, eyes closed, but awake, and engaged in interview. Frequently wincing due to pain in his back, and also reporting pain his right toe. He states that dilaudid has not been effective in managing pain, but knows that oxycodone was started and he had just received his first dose. Currently dialudid 1mg q3H PRN and oxycodone 10mg q4H PRN ordered Denies any issues with regards to methadone. Substance use not addressed as it was not appropriate given patients level of discomfort, and can be discussed at a later time. Review of Systems Constitutional: Reports as per HPI Diagnostics Vital Signs (24Hr): Vital Signs - 24 hr 01/23/24 16:11 01/23/24 18:28 01/23/24 19:55 Temperature 98.6 F 97.8 F 98.8 F Pulse Rate 65 77 72 Respiratory Rate 16 14 12 Blood Pressure 96/63 93/50 L 99/58 L Pulse Oximetry 97 98 97 Oxygen Delivery Method Room Air Room Air Room Air 01/23/24 22:39 01/24/24 08:31 Temperature 98.9 F 99.1 F Pulse Rate 55 59 Respiratory Rate 20 15 Blood Pressure 102/65 105/70 Pulse Oximetry 97 100 Oxygen Delivery Method Room Air Room Air BMI result Body Mass Index 25.1 Labs 01/24/24 04:50 01/24/24 04:50 Labs: Laboratory Results - last 48 hr 01/23/24 01/23/24 01/24/24 04:13 05:09 04:50 WBC 5.6 4.7 L RBC 4.62 4.16 L Hgb 10.1 L 8.9 L Hct 32.7 L 29.5 L MCV 70.8 L 70.9 L MCH 21.9 L 21.4 L MCHC 30.9 L 30.2 L RDW 16.1 H 16.3 H Plt Count 277 266 MPV 8.6 L 9.2 L Immature Gran % (Auto) 0.4 0.4 Neut % (Auto) 68.1 52.4 Lymph % (Auto) 19.5 L 31.1 [place] % (Auto) 9.0 10.4 Eos % (Auto) 2.5 5.3 H Baso % (Auto) 0.5 0.4 Lymph # (Auto) 1.1 L 1.5 [place] # (Auto) 0.5 0.5 Eos # (Auto) 0.1 0.3 Baso # (Auto) 0.0 0.0 Abs Immat Gran (auto) 0.02 0.02 Absolute Neuts (auto) 3.8 2.5 Absolute Nucleated RBC 0.000 0.000 Nucleated RBC % (auto) 0.0 0.0 ESR 81 H Sodium 138 137 Potassium 3.8 4.0 Chloride 103 102 Carbon Dioxide 26 28 Anion Gap 13 11 L BUN 11 8 L Creatinine 0.70 0.75 Estim Creat Clear Calc 147.9 Estimated GFR > 60 Random Glucose 83 Lactic Acid 2.0 Calcium 9.4 Total Bilirubin 0.4 AST 18 ALT 13 Alkaline Phosphatase 81 C-Reactive Protein 2.31 H Total Protein 9.3 H Albumin 3.8 Urine Color Yellow Urine Appearance Turbid Urine pH 7.5 Ur Specific [place] 1.020 Urine Protein 30 (1+) H Urine Glucose (UA) Negative Urine Ketones Negative Urine Blood Negative Urine Nitrite Negative Ur Leukocyte Esterase Negative Urine RBC 0-2 Urine WBC 0-5 Ur Squamous Epith Cells 3-5 Urine Bacteria None Seen Hyaline Casts 3-5 Urine Opiates Screen POSITIVE H Ur Buprenorphine Scrn Not Detected Ur Oxycodone Screen Not Detected Urine Methadone Screen Positive H Urine Fentanyl Screen POSITIVE H Ur Barbiturates Screen Not Detected Ur Phencyclidine Scrn Not Detected Ur Amphetamines Screen Not Detected U Benzodiazepines Scrn Not Detected Urine Cocaine Screen POSITIVE H U Marijuana (THC) Screen Not Detected 01/24/24 01/24/24 01/24/24 04:50 04:50 04:50 WBC RBC Hgb Hct MCV MCH MCHC RDW Plt Count MPV Immature Gran % (Auto) Neut % (Auto) Lymph % (Auto) [place] % (Auto) Eos % (Auto) Baso % (Auto) Lymph # (Auto) [place] # (Auto) Eos # (Auto) Baso # (Auto) Abs Immat Gran (auto) Absolute Neuts (auto) Absolute Nucleated RBC Nucleated RBC % (auto) ESR Sodium Potassium Chloride Carbon Dioxide Anion Gap BUN Creatinine 0.73 Estim Creat Clear Calc 138.0 141.8 Estimated GFR > 60 > 60 Random Glucose 73 Lactic Acid Calcium 9.0 Total Bilirubin AST ALT Alkaline Phosphatase C-Reactive Protein Total Protein Albumin Urine Color Urine Appearance Urine pH Ur Specific [place] Urine Protein Urine Glucose (UA) Urine Ketones Urine Blood Urine Nitrite Ur Leukocyte Esterase Urine RBC Urine WBC Ur Squamous Epith Cells Urine Bacteria Hyaline Casts Urine Opiates Screen Ur Buprenorphine Scrn Ur Oxycodone Screen Urine Methadone Screen Urine Fentanyl Screen Ur Barbiturates Screen Ur Phencyclidine Scrn Ur Amphetamines Screen U Benzodiazepines Scrn Urine Cocaine Screen U Marijuana (THC) Screen Imaging Radiology Impressions: ITS Impressions Chest X-Ray 01/23/24 06:59 IMPRESSION: Findings as above. Electronically signed by: Arnaldo Morse MD 01/23/2024 07:50 AM EST RP Orbit X-Ray 01/23/24 09:48 IMPRESSION: A 0.5 cm density, possibly metallic, overlies the far left lateral side of the face, roughly at the level of the nose, lower level of the orbits, concerning for a foreign body given clinical history. Correlation with clinical exam and possible additional imaging with CT scan recommended for further evaluation prior to MRI imaging. This study was presented today, January 23, 2024, for interpretation. Stat results provided at this time as requested by referring provider. Electronically signed by: Vandana Leiva MD 01/23/2024 11:37 AM EST RP Lumbar Spine CT 01/23/24 12:14 IMPRESSION: 1. Severe erosive changes of the endplates at T11-12, consistent with acute discitis/osteomyelitis, with focal kyphotic deformity. Please refer to the dedicated CT thoracic spine report for further detail. 2. No acute findings of the lumbar spine. There are disc bulges at L3-4, L4-5, and L5-S1 with associated mild facet hypertrophy, resulting in moderate central canal narrowing L4-5, and moderate to severe central canal narrowing L5-S1. See above for details. Findings communicated to emergency department via phone call at 4:10 PM, 01/23/2024 Electronically signed by: Brice Ernandez MD 01/23/2024 04:10 PM EST RP Thoracic Spine CT 01/23/24 12:14 IMPRESSION: 1. Findings of ADVANCED DISCITIS/OSTEOMYELITIS T11-T12 with destructive vertebral body and endplate changes at this level, extensive paravertebral phlegmonous changes, and soft tissue thickening. There is a focal kyphotic deformity at this level. There is likely some degree of epidural phlegmon/abscess with some degree of compression upon the thecal sac. 2. Fusion of T9-10, which may be on the basis of prior surgery, congenital, or previous healed discitis/osteomyelitis. 3. Mild scoliosis, exaggerated kyphosis, and age advanced degenerative spondylosis of the thoracic spine. -3 attempted phone calls were made to inform the Emergency Department provider of the above findings, spanning 4:00-4:15 PM, 01/23/2024, however the phone calls were disconnected 3 of 3 times. Electronically signed by: Brice Ernandez MD 01/23/2024 04:27 PM EST RP Mental Status Exam Mental Status Exam Level of Consciousness: Awake Patient Behavior: Appropriate Mood Description: Anxious Affect Description: Anxious Speech Pattern: Clear Judgement: Good Medications Medications Current Medications Acetaminophen (Acetaminophen 325 Mg Tablet) 650 mg PO Q6H PRN PRN Reason: Pain, Mild (Pain Scale 1-3), fever or headache Calcium Carbonate (Calcium Carbonate 750 Mg Tab.Chew) 750 mg PO Q4H PRN PRN Reason: Heartburn Hydromorphone HCl (Hydromorphone Hcl 1 Mg/Ml Syringe) 1 mg IVPUSH Q3H PRN; Protocol PRN Reason: Pain, Moderate(Pain Scale 4-6) Last Admin: 01/24/24 09:00 Dose: 1 mg Piperacillin Sod/Tazobactam (Sod 4.5 gm/ Sodium Chloride) 100 mls @ 200 mls/hr IV Q6H [facility] Last Infusion: 01/24/24 09:09 Dose: Infused Vancomycin HCl 1,500 mg/ (Sodium Chloride) 500 mls @ 333.333 mls/hr IV Q12H [facility] Last Admin: 01/24/24 11:01 Dose: 333.33 mls/hr Magnesium Hydroxide (Milk Of Magnesia 30 Ml Oral.Susp) 30 ml PO DAILY PRN PRN Reason: Constipation Melatonin (Melatonin 3 Mg Tablet) 6 mg PO BEDTIME PRN PRN Reason: Insomnia Methadone HCl (Methadone Hcl 20 Mg/2 Ml Oral.Conc) 55 mg PO BEDTIME [facility] Last Admin: 01/23/24 20:49 Dose: 55 mg Methadone HCl (Methadone Hcl 20 Mg/2 Ml Oral.Conc) 70 mg PO DAILY@0800 [facility] Last Admin: 01/24/24 08:18 Dose: 70 mg Ondansetron HCl (Ondansetron Hcl 4 Mg/2 Ml Vial) 4 mg IVPUSH Q8H PRN PRN Reason: Nausea and Vomiting Oxycodone HCl (Oxycodone Hcl Immed Release 5 Mg Tablet) 10 mg PO Q4H PRN PRN Reason: Pain, Moderate(Pain Scale 4-6) Last Admin: 01/24/24 11:00 Dose: 10 mg Pharmacy Consult (Consult Rx Vancomycin Dosing) 1 each MISCELLANE DAILY PRN PRN Reason: Consult order Sodium Chloride (0.9 % Sodium Chloride Flush 3 Ml Syringe) 3 ml IVFLUSH QSHIFT [facility] Last Admin: 01/24/24 08:19 Dose: 3 ml Allergies Allergies Allergy/AdvReac Type Severity Reaction Status Date / Time No Known Allergies Allergy Verified 01/23/24 03:40 [No Known Allergies*] Assessment & Plan Assessment & Plan (1) Opioid use disorder, severe, dependence: Status: Acute Code(s): F11.20 - Opioid dependence, uncomplicated Assessment and Plan: continue split dose methadone continue PRN medications as needed--adjust dosing based on patient response will continue to follow--may adjust methadone dose if needed to assist with pain control Total time managing care of this patient today _20___ minutes. [facility] Past Medical History Medical History Sepsis Staphylococcus aureus bacteremia Opioid abuse Left against medical advice IVDU (intravenous drug user) Type 2 diabetes mellitus Hiatal hernia Social History Social History Household Members: Significant Other Housing: Apartment Do you presently have visiting nurse or other home services: No Alcohol intake: never Patient Tobacco Use Status: Current everyday Tobacco user Cigarette Packs Per Day: 1 Cigarettes Per Day: 20.0 Smoked in Last 30 Days: Yes Substance Use Type: Marijuana Advance Directives: No Advance Directives Information Provided: Yes Do you have a plan to hurt others: No Plan Nutrition Risks: No Nutritional Risk service: No
--- NOTE | 2024-01-24 14:00 | MHC.CM.PN ---
pt lives w/girlfriend gets his methadone from [facility] may need a ride home
[2024-01-24 14:33] VITALS: BP 105/64; PULSE 67; RESP 18; TEMP 37.2; O2SAT 97
--- NOTE | 2024-01-24 15:26 | P.CNID_ITS ---
History of Present Illness Data of Consult Service Date: 01/24/24 Requesting physician: Bruce Lopez Primary Care Provider: Carla Narvaez NP HPI Reason for consult: diskiitis/OM T11-T12 He presents with 10/10 lower back pain as well as trouble walking. He has reported T11-T12 OM on MRI. Apparently nothing surgical per Neurosurgery. He denies fever or chills. He has no bowel or bladder issues I saw him last admission 11/10 with MSSA bacteremia and went to [facility] but left after a week AMA. He had no epidural abscess at this time. He denies using IV drugs then but has substances on drug screen. Review of Systems 2 Review of Systems: Yes all other systems are reviewed and are negative PMFSH Past Medical History Medical History Sepsis Staphylococcus aureus bacteremia Opioid abuse Left against medical advice IVDU (intravenous drug user) Type 2 diabetes mellitus Hiatal hernia Social History Social History Household Members: Significant Other Housing: Apartment Do you presently have visiting nurse or other home services: No Alcohol intake: never Patient Tobacco Use Status: Current everyday Tobacco user Cigarette Packs Per Day: 1 Cigarettes Per Day: 20.0 Smoked in Last 30 Days: Yes Substance Use Type: Marijuana Advance Directives: No Advance Directives Information Provided: Yes Do you have a plan to hurt others: No Plan Nutrition Risks: No Nutritional Risk service: No Meds Allergies Allergy/AdvReac Type Severity Reaction Status Date / Time No Known Allergies Allergy Verified 01/23/24 03:40 [No Known Allergies*] Active Medications: Current Medications Acetaminophen (Acetaminophen 325 Mg Tablet) 650 mg PO Q6H PRN PRN Reason: Pain, Mild (Pain Scale 1-3), fever or headache Calcium Carbonate (Calcium Carbonate 750 Mg Tab.Chew) 750 mg PO Q4H PRN PRN Reason: Heartburn Hydromorphone HCl (Hydromorphone Hcl 1 Mg/Ml Syringe) 1 mg IVPUSH Q3H PRN; Protocol PRN Reason: Pain, Moderate(Pain Scale 4-6) Last Admin: 01/24/24 09:00 Dose: 1 mg Piperacillin Sod/Tazobactam (Sod 4.5 gm/ Sodium Chloride) 100 mls @ 200 mls/hr IV Q6H [facility] Last Infusion: 01/24/24 09:09 Dose: Infused Vancomycin HCl 1,500 mg/ (Sodium Chloride) 500 mls @ 333.333 mls/hr IV Q12H [facility] Last Infusion: 01/24/24 12:37 Dose: Infused Magnesium Hydroxide (Milk Of Magnesia 30 Ml Oral.Susp) 30 ml PO DAILY PRN PRN Reason: Constipation Melatonin (Melatonin 3 Mg Tablet) 6 mg PO BEDTIME PRN PRN Reason: Insomnia Methadone HCl (Methadone Hcl 20 Mg/2 Ml Oral.Conc) 55 mg PO BEDTIME [facility] Last Admin: 01/23/24 20:49 Dose: 55 mg Methadone HCl (Methadone Hcl 20 Mg/2 Ml Oral.Conc) 70 mg PO DAILY@0800 [facility] Last Admin: 01/24/24 08:18 Dose: 70 mg Ondansetron HCl (Ondansetron Hcl 4 Mg/2 Ml Vial) 4 mg IVPUSH Q8H PRN PRN Reason: Nausea and Vomiting Oxycodone HCl (Oxycodone Hcl Immed Release 5 Mg Tablet) 10 mg PO Q4H PRN PRN Reason: Pain, Moderate(Pain Scale 4-6) Last Admin: 01/24/24 11:00 Dose: 10 mg Pharmacy Consult (Consult Rx Vancomycin Dosing) 1 each MISCELLANE DAILY PRN PRN Reason: Consult order Sodium Chloride (0.9 % Sodium Chloride Flush 3 Ml Syringe) 3 ml IVFLUSH QSHIFT [facility] Last Admin: 01/24/24 08:19 Dose: 3 ml Home Medications ?Medication ?Instructions ?Recorded ?Confirmed ?Last Taken ?Type methadone 10 mg/mL oral 55 mg PO BEDTIME 01/23/24 01/23/24 01/18/24 History concentrate (Methadone Intensol) Physical Exam 2 Vital Signs: Vital Signs: Last Vital Signs Temp 99 F 01/24/24 14:33 Pulse 67 01/24/24 14:33 Resp 18 01/24/24 14:33 BP 105/64 01/24/24 14:33 Pulse Ox 97 01/24/24 14:33 O2 Del Method Room Air 01/24/24 14:33 BMI result Body Mass Index 25.1 Const: General: cooperative HEENT: Head: Yes normal to inspection Face and sinus: Yes normal facial exam Mouth: Normal oral and palatal mucosa present Teeth and gingiva: d entition normal Eyes: General: appearance normal, both eyes and all related structures P upils: Equal, round and reactive pupils present Resp: Effort & Inspection: normal respiratory effort Cardio: Rate: regular rate Rhythm: regular rhythm GI: Palpation (GI): Soft to palpation and nontender Back/Spine/Pelvis: Other: pain mid back Skin: General skin exam: no rashes or lesions noted Neuro: General: moves all extremities Cranial nerves: Yes Equal, round and reactive pupils present Extrem: General: Yes normal to inspection Psych: Appearance: grossly normal Results Labs 01/24/24 04:50 01/24/24 04:50 Labs: Short CBC 01/24/24 Range/Units 04:50 WBC 4.7 L (4.8-10.8) X10*3/uL Hgb 8.9 L (14.0-18.0) g/dl Hct 29.5 L (42.0-52.0) % Plt Count 266 (160-400) X10*3/uL BMP 01/24/24 01/24/24 04:50 04:50 Sodium 137 Potassium 4.0 Chloride 102 Carbon Dioxide 28 BUN 8 L Creatinine 0.75 0.73 Calcium 9.0 Microbiology Microbiology Results: Microbiology 01/23/24 06:19 Blood - Venous Blood Culture - Preliminary No growth after 24 hours. 01/23/24 06:19 Blood - Venous Blood Culture - Preliminary No growth after 24 hours. Assessment and Plan (1) Discitis: Status: Acute (2) Osteomyelitis of thoracic spine: Status: Acute (3) Severe back pain: Status: Acute Plan This occurs due to patient not finishing plan of IV antibiotics. 6 weeks IV Kefzol and Vancomycin with weekly creatinine and Vancomycin levels. Check echo. Recheck HIV test. Prognosis guarded for full recovery.
[2024-01-24 17:11] VITALS: BP 100/64; PULSE 57; RESP 16; TEMP 37.3; O2SAT 98
[2024-01-24 20:39] LABS: Vancomycin Random 15.3 mcg/mL (15-20)
--- NOTE | 2024-01-24 20:45 | HE.PHANOTE ---
RE: VANCO DOSING Trough came back as 15.3 mg/L which is higher than predicted 12.6 mg/L. Continue with dose of 1500 mg q12h, next trough is scheduled for 01/25/24 @1999.
[2024-01-24 20:54] VITALS: BP 110/65; PULSE 74; RESP 18; TEMP 36.4; O2SAT 98
[2024-01-24] MEDS: methADONE HCl 20 MG/2 ML ORAL.CONC 55 MG PO (22:07)
[2024-01-24 23:53] VITALS: BP 112/78; PULSE 62; RESP 18; TEMP 36.2; O2SAT 96
[2024-01-25] MEDS: Melatonin 3 MG TABLET 6 MG PO (00:11)
[2024-01-25] MEDS: HYDROmorphone HCl 1 MG/ML SYRINGE IVPUSH ×4 (00:11→23:03)
[2024-01-25] MEDS: oxyCODONE HCl Immed Release 5 MG TABLET 10 MG PO ×4 (02:12→19:46)
[2024-01-25] MEDS: Piperacillin Sodium/Tazobactam 4.5 GM in 0.9 % Sodium Chloride 100 ML IV ×2 (02:13→07:36)
[2024-01-25 06:19] LABS: Creatinine Clr Calc Pharmacy 103.5; Estimated Glomerular Filt Rate > 60
[2024-01-25 07:26] VITALS: BP 102/57; PULSE 80; RESP 18; TEMP 37; O2SAT 96
[2024-01-25] MEDS: 0.9 % Sodium Chloride Flush 3 ML SYRINGE IVFLUSH ×2 (07:36→16:16)
[2024-01-25] MEDS: methADONE HCl 20 MG/2 ML ORAL.CONC 70 MG PO (07:37)
[2024-01-25 08:13] LABS: Anion Gap 15 (12-20)
[2024-01-25 08:17] LABS: Carbon Dioxide 27 mmol/L (22-29); Chloride 102 mmol/L (96-108); Magnesium 2.2 mg/dL (1.6-2.6); Sodium 140 mmol/L (135-145)
[2024-01-25] MEDS: ceFAZolin Sodium/Dextrose,Iso 2 GM/50 ML PIGGYBACK IV ×2 (08:54→16:17)
[2024-01-25] MEDS: vancomycin HCL 1,500 MG in 0.9 % Sodium Chloride 500 ML 333.33 MG IV (09:48)
--- NOTE | 2024-01-25 10:35 | MHC.RECOVRN ---
Met with pt in 347 to follow up and provide support. Pt familiar with t/w from previous consults. Pt sitting in bed, awake, alert, easily engages in conversation. When pt is sitting in one position he appears comfortable (smiles and laughs), grimaces with movement. Pts timeline seems to be off as he believes he was at [facility] in March and has been living with this pain for a few months. Pt was dc to [facility] on 11/18/23. Pt reports at [facility] the care was subpar and he accidentally received another patient's antibiotics. Pt reports he conducted a self directed discharge early into his admission there, did not complete IV antibiotic treatment. Pt reports since dc from [facility], he has used 1 bundle heroin/fentanyl total; once IV and then IN. Pt reports cocaine use was awhile ago. UDS positive for opiates, fentanyl, methadone, and cocaine. Pt reports he has been doing well with methadone, currently 70 mg in AM and 55 mg in PM. Pt would like to alter schedule to 100 mg in AM and 25 mg in PM due to feeling increased pain, discomfort, and weakness beginning around 5 PM. Pt reports pain is only controlled when he finds the right position and does not move, reports otherwise Dilaudid and oxycodone do not adequately manage pain. Pt denies other questions or concerns for t/w. Discussed with Melissa Lockwood APRN.
[2024-01-25 15:11] VITALS: BP 106/62; PULSE 61; RESP 18; TEMP 36.5; O2SAT 96
--- NOTE | 2024-01-25 15:28 | MHC.CM.PN ---
pt continues on his antibiotics unable top locate a bed
--- NOTE | 2024-01-25 15:29 | MHC.CM.PN ---
per rounds pt not ready formdc pt having increase in confusion
--- NOTE | 2024-01-25 15:30 | MHC.CM.PN ---
per rounds pt will need iv antibiotics
[2024-01-25 20:36] LABS: Vancomycin Random 20.5 mcg/mL (15-20)
--- NOTE | 2024-01-25 20:45 | HE.PHANOTE ---
Re Vanco Trough came back 20.5mg/L, projected AUC now 655mg/L. Will reduce to 1250mg q12h, for an AUC of 548mg/L. Next level 01/26/24 @1999.
[2024-01-25] MEDS: methADONE HCl 20 MG/2 ML ORAL.CONC 55 MG PO (21:25)
[2024-01-25] MEDS: vancomycin HCL 1,250 MG in 0.9 % Sodium Chloride 250 ML 166.67 MG IV (21:26)
[2024-01-25 23:56] VITALS: BP 100/58; PULSE 56; RESP 18; TEMP 36.6; O2SAT 95
[2024-01-26] MEDS: oxyCODONE HCl Immed Release 5 MG TABLET 10 MG PO ×4 (01:38→20:47)
[2024-01-26] MEDS: ceFAZolin Sodium/Dextrose,Iso 2 GM/50 ML PIGGYBACK IV ×3 (01:39→16:51)
[2024-01-26 06:47] LABS: Creatinine Clr Calc Pharmacy 103.5; Estimated Glomerular Filt Rate > 60
[2024-01-26 07:14] VITALS: BP 100/61; PULSE 57; RESP 16; TEMP 36.8; O2SAT 94
--- NOTE | 2024-01-26 07:26 | P.PNIM_ITS ---
Subjective Subjective Date of Service: 01/26/24 Interval History: Follow-up diskitis and osteomyelitis of spine Complaining of difficulty ambulation due to worsening back pain Complaining of constipation no nausea, no vomiting tolerating diet, no new weakness or numbness lower extremity, no fevers, no chills, no acute issues overnight. Review of Systems All other system reviewed and are negative Physical Exam 2 Vital Signs: Vital Signs: Last Vital Signs Temp 98.2 F 01/26/24 07:14 Pulse 57 01/26/24 07:14 Resp 16 01/26/24 07:14 BP 100/61 01/26/24 07:14 Pulse Ox 94 01/26/24 07:14 O2 Del Method Room Air 01/26/24 07:14 BMI result Body Mass Index 25.1 Const: Other: General resting comfortably in no acute distress. Anicteric sclera Neck no JVD. CVS regular rate rhythm, Respiratory lungs clear to auscultation, no respiratory distress, no wheeze, no rhonchi. Gastrointestinal abdomen soft, non tender, bowel sounds audible, no guarding , no rigidity. Back tenderness lower thoracic spine, no redness, no swelling Extremities no edema. Neuro non focal Skin no rash Psych appropriate affect Objective Data Active Medications Acetaminophen (Acetaminophen 325 Mg Tablet) 650 mg PO Q6H PRN PRN Reason: Pain, Mild (Pain Scale 1-3), fever or headache Calcium Carbonate (Calcium Carbonate 750 Mg Tab.Chew) 750 mg PO Q4H PRN PRN Reason: Heartburn Hydromorphone HCl (Hydromorphone Hcl 1 Mg/Ml Syringe) 1 mg IVPUSH Q3H PRN; Protocol PRN Reason: Pain, Moderate(Pain Scale 4-6) Last Admin: 01/25/24 23:03 Dose: 1 mg Documented By: TROY Cefazolin Sodium/Dextrose (Ancef) 2 gm in 50 mls @ 100 mls/hr IV Q8H [facility] Last Infusion: 01/26/24 02:09 Dose: Infused Documented By: TROY Vancomycin HCl 1,250 mg/ (Sodium Chloride) 250 mls @ 166.667 mls/hr IV Q12H [facility] Last Infusion: 01/25/24 23:14 Dose: Infused Documented By: TROY Magnesium Hydroxide (Milk Of Magnesia 30 Ml Oral.Susp) 30 ml PO DAILY PRN PRN Reason: Constipation Melatonin (Melatonin 3 Mg Tablet) 6 mg PO BEDTIME PRN PRN Reason: Insomnia Last Admin: 01/25/24 00:11 Dose: 6 mg Documented By: TROY Methadone HCl (Methadone Hcl 20 Mg/2 Ml Oral.Conc) 55 mg PO BEDTIME [facility] Last Admin: 01/25/24 21:25 Dose: 55 mg Documented By: TROY Co-signed By: SEMAJ Methadone HCl (Methadone Hcl 20 Mg/2 Ml Oral.Conc) 70 mg PO DAILY@0800 [facility] Last Admin: 01/25/24 07:37 Dose: 70 mg Documented By: JUANI Co-signed By: DOBROKelley Ondansetron HCl (Ondansetron Hcl 4 Mg/2 Ml Vial) 4 mg IVPUSH Q8H PRN PRN Reason: Nausea and Vomiting Oxycodone HCl (Oxycodone Hcl Immed Release 5 Mg Tablet) 10 mg PO Q4H PRN PRN Reason: Pain, Moderate(Pain Scale 4-6) Last Admin: 01/26/24 01:38 Dose: 10 mg Documented By: TROY Pharmacy Consult (Consult Rx Vancomycin Dosing) 1 each MISCELLANE DAILY PRN PRN Reason: Consult order Sodium Chloride (0.9 % Sodium Chloride Flush 3 Ml Syringe) 3 ml IVFLUSH QSHIFT [facility] Last Admin: 01/26/24 01:28 Dose: Not Given Documented By: TROY Non-Admin Reason: TLC Labs 01/24/24 04:50 01/26/24 05:20 Labs: Laboratory Results - last 24 hr 01/25/24 01/25/24 01/26/24 05:46 20:03 05:20 Anion Gap 15 Estim Creat Clear Calc 103.5 Estimated GFR > 60 Magnesium 2.2 Random Vancomycin 20.5 H Microbiology Microbiology Results: Microbiology 01/23/24 06:19 Blood Culture - Preliminary Blood - Venous No growth after 48 hours. 01/23/24 06:19 Blood Culture - Preliminary Blood - Venous No growth after 48 hours. Assessment and Plan (1) Discitis: Status: Acute (2) Osteomyelitis of thoracic spine: Status: Acute Plan 43-year-old male with pertinent history of MSSA bacteremia in november( did not complete recommended antibiotics) polysubstance use disorder who presents to the emergency department for evaluation of back pain and found to have Acute Discitis/osteomyelitis of thoracic spine with phlegmonous changes. -complaining of back pain with difficulty in ambulation -no surgical intervention recommended by [facility] Neurosurgery -Continue vanco and cefazolin 2 g q.8 hours -ID recommend 6 weeks of IV Kefzol and vancomycin with weekly creatinine and vanco levels -blood cultures no growth times 48, mild leukopenia -echo showed no valvular pathology -will place PICC line once rehab bed available Polysubstance use disorder: + opiates/fentanyl and cocaine. - Continue methadone 70 mg at a.m. and 55 mg at bedtime. -being followed by Addiction Team Constipation will add bowel meds ,refusing bedside commode, will provide wheelchair . Prediabetes: A1c 5.9 in 11/27/2023. Continue to monitor DVT prophylaxis: Lovenox Full code need for inpt: IV Abx for discitis and osteomylitis of the spine Quality Stroke Does the patient have a stroke diagnosis?: No VTE Prior VTE?: No VTE Risk Level:: Medical - moderate - high VTE Device Contraindication: Treatment Not Indicated VTE Drug Contraindication: N/A - Med Ordered
[2024-01-26] MEDS: methADONE HCl 20 MG/2 ML ORAL.CONC 70 MG PO (08:05)
[2024-01-26] MEDS: 0.9 % Sodium Chloride Flush 3 ML SYRINGE IVFLUSH ×2 (08:06→15:15)
[2024-01-26] MEDS: vancomycin HCL 1,250 MG in 0.9 % Sodium Chloride 250 ML 166.7 MG IV (09:31)
--- NOTE | 2024-01-26 11:08 | HO.ADDICTPRO ---
Subjective Subjective Date of Service: 01/26/24 Reason For Visit: back pain Interim History: Patient seen in follow up in room 347. Awake, alert, lying on his side Reporting ongoing pain --does feel that oxycodone has been helpful Discussed splitting current methadone dose further to address pain sx as well, patient agreeable Asking dose not be increased at this time, just divided up Review of Systems Constitutional: Reports as per [facility] Mental Status Exam Mental Status Exam Level of Consciousness: Awake and Appropriate Patient Behavior: Appropriate Mood Description: Calm Affect Description: Calm Speech Pattern: Clear Diagnostics Vital Signs (24Hr): Vital Signs - 24 hr 01/25/24 15:11 01/25/24 23:56 01/26/24 07:14 Temperature 97.7 F 97.9 F 98.2 F Pulse Rate 61 56 57 Respiratory Rate 18 18 16 Blood Pressure 106/62 100/58 L 100/61 Pulse Oximetry 96 95 94 Oxygen Delivery Method Room Air Room Air Room Air BMI result Body Mass Index 25.1 Labs 01/24/24 04:50 01/26/24 05:20 Labs: Laboratory Results - last 48 hr 01/24/24 01/25/24 01/25/24 20:11 05:46 20:03 Hold Purple Top SEE NOTE Sodium 140 Potassium 4.0 Chloride 102 Carbon Dioxide 27 Anion Gap 15 Creatinine 1.00 Estim Creat Clear Calc 103.5 Estimated GFR > 60 Magnesium 2.2 Random Vancomycin 15.3 20.5 H 01/26/24 05:20 Hold Purple Top Sodium Potassium Chloride Carbon Dioxide Anion Gap Creatinine 1.00 Estim Creat Clear Calc 103.5 Estimated GFR > 60 Magnesium Random Vancomycin Imaging Radiology Impressions: ITS Impressions Chest X-Ray 01/23/24 06:59 IMPRESSION: Findings as above. Electronically signed by: Arnaldo Morse MD 01/23/2024 07:50 AM [facility] Orbit X-Ray 01/23/24 09:48 IMPRESSION: A 0.5 cm density, possibly metallic, overlies the far left lateral side of the face, roughly at the level of the nose, lower level of the orbits, concerning for a foreign body given clinical history. Correlation with clinical exam and possible additional imaging with CT scan recommended for further evaluation prior to MRI imaging. This study was presented today, January 23, 2024, for interpretation. Stat results provided at this time as requested by referring provider. Electronically signed by: Vandana Leiva MD 01/23/2024 11:37 AM EST RP Lumbar Spine CT 01/23/24 12:14 IMPRESSION: 1. Severe erosive changes of the endplates at T11-12, consistent with acute discitis/osteomyelitis, with focal kyphotic deformity. Please refer to the dedicated CT thoracic spine report for further detail. 2. No acute findings of the lumbar spine. There are disc bulges at L3-4, L4-5, and L5-S1 with associated mild facet hypertrophy, resulting in moderate central canal narrowing L4-5, and moderate to severe central canal narrowing L5-S1. See above for details. Findings communicated to emergency department via phone call at 4:10 PM, 01/23/2024 Electronically signed by: Brice Ernandez MD 01/23/2024 04:10 PM EST RP Thoracic Spine CT 01/23/24 12:14 IMPRESSION: 1. Findings of ADVANCED DISCITIS/OSTEOMYELITIS T11-T12 with destructive vertebral body and endplate changes at this level, extensive paravertebral phlegmonous changes, and soft tissue thickening. There is a focal kyphotic deformity at this level. There is likely some degree of epidural phlegmon/abscess with some degree of compression upon the thecal sac. 2. Fusion of T9-10, which may be on the basis of prior surgery, congenital, or previous healed discitis/osteomyelitis. 3. Mild scoliosis, exaggerated kyphosis, and age advanced degenerative spondylosis of the thoracic spine. -3 attempted phone calls were made to inform the Emergency Department provider of the above findings, spanning 4:00-4:15 PM, 01/23/2024, however the phone calls were disconnected 3 of 3 times. Electronically signed by: Brice Ernandez MD 01/23/2024 04:27 PM EST RP Medications Medications Current Medications Acetaminophen (Acetaminophen 325 Mg Tablet) 650 mg PO Q6H PRN PRN Reason: Pain, Mild (Pain Scale 1-3), fever or headache Calcium Carbonate (Calcium Carbonate 750 Mg Tab.Chew) 750 mg PO Q4H PRN PRN Reason: Heartburn Hydromorphone HCl (Hydromorphone Hcl 1 Mg/Ml Syringe) 1 mg IVPUSH Q3H PRN; Protocol PRN Reason: Pain, Moderate(Pain Scale 4-6) Last Admin: 01/25/24 23:03 Dose: 1 mg Cefazolin Sodium/Dextrose (Ancef) 2 gm in 50 mls @ 100 mls/hr IV Q8H [facility] Last Infusion: 01/26/24 09:39 Dose: Infused Vancomycin HCl 1,250 mg/ (Sodium Chloride) 250 mls @ 166.667 mls/hr IV Q12H [facility] Last Infusion: 01/26/24 11:08 Dose: Infused Magnesium Hydroxide (Milk Of Magnesia 30 Ml Oral.Susp) 30 ml PO DAILY PRN PRN Reason: Constipation Melatonin (Melatonin 3 Mg Tablet) 6 mg PO BEDTIME PRN PRN Reason: Insomnia Last Admin: 01/25/24 00:11 Dose: 6 mg Methadone HCl (Methadone Hcl 20 Mg/2 Ml Oral.Conc) 70 mg PO DAILY@0800 [facility] Last Admin: 01/26/24 08:05 Dose: 70 mg Methadone HCl (Methadone Hcl 20 Mg/2 Ml Oral.Conc) 20 mg PO DAILY@1400 [facility] Ondansetron HCl (Ondansetron Hcl 4 Mg/2 Ml Vial) 4 mg IVPUSH Q8H PRN PRN Reason: Nausea and Vomiting Oxycodone HCl (Oxycodone Hcl Immed Release 5 Mg Tablet) 10 mg PO Q4H PRN PRN Reason: Pain, Moderate(Pain Scale 4-6) Last Admin: 01/26/24 09:31 Dose: 10 mg Pharmacy Consult (Consult Rx Vancomycin Dosing) 1 each MISCELLANE DAILY PRN PRN Reason: Consult order Sodium Chloride (0.9 % Sodium Chloride Flush 3 Ml Syringe) 3 ml IVFLUSH QSHIFT [facility] Last Admin: 01/26/24 08:06 Dose: 3 ml Allergies Allergies Allergy/AdvReac Type Severity Reaction Status Date / Time No Known Allergies Allergy Verified 01/23/24 03:40 [No Known Allergies*] Assessment & Plan Assessment & Plan (1) Opioid use disorder, severe, dependence: Status: Acute Code(s): F11.20 - Opioid dependence, uncomplicated Assessment and Plan: split methadone dose as follows: 70mg in AM, 20mg 1400, 35mg QHS --no change to total dose, change only to admin times continue PRN pain medications as appropriate will continue to follow up and adjust methadone as needed monitor for constipation Total time managing care of this patient today _35___ minutes.
[2024-01-26] MEDS: Sennosides/Docusate Sodium TABLET 1 TAB PO (11:50)
--- NOTE | 2024-01-26 12:56 | MHC.CM.PN ---
CM MET WITH PT TO DISCUSS DC PLANNING PT IS AWARE HE WILL NEED SNF PLACEMENT FOR IV ABX HE WAS PRESENTED WITH BED OFFERS FROM [facility] AND [facility] HE HAS ACCEPTED BED AT [facility] SUBMITTED AND [facility] CONTACT TO INITIATE GUEST DOSING MDS TO BE COMPLETED
[2024-01-26] MEDS: methADONE HCl 20 MG/2 ML ORAL.CONC PO (15:02)
[2024-01-26 15:15] VITALS: BP 106/63; PULSE 71; RESP 18; TEMP 36.6; O2SAT 97
[2024-01-26] MEDS: HYDROmorphone HCl 1 MG/ML SYRINGE IVPUSH (18:03)
[2024-01-26 20:21] LABS: Vancomycin Random 21.4 mcg/mL (15-20)
--- NOTE | 2024-01-26 20:34 | HE.PHANOTE ---
WINNIE Changing dose to 1000mg Q12H per 2 supratherapeutic troughs in 2 days. Patient's renal function gradually worsened and since trough was over goal, holding until 0800 on 01/26 to give patient time to clear and re-checking trough level at 0600. New predicted trough 14.6, AUC 458. To be adjusted based on renal function and trough after holding dose overnight.
[2024-01-26] MEDS: methADONE HCl 20 MG/2 ML ORAL.CONC 35 MG PO (20:47)
[2024-01-26 23:44] VITALS: BP 103/65; PULSE 64; RESP 16; TEMP 37.2; O2SAT 96
[2024-01-27] MEDS: oxyCODONE HCl Immed Release 5 MG TABLET 10 MG PO ×4 (01:15→22:12)
[2024-01-27] MEDS: ceFAZolin Sodium/Dextrose,Iso 2 GM/50 ML PIGGYBACK IV ×3 (01:16→17:08)
[2024-01-27 06:43] LABS: Creatinine Clr Calc Pharmacy 96.7; Estimated Glomerular Filt Rate > 60
[2024-01-27 07:31] VITALS: BP 105/66; PULSE 65; RESP 12; TEMP 36.9; O2SAT 94
--- NOTE | 2024-01-27 07:31 | HE.PHANOTE ---
Re: Delia Renal function continues to decline. Trough returned at 14.0. Continue dose of 1,000mg q12h with predicted AUC 475, predicted trough 15. Next Trough 01/27 @ 0600.
[2024-01-27] MEDS: vancomycin HCL 1,000 MG in 0.9 % Sodium Chloride 250 ML 270 MG IV ×2 (07:55→15:49)
[2024-01-27] MEDS: methADONE HCl 20 MG/2 ML ORAL.CONC 70 MG PO (07:55)
[2024-01-27] MEDS: 0.9 % Sodium Chloride Flush 3 ML SYRINGE IVFLUSH ×2 (07:56→15:51)
[2024-01-27] MEDS: Sennosides/Docusate Sodium TABLET 1 TAB PO (09:13)
[2024-01-27] MEDS: HYDROmorphone HCl 1 MG/ML SYRINGE IVPUSH ×2 (09:14→15:52)
--- NOTE | 2024-01-27 10:42 | P.PNIM_ITS ---
Subjective Subjective Date of Service: 01/27/24 Interval History: Follow-up diskitis and osteomyelitis of spine, still has pain in the back and limiting ambulation, no new neuro changes, no incontinence of urine or kimberly Review of Systems All other system reviewed and are negative Physical Exam 2 Vital Signs: Vital Signs: Last Vital Signs Temp 98.5 F 01/27/24 07:31 Pulse 65 01/27/24 07:31 Resp 12 01/27/24 07:31 BP 105/66 01/27/24 07:31 Pulse Ox 94 01/27/24 07:31 O2 Del Method Room Air 01/27/24 07:31 BMI result Body Mass Index 25.1 Const: Other: General: AO X 3, no acute distress Resp: CTA bilateral CVS: S1,S2,RRR GI: +BS, NT, no distention Skin: No rash Neuro: motor grossly ntact, no weakness, no tingling trying not to walk much d/t pain Psych: appropriate affect Objective Data Active Medications Acetaminophen (Acetaminophen 325 Mg Tablet) 650 mg PO Q6H PRN PRN Reason: Pain, Mild (Pain Scale 1-3), fever or headache Calcium Carbonate (Calcium Carbonate 750 Mg Tab.Chew) 750 mg PO Q4H PRN PRN Reason: Heartburn Hydromorphone HCl (Hydromorphone Hcl 1 Mg/Ml Syringe) 1 mg IVPUSH Q3H PRN; Protocol PRN Reason: Pain, Moderate(Pain Scale 4-6) Last Admin: 01/27/24 09:14 Dose: 1 mg Documented By: ONI Cefazolin Sodium/Dextrose (Ancef) 2 gm in 50 mls @ 100 mls/hr IV Q8H [facility] Last Infusion: 01/27/24 10:14 Dose: Infused Documented By: ONI Vancomycin HCl 1,000 mg/ (Sodium Chloride) 270 mls @ 270 mls/hr IV Q12H [facility] Last Infusion: 01/27/24 09:00 Dose: Infused Documented By: ONI Magnesium Hydroxide (Milk Of Magnesia 30 Ml Oral.Susp) 30 ml PO DAILY PRN PRN Reason: Constipation Melatonin (Melatonin 3 Mg Tablet) 6 mg PO BEDTIME PRN PRN Reason: Insomnia Last Admin: 01/25/24 00:11 Dose: 6 mg Documented By: HO.LYSZ Methadone HCl (Methadone Hcl 20 Mg/2 Ml Oral.Conc) 70 mg PO DAILY@0800 [facility] Last Admin: 01/27/24 07:55 Dose: 70 mg Documented By: ONI Co-signed By: JUANI Methadone HCl (Methadone Hcl 20 Mg/2 Ml Oral.Conc) 20 mg PO DAILY@1400 [facility] Last Admin: 01/26/24 15:02 Dose: 20 mg Documented By: DEBBIE Co-signed By: ONI Methadone HCl (Methadone Hcl 20 Mg/2 Ml Oral.Conc) 35 mg PO BEDTIME [facility] Last Admin: 01/26/24 20:47 Dose: 35 mg Documented By: TROY Co-signed By: RAMIREZ Ondansetron HCl (Ondansetron Hcl 4 Mg/2 Ml Vial) 4 mg IVPUSH Q8H PRN PRN Reason: Nausea and Vomiting Oxycodone HCl (Oxycodone Hcl Immed Release 5 Mg Tablet) 10 mg PO Q4H PRN PRN Reason: Pain, Moderate(Pain Scale 4-6) Last Admin: 01/27/24 06:20 Dose: 10 mg Documented By: TROY Pharmacy Consult (Consult Rx Vancomycin Dosing) 1 each MISCELLANE DAILY PRN PRN Reason: Consult order Polyethylene Glycol (Polyethylene Glycol 3350 17 Gm Powd.Pack) 17 gm PO DAILY [facility] Last Admin: 01/27/24 09:24 Dose: Not Given Documented By: ONI Non-Admin Reason: Patient Refused Senna/Docusate Sodium (Sennosides/Docusate Sodium Tablet) 1 tab PO DAILY [facility] Last Admin: 01/27/24 09:13 Dose: 1 tab Documented By: ONI Sodium Chloride (0.9 % Sodium Chloride Flush 3 Ml Syringe) 3 ml IVFLUSH QSHIFT [facility] Last Admin: 01/27/24 07:56 Dose: 3 ml Documented By: ONI Labs 01/24/24 04:50 01/27/24 06:13 Labs: Laboratory Results - last 24 hr 01/26/24 01/27/24 19:55 06:13 Estim Creat Clear Calc 96.7 Estimated GFR > 60 Random Vancomycin 21.4 H 14.0 L Assessment and Plan (1) Discitis: Status: Acute (2) Osteomyelitis of thoracic spine: Status: Acute Plan 43-year-old male with pertinent history of MSSA bacteremia in november( did not complete recommended antibiotics) polysubstance use disorder who presents to the emergency department for evaluation of back pain and found to have Acute Discitis/osteomyelitis of thoracic spine with phlegmonous changes. -complaining of back pain with difficulty in ambulation but overall better -no surgical intervention recommended by [facility] Neurosurgery -Continue vanco and cefazolin 2 g q.8 hours -ID recommend 6 weeks of IV Kefzol and vancomycin with weekly creatinine and vanco levels -blood cultures no growth times 48, mild leukopenia -echo showed no valvular pathology -will place PICC line once rehab bed available Polysubstance use disorder: + opiates/fentanyl and cocaine. - Continue methadone 70 mg at a.m. and 55 mg at bedtime. -addiction med following Constipation will add bowel meds ,refusing bedside commode, will provide wheelchair . Prediabetes: A1c 5.9 in 11/27/2023. Continue to monitor DVT prophylaxis: Lovenox Full code need for inpt: IV Abx for discitis and osteomylitis of the spine Quality Stroke Does the patient have a stroke diagnosis?: No VTE Prior VTE?: No VTE Risk Level:: Medical - moderate - high VTE Device Contraindication: Treatment Not Indicated VTE Drug Contraindication: N/A - Med Ordered
--- NOTE | 2024-01-27 10:54 | MHC.RECOVRN ---
Met with pt to check in and provide support. Pt sitting in chair, awake, alert, easily engages in conversation. Methadone now split 70 mg at 0800, 20 mg at 1400, and 35 mg at bedtime. Pt denies difference in pain with change in dose times. Pt would like to have 100 mg in the morning and 25 mg at bedtime. Pt reports back pain is controlled when he receives Dilaudid and oxycodone at the same time. Reports he has spoken with the provider regarding pain. Pt preparing for transfer to [facility] to continue IV antibiotics, reports girlfriend is gathering belongings and cell phone for patient before he discharges from [facility]. Pt denies other questions or concerns for t/w. Discussed with Melissa Lockwood APRN.
--- NOTE | 2024-01-27 11:45 | PM.DS ---
DS: Providers Provider Date of Service: 01/27/24 Date of admission: 01/23/24 19:29 Date of discharge: 01/27/24 Primary care physician: Calra Narvaez NP Consults: 01/23/24 19:31 Addiction Medicine Routine Consulting Provider: Addiction Covering Reason for consultation: polysubstance use disorder Consult to Infectious Diseases Routine Consulting Provider: [facility] Reason for consultation: ADVANCED DISCITIS/OSTEOMYELITIS T11-T12 DS: Diagnosis Discharge Diagnosis (1) Discitis: Status: Acute (2) Osteomyelitis of thoracic spine: Status: Acute DS: Summary Hospital Course Hospital Course: admission hpi from 01/23/[address] Penny Gonzalez Chief Complaint: Back pain This is a 43-year-old male with pertinent history of MSSA bacteremia, polysubstance use disorder who presents to the emergency department for evaluation of back pain. Patient was previously admitted on 11/12/2023 with sepsis due to chest wall cellulitis, aspiration pneumonia and emesis a bacteremia. Left AMA on 11/13. Patient was readmitted on 11/13 and discharged on 11/17 to post acute care with 4 weeks of IV cefazolin. Patient states he left AMA from post acute care after about a week of IV antibiotics as he thought that nursing at outside facility gave him the wrong antibiotics and also he saw an air bubble while he was being given IV antibiotics at short-term rehab. He did not complete his antibiotic course for MSSA bacteremia. Does endorse using IV drugs in his last usage was couple of days ago. He has been having lower back pain for months now which has been gradually getting worse. Denies lower extremity weakness, tingling or numbness, loss of bladder or bowel control. No fever, chills, chest pain, palpitations, shortness of breath, changes in urinary or bowel habits. In the emergency department, CT thoracic spine with diskitis/osteomyelitis and phlegmon. Neurosurgery was consulted at [facility] and it was deemed that there was no surgical intervention warranted. Was recommended to admit patient with IV antibiotics. Patient was given vancomycin and Zosyn in the ER with hospitalist consult Hospital course: The patient has a prior history of MSSA bacteremia associated with underlying drug use and did not complete the recommended IV antibiotics back in November when he left AMA from an acute care facility. He presented on this occasion with back pain, and a CT of the thoracic spine revealed diskitis/osteomyelitis and a phlegmon. Neurosurgery was consulted at [facility] and determined that no surgical intervention was warranted; the patient is to be treated with IV antibiotics. He was initially started on vancomycin, and 2 days later, Kefzol (2 grams q8h) was added per Infectious Disease recommendations. ID recommends a total of 6 weeks of treatment with IV vancomycin and Kefzol. As such, a PICC line was placed today, 01/27/24. An echocardiogram showed no vegetations. Blood cultures have remained negative for >48 hours. Let me know if you need additional revisions! Polysubstance use disorder: + opiates/fentanyl and cocaine. - Continue methadone 70 mg at a.m. and 55 mg at bedtime. -addiction med following Constipation will add bowel meds ,refusing bedside commode, will provide wheelchair . Prediabetes: A1c 5.9 in 11/27/2023. Continue to monitor To Short term rehab for less than 30 days Time Attestation Discharge Coordination Time (in mins): 45 Quality: Safe Use of Opioids Does Pt have an Active Cancer Diagnosis on the Problem List?: No Quality: Stroke Does the patient have a stroke diagnosis?: No Physical Exam Vital Signs: Vital Signs: Last Vital Signs Temp 98.5 F 01/27/24 07:31 Pulse 65 01/27/24 07:31 Resp 12 01/27/24 07:31 BP 105/66 01/27/24 07:31 Pulse Ox 94 01/27/24 07:31 O2 Del Method Room Air 01/27/24 07:31 BMI result Body Mass Index 25.1 Const: Other: General: AO X 3, no acute distress Resp: CTA bilateral CVS: S1,S2,RRR GI: +BS, NT, no distention Skin: No rash Neuro: motor grossly ntact, no weakness, no tingling trying not to walk much d/t pain Psych: appropriate affect DS: Data Data Completed and Pending Completed studies during hospitalization [Text1]: Procedures Insertion of Infusion Device into Left Basilic Vein, Percutaneous Approach (11/14/23) Labs on day of discharge: Laboratory Results - last 24 hr 01/26/24 01/27/24 19:55 06:13 Creatinine 1.07 Estim Creat Clear Calc 96.7 Estimated GFR > 60 Random Vancomycin 21.4 H 14.0 L Preliminary micro results at discharge 01/23/24 06:19 Blood Culture - Preliminary Blood - Venous No growth after 48 hours. 01/23/24 06:19 Blood Culture - Preliminary Blood - Venous No growth after 48 hours. Discharge Plan Discharge Anticipated Discharge Date/Time: 01/27/24 11:43 Patient Disposition: er [facility] Discharge Diagnosis: Diskitis, spinal osteomylitis Referrals: Carla Narvaez, INFORMATION AND REFERRAL DIRECTOR [Primary Care Provider] - 1 Week Discharge Medications: New oxycodone 5 mg Tablet 10 mg PO Q4H PRN (Reason: Pain, Moderate(Pain Scale 4-6)) Qty: 30 0RF Rx Instructions: Partial Fill upon patient request. vancomycin in 0.9 % sodium chl 1 gram/200 mL piggyback 1 g IV Q12H 38 Days Rx Instructions: Vancomycin 1 gm iv q 12 hours, ending March 05, 2024 cefazolin in dextrose (iso-os) 2 gram/50 mL Piggyback 50 ml IV Q8H 39 Days Qty: 117 0RF Rx Instructions: Kefzol 2 gram q8 hours, for 39 more days, ending March 06, 2024 Continued methadone [Methadose] 10 mg/mL Concentrate 70 mg PO DAILY@0800 Qty: 1 0RF Rx Instructions: Partial Fill upon patient request. methadone [Methadone Intensol] 10 mg/mL Concentrate 55 mg PO BEDTIME Diet: Advance to usual diet Activity on Discharge: As tolerated Stand Alone Forms: Patient Portal Discharge page Print Language: Nauruan Care Plan Goals: recovery from diskitis and osteomylitis of thoracic spine Health Concerns: diskitis/osteomylitis of thoracic spine Plan of Treatment: Vancomycin and Kefzol as recommended by Infectious disease Dr. Julia Swift for 6 weeks total a PICC line inserted on to continue Methadone for Opioid dependence Check BMP and vancomycin levels weekly on Mondays while on the IV antibitiocs To short term rehab for less than 30 days. Assessment: same as above
--- NOTE | 2024-01-27 14:42 | P.PICC_ITS ---
PICC Line Insertion NPICC Diagnosis: Discitis Indication: custodial antibiotics Pertinent Labs: Reviewed Technique: Following informed consent including risks, benefits and alternatives and using sterile technique including cap and mask, sterile gown, glove and drape, the right arm was prepped and draped in the usual sterile fashion of full barrier technique with CHG. Following completion of [place] Protocol the skin and soft tissues were anesthetized with 1% Lidocaine plain. Using ultrasound guidance, the right basilic vein access was obtained in a single attempt by this RN. Over an 0.018 wire through peel-away sheath, a 4 latvian single lumen PASV PICC line was positioned. Catheter length is 47 cm internal length, the external length is at the 0 cm external domitila, for a total trimmed length of 47 cm. The procedure was performed in S272. Tip verification was performed by Adams Ramos with Sherlock 3CG. Tip located in SVC. Ultrasound was used to document vein patency and for needle entry. A formal ultrasound picture and cardiac rhythm strip was recorded. Vascular Managing Consultant Clinical Professor has released the line for use and it is currently dressed with a StatLock, Tegaderm, and CHG disc. Verification has been performed for blood return and line patency. Arm Circumference: 28 cm Equipment: BARD OPowerPICC SOLO Catheter with Sherlock 3CG Tip Catheter Type: 4 Latvian single lumen PASV PICC Lot #: [id number]
[2024-01-27] MEDS: methADONE HCl 20 MG/2 ML ORAL.CONC PO (14:49)
[2024-01-27 15:11] VITALS: BP 109/72; PULSE 73; RESP 18; TEMP 36.8; O2SAT 97
--- NOTE | 2024-01-27 15:45 | MHC.CM.PN ---
Patient medically cleared for dc. Per [facility], MDS approved. PICC in place. CM spoke w/ [facility] and [facility] re: guest dosing multiple times throughout the day. At 2:30pm [facility] staff notified this CM that home clinic needs to make corrections on ABH form. CM attempted to reach home clinic via telephone, CM director attempted to reach home clinic via email. Home clinic closed, no response. Guest dosing not approved. Will readdress on Tuesday.
[2024-01-27] MEDS: methADONE HCl 20 MG/2 ML ORAL.CONC 35 MG PO (20:46)
[2024-01-27 23:32] VITALS: BP 106/60; PULSE 77; RESP 16; TEMP 36.8; O2SAT 95
[2024-01-28] VITALS (7 sets, daily range): BP systolic 97–102; BP diastolic 54–59; PULSE 72–81; RESP 16–18; TEMP 36.3–39; O2SAT 93–97
[2024-01-28] MEDS: ceFAZolin Sodium/Dextrose,Iso 2 GM/50 ML PIGGYBACK IV ×3 (00:58→16:37)
[2024-01-28] MEDS: Heparin Sodium,Porcine Flush 50 UNITS, 0.9 % Sodium Chloride Flush 5 ML IVFLUSH ×3 (00:59→13:50)
[2024-01-28] MEDS: HYDROmorphone HCl 1 MG/ML SYRINGE IVPUSH (01:07)
[2024-01-28 07:13] LABS: Vancomycin Random 15.1 mcg/mL (15-20)
[2024-01-28 07:16] LABS: Creatinine Clr Calc Pharmacy 94.9; Estimated Glomerular Filt Rate > 60
[2024-01-28 07:38] LABS: Anion Gap 14 (12-20); Carbon Dioxide 27 mmol/L (22-29); Chloride 100 mmol/L (96-108); Potassium 4.4 mmol/L (3.3-5.1); Sodium 137 mmol/L (135-145)
--- NOTE | 2024-01-28 08:11 | P.PNIM_ITS ---
Subjective Subjective Date of Service: 01/28/24 Interval History: Follow-up diskitis and osteomyelitis of spine, still has pain in the back and limiting ambulation, no new neuro changes, no incontinence of urine or stool. DC cancelled 01/26 as facility could not arrange for his methadone. No new issues. PIcc line inserted 01/26 Review of Systems All other system reviewed and are negative Physical Exam 2 Vital Signs: Vital Signs: Last Vital Signs Temp 98.4 F 01/28/24 08:00 Pulse 80 01/28/24 08:00 Resp 16 01/28/24 08:00 BP 97/54 L 01/28/24 08:00 Pulse Ox 93 01/28/24 08:00 O2 Del Method Room Air 01/28/24 08:00 BMI result Body Mass Index 25.1 Const: Other: General: AO X 3, no acute distress Resp: CTA bilateral CVS: S1,S2,RRR GI: +BS, NT, no distention Skin: No rash Neuro: motor grossly ntact, no weakness, no tingling trying not to walk much d/t pain Psych: appropriate affect Objective Data Active Medications Acetaminophen (Acetaminophen 325 Mg Tablet) 650 mg PO Q6H PRN PRN Reason: Pain, Mild (Pain Scale 1-3), fever or headache Calcium Carbonate (Calcium Carbonate 750 Mg Tab.Chew) 750 mg PO Q4H PRN PRN Reason: Heartburn Heparin Sodium (Porcine) 50 (units/ Sodium Chloride 5 ml) 0 units IVFLUSH QSHIFT [facility] Last Admin: 01/28/24 00:59 Dose: 50 unit Documented By: KIM Hydromorphone HCl (Hydromorphone Hcl 1 Mg/Ml Syringe) 1 mg IVPUSH Q3H PRN; Protocol PRN Reason: Pain, Moderate(Pain Scale 4-6) Last Admin: 01/28/24 01:07 Dose: 1 mg Documented By: KIM Cefazolin Sodium/Dextrose (Ancef) 2 gm in 50 mls @ 100 mls/hr IV Q8H [facility] Last Infusion: 01/28/24 01:37 Dose: Infused Documented By: KIM Magnesium Hydroxide (Milk Of Magnesia 30 Ml Oral.Susp) 30 ml PO DAILY PRN PRN Reason: Constipation Melatonin (Melatonin 3 Mg Tablet) 6 mg PO BEDTIME PRN PRN Reason: Insomnia Last Admin: 01/25/24 00:11 Dose: 6 mg Documented By: TROY Methadone HCl (Methadone Hcl 20 Mg/2 Ml Oral.Conc) 70 mg PO DAILY@0800 [facility] Last Admin: 01/27/24 07:55 Dose: 70 mg Documented By: ONI Co-signed By: JUANI Methadone HCl (Methadone Hcl 20 Mg/2 Ml Oral.Conc) 20 mg PO DAILY@1400 [facility] Last Admin: 01/27/24 14:49 Dose: 20 mg Documented By: ONI Co-signed By: ARTIE Methadone HCl (Methadone Hcl 20 Mg/2 Ml Oral.Conc) 35 mg PO BEDTIME [facility] Last Admin: 01/27/24 20:46 Dose: 35 mg Documented By: KIM Co-signed By: MOSES Ondansetron HCl (Ondansetron Hcl 4 Mg/2 Ml Vial) 4 mg IVPUSH Q8H PRN PRN Reason: Nausea and Vomiting Oxycodone HCl (Oxycodone Hcl Immed Release 5 Mg Tablet) 10 mg PO Q4H PRN PRN Reason: Pain, Moderate(Pain Scale 4-6) Last Admin: 01/27/24 22:12 Dose: 10 mg Documented By: KIM Pharmacy Consult (Consult Rx Vancomycin Dosing) 1 each MISCELLANE DAILY PRN PRN Reason: Consult order Polyethylene Glycol (Polyethylene Glycol 3350 17 Gm Powd.Pack) 17 gm PO DAILY [facility] Last Admin: 01/27/24 09:24 Dose: Not Given Documented By: ONI Non-Admin Reason: Patient Refused Senna/Docusate Sodium (Sennosides/Docusate Sodium Tablet) 1 tab PO DAILY [facility] Last Admin: 01/27/24 09:13 Dose: 1 tab Documented By: ONI Sodium Chloride (0.9 % Sodium Chloride Flush 3 Ml Syringe) 3 ml IVFLUSH QSHIFT [facility] Last Admin: 01/28/24 01:13 Dose: Not Given Documented By: KIM Non-Admin Reason: PICC Labs 01/24/24 04:50 01/28/24 06:30 Labs: Laboratory Results - last 24 hr 01/28/24 06:30 Anion Gap 14 Estim Creat Clear Calc 94.9 Estimated GFR > 60 Random Vancomycin 15.1 Assessment and Plan (1) Discitis: Status: Acute (2) Osteomyelitis of thoracic spine: Status: Acute Plan 43-year-old male with pertinent history of MSSA bacteremia in november( did not complete recommended antibiotics) polysubstance use disorder who presents to the emergency department for evaluation of back pain and found to have Acute Discitis/osteomyelitis of thoracic spine with phlegmonous changes. -complaining of back pain with difficulty in ambulation but overall better -no surgical intervention recommended by [facility] Neurosurgery -Continue vanco and cefazolin 2 g q.8 hours -ID recommend 6 weeks of IV Kefzol and vancomycin with weekly creatinine and vanco levels -blood cultures no growth times 48, mild leukopenia -echo showed no valvular pathology -Picc line placed 01/26 Polysubstance use disorder: + opiates/fentanyl and cocaine. - Continue methadone 70 mg at a.m. and 55 mg at bedtime. -addiction med following Constipation bowel regimen, able to ambulate to bathroom without assistance Prediabetes: A1c 5.9 in 11/27/2023. Continue to monitor DVT prophylaxis: Lovenox Full code need for inpt: IV Abx for discitis and osteomylitis of the spine Quality Stroke Does the patient have a stroke diagnosis?: No VTE Prior VTE?: No VTE Risk Level:: Medical - moderate - high VTE Device Contraindication: Treatment Not Indicated VTE Drug Contraindication: N/A - Med Ordered
[2024-01-28] MEDS: methADONE HCl 20 MG/2 ML ORAL.CONC 70 MG PO (08:47)
[2024-01-28] MEDS: 0.9 % Sodium Chloride Flush 3 ML SYRINGE IVFLUSH ×2 (08:47→16:31)
[2024-01-28] MEDS: Acetaminophen 325 MG TABLET 650 MG PO ×2 (09:45→16:31)
[2024-01-28] MEDS: Calcium Carbonate 750 MG TAB.CHEW PO (10:24)
[2024-01-28 10:30] LABS: Hematocrit 29.5 % (42.0-52.0); Hemoglobin 9.2 g/dl (14.0-18.0); Mean Corpuscular HGB Conc 31.2 g/dl (31.0-36.0); Mean Corpuscular Hemoglobin 21.8 pg (27.0-33.0); Mean Corpuscular Volume 69.9 fL (80.0-98.0); Mean Platelet Volume 9.1 fL (9.4-12.4); Platelet Count 232 X10*3/uL (160-400); Red Blood Count 4.22 X10*6/uL (4.60-5.80); Red Cell Distribution Width 16.6 % (11.0-16.0); White Blood Count 6.7 X10*3/uL (4.8-10.8)
[2024-01-28 10:48] LABS: Lactic Acid 1.1 mmol/L (0.5-2.0)
[2024-01-28] MEDS: Ibuprofen 600 MG TABLET PO (11:47)
[2024-01-28] MEDS: vancomycin HCL 1,000 MG in 0.9 % Sodium Chloride 250 ML 270 MG IV ×2 (11:53→22:41)
[2024-01-28] MEDS: oxyCODONE HCl Immed Release 5 MG TABLET 10 MG PO ×2 (11:58→18:22)
[2024-01-28] MEDS: methADONE HCl 20 MG/2 ML ORAL.CONC PO (13:47)
[2024-01-28] MEDS: methADONE HCl 20 MG/2 ML ORAL.CONC 35 MG PO (20:44)
[2024-01-29] VITALS (7 sets, daily range): BP systolic 90–107; BP diastolic 53–64; PULSE 61–80; RESP 16–18; TEMP 36.2–38; O2SAT 96–97
[2024-01-29] MEDS: Heparin Sodium,Porcine Flush 50 UNITS, 0.9 % Sodium Chloride Flush 5 ML IVFLUSH (00:29)
[2024-01-29] MEDS: ceFAZolin Sodium/Dextrose,Iso 2 GM/50 ML PIGGYBACK IV ×3 (00:29→17:20)
[2024-01-29] MEDS: oxyCODONE HCl Immed Release 5 MG TABLET 10 MG PO (00:38)
[2024-01-29] MEDS: Acetaminophen 325 MG TABLET 650 MG PO ×2 (01:19→23:09)
--- NOTE | 2024-01-29 08:56 | P.PNIM_ITS ---
Subjective Subjective Date of Service: 01/29/24 Interval History: Pt had a fever of 102 yesterday. Blood cultures obtained, lactic acid normal Still has pain in the back and now has diarrhea. Physical Exam 2 Vital Signs: Vital Signs: Last Vital Signs Temp 99.9 F 01/29/24 07:51 Pulse 79 01/29/24 07:51 Resp 16 01/29/24 07:51 BP 100/59 L 01/29/24 07:51 Pulse Ox 96 01/29/24 07:51 O2 Del Method Room Air 01/29/24 07:51 BMI result Body Mass Index 25.1 Const: Other: General: AO X 3, no acute distress Resp: CTA bilateral CVS: S1,S2,RRR GI: +BS, NT, no distention, no tenderness Skin: No rash Neuro: motor grossly intack, no weakness, no tingling trying not to walk much d/t pain Psych: appropriate affect Objective Data Active Medications Acetaminophen (Acetaminophen 325 Mg Tablet) 650 mg PO Q6H PRN PRN Reason: Pain, Mild (Pain Scale 1-3), fever or headache Last Admin: 01/29/24 01:19 Dose: 650 mg Documented By: KIM Calcium Carbonate (Calcium Carbonate 750 Mg Tab.Chew) 750 mg PO Q4H PRN PRN Reason: Heartburn Last Admin: 01/28/24 10:24 Dose: 750 mg Documented By: MARIELA Heparin Sodium (Porcine) 50 (units/ Sodium Chloride 5 ml) 0 units IVFLUSH QSHIFT [facility] Last Admin: 01/29/24 00:29 Dose: 50 unit Documented By: KIM Cefazolin Sodium/Dextrose (Ancef) 2 gm in 50 mls @ 100 mls/hr IV Q8H [facility] Last Infusion: 01/29/24 01:22 Dose: Infused Documented By: KIM Vancomycin HCl 1,000 mg/ (Sodium Chloride) 270 mls @ 270 mls/hr IV Q12H [facility] Last Infusion: 01/28/24 23:53 Dose: Infused Documented By: KIM Lactated Ringer's (Lr) 1,000 mls @ 150 mls/hr IVCONT .Q6H40M [facility] Magnesium Hydroxide (Milk Of Magnesia 30 Ml Oral.Susp) 30 ml PO DAILY PRN PRN Reason: Constipation Melatonin (Melatonin 3 Mg Tablet) 6 mg PO BEDTIME PRN PRN Reason: Insomnia Last Admin: 01/25/24 00:11 Dose: 6 mg Documented By: TROY Methadone HCl (Methadone Hcl 20 Mg/2 Ml Oral.Conc) 70 mg PO DAILY@0800 [facility] Last Admin: 01/28/24 08:47 Dose: 70 mg Documented By: MARIELA Co-signed By: JACQUI Methadone HCl (Methadone Hcl 20 Mg/2 Ml Oral.Conc) 20 mg PO DAILY@1400 [facility] Last Admin: 01/28/24 13:47 Dose: 20 mg Documented By: JACQUI Co-signed By: FLIP Methadone HCl (Methadone Hcl 20 Mg/2 Ml Oral.Conc) 35 mg PO BEDTIME [facility] Last Admin: 01/28/24 20:44 Dose: 35 mg Documented By: KIM Co-signed By: RIKKI Ondansetron HCl (Ondansetron Hcl 4 Mg/2 Ml Vial) 4 mg IVPUSH Q8H PRN PRN Reason: Nausea and Vomiting Oxycodone HCl (Oxycodone Hcl Immed Release 5 Mg Tablet) 10 mg PO Q4H PRN PRN Reason: Pain, Moderate(Pain Scale 4-6) Last Admin: 01/29/24 00:38 Dose: 10 mg Documented By: KIM Pharmacy Consult (Consult Rx Vancomycin Dosing) 1 each MISCELLANE DAILY PRN PRN Reason: Consult order Polyethylene Glycol (Polyethylene Glycol 3350 17 Gm Powd.Pack) 17 gm PO DAILY [facility] Last Admin: 01/28/24 08:47 Dose: Not Given Documented By: MARIELA Non-Admin Reason: Patient Refused Senna/Docusate Sodium (Sennosides/Docusate Sodium Tablet) 1 tab PO DAILY [facility] Last Admin: 01/28/24 08:48 Dose: Not Given Documented By: MARIELA Non-Admin Reason: Patient Refused Sodium Chloride (0.9 % Sodium Chloride Flush 3 Ml Syringe) 3 ml IVFLUSH QSHIFT [facility] Last Admin: 01/28/24 23:55 Dose: Not Given Documented By: KIM Non-Admin Reason: picc line Labs 01/28/24 10:16 01/28/24 06:30 Labs: Laboratory Results - last 24 hr 01/28/24 01/28/24 10:16 10:24 MCV 69.9 L MCH 21.8 L MCHC 31.2 RDW 16.6 H Plt Count 232 MPV 9.1 L Absolute Nucleated RBC 0.000 Nucleated RBC % (auto) 0.0 Lactic Acid 1.1 Microbiology Microbiology Results: Microbiology 01/23/24 06:19 Blood Culture - Final Blood - Venous No growth after 5 days. 01/23/24 06:19 Blood Culture - Final Blood - Venous No growth after 5 days. Assessment and Plan (1) Discitis: Status: Acute (2) Osteomyelitis of thoracic spine: Status: Acute Plan 43-year-old male with pertinent history of MSSA bacteremia in november( did not complete recommended antibiotics) polysubstance use disorder who presents to the emergency department for evaluation of back pain and found to have Acute Discitis/osteomyelitis of thoracic spine with phlegmonous changes. -complaining of back pain with difficulty in ambulating because of pain -no surgical intervention recommended by [facility] Neurosurgery -Continue vanco and cefazolin 2 g q.8 hours -ID recommend 6 weeks of IV Kefzol and vancomycin with weekly creatinine and vanco levels -blood cultures no growth times 48, mild leukopenia -echo showed no valvular pathology -repeat thoracic spine ct to reassess, was unable to do MRI d/t a metallic object near the eye -Picc line placed 01/26 Fever of 102 on 01/27 blood cultures repeated urine culture check rsv, flu and covid Diarrhea, no abd pain, exam bening ct of abdomen, check cidif, ivf Polysubstance use disorder: + opiates/fentanyl and cocaine. - Continue methadone 70 mg at a.m. and 55 mg at bedtime. -addiction med following Constipation bowel regimen, able to ambulate to bathroom without assistance Prediabetes: A1c 5.9 in 11/27/2023. Continue to monitor DVT prophylaxis: Lovenox Full code need for inpt: IV Abx for discitis and osteomylitis of the spine Quality Stroke Does the patient have a stroke diagnosis?: No VTE Prior VTE?: No VTE Risk Level:: Medical - moderate - high VTE Device Contraindication: Treatment Not Indicated VTE Drug Contraindication: N/A - Med Ordered
[2024-01-29] MEDS: methADONE HCl 20 MG/2 ML ORAL.CONC 70 MG PO (09:06)
[2024-01-29] MEDS: 0.9 % Sodium Chloride Flush 3 ML SYRINGE IVFLUSH (09:06)
[2024-01-29] MEDS: Lactated Ringers 1,000 ML 150 ML IVCONT ×2 (09:07→17:17)
[2024-01-29 09:08] LABS: Bacteria Urine None Seen (None Seen); Granular Casts Urine Present; RBC Urine 0-2 /HPF (0-2); WBC Urine 0-5 /HPF (0-5)
[2024-01-29 09:09] LABS: Appearance Urine Cloudy; Color Urine Yellow; Glucose Urine UA Negative (Negative); Leukocyte Esterase Urine Negative (Negative); Nitrite Urine Negative (Negative); PH 5.5 (5.0-9.0); Specific Gravity - Urine 1.025 (1.005-1.025); UMIC TRIGGER UACC YES; Urine Blood Trace (Negative); Urine Ketones Negative (Negative); Urine Protein 30 (1+) mg/dL (Neg-Trace)
[2024-01-29 09:30] LABS: Vancomycin Random 13.8 mcg/mL (15-20)
[2024-01-29 09:31] LABS: Creatinine Clr Calc Pharmacy 94.9; Estimated Glomerular Filt Rate > 60
[2024-01-29 09:40] LABS: Influenza A PCR POSITIVE (Negative); Influenza B PCR NEGATIVE (Negative); Resp Syncy Virus RNA Qual PCR NEGATIVE (Negative); SARS COV2 PCR INHOUSE NEGATIVE (Negative)
--- NOTE | 2024-01-29 09:40 | HE.PHANOTE ---
RE: VANCO DOSING Trough came back as 13.8 which is subtherapeutic for bone and joint infection. Dose is increased to 1250 mg q12h, next trough is scheduled for 01/30/24 @0900.
[2024-01-29] MEDS: vancomycin HCL 1,250 MG in 0.9 % Sodium Chloride 250 ML 166.67 MG IV ×2 (10:03→23:08)
[2024-01-29] MEDS: Oseltamivir Phosphate 75 MG CAPSULE PO ×2 (11:57→23:08)
--- NOTE | 2024-01-29 12:09 | P.PNADD_ITS ---
Subjective Subjective Date of Service: 01/29/24 Reason For Visit: back pain Interim History: Patient seen in follow up Methadone dose currently 70mg in AM, 20mg midday and 35mg in evening Patient reports no change to pain Guarded, poor eye contact, minimally engaged Chart review shows PRN pain medicaitons have been used with less frequency, and overall patient appears much more comfortable than previous assessments--no grimacing, diaphoresis, restlessness, noted He was found to be Flu+ overnight, which may be contributing to some of his overall malaise. Review of Systems Constitutional: Reports as per HPI Mental Status Exam Mental Status Exam Patient Appearance: Appropriate Level of Consciousness: Awake and Alert Patient Behavior: Guarded and Poor Eye Contact Mood Description: Withdrawn Affect Description: Flat Speech Pattern: Clear Diagnostics Vital Signs (24Hr): Vital Signs - 24 hr 01/28/24 13:25 01/28/24 16:00 01/28/24 18:24 Temperature 99.2 F 100.6 F H 99.9 F Pulse Rate 77 81 Respiratory Rate 16 16 Blood Pressure 102/56 L 100/58 L Pulse Oximetry 94 95 Oxygen Delivery Method Room Air Room Air 01/28/24 23:55 01/29/24 01:15 01/29/24 04:07 Temperature 97.3 F 100.4 F 99.7 F Pulse Rate 72 80 Respiratory Rate 18 18 Blood Pressure 100/57 L 90/53 L Pulse Oximetry 97 96 Oxygen Delivery Method Room Air Room Air 01/29/24 07:51 Temperature 99.9 F Pulse Rate 79 Respiratory Rate 16 Blood Pressure 100/59 L Pulse Oximetry 96 Oxygen Delivery Method Room Air BMI result Body Mass Index 25.1 Labs 01/28/24 10:16 01/30/24 05:53 Labs: Laboratory Results - last 48 hr 01/28/24 01/28/24 01/28/24 06:30 10:16 10:24 WBC 6.7 RBC 4.22 L Hgb 9.2 L Hct 29.5 L MCV 69.9 L MCH 21.8 L MCHC 31.2 RDW 16.6 H Plt Count 232 MPV 9.1 L Absolute Nucleated RBC 0.000 Nucleated RBC % (auto) 0.0 Sodium 137 Potassium 4.4 Chloride 100 Carbon Dioxide 27 Anion Gap 14 Creatinine 1.09 Estim Creat Clear Calc 94.9 Estimated GFR > 60 Lactic Acid 1.1 Urine Color Urine Appearance Urine pH Ur Specific [place] Urine Protein Urine Glucose (UA) Urine Ketones Urine Blood Urine Nitrite Ur Leukocyte Esterase Urine RBC Urine WBC Ur Squamous Epith Cells Urine Bacteria Hyaline Casts Granular Casts Random Vancomycin 15.1 Influenza Type A (PCR) Influenza Type B (PCR) RSV RNA Qual (PCR) SARS-CoV-2 RNA (RT-PCR) 01/29/24 01/29/24 01/29/24 08:34 09:05 Unknown WBC RBC Hgb Hct MCV MCH MCHC RDW Plt Count MPV Absolute Nucleated RBC Nucleated RBC % (auto) Sodium Potassium Chloride Carbon Dioxide Anion Gap Creatinine 1.09 Estim Creat Clear Calc 94.9 Estimated GFR > 60 Lactic Acid Urine Color Yellow Urine Appearance Cloudy Urine pH 5.5 Ur Specific [place] 1.025 Urine Protein 30 (1+) H Urine Glucose (UA) Negative Urine Ketones Negative Urine Blood Trace H Urine Nitrite Negative Ur Leukocyte Esterase Negative Urine RBC 0-2 Urine WBC 0-5 Ur Squamous Epith Cells 3-5 Urine Bacteria None Seen Hyaline Casts 3-5 Granular Casts Present Random Vancomycin 13.8 L Influenza Type A (PCR) POSITIVE A Influenza Type B (PCR) NEGATIVE RSV RNA Qual (PCR) NEGATIVE SARS-CoV-2 RNA (RT-PCR) NEGATIVE Imaging Radiology Impressions: ITS Impressions Chest X-Ray 01/23/24 06:59 IMPRESSION: Findings as above. Electronically signed by: Arnaldo Morse MD 01/23/2024 07:50 AM EST RP Orbit X-Ray 01/23/24 09:48 IMPRESSION: A 0.5 cm density, possibly metallic, overlies the far left lateral side of the face, roughly at the level of the nose, lower level of the orbits, concerning for a foreign body given clinical history. Correlation with clinical exam and possible additional imaging with CT scan recommended for further evaluation prior to MRI imaging. This study was presented today, January 23, 2024, for interpretation. Stat results provided at this time as requested by referring provider. Electronically signed by: Vandana Leiva MD 01/23/2024 11:37 AM EST RP Lumbar Spine CT 01/23/24 12:14 IMPRESSION: 1. Severe erosive changes of the endplates at T11-12, consistent with acute discitis/osteomyelitis, with focal kyphotic deformity. Please refer to the dedicated CT thoracic spine report for further detail. 2. No acute findings of the lumbar spine. There are disc bulges at L3-4, L4-5, and L5-S1 with associated mild facet hypertrophy, resulting in moderate central canal narrowing L4-5, and moderate to severe central canal narrowing L5-S1. See above for details. Findings communicated to emergency department via phone call at 4:10 PM, 01/23/2024 Electronically signed by: Brice Ernandez MD 01/23/2024 04:10 PM EST RP Thoracic Spine CT 01/23/24 12:14 IMPRESSION: 1. Findings of ADVANCED DISCITIS/OSTEOMYELITIS T11-T12 with destructive vertebral body and endplate changes at this level, extensive paravertebral phlegmonous changes, and soft tissue thickening. There is a focal kyphotic deformity at this level. There is likely some degree of epidural phlegmon/abscess with some degree of compression upon the thecal sac. 2. Fusion of T9-10, which may be on the basis of prior surgery, congenital, or previous healed discitis/osteomyelitis. 3. Mild scoliosis, exaggerated kyphosis, and age advanced degenerative spondylosis of the thoracic spine. -3 attempted phone calls were made to inform the Emergency Department provider of the above findings, spanning 4:00-4:15 PM, 01/23/2024, however the phone calls were disconnected 3 of 3 times. Electronically signed by: Brice Ernandez MD 01/23/2024 04:27 PM EST RP Medications Medications Current Medications Acetaminophen (Acetaminophen 325 Mg Tablet) 650 mg PO Q6H PRN PRN Reason: Pain, Mild (Pain Scale 1-3), fever or headache Last Admin: 01/29/24 01:19 Dose: 650 mg Calcium Carbonate (Calcium Carbonate 750 Mg Tab.Chew) 750 mg PO Q4H PRN PRN Reason: Heartburn Last Admin: 01/28/24 10:24 Dose: 750 mg Heparin Sodium (Porcine) 50 (units/ Sodium Chloride 5 ml) 0 units IVFLUSH QSHIFT [facility] Last Admin: 01/29/24 09:19 Dose: Not Given Cefazolin Sodium/Dextrose (Ancef) 2 gm in 50 mls @ 100 mls/hr IV Q8H [facility] Last Infusion: 01/29/24 10:07 Dose: Infused Lactated Ringer's (Lr) 1,000 mls @ 150 mls/hr IVCONT .Q6H40M [facility] Last Admin: 01/29/24 09:07 Dose: 150 mls/hr Vancomycin HCl 1,250 mg/ (Sodium Chloride) 250 mls @ 166.667 mls/hr IV Q12H [facility] Last Infusion: 01/29/24 12:00 Dose: Infused Magnesium Hydroxide (Milk Of Magnesia 30 Ml Oral.Susp) 30 ml PO DAILY PRN PRN Reason: Constipation Melatonin (Melatonin 3 Mg Tablet) 6 mg PO BEDTIME PRN PRN Reason: Insomnia Last Admin: 01/25/24 00:11 Dose: 6 mg Methadone HCl (Methadone Hcl 20 Mg/2 Ml Oral.Conc) 70 mg PO DAILY@0800 [facility] Last Admin: 01/29/24 09:06 Dose: 70 mg Methadone HCl (Methadone Hcl 20 Mg/2 Ml Oral.Conc) 20 mg PO DAILY@1400 [facility] Last Admin: 01/28/24 13:47 Dose: 20 mg Methadone HCl (Methadone Hcl 20 Mg/2 Ml Oral.Conc) 35 mg PO BEDTIME [facility] Last Admin: 01/28/24 20:44 Dose: 35 mg Ondansetron HCl (Ondansetron Hcl 4 Mg/2 Ml Vial) 4 mg IVPUSH Q8H PRN PRN Reason: Nausea and Vomiting Oseltamivir Phosphate (Oseltamivir Phosphate 75 Mg Capsule) 75 mg PO Q12H [facility] Stop: 02/02/24 23:01 Last Admin: 01/29/24 11:57 Dose: 75 mg Pharmacy Consult (Consult Rx Vancomycin Dosing) 1 each MISCELLANE DAILY PRN PRN Reason: Consult order Polyethylene Glycol (Polyethylene Glycol 3350 17 Gm Powd.Pack) 17 gm PO DAILY [facility] Last Admin: 01/29/24 09:16 Dose: Not Given Senna/Docusate Sodium (Sennosides/Docusate Sodium Tablet) 1 tab PO DAILY [facility] Last Admin: 01/29/24 09:16 Dose: Not Given Sodium Chloride (0.9 % Sodium Chloride Flush 3 Ml Syringe) 3 ml IVFLUSH QSHIFT [facility] Last Admin: 01/29/24 09:06 Dose: 3 ml Allergies Allergies Allergy/AdvReac Type Severity Reaction Status Date / Time No Known Allergies Allergy Verified 01/23/24 03:40 [No Known Allergies*] Assessment & Plan Assessment & Plan (1) Opioid use disorder, severe, dependence: Status: Acute Code(s): F11.20 - Opioid dependence, uncomplicated Assessment and Plan: * continue methadone at TID dosing--will adjust back to BID as dispo is finalized * mood likely impacted due to current hospitalization --monitor for worsening sx of depression Total time managing care of this patient today __25__ minutes.
[2024-01-29] MEDS: iohexoL 350 MG/ML 100 ML INFUS..BTL IV (12:20)
[2024-01-29] MEDS: methADONE HCl 20 MG/2 ML ORAL.CONC PO (14:52)
[2024-01-29 17:14] LABS: CDiff Gene PCR POSITIVE (Negative)
[2024-01-29 17:26] LABS: CDiff Toxin Positive (Negative)
[2024-01-29 17:27] LABS: CDIFF Internal ctrl Dots and bkg OK (V)
[2024-01-29] MEDS: vancomycin HCL 125 MG CAPSULE PO ×2 (18:19→23:08)
[2024-01-29] MEDS: methADONE HCl 20 MG/2 ML ORAL.CONC 35 MG PO (20:11)
[2024-01-30] MEDS: Lactated Ringers 1,000 ML 150 ML IVCONT ×4 (00:55→23:07)
[2024-01-30] MEDS: ceFAZolin Sodium/Dextrose,Iso 2 GM/50 ML PIGGYBACK IV ×3 (00:56→16:45)
[2024-01-30] MEDS: vancomycin HCL 125 MG CAPSULE PO ×4 (05:54→23:03)
[2024-01-30 06:30] LABS: Creatinine Clr Calc Pharmacy 124.7; Estimated Glomerular Filt Rate > 60
--- NOTE | 2024-01-30 07:37 | P.PNIM_ITS ---
Subjective Subjective Date of Service: 01/30/24 Interval History: Over the weekend he developed fevers, and dirrhea and generally unwell and has tested postive for Flu and C. dif Physical Exam 2 Vital Signs: Vital Signs: Last Vital Signs Temp 97.1 F 01/29/24 23:19 Pulse 61 01/29/24 23:19 Resp 16 01/29/24 23:19 BP 97/64 01/29/24 23:19 Pulse Ox 97 01/29/24 23:19 O2 Del Method Room Air 01/29/24 23:19 BMI result Body Mass Index 25.1 Const: Other: General: AO X 3, no acute distress Resp: CTA bilateral CVS: S1,S2,RRR GI: +BS, NT, no distention, no tenderness Skin: No rash Neuro: motor grossly intack, no weakness, no tingling trying not to walk much d/t pain Psych: appropriate affect Objective Data Active Medications Acetaminophen (Acetaminophen 325 Mg Tablet) 650 mg PO Q6H PRN PRN Reason: Pain, Mild (Pain Scale 1-3), fever or headache Last Admin: 01/29/24 23:09 Dose: 650 mg Documented By: ZEFERINO Calcium Carbonate (Calcium Carbonate 750 Mg Tab.Chew) 750 mg PO Q4H PRN PRN Reason: Heartburn Last Admin: 01/28/24 10:24 Dose: 750 mg Documented By: MARIELA Heparin Sodium (Porcine) 50 (units/ Sodium Chloride 5 ml) 0 units IVFLUSH QSHIFT [facility] Last Admin: 01/30/24 01:02 Dose: Not Given Documented By: ZEFERINO Non-Admin Reason: IV Running Cefazolin Sodium/Dextrose (Ancef) 2 gm in 50 mls @ 100 mls/hr IV Q8H [facility] Last Infusion: 01/30/24 01:34 Dose: Infused Documented By: ZEFERINO Lactated Ringer's (Lr) 1,000 mls @ 150 mls/hr IVCONT .Q6H40M [facility] Last Infusion: 01/30/24 05:57 Dose: 150 mls/hr Documented By: ZEFERINO Vancomycin HCl 1,250 mg/ (Sodium Chloride) 250 mls @ 166.667 mls/hr IV Q12H [facility] Last Infusion: 01/30/24 01:04 Dose: Infused Documented By: ZEFERINO Magnesium Hydroxide (Milk Of Magnesia 30 Ml Oral.Susp) 30 ml PO DAILY PRN PRN Reason: Constipation Melatonin (Melatonin 3 Mg Tablet) 6 mg PO BEDTIME PRN PRN Reason: Insomnia Last Admin: 01/25/24 00:11 Dose: 6 mg Documented By: TROY Methadone HCl (Methadone Hcl 20 Mg/2 Ml Oral.Conc) 70 mg PO DAILY@0800 [facility] Last Admin: 01/29/24 09:06 Dose: 70 mg Documented By: MARIELA Co-signed By: JACQUI Methadone HCl (Methadone Hcl 20 Mg/2 Ml Oral.Conc) 20 mg PO DAILY@1400 [facility] Last Admin: 01/29/24 14:52 Dose: 20 mg Documented By: MARIELA Co-signed By: JACQUI Methadone HCl (Methadone Hcl 20 Mg/2 Ml Oral.Conc) 35 mg PO BEDTIME [facility] Last Admin: 01/29/24 20:11 Dose: 35 mg Documented By: ZEFERINO Co-signed By: VALERIA Ondansetron HCl (Ondansetron Hcl 4 Mg/2 Ml Vial) 4 mg IVPUSH Q8H PRN PRN Reason: Nausea and Vomiting Oseltamivir Phosphate (Oseltamivir Phosphate 75 Mg Capsule) 75 mg PO Q12H [facility] Stop: 02/02/24 23:01 Last Admin: 01/29/24 23:08 Dose: 75 mg Documented By: ZEFERINO Pharmacy Consult (Consult Rx Vancomycin Dosing) 1 each MISCELLANE DAILY PRN PRN Reason: Consult order Polyethylene Glycol (Polyethylene Glycol 3350 17 Gm Powd.Pack) 17 gm PO DAILY [facility] Last Admin: 01/29/24 09:16 Dose: Not Given Documented By: MARIELA Non-Admin Reason: loose stools Senna/Docusate Sodium (Sennosides/Docusate Sodium Tablet) 1 tab PO DAILY [facility] Last Admin: 01/29/24 09:16 Dose: Not Given Documented By: MARIELA Non-Admin Reason: loose stools Sodium Chloride (0.9 % Sodium Chloride Flush 3 Ml Syringe) 3 ml IVFLUSH QSHIFT [facility] Last Admin: 01/30/24 01:04 Dose: Not Given Documented By: ZEFERINO Non-Admin Reason: IV Running Vancomycin HCl (Vancomycin Hcl 125 Mg Capsule) 125 mg PO Q6H [facility] Last Admin: 01/30/24 05:54 Dose: 125 mg Documented By: ZEFERINO Labs 01/28/24 10:16 01/30/24 05:53 Labs: Laboratory Results - last 24 hr 01/29/24 01/29/24 01/29/24 08:34 09:05 14:31 Estim Creat Clear Calc 94.9 Estimated GFR > 60 Urine Color Yellow Urine Appearance Cloudy Urine pH 5.5 Ur Specific [place] 1.025 Urine Protein 30 (1+) H Urine Glucose (UA) Negative Urine Ketones Negative Urine Blood Trace H Urine Nitrite Negative Ur Leukocyte Esterase Negative Urine RBC 0-2 Urine WBC 0-5 Ur Squamous Epith Cells 3-5 Urine Bacteria None Seen Hyaline Casts 3-5 Granular Casts Present Random Vancomycin 13.8 L C. difficile Tox B Gene POSITIVE A* C. difficile Toxin A&B Positive A* C. difficile Interpret SEE NOTE Influenza Type A (PCR) Influenza Type B (PCR) RSV RNA Qual (PCR) SARS-CoV-2 RNA (RT-PCR) 01/29/24 01/30/24 Unknown 05:53 Estim Creat Clear Calc 124.7 Estimated GFR > 60 Urine Color Urine Appearance Urine pH Ur Specific [place] Urine Protein Urine Glucose (UA) Urine Ketones Urine Blood Urine Nitrite Ur Leukocyte Esterase Urine RBC Urine WBC Ur Squamous Epith Cells Urine Bacteria Hyaline Casts Granular Casts Random Vancomycin C. difficile Tox B Gene C. difficile Toxin A&B C. difficile Interpret Influenza Type A (PCR) POSITIVE A Influenza Type B (PCR) NEGATIVE RSV RNA Qual (PCR) NEGATIVE SARS-CoV-2 RNA (RT-PCR) NEGATIVE Microbiology Microbiology Results: Microbiology 01/28/24 10:16 Blood Culture - Preliminary Blood - Subclavian No growth after 24 hours. 01/28/24 10:16 Blood Culture - Preliminary Blood - Subclavian No growth after 24 hours. Assessment and Plan (1) Discitis: Status: Acute (2) Osteomyelitis of thoracic spine: Status: Acute Plan 43-year-old male with pertinent history of MSSA bacteremia in november( did not complete recommended antibiotics) polysubstance use disorder who presents to the emergency department for evaluation of back pain and found to have Acute Discitis/osteomyelitis of thoracic spine with phlegmonous changes. -complaining of back pain with difficulty in ambulating because of pain -no surgical intervention recommended by [facility] Neurosurgery -repeat CT of abdomen/pelvis from 01/28 unchanged--see report -Continue vanco and cefazolin 2 g q.8 hours -ID recommend 6 weeks of IV Kefzol and vancomycin with weekly creatinine and vanco levels -blood cultures no growth times 48, mild leukopenia -echo showed no valvular pathology -repeat thoracic spine ct to reassess, was unable to do MRI d/t a metallic object near the eye -Picc line placed 01/26 C. dif -CT shows finding consistent with colitis (it is possible on presentation since there was some ct finding, although he was not having symptoms at that time) -started on PO Vanoc -ID consult re meds Influenza -symptomatic treatment -Tamiflu Polysubstance use disorder: + opiates/fentanyl and cocaine. - Continue methadone 70 mg at a.m. and 55 mg at bedtime. -addiction med following Constipation bowel regimen, able to ambulate to bathroom without assistance Prediabetes: A1c 5.9 in 11/27/2023. Continue to monitor DVT prophylaxis: Lovenox Full code need for inpt: IV Abx for discitis and osteomylitis of the spine Quality Stroke Does the patient have a stroke diagnosis?: No VTE Prior VTE?: No VTE Risk Level:: Medical - moderate - high VTE Device Contraindication: Treatment Not Indicated VTE Drug Contraindication: N/A - Med Ordered
[2024-01-30 08:00] VITALS: BP 106/67; PULSE 52; RESP 12; TEMP 36.1; O2SAT 97
[2024-01-30] MEDS: methADONE HCl 20 MG/2 ML ORAL.CONC 70 MG PO (08:40)
[2024-01-30 09:32] LABS: Vancomycin Random 17.8 mcg/mL (15-20)
--- NOTE | 2024-01-30 09:42 | HE.PHANOTE ---
RE: [place] Patients level came back this morning at 17.8. Patients renal did improve, scr 1.09 on 01/28 and now 0.83 this morning. Will continue with current dose as I suspect level will come down slightly but still remain therapeutic. NExt level 01/30 @0900.
[2024-01-30] MEDS: Oseltamivir Phosphate 75 MG CAPSULE PO ×2 (10:21→23:03)
[2024-01-30] MEDS: vancomycin HCL 1,250 MG in 0.9 % Sodium Chloride 250 ML 166.67 MG IV ×2 (10:21→23:03)
--- NOTE | 2024-01-30 10:39 | MHC.CM.PN ---
spoke w/matt at [facility] his personal cell number is [phone] he was going to update the abh form to [facility] ,however during rounds reported that pt now has the flu and c-dif ,pt can not be dcd today russell left message re same as well as [facility] being notified
[2024-01-30] MEDS: methADONE HCl 20 MG/2 ML ORAL.CONC PO (15:10)
[2024-01-30 15:41] VITALS: BP 109/72; PULSE 58; RESP 18; TEMP 36.6; O2SAT 97
[2024-01-30] MEDS: methADONE HCl 20 MG/2 ML ORAL.CONC 35 MG PO (20:42)
[2024-01-30 23:29] VITALS: BP 100/66; PULSE 82; RESP 20; TEMP 36.3; O2SAT 99
[2024-01-31] MEDS: ceFAZolin Sodium/Dextrose,Iso 2 GM/50 ML PIGGYBACK IV ×3 (00:35→17:02)
[2024-01-31] MEDS: vancomycin HCL 125 MG CAPSULE PO ×4 (05:38→22:55)
[2024-01-31 06:20] LABS: Creatinine Clr Calc Pharmacy 134.4; Estimated Glomerular Filt Rate > 60
[2024-01-31] MEDS: methADONE HCl 20 MG/2 ML ORAL.CONC 70 MG PO (07:34)
[2024-01-31 07:56] VITALS: BP 115/75; PULSE 52; RESP 12; TEMP 36.3; O2SAT 98
[2024-01-31] MEDS: Lactated Ringers 1,000 ML 150 ML IVCONT (09:00)
[2024-01-31 09:28] LABS: Vancomycin Random 17.8 mcg/mL (15-20)
[2024-01-31] MEDS: Oseltamivir Phosphate 75 MG CAPSULE PO ×2 (11:14→22:55)
[2024-01-31] MEDS: vancomycin HCL 1,250 MG in 0.9 % Sodium Chloride 250 ML 166.67 MG IV ×2 (11:15→22:55)
--- NOTE | 2024-01-31 12:13 | MHC.CM.PN ---
CM SPOKE TO [facility] STAFF MEMBER, DIANNE, WHO WILL SEND AN UPDATED ABH TO [facility] CONFIRMING NEW START OF CARE DATE [facility] WILL BE CLOSED FOR , SO PT WILL NEED TO DOSE AT [facility] PRIOR TO DC TRANSPORT BOOKED WITH [facility] FOR TOMORROW AT 1200 HOURS PENDING CONFIRMATION OF GUEST DOSING ARRANGEMENTS
--- NOTE | 2024-01-31 12:24 | P.PNIM_ITS ---
Subjective Subjective Date of Service: 01/31/24 Interval History: seen and evaluated this morning feels better , still reporting diarrhea 2 times no fever or chills has abdominal pain No other events Review of Systems Review of Systems: Yes all other systems are reviewed and are negative Physical Exam 2 Vital Signs: Vital Signs: Last Vital Signs Temp 97.3 F 01/31/24 07:56 Pulse 52 01/31/24 07:56 Resp 12 01/31/24 07:56 BP 115/75 01/31/24 07:56 Pulse Ox 98 01/31/24 07:56 O2 Del Method Room Air 01/31/24 07:56 BMI result Body Mass Index 25.1 Const: Other: General: AO X 3, no acute distress Resp: CTA bilateral CVS: S1,S2,RRR GI: +BS, NT, no distention, no tenderness Skin: No rash Neuro: motor grossly intack, no weakness, no tingling Psych: appropriate affect Objective Data Active Medications Acetaminophen (Acetaminophen 325 Mg Tablet) 650 mg PO Q6H PRN PRN Reason: Pain, Mild (Pain Scale 1-3), fever or headache Last Admin: 01/29/24 23:09 Dose: 650 mg Documented By: ZEFERINO Calcium Carbonate (Calcium Carbonate 750 Mg Tab.Chew) 750 mg PO Q4H PRN PRN Reason: Heartburn Last Admin: 01/28/24 10:24 Dose: 750 mg Documented By: MARIELA Heparin Sodium (Porcine) 50 (units/ Sodium Chloride 5 ml) 0 units IVFLUSH QSHIFT [facility] Last Admin: 01/31/24 07:32 Dose: Not Given Documented By: DEBBIE Non-Admin Reason: IV Running Cefazolin Sodium/Dextrose (Ancef) 2 gm in 50 mls @ 100 mls/hr IV Q8H [facility] Last Infusion: 01/31/24 09:31 Dose: Infused Documented By: DEBBIE Vancomycin HCl 1,250 mg/ (Sodium Chloride) 250 mls @ 166.667 mls/hr IV Q12H [facility] Last Admin: 01/31/24 11:15 Dose: 166.67 mls/hr Documented By: DEBBIE Melatonin (Melatonin 3 Mg Tablet) 6 mg PO BEDTIME PRN PRN Reason: Insomnia Last Admin: 01/25/24 00:11 Dose: 6 mg Documented By: TROY Methadone HCl (Methadone Hcl 20 Mg/2 Ml Oral.Conc) 70 mg PO DAILY@0800 [facility] Last Admin: 01/31/24 07:34 Dose: 70 mg Documented By: DEBBIE Co-signed By: TRE Methadone HCl (Methadone Hcl 20 Mg/2 Ml Oral.Conc) 20 mg PO DAILY@1400 [facility] Last Admin: 01/30/24 15:10 Dose: 20 mg Documented By: DEBBIE Co-signed By: ONI Methadone HCl (Methadone Hcl 20 Mg/2 Ml Oral.Conc) 35 mg PO BEDTIME [facility] Last Admin: 01/30/24 20:42 Dose: 35 mg Documented By: KIM Co-signed By: MOSES Ondansetron HCl (Ondansetron Hcl 4 Mg/2 Ml Vial) 4 mg IVPUSH Q8H PRN PRN Reason: Nausea and Vomiting Oseltamivir Phosphate (Oseltamivir Phosphate 75 Mg Capsule) 75 mg PO Q12H [facility] Stop: 02/02/24 23:01 Last Admin: 01/31/24 11:14 Dose: 75 mg Documented By: DEBBIE Pharmacy Consult (Consult Rx Vancomycin Dosing) 1 each MISCELLANE DAILY PRN PRN Reason: Consult order Sodium Chloride (0.9 % Sodium Chloride Flush 3 Ml Syringe) 3 ml IVFLUSH QSHIFT [facility] Last Admin: 01/31/24 07:35 Dose: Not Given Documented By: DEBBIE Non-Admin Reason: IV Running Vancomycin HCl (Vancomycin Hcl 125 Mg Capsule) 125 mg PO Q6H [facility] Last Admin: 01/31/24 11:14 Dose: 125 mg Documented By: DEBBIE Labs 01/28/24 10:16 01/31/24 05:52 Labs: Laboratory Results - last 24 hr 01/31/24 01/31/24 05:52 09:04 Estim Creat Clear Calc 134.4 Estimated GFR > 60 Random Vancomycin 17.8 Microbiology Microbiology Results: Microbiology 01/28/24 10:16 Blood Culture - Preliminary Blood - Subclavian No growth after 48 hours. 01/28/24 10:16 Blood Culture - Preliminary Blood - Subclavian No growth after 48 hours. Assessment and Plan (1) Discitis: Status: Acute (2) Osteomyelitis of thoracic spine: Status: Acute (3) Clostridioides difficile infection: Status: Acute Plan 43-year-old male with pertinent history of MSSA bacteremia in november( did not complete recommended antibiotics) polysubstance use disorder who presents to the emergency department for evaluation of back pain and found to have Acute Discitis/osteomyelitis of thoracic spine with phlegmonous changes. reporting back pain with difficulty in ambulating because of pain, improving slowly no surgical intervention recommended by [facility] Neurosurgery Continue vanco and cefazolin 2 g q.8 hours ID recommend 6 weeks of IV Kefzol and vancomycin with weekly creatinine and vanco levels blood cultures no growth echo showed no valvular pathology repeat CT of thoracic spine and CT abdomen/pelvis from 01/28 unchanged--see report unable to do MRI d/t a metallic object near the eye Picc line placed 01/[address] shows finding consistent with colitis, diarrhea resolving started on PO Vancomycin ID consult re meds Influenza symptomatic treatment Tamiflu Polysubstance use disorder: + opiates/fentanyl and cocaine. Continue methadone 70 mg at a.m. and 55 mg at bedtime at time of discharge addiction med following Constipation bowel regimen, able to ambulate to bathroom without assistance Prediabetes: A1c 5.9 in 11/27/2023. Continue to monitor DVT prophylaxis: Lovenox Full code need for inpt: IV Abx for discitis and osteomylitis of the spine pending Placement to SNF to finish antibiotics course Quality Stroke Does the patient have a stroke diagnosis?: No VTE Prior VTE?: No VTE Risk Level:: Medical - moderate - high VTE Device Contraindication: Treatment Not Indicated VTE Drug Contraindication: N/A - Med Ordered
--- NOTE | 2024-01-31 14:11 | MHC.RECOVRN ---
Met with pt to follow up and provide support. Pts girlfriend, Laila, present with pts permission. Pt is discharging tomorrow, will receive total methadone dose prior to dc (125 mg). Pt aware he will receive total dose prior to discharge. Pt anxious, craving a cigarette, sitting in chair-awake, alert, easily engages in conversation. Denies questions or concerns at this time.
--- NOTE | 2024-01-31 14:38 | MHC.CM.PN ---
CM VERIFIED WITH [facility] THAT PT IS CLEARED TO DC TOMORROW 01/31 AT [address] DOSING IN PL[address] BLS TRANSPORT BOOKED FOR 12 [address] [place].
[2024-01-31] MEDS: methADONE HCl 20 MG/2 ML ORAL.CONC PO (15:00)
[2024-01-31 15:59] VITALS: BP 129/71; PULSE 65; RESP 18; TEMP 36.7; O2SAT 98
[2024-01-31] MEDS: Heparin Sodium,Porcine Flush 50 UNITS, 0.9 % Sodium Chloride Flush 5 ML IVFLUSH (17:02)
[2024-01-31] MEDS: 0.9 % Sodium Chloride Flush 3 ML SYRINGE IVFLUSH (17:02)
[2024-01-31] MEDS: methADONE HCl 20 MG/2 ML ORAL.CONC 35 MG PO (20:42)
[2024-01-31 23:34] VITALS: BP 132/64; PULSE 63; RESP 20; TEMP 36.3; O2SAT 97
[2024-02-01] MEDS: ceFAZolin Sodium/Dextrose,Iso 2 GM/50 ML PIGGYBACK IV ×2 (00:30→09:01)
[2024-02-01] MEDS: Heparin Sodium,Porcine Flush 50 UNITS, 0.9 % Sodium Chloride Flush 5 ML IVFLUSH ×2 (00:36→09:02)
[2024-02-01] MEDS: vancomycin HCL 125 MG CAPSULE PO ×2 (05:25→10:56)
[2024-02-01 06:58] LABS: Creatinine Clr Calc Pharmacy 121.8; Estimated Glomerular Filt Rate > 60
[2024-02-01 07:37] VITALS: BP 113/77; PULSE 48; RESP 12; TEMP 36.4; O2SAT 96
[2024-02-01] MEDS: Oseltamivir Phosphate 75 MG CAPSULE PO (08:59)
[2024-02-01] MEDS: methADONE HCl 20 MG/2 ML ORAL.CONC 70 MG PO (09:03)
--- NOTE | 2024-02-01 09:48 | MHC.CM.PN ---
DP: PT HAS BEEN MEDICALLY CLEARED FOR DC TO [facility] FOR LT IV RX. BLS TRANSPORT BOOKED AND CONFIRMED FOR 12 N. RN UPDATED. CENTER UPDATED .
--- NOTE | 2024-02-01 10:15 | PM.DS ---
DS: Providers Provider Date of Service: 02/01/24 Date of admission: 01/23/24 19:29 Date of discharge: 02/01/24 Primary care physician: Carla Narvaez NP Consults: 01/23/24 19:31 Addiction Medicine Routine Consulting Provider: Addiction Covering Reason for consultation: polysubstance use disorder Consult to Infectious Diseases Routine Consulting Provider: [facility] Reason for consultation: ADVANCED DISCITIS/OSTEOMYELITIS T11-T12 01/30/24 07:42 Consult to Infectious Diseases Routine Consulting Provider: [facility] Reason for consultation: Diskitis, now with Cdif and Flu Has provider been notified: No DS: Diagnosis Discharge Diagnosis (1) Discitis: Status: Acute (2) Osteomyelitis of thoracic spine: Status: Acute (3) Clostridioides difficile infection: Status: Acute (4) Discitis of thoracic region: Status: Acute (5) Acute osteomyelitis of thoracic spine: Status: Acute (6) Severe back pain: Status: Acute DS: Summary Hospital Course Hospital Course: Admission hpi from 01/23/[address] Penny Gonzalez Chief Complaint: Back pain This is a 43-year-old male with pertinent history of MSSA bacteremia, polysubstance use disorder who presents to the emergency department for evaluation of back pain. Patient was previously admitted on 11/12/2023 with sepsis due to chest wall cellulitis, aspiration pneumonia and emesis a bacteremia. Left AMA on 11/13. Patient was readmitted on 11/13 and discharged on 11/17 to post acute care with 4 weeks of IV cefazolin. Patient states he left AMA from post acute care after about a week of IV antibiotics as he thought that nursing at outside facility gave him the wrong antibiotics and also he saw an air bubble while he was being given IV antibiotics at short-term rehab. He did not complete his antibiotic course for MSSA bacteremia. Does endorse using IV drugs in his last usage was couple of days ago. He has been having lower back pain for months now which has been gradually getting worse. Denies lower extremity weakness, tingling or numbness, loss of bladder or bowel control. No fever, chills, chest pain, palpitations, shortness of breath, changes in urinary or bowel habits. In the emergency department, CT thoracic spine with diskitis/osteomyelitis and phlegmon. Neurosurgery was consulted at [facility] and it was deemed that there was no surgical intervention warranted. Was recommended to admit patient with IV antibiotics. Patient was given vancomycin and Zosyn in the ER with hospitalist consult Hospital course: The patient has a prior history of MSSA bacteremia associated with underlying drug use and did not complete the recommended IV antibiotics back in November when he left AMA from an acute care facility. He presented on this occasion with back pain, and a CT of the thoracic spine revealed diskitis/osteomyelitis and a phlegmon. Neurosurgery was consulted at [facility] and determined that no surgical intervention was warranted; the patient is to be treated with IV antibiotics. He was initially started on vancomycin, and 2 days later, Kefzol (2 grams q8h) was added per Infectious Disease recommendations. ID recommends a total of 6 weeks of treatment with IV vancomycin and Kefzol. As such, a PICC line was placed 01/27/24. An echocardiogram showed no vegetations. Blood cultures have remained negative for >[address] scan did not show much difference from the primary one done at admission. to follow with PCP after finishing treatment. For history of Polysubstance use disorder: + opiates/fentanyl and cocaine. he was followed by addiction team and his daily dose adjusted to 125 mcg daily upon discharge. He developed diarrhea and tested positive for C.Diff. CT scan showed evidence of colitis. started on PO Vancomycin with good response as diarrhea resolved He developed upper respiratory symptoms and was found to have Flu. Treated with Tamiflu with good response. did not need oxygen. to finish 3 more doses of Tamiflu now. To Short term rehab for less than 30 days. Time Attestation Discharge Coordination Time (in mins): 41 Quality: Safe Use of Opioids Does Pt have an Active Cancer Diagnosis on the Problem List?: No Quality: Stroke Does the patient have a stroke diagnosis?: No Physical Exam Vital Signs: Vital Signs: Last Vital Signs Temp 97.5 F 02/01/24 07:37 Pulse 48 L 02/01/24 07:37 Resp 12 02/01/24 07:37 BP 113/77 02/01/24 07:37 Pulse Ox 96 02/01/24 07:37 O2 Del Method Room Air 02/01/24 07:37 BMI result Body Mass Index 25.1 Const: Other: General: AO X 3, no acute distress Resp: CTA bilateral CVS: S1,S2,RRR GI: +BS, NT, no distention, no tenderness Skin: No rash Neuro: motor grossly intack, no weakness, no tingling Psych: appropriate affect DS: Data Data Completed and Pending Completed studies during hospitalization [Text1]: Procedures Insertion of Infusion Device into Left Basilic Vein, Percutaneous Approach (11/14/23) Labs on day of discharge: Laboratory Results - last 24 hr 02/01/24 06:32 Creatinine 0.85 Estim Creat Clear Calc 121.8 Estimated GFR > 60 Preliminary micro results at discharge 01/28/24 10:16 Blood Culture - Preliminary Blood - Subclavian No growth after 48 hours. 01/28/24 10:16 Blood Culture - Preliminary Blood - Subclavian No growth after 48 hours. Imaging Chest x-ray: Radiologist's impression: ITS Impressions Chest X-Ray 01/23/24 06:59 IMPRESSION: Findings as above. Electronically signed by: Arnaldo Morse MD 01/23/2024 07:50 AM EST RP Orbit X-Ray 01/23/24 09:48 IMPRESSION: A 0.5 cm density, possibly metallic, overlies the far left lateral side of the face, roughly at the level of the nose, lower level of the orbits, concerning for a foreign body given clinical history. Correlation with clinical exam and possible additional imaging with CT scan recommended for further evaluation prior to MRI imaging. This study was presented today, January 23, 2024, for interpretation. Stat results provided at this time as requested by referring provider. Electronically signed by: Vandana Leiva MD 01/23/2024 11:37 AM EST RP Lumbar Spine CT 01/23/24 12:14 IMPRESSION: 1. Severe erosive changes of the endplates at T11-12, consistent with acute discitis/osteomyelitis, with focal kyphotic deformity. Please refer to the dedicated CT thoracic spine report for further detail. 2. No acute findings of the lumbar spine. There are disc bulges at L3-4, L4-5, and L5-S1 with associated mild facet hypertrophy, resulting in moderate central canal narrowing L4-5, and moderate to severe central canal narrowing L5-S1. See above for details. Findings communicated to emergency department via phone call at 4:10 PM, 01/23/2024 Electronically signed by: Brice Ernandez MD 01/23/2024 04:10 PM EST RP Thoracic Spine CT 01/23/24 12:14 IMPRESSION: 1. Findings of ADVANCED DISCITIS/OSTEOMYELITIS T11-T12 with destructive vertebral body and endplate changes at this level, extensive paravertebral phlegmonous changes, and soft tissue thickening. There is a focal kyphotic deformity at this level. There is likely some degree of epidural phlegmon/abscess with some degree of compression upon the thecal sac. 2. Fusion of T9-10, which may be on the basis of prior surgery, congenital, or previous healed discitis/osteomyelitis. 3. Mild scoliosis, exaggerated kyphosis, and age advanced degenerative spondylosis of the thoracic spine. -3 attempted phone calls were made to inform the Emergency Department provider of the above findings, spanning 4:00-4:15 PM, 01/23/2024, however the phone calls were disconnected 3 of 3 times. Electronically signed by: Brice Ernandez MD 01/23/2024 04:27 PM EST RP Abdomen/Pelvis CT 01/29/24 12:11 IMPRESSION: 1. There is circumferential wall thickening of the colon from the mid transverse colon distally, including the descending and sigmoid colon and rectum consistent with colitis. The rectum is moderately distended with stool. 2. No significant change in the appearance of the prominent active discitis/osteomyelitis at T11-T12. 3. Trace right pleural effusion. 4. Moderately sized hiatal hernia. 5. Mild splenomegaly. Fleischner guidelines were followed. Electronically signed by: Wei Gayle MD 01/29/2024 01:02 PM EST RP Thoracic Spine CT 01/29/24 12:36 IMPRESSION: 1. There is circumferential wall thickening of the colon from the mid transverse colon distally, including the descending and sigmoid colon and rectum consistent with colitis. The rectum is moderately distended with stool. 2. No significant change in the appearance of the prominent active discitis/osteomyelitis at T11-T12. 3. Trace right pleural effusion. 4. Moderately sized hiatal hernia. 5. Mild splenomegaly. Fleischner guidelines were followed. Electronically signed by: Wei Gayle MD 01/29/2024 01:02 PM EST RP Discharge Plan Discharge Anticipated Discharge Date/Time: 01/27/24 11:43 Patient Disposition: Xfer SNF Discharge Diagnosis: Diskitis, spinal osteomylitis Referrals: [facility] [Other] - 1 Week Carla Narvaez [employer] WELFARE WORKER [Primary Care Provider] - 1 Week Discharge Medications: New cefazolin in dextrose (iso-os) 2 gram/50 mL Piggyback 50 ml IV Q8H 32 Days Qty: 117 0RF Rx Instructions: Kefzol 2 gram q8 hours, for 39 more days, ending March 06, 2024 vancomycin in 0.9 % sodium chl 1 gram/200 mL piggyback 1 g IV Q12H 38 Days Rx Instructions: Vancomycin 1 gm iv q 12 hours, ending March 05, 2024 oxycodone 5 mg Tablet 10 mg PO Q4H PRN (Reason: Pain, Moderate(Pain Scale 4-6)) Qty: 30 0RF Rx Instructions: Partial Fill upon patient request. vancomycin 125 mg Capsule 125 mg PO Q6H Qty: 44 0RF oseltamivir [Tamiflu] 75 mg Capsule 75 mg PO Q12H Qty: 3 0RF vancomycin in 0.9 % sodium chl 1.25 gram/250 mL solution 1.25 g IV Q12H 32 Days methadone [Methadose] 10 mg/mL Concentrate 125 mg PO DAILY@0800 1 Days Qty: 12.5 0RF Rx Instructions: Partial Fill upon patient request. Discontinued methadone [Methadose] 10 mg/mL Concentrate 70 mg PO DAILY@0800 Qty: 1 0RF Rx Instructions: Partial Fill upon patient request. methadone [Methadone Intensol] 10 mg/mL Concentrate 55 mg PO BEDTIME Discharge Orders: Discharge Order (Routine); Ordered 02/01/24 Ordered By: Rebel Gillis Diet: Advance to usual diet Activity on Discharge: As tolerated Stand Alone Forms: Patient Portal Discharge page Print Language: Moldovan Other Ambulatory Orders: Basic Metabolic Panel (Routine) Timeframe: 1 Week Facility: [facility] - Location: Laboratory Ordered By: Rebel Gillis Vancomycin Trough (Routine) Timeframe: 1 Week Facility: [facility] - Location: Laboratory Ordered By: Rebel Gillis Care Plan Goals: recovery from diskitis and osteomylitis of thoracic spine Health Concerns: diskitis/osteomylitis of thoracic spine Plan of Treatment: Vancomycin and Kefzol as recommended by Infectious disease Dr. Julia Swift for 6 weeks total a PICC line inserted on 01/27/24 to continue Methadone for Opioid dependence Check BMP and vancomycin levels weekly on Mondays while on the IV antibitiocs Assessment: same as above
[2024-02-01] MEDS: vancomycin HCL 1,250 MG in 0.9 % Sodium Chloride 250 ML 166.67 MG IV (10:56)
[2024-02-01] MEDS: methADONE HCl 20 MG/2 ML ORAL.CONC 55 MG PO (10:57)
== END 2024-02-01 12:49 | disposition skilled nursing facility (03) | DRG 344 ==
LOC: HO.ED 17:54 → HO.EDOVER 19:36 → HO.S3 01-24 20:06
PROVIDERS: Emergency Medicine; Internal Medicine; Admitting Provider Student in an Organized Health Care Education/Training Program; Emergency Provider Internal Medicine; PCP Nurse Practitioner Family; Visit Provider Student in an Organized Health Care Education/Training Program
DX: M46.24 Osteomyelitis of vertebra, thoracic region (principal); A04.72 Enterocolitis due to Clostridium difficile, not specified as recurrent; F11.20 Opioid dependence, uncomplicated; M46.44 Discitis, unspecified, thoracic region; J10.1 Influenza due to other identified influenza virus with other respiratory manifestations; K59.00 Constipation, unspecified; F19.90 Other psychoactive substance use, unspecified, uncomplicated; T36.96XA Underdosing of unspecified systemic antibiotic, initial encounter; R73.03 Prediabetes; Z20.822 Contact with and (suspected) exposure to COVID-19; Z79.899 Other long term (current) drug therapy
CPT/HCPCS: 0241U; 36415; 36573; 71045; 72129; 72132; 74176; 80048; 80051; 80053; 80202; 80307; 81001; 82565; 83605; 83735; 85025; 85027; 85652; 86140; 87040; 87324; 87493; 93306; 99285; C1751; J0690; J1171; J1642; J2543; J3370; J3371; J7120; Q9967

== ENCOUNTER → 2024-01-23 11:57 | Outpatient (BNV) | payer MEDICAID, SELFPAY | PROVIDERS: Emergency Provider Internal Medicine; PCP Nurse Practitioner Family; Visit Provider Radiology Diagnostic Radiology | DX: M46.25 Osteomyelitis of vertebra, thoracolumbar region (principal); K52.89 Other specified noninfective gastroenteritis and colitis | CPT/HCPCS: 72129; 72132 ==

== ENCOUNTER 2024-01-23 19:29 | Outpatient (BNV) | payer MEDICAID, SELFPAY | END 2024-01-24 07:00 | PROVIDERS: Admitting Provider Student in an Organized Health Care Education/Training Program; Emergency Provider Internal Medicine; PCP Nurse Practitioner Family; Visit Provider Internal Medicine | DX: I51.7 Cardiomegaly (principal); R78.81 Bacteremia | CPT/HCPCS: 93306 ==

== ENCOUNTER → 2024-01-23 19:29 | Outpatient (BNV) | payer MEDICAID, SELFPAY | PROVIDERS: Admitting Provider Student in an Organized Health Care Education/Training Program; Emergency Provider Internal Medicine; PCP Nurse Practitioner Family; Visit Provider Student in an Organized Health Care Education/Training Program | DX: M46.40 Discitis, unspecified, site unspecified (principal); M46.24 Osteomyelitis of vertebra, thoracic region; A49.8 Other bacterial infections of unspecified site; M46.44 Discitis, unspecified, thoracic region; M54.9 Dorsalgia, unspecified | CPT/HCPCS: 99222; 99232; 99239 ==

== ENCOUNTER → 2024-01-23 19:29 | Outpatient (BNV) | payer MEDICAID, SELFPAY | PROVIDERS: Admitting Provider Student in an Organized Health Care Education/Training Program; Emergency Provider Internal Medicine; PCP Nurse Practitioner Family; Visit Provider Nurse Practitioner Psychiatric/Mental Health | DX: F11.20 Opioid dependence, uncomplicated (principal) | CPT/HCPCS: 99222; 99232 ==

== ENCOUNTER → 2024-01-23 19:29 | Outpatient (BNV) | payer MEDICAID, SELFPAY | PROVIDERS: Admitting Provider Student in an Organized Health Care Education/Training Program; Emergency Provider Internal Medicine; PCP Nurse Practitioner Family; Visit Provider Internal Medicine | DX: M46.40 Discitis, unspecified, site unspecified (principal); M46.24 Osteomyelitis of vertebra, thoracic region | CPT/HCPCS: 99222 ==

== ENCOUNTER 2024-02-27 13:06 | Outpatient (AMB) | payer MEDICAID, SELFPAY ==
--- NOTE | 2024-02-27 12:58 | A.OFFVIS_ITS ---
Intake Visit Reasons: [facility] reff Osteo picc Allergies No Known Allergies [No Known Allergies*] Allergy (Verified 02/27/24 12:59) HPI Comments Details: He feels some pain T11-12 area still. He has been switched to Daptomycin. He has no fever. [facility] Medical History Sepsis Staphylococcus aureus bacteremia Opioid abuse Left against medical advice IVDU (intravenous drug user) Type 2 diabetes mellitus Hiatal hernia Social History Household Members: Family Housing: Apartment Do you presently have visiting nurse or other home services: No Alcohol intake: never Patient Tobacco Use Status: Current everyday Tobacco user Tobacco use type: Cigarette Cigarette Packs Per Day: 1 Cigarettes Per Day: 20.0 Substance Use Type: Marijuana service: No Review of Systems Const All systems reviewed & are unremarkable except as noted in HPI and below Physical Exam Const General: cooperative Orientation/consciousness: patient oriented x3 HEENT Head: Yes normal to inspection Mouth: Normal oral and palatal mucosa present Eyes General: appearance normal, both eyes and all related structures Pupils: Equal, round and reactive pupils present Resp Effort & Inspection: normal respiratory effort Cardio Rate: regular rate Rhythm: regular rhythm GI Palpation (GI): Soft to palpation and nontender General: Yes no CVA tenderness Back/Spine/Pelvis Back: no CVA tenderness Skin General skin exam: no rashes or lesions noted Neuro General: patient oriented x3 Cranial nerves: Yes CN's II-XII intact bilaterally and Yes Equal, round and reactive pupils present Extrem General: Yes normal to inspection Psych Appearance: grossly normal Assessment & Plan Assessment & Plan (1) Osteomyelitis of thoracic spine: Code(s): M46.24 - Osteomyelitis of vertebra, thoracic region Category: Medical Plan Finish Daptomycin on 03/19. Start Doxycycline after. See us in one month. Orders: Orders IR cvc remove any age 0102/27/24 M46.24 - Osteomyelitis of vertebra, thoracic region Medications: New doxycycline hyclate 100 mg PO BID 60 caps 1RF 30 days Coding Level of Care Code Est Pt Level 4 (29737) Diagnoses Osteomyelitis of thoracic spine M46.24
== END 2024-02-27 13:51 | disposition home or self-care (01) ==
PROVIDERS: PCP Nurse Practitioner Family; Visit Provider Internal Medicine
DX: M46.24 Osteomyelitis of vertebra, thoracic region (principal)
CPT/HCPCS: 99214

== ENCOUNTER → 2024-02-27 13:06 | Outpatient (BNVA) | payer MEDICAID, SELFPAY | PROVIDERS: PCP Nurse Practitioner Family; Visit Provider Internal Medicine | DX: M46.24 Osteomyelitis of vertebra, thoracic region (principal); Z95.828 Presence of other vascular implants and grafts | CPT/HCPCS: 99212 ==

== ENCOUNTER 2024-03-22 06:31 | Emergency (ER) | payer MEDICAID, SELFPAY ==
[2024-03-22] VITALS (8 sets, daily range): BP systolic 98–139; BP diastolic 56–79; PULSE 62–90; RESP 14–20; TEMP 36.8–37; O2SAT 96–98; BMI 26.6
--- NOTE | ~2024-03-22 | CT_ITS ---
EXAMINATION: CT LUMBAR SPINE CLINICAL INFORMATION: IV drug abuse.. History of osteomyelitis. COMPARISON: CT dated January 23, 2024. TECHNIQUE: Contiguous axial images through the lumbar spine using 2 mm collimation with bone and soft tissue algorithm following the IV contrast administration 85 cc Omnipaque 350 strength without reported immediate complications. This CT examination was performed using dose optimization techniques as appropriate, variously including the following: *Automated exposure control *Adjustment of mA and/or kV according to patient size (this includes techniques or standardized protocols for targeted exams where dose is matched to indication/reason for exam; i.e. extremities or head) *Use of iterative reconstruction technique 506 mGy centimeters FINDINGS: There is a soft tissue enhancing attenuation abnormality in a circumferential fashion centered in the prevertebral compartment of T12 no fully evaluated on the lumbar spine. No acute or cortical disruption in the vertebral bodies of the lumbar spine. No gross malalignment. No osteolysis. CT/CT lumbar spine w IV con IMPRESSION: Phlegmon/abscess, prevertebral compartment to T12. Please refer to the CT thoracic spine report. Electronically signed by: Ashok Gaspar MD 03/22/2024 02:29 PM [facility]
--- NOTE | ~2024-03-22 | XR_ITS ---
EXAMINATION: XR SCREENING FILM FOR MR HISTORY: ?FB in L orbit. COMPARISON: Comparison is made with the prior examination dated 01/23/2024. TECHNIQUE/FINDINGS: Three views of the orbits are submitted. No radiopaque foreign body is identified. The visualized paranasal sinuses are clear. XR/XR pre mri screening IMPRESSION: No radiopaque foreign body is identified. Electronically signed by: Danielito Godfrey MD 03/22/2024 02:57 PM EST
--- NOTE | ~2024-03-22 | CT_ITS ---
EXAMINATION: CT CERVICAL SPINE WITH CONTRAST CLINICAL INFORMATION: IV drug abuser. Concerning osteomyelitis. COMPARISON: None available. TECHNIQUE: Contiguous axial images through the cervical spine using 3 mm collimation following the IV contrast administration. Sagittal and coronal reformatted images acquired. Total of 85 cc Omnipaque 350 strength given without reported immediate complications. This CT examination was performed using dose optimization techniques as appropriate, variously including the following: *Automated exposure control *Adjustment of mA and/or kV according to patient size (this includes techniques or standardized protocols for targeted exams where dose is matched to indication/reason for exam; i.e. extremities or head) *Use of iterative reconstruction technique. DLP: 490 mGy centimeter. FINDINGS: Limited examination due to patient's motion artifact. No osteolysis. No lytic or blastic lesions. There is no enhancing fluid collections in the prevertebral compartment of the cervical spine segment. Spondylosis at C4-5 C5-6 and C6-7 levels. No gross acute fracture or listhesis. CT/CT cervical spine w IV con IMPRESSION: Inadequate evaluation to exclude osteomyelitis. No gross discitis osteomyelitis based upon CT. If clinical concern recommend dedicated IV contrast enhanced MRI cervical spine. Fleischner guidelines were followed. Electronically signed by: Ashok Gaspar MD 03/22/2024 01:46 PM [place]
--- NOTE | ~2024-03-22 | CT_ITS ---
EXAMINATION: CT THORACIC SPINE CLINICAL INFORMATION: IV drug abuser. Concerning osteomyelitis. COMPARISON: CT dated January 29, 2024. TECHNIQUE: Contiguous axial images through the thoracic spine using 2 mm collimation following the IV contrast administration 85 cc Omnipaque 350 strength without reported immediate complications. Soft tissue and bone algorithm obtained. Sagittal and coronal reformatted images acquired. This CT examination was performed using dose optimization techniques as appropriate, variously including the following: *Automated exposure control *Adjustment of mA and/or kV according to patient size (this includes techniques or standardized protocols for targeted exams where dose is matched to indication/reason for exam; i.e. extremities or head) *Use of iterative reconstruction technique DLP: 499 mGy centimeter. FINDINGS: Limited by patient's motion artifact. There is endplate sclerosis and irregularity, increased intervertebral disc space and kyphotic deformity with volume loss of the vertebral bodies at T11 and T12 with a prevertebral compartment and enhancing abnormality in the circumferential fashion extending anterior lateral and to likely the ventral central spinal canal no fully evaluated. There is a hiatal hernia, moderate to large volume. Atelectasis lung bases. Bilateral small pleural effusions. CT/CT thoracic spine w IV con IMPRESSION: Concerning acute on chronic discitis osteomyelitis with phlegmon/abscess in the prevertebral compartment possibly extending into the ventral central spinal canal at T11-12. Recommend IV contrast enhanced MRI lumbar spine. Fleischner guidelines were followed. Electronically signed by: Ashok Gaspar MD 03/22/2024 01:51 PM EST
--- NOTE | 2024-03-22 10:17 | ED.BACK ---
HPI - Back Pain/Injury General Chief Complaint: Back Pain/Injury Stated Complaint: BACK PAIN Time Seen by Provider: 03/22/24 10:17 Source: patient and RN notes reviewed Mode of arrival: ambulatory Limitations: no limitations History of Present Illness ED Provider: Maria L Lucero PA-C HPI Narrative: This is a 44-year-old male, with a past medical history of MSSA bacteremia, polysubstance use disorder who presents emergency department for evaluation of worsening back pain. Patient has a prior history of MSSA bacteremia associated with underlying drug use, did not complete the recommended IV antibiotics in November 27, 2023 when he left [facility]. He presented in January 27, [address] scan of the thoracic spine which revealed diskitis/osteomyelitis with a phlegmon, neurosurgery was consulted at [facility], determining that there was no surgical intervention that was warranted at that time. The patient was to be treated with IV antibiotics. He was initially started on vancomycin, 2 days later started on Cefzil, which was added per Infectious Disease recommendations. ID recommended a total of 6 weeks with IV vanco and Kefzol. The PICC line was placed on 01/27/2024. Echocardiogram showed no vegetations. Blood cultures were negative at that time. Repeat CT scan did not show much of a difference from the primary one done at admission. Of recent, patient was discharged on 02/01/2024, and was sent to an acute rehab facility where he was receiving IV antibiotics up until the 07 of March. He was scheduled to switch over to oral doxycycline which he did not start until 2 days ago. He states that since the 07 of March he has had worsening back pain. He denies any fevers, chills, chest pain, shortness of breath, abdominal pain, nausea, vomiting or diarrhea. Denies any saddle anesthesia. No urinary or bowel retention or incontinence. No numbness, tingling or weakness. He denies any IVDA for 3 weeks. He is currently on methadone, did receive his dose this morning. He has been taking Tylenol for his symptoms which has provided him with minimal relief. MD elicited complaint: back pain Pertinent past history: IV drug use Onset (ago): week(s) Timing: constant Severity: severe Similar Symptoms Previously: Yes Quality: aching Location: lumbar spine Radiation: none Exacerbating factors: none Relieving factors: none Associated symptoms: denies other symptoms Related Data Previous Rx's ?Medication ?Instructions ?Recorded cefazolin 2 gram/50 mL in dextrose 50 ml IV Q8H Diskitis 32 days #117 01/27/24 (iso-osmotic) intravenous piggyback ea oxycodone 5 mg tablet 10 mg (2 x 5 mg) PO Q4H PRN Pain, 01/27/24 Moderate(Pain Scale 4-6) #30 tabs methadone 10 mg/mL oral 125 mg (12.5 mL) PO DAILY@0800 1 02/01/24 concentrate (Methadose) day #12.5 mL doxycycline hyclate 100 mg capsule 100 mg PO BID 30 days #60 caps 02/27/24 Allergies Allergy/AdvReac Type Severity Reaction Status Date / Time No Known Allergies Allergy Verified 03/22/24 06:41 [No Known Allergies*] Review of Systems Review of Systems: Yes all other systems are reviewed and are negative Constitutional: Constitutional: Reports as per [facility] Past Medical History Medical History Sepsis Staphylococcus aureus bacteremia Opioid abuse Left against medical advice IVDU (intravenous drug user) Type 2 diabetes mellitus Hiatal hernia Social History Social History Household Members: Family Housing: Apartment Do you presently have visiting nurse or other home services: No Alcohol intake: never Patient Tobacco Use Status: Current everyday Tobacco user Tobacco use type: Cigarette Cigarette Packs Per Day: 1 Cigarettes Per Day: 20.0 Smoked in Last 30 Days: Yes Use of substances other than those prescribed or required for medical reasons: No Substance Use Type: Marijuana Substance Use Frequency Other:: Methadone Advance Directives: No Advance Directives Information Provided: No Do you have a plan to hurt others: No Plan service: No Physical Exam Vital Signs: Vital Signs: Last Vital Signs Temp 98.6 F 03/22/24 16:00 Pulse 62 03/22/24 16:00 Resp 18 03/22/24 16:00 BP 99/68 03/22/24 16:00 Pulse Ox 98 03/22/24 16:12 O2 Del Method Room Air 03/22/24 16:00 BMI result Body Mass Index 26.6 Const: General: cooperative, comfortable and no acute distress Orientation/consciousness: patient oriented x3 Limitations: no limitations HEENT: Head: Yes normal to inspection, Yes normocephalic and Yes atraumatic Ears: hearing grossly normal bilaterally General nose exam: Normal external nose present Face and sinus: Yes normal facial exam Mouth: Normal oral and palatal mucosa present, oropharynx normal and moist mucous membranes Throat: Yes posterior oropharynx normal Eyes: Other: Left eye, slight defect noted in left conjunctiva at approximate 4 o clock position. General: appearance normal, both eyes and all related structures Eyelids: Yes eyelids normal Conjunctivae: conjunctivae normal Sclerae: sclerae normal Pupils: Equal, round and reactive pupils present EOM: EOMs intact bilaterally Neck: Neck: Yes normal visual inspection, Yes full ROM and Yes no lymphadenopathy Lymphatic: no lymphadenopathy noted Chest: Chest palpation & inspection: normal inspection of the chest Resp: Effort & Inspection: normal respiratory effort and able to speak in complete sentences Auscultation: clear to auscultation bilaterally, no crackles, no rales, no rhonchi and no wheezes Cardio: Rate: regular rate Rhythm: regular rhythm Heart sounds: S1 normal heart sound present and S2 normal heart sound present GI: Other: Abdomen is soft, nontender. Nondistended. Inspection: Yes normal to inspection Back/Spine/Pelvis: Other: No overlying skin changes noted to the lumbar spine. He does have tenderness palpation along the lumbar midline spine. DTRs are 2+. Strength 5/5 in lower extremities, distal sensation circulation intact. No calf tenderness. No pedal edema noted. Strong DP pulse noted bilaterally. Skin: General skin exam: no rashes or lesions noted Trauma: no lacerations or abrasions Wounds: no wounds Neuro: General: patient oriented x3 and moves all extremities Cranial nerves: Yes Equal, round and reactive pupils present Extrem: General: Yes normal to inspection Right upper extremity: normal to inspection Left upper extremity: normal to inspection Right lower extremity: normal to inspection Left lower extremity: normal to inspection Course Reevaluation(s) Reevaluation #1: Patient with elevated inflammatory markers, will treat with vancomycin and Zosyn. Time: 12:50 Reevaluation #2: CT scan showing concerning acute on chronic diskitis osteomyelitis with phlegmon/abscess in the prevertebral compartment possibly extending into the ventral central spinal canal at T11 through T12. CT of the lumbar spine still pending. Patient was unable to have an MRI performed secondary to metal in his eye previously, he states that this was removed in [facility] however there is ? Foreign body noted to the left eye, noted on the conjunctiva. Orbital x-ray was ordered to rule out foreign body to see if patient is eligible for MRI however upon discussion with my attending physician, this does not change management administrator as there is already a spinal abscess seen within the CT scan. Patient resting comfortably. Called out to [facility], spoke to Miriam, who will reach out to attending neurosurgeon to discuss possible transfer or if patient can be admitted with IV antibiotics and close monitoring through our facility. I uploaded the images to the radiology department over at [facility]. We will continue to closely monitor pending disposition. Time: 16:08 Reevaluation #3: Spoke to Neurosurgery, they would like for patient to be medically admitted to the medical service with consult to Neurosurgery. They are requesting all old images sent over to [facility]. I went to the radiology department personally, and watch them sent over the images in upload them into the [facility] Medical system. Hospital service will call for patient information in transfer. Additional Reevaluation(s): 03/22/2024 1731 - discussed case with hospitalist, they accept transfer of care, accepting physician, Dr. An. Transfer line state that it may be ?awhile? for patient to be transferred however they state that this should happened tonight. Transfer of care initiated. Medications Administered Discontinued Medications Generic Name Dose Route Start Last Admin Trade Name Freq PRN Reason Stop Dose Admin Piperacillin Sod/Tazobactam 50 mls @ 100 mls/hr 03/22/24 12:45 03/22/24 13:50 Sod 3.375 gm/ Sodium Chloride IV 03/22/24 13:14 Infused ONCE ONE Infusion Vancomycin HCl 2,000 mg in 500 mls @ 250 mls/hr 03/22/24 12:45 03/22/24 16:06 Vancomycin/Ns IV 03/22/24 14:44 Infused ONCE ONE Infusion Iohexol 100 ml 03/22/24 13:11 03/22/24 13:12 Iohexol 350 Mg/Ml 100 Ml Infus..Btl IV 03/22/24 13:12 85 ml ONCE ONE Administration Ketorolac Tromethamine 15 mg 03/22/24 10:41 03/22/24 11:14 Ketorolac Tromethamine 15 Mg/Ml Vial IVPUSH 03/22/24 10:42 15 mg ONCE ONE Administration Morphine Sulfate 4 mg 03/22/24 12:05 03/22/24 12:25 Morphine Sulfate 4 Mg/Ml Cartridge IVPUSH 03/22/24 12:06 4 mg ONCE ONE Administration Protocol Medical Decision Making Medical Decision Making [facility] Narrative: This is a 44-year-old male who presents emergency department with concerns for worsening back pain. Patient has significant past medical history of acute osteomyelitis secondary to IV drug abuse. He was admitted in January, and was treated with IV antibiotics. He was discharged to an acute rehab facility where he continue the IV antibiotics which was discontinued on March 07, 2024. 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 Patient states worsening back pain. He denies any fevers or chills. On arrival, vital signs within normal limits. He is speaking in full sentences under no acute distress. He is ambulatory with steady gait. No saddle anesthesia, no urinary or bowel retention or incontinence. Given significant osteomyelitis with phlegmon back in January with worsening back pain and not adherence to antibiotics, will repeat labs, CT, blood cultures will also medicate with pain medication. Patient can not have MRI due to metal in his eye. He states that this was removed and [place] however unclear if this was fully removed in totality as there is an obvious deficit noted in the left conjunctiva. Will obtain CT with the neck, thoracic spine, and lumbar spine. Differential Diagnosis Differential Diagnoses: The differential diagnosis associated with the presentation includes Osteomyelitis, spinal abscess, chronic back pain, sciatica Admission/Observation Consideration of admission/observation: Escalation of care including admission/observation considered Consult Healthcare Provider Management of the patient was discussed with: Hospital Coder [facility] Lab Data [facility] Lab Attestation statement: I reviewed the patient's lab results. Patient with no leukocytosis, he does have a microcytic anemia with an H&H of 9.8/31.3, chemistry revealing hyperglycemia at 58, elevated CRP at 12.6 and 83. 03/22/24 11:06 03/22/24 11:06 Labs: Lab Results 03/22/24 03/22/24 03/22/24 Range/Units 10:30 11:06 11:39 WBC 6.8 (4.8-10.8) X10*3/uL RBC 4.31 L (4.60-5.80) X10*6/uL Hgb 9.8 L (14.0-18.0) g/dl Hct 31.3 L (42.0-52.0) % MCV 72.6 L (80.0-98.0) fL MCH 22.7 L (27.0-33.0) pg MCHC 31.3 (31.0-36.0) g/dl RDW 19.3 H (11.0-16.0) % Plt Count 258 (160-400) X10*3/uL MPV 9.2 L (9.4-12.4) fL Immature Gran % (Auto) 0.3 (0.0-0.4) % Neut % (Auto) 72.6 (45-73) % Lymph % (Auto) 15.3 L (20-40) % [place] % (Auto) 8.0 (2-11) % Eos % (Auto) 3.4 (0-4) % Baso % (Auto) 0.4 (0-2) % Lymph # (Auto) 1.0 L (1.2-4.9) X10*3/uL [place] # (Auto) 0.5 (0.1-1.2) X10*3/uL Eos # (Auto) 0.2 (0.0-0.4) X10*3/uL Baso # (Auto) 0.0 (0.0-0.2) X10*3/uL Abs Immat Gran (auto) 0.02 (0.00-0.03) X10*3/uL Absolute Neuts (auto) 4.9 (2.0-8.3) x10*3/uL Absolute Nucleated RBC 0.000 (0.0-0.012) X10*3/uL Nucleated RBC % (auto) 0.0 (0.0-0.2) /100WBC ESR 83 H (0-15) MM/HR Sodium 136 (135-145) mmol/L Potassium 4.8 (3.3-5.1) mmol/L Chloride 100 (96-108) mmol/L Carbon Dioxide 26 (22-29) mmol/L Anion Gap 15 (12-20) BUN 18 H (9-16) mg/dL Creatinine 0.73 (0.5-1.4) mg/dL Estim Creat Clear Calc 140.3 Estimated GFR > 60 POC Glucose (60-115) mg/dL Random Glucose 58 L* (60-115) mg/dL Lactic Acid 0.8 (0.5-2.0) mmol/L Calcium 9.7 D (8.4-10.2) mg/dL Magnesium 2.3 (1.6-2.6) mg/dL Total Bilirubin 0.3 (0.0-1.0) mg/dL Direct Bilirubin 0.2 (0.0-0.5) mg/dL AST 41 H (5-37) U/L ALT 11 (0-40) U/L Alkaline Phosphatase 81 (39-117) U/L C-Reactive Protein 12.62 H (< or = 0.50) mg/dL Total Protein 9.2 H (6.5-8.0) g/dL Albumin 4.0 (3.5-5.0) g/dL Lipase 7 L (8-78) U/L Urine Color Yellow Urine Appearance Cloudy Urine pH 6.0 (5.0-9.0) Ur Specific [place] >= 1.030 H (1.005-1.025) Urine Protein Trace (Neg-Trace) mg/dL Urine Glucose (UA) Negative (Negative) mg/dL Urine Ketones Trace (Negative) mg/dL Urine Blood Trace H (Negative) Urine Nitrite Negative (Negative) Ur Leukocyte Esterase Moderate (2+) H (Negative) Urine RBC 3-5 H (0-2) /HPF Urine WBC >50 H (0-5) /HPF Ur Squamous Epith Cells 0-2 (0-2) /HPF Urine Bacteria None Seen (None Seen) Hyaline Casts 3-5 (0-2) /LPF Urine Opiates Screen POSITIVE H (Not Detect) Ur Buprenorphine Scrn Not Detected (Not Detect) ng/mL Ur Oxycodone Screen Not Detected (Not Detect) ng/mL Urine Methadone Screen Positive H (Not Detect) ng/mL Urine Fentanyl Screen POSITIVE H (Not Detect) Ur Barbiturates Screen Not Detected (Not Detect) Ur Phencyclidine Scrn Not Detected (Not Detect) Ur Amphetamines Screen Not Detected (Not Detect) U Benzodiazepines Scrn Not Detected (Not Detect) Urine Cocaine Screen POSITIVE H (Not Detect) U Marijuana (THC) Screen Not Detected (Not Detect) 03/22/24 03/22/24 Range/Units 12:07 14:39 WBC (4.8-10.8) X10*3/uL RBC (4.60-5.80) X10*6/uL Hgb (14.0-18.0) g/dl Hct (42.0-52.0) % MCV (80.0-98.0) fL MCH (27.0-33.0) pg MCHC (31.0-36.0) g/dl RDW (11.0-16.0) % Plt Count (160-400) X10*3/uL MPV (9.4-12.4) fL Immature Gran % (Auto) (0.0-0.4) % Neut % (Auto) (45-73) % Lymph % (Auto) (20-40) % [place] % (Auto) (2-11) % Eos % (Auto) (0-4) % Baso % (Auto) (0-2) % Lymph # (Auto) (1.2-4.9) X10*3/uL [place] # (Auto) (0.1-1.2) X10*3/uL Eos # (Auto) (0.0-0.4) X10*3/uL Baso # (Auto) (0.0-0.2) X10*3/uL Abs Immat Gran (auto) (0.00-0.03) X10*3/uL Absolute Neuts (auto) (2.0-8.3) x10*3/uL Absolute Nucleated RBC (0.0-0.012) X10*3/uL Nucleated RBC % (auto) (0.0-0.2) /100WBC ESR (0-15) MM/HR Sodium (135-145) mmol/L Potassium (3.3-5.1) mmol/L Chloride (96-108) mmol/L Carbon Dioxide (22-29) mmol/L Anion Gap (12-20) BUN (9-16) mg/dL Creatinine (0.5-1.4) mg/dL Estim Creat Clear Calc Estimated GFR POC Glucose 79 83 (60-115) mg/dL Random Glucose (60-115) mg/dL Lactic Acid (0.5-2.0) mmol/L Calcium (8.4-10.2) mg/dL Magnesium (1.6-2.6) mg/dL Total Bilirubin (0.0-1.0) mg/dL Direct Bilirubin (0.0-0.5) mg/dL AST (5-37) U/L ALT (0-40) U/L Alkaline Phosphatase (39-117) U/L C-Reactive Protein (< or = 0.50) mg/dL Total Protein (6.5-8.0) g/dL Albumin (3.5-5.0) g/dL Lipase (8-78) U/L Urine Color Urine Appearance Urine pH (5.0-9.0) Ur Specific [place] (1.005-1.025) Urine Protein (Neg-Trace) mg/dL Urine Glucose (UA) (Negative) mg/dL Urine Ketones (Negative) mg/dL Urine Blood (Negative) Urine Nitrite (Negative) Ur Leukocyte Esterase (Negative) Urine RBC (0-2) /HPF Urine WBC (0-5) /HPF Ur Squamous Epith Cells (0-2) /HPF Urine Bacteria (None Seen) Hyaline Casts (0-2) /LPF Urine Opiates Screen (Not Detect) Ur Buprenorphine Scrn (Not Detect) ng/mL Ur Oxycodone Screen (Not Detect) ng/mL Urine Methadone Screen (Not Detect) ng/mL Urine Fentanyl Screen (Not Detect) Ur Barbiturates Screen (Not Detect) Ur Phencyclidine Scrn (Not Detect) Ur Amphetamines Screen (Not Detect) U Benzodiazepines Scrn (Not Detect) Urine Cocaine Screen (Not Detect) U Marijuana (THC) Screen (Not Detect) Radiology Impression Discussion of test interpretation with radiology: I have reviewed the radiologist's reading. Radiologist Impression: Report Number: [id number]: Total DLP = 560.00 mGy-cm EXAMINATION: CT CERVICAL SPINE WITH CONTRAST CLINICAL INFORMATION: IV drug abuser. Concerning osteomyelitis. COMPARISON: None available. TECHNIQUE: Contiguous axial images through the cervical spine using 3 mm collimation following the IV contrast administration. Sagittal and coronal reformatted images acquired. Total of 85 cc Omnipaque 350 strength given without reported immediate complications. This CT examination was performed using dose optimization techniques as appropriate, variously including the following: *Automated exposure control *Adjustment of mA and/or kV according to patient size (this includes techniques or standardized protocols for targeted exams where dose is matched to indication/reason for exam; i.e. extremities or head) *Use of iterative reconstruction technique. DLP: 490 mGy centimeter. FINDINGS: Limited examination due to patient's motion artifact. No osteolysis. No lytic or blastic lesions. There is no enhancing fluid collections in the prevertebral compartment of the cervical spine segment. Spondylosis at C4-5 C5-6 and C6-7 levels. No gross acute fracture or listhesis. CT/CT cervical spine w IV con IMPRESSION: Inadequate evaluation to exclude osteomyelitis. No gross discitis osteomyelitis based upon CT. If clinical concern recommend dedicated IV contrast enhanced MRI cervical spine. Fleischner guidelines were followed. Electronically signed by: Ashok Gaspar MD 03/22/2024 01:46 PM [facility] Dictated By: Ashok Hall MD Report Number: [id number]: Total DLP = 499.00 mGy-cm EXAMINATION: CT THORACIC SPINE CLINICAL INFORMATION: IV drug abuser. Concerning osteomyelitis. COMPARISON: CT dated January 29, 2024. TECHNIQUE: Contiguous axial images through the thoracic spine using 2 mm collimation following the IV contrast administration 85 cc Omnipaque 350 strength without reported immediate complications. Soft tissue and bone algorithm obtained. Sagittal and coronal reformatted images acquired. This CT examination was performed using dose optimization techniques as appropriate, variously including the following: *Automated exposure control *Adjustment of mA and/or kV according to patient size (this includes techniques or standardized protocols for targeted exams where dose is matched to indication/reason for exam; i.e. extremities or head) *Use of iterative reconstruction technique DLP: 499 mGy centimeter. FINDINGS: Limited by patient's motion artifact. There is endplate sclerosis and irregularity, increased intervertebral disc space and kyphotic deformity with volume loss of the vertebral bodies at T11 and T12 with a prevertebral compartment and enhancing abnormality in the circumferential fashion extending anterior lateral and to likely the ventral central spinal canal no fully evaluated. There is a hiatal hernia, moderate to large volume. Atelectasis lung bases. Bilateral small pleural effusions. CT/CT thoracic spine w IV con IMPRESSION: Concerning acute on chronic discitis osteomyelitis with phlegmon/abscess in the prevertebral compartment possibly extending into the ventral central spinal canal at T11-12. Recommend IV contrast enhanced MRI lumbar spine. Fleischner guidelines were followed. Electronically signed by: Ashok Gaspar MD 03/22/2024 01:51 PM EST RP Dictated By: Ashok Hall MD Report Number: [id number]: Total DLP = 506.00 mGy-cm EXAMINATION: CT LUMBAR SPINE CLINICAL INFORMATION: IV drug abuse.. History of osteomyelitis. COMPARISON: CT dated January 23, 2024. TECHNIQUE: Contiguous axial images through the lumbar spine using 2 mm collimation with bone and soft tissue algorithm following the IV contrast administration 85 cc Omnipaque 350 strength without reported immediate complications. This CT examination was performed using dose optimization techniques as appropriate, variously including the following: *Automated exposure control *Adjustment of mA and/or kV according to patient size (this includes techniques or standardized protocols for targeted exams where dose is matched to indication/reason for exam; i.e. extremities or head) *Use of iterative reconstruction technique 506 mGy centimeters FINDINGS: There is a soft tissue enhancing attenuation abnormality in a circumferential fashion centered in the prevertebral compartment of T12 no fully evaluated on the lumbar spine. No acute or cortical disruption in the vertebral bodies of the lumbar spine. No gross malalignment. No osteolysis. CT/CT lumbar spine w IV con IMPRESSION: Phlegmon/abscess, prevertebral compartment to T12. Please refer to the CT thoracic spine report. Electronically signed by: Ashok Gaspar MD 03/22/2024 02:29 PM EST RP Dictated By: Ashok Hall MD Critical Care Time Critical Care Time Critical Care Time: Yes Total Critical Care Time: 45 Attestation: I have personally provided critical care time exclusive of time spent on separately billable procedures. Time includes review of lab data, radiology results, discussion with consultants, and monitoring for potential decompensation. Intervention performed as documented. Discharge Plan Discharge Clinical Impression: Acute osteomyelitis of spine, Spinal abscess Patient Disposition: Xfer Acute Care Hospital Transfer Details: Dr. Juve stroud, Medical Service consult with Neurosurgery. Prescriptions: No Action cefazolin in dextrose (iso-os) 2 gram/50 mL Piggyback 50 ml IV Q8H 32 Days Qty: 117 0RF Rx Instructions: Kefzol 2 gram q8 hours, for 39 more days, ending March 06, 2024 oxycodone 5 mg Tablet 10 mg PO Q4H PRN (Reason: Pain, Moderate(Pain Scale 4-6)) Qty: 30 0RF Rx Instructions: Partial Fill upon patient request. methadone [Methadose] 10 mg/mL Concentrate 125 mg PO DAILY@0800 1 Days Qty: 12.5 0RF Rx Instructions: Partial Fill upon patient request. doxycycline hyclate 100 mg capsule 100 mg PO BID 30 Days Qty: 60 1RF Print Language: Bulgarian
[2024-03-22 10:46] LABS: Appearance Urine Cloudy; Color Urine Yellow; Glucose Urine UA Negative (Negative); Leukocyte Esterase Urine Moderate (2+) (Negative); Nitrite Urine Negative (Negative); Specific Gravity - Urine >= 1.030 (1.005-1.025); UMIC TRIGGER UACC YES; Urine Blood Trace (Negative); Urine Ketones Trace mg/dL (Negative); Urine Protein Trace mg/dL (Neg-Trace)
[2024-03-22 10:48] LABS: Bacteria Urine None Seen (None Seen); Squamous Epithelial Cell Urine 0-2 /HPF (0-2); UACC Culture Trigger YES; WBC Urine >50 /HPF (0-5)
--- OUTSIDE RECORDS SUMMARY | 2024-03-22 10:49 | XMS_ITS ---
Author Organization [facility] Address Unknown Medications Medication Dose Frequency Directions Start Date End Chavez e Naloxone HCl Liquid 4 MG/0.1ML 1 1 application in nostril as needed for Opioid Induced Respiratory Depression If resp. rate less than 6 per min and opioid depression suspected, reverse w/NarcanAdminister 4mg/0.1ml Naloxone/Narcan intranasally in 1 nostrilWait 3 minutes. If no response or slow to respond, repeat 4mg/0.1ml in other nostrilCall 911 02/01/2024 03/07/2024 Methadose Oral Concentrate 10 MG/ML 125 mL Give 125 ml by mout h in the morning for Preventative Maintenance 02/02/2024 03/07/2024 Acetaminophen Tablet 325 MG 2 {tbl} Give 2 tablet by shaunna th every 6 hours as needed for Pain - give 650mg total dose -NOT TO EXCEED 3 GMS APAP / 24 HOURS 02/01/2024 03/07/2024 Acetaminophen Tablet 325 MG 2 {tbl} Give 2 tablet by shaunna th every 6 hours as needed for Elevated Temperature - give 650mg total dose -NOT TO EXCEED 3 GMS APAP / 24 HOURS 02/01/2024 03/07/2024 ceFAZolin Sodium Intravenous Solution Reconstituted 2 8 h Use 2 gram intravenously every 8 hours for Discitis and Osteomyelitis until 03/06/2024 13:59 02/02/2024 03/05/2024 Sodium Chloride Flush Intravenous Solution 0.9 % 10 mL 8 h Use 10 ml intravenously three times a day for IV [employer] 02/03/2024 03/07/2024 Sodium Chloride Flush Intravenous Solution 0.9 % 10 mL 12 h Use 10 ml intravenously two times a day for IV [employer] BEFORE AND AFTER IV ADMNISTRATION 02/03/2024 03/07/2024 oxyCODONE HCl Oral Tablet 10 MG 1 {tbl} Give 1 tablet by shaunna th every 6 hours as needed for Back pain 02/09/2024 02/25/2024 Vancomycin HCl Intravenous Solution 1.25 12 h Use 1.25 gram intravenously two times a day related to OSTEOMYELITIS OF [place], THORACIC REGION (M46.24) until 02/21/2024 14:59 02/16/2024 02/21/2024 Ferrous Gluconate Oral Tablet 324 mg 48 h Give 324 mg by mouth every 48 hours for Preventative Maintenance 02/27/2024 03/07/2024 Vitamin C Oral Tablet 500 MG 500 mg 24 h Give 500 mg by mouth one time a day for Preventative Maintenance 02/26/2024 03/07/2024 Senna Oral Tablet 8.6 mg 12 h Give 8.6 m g by mouth two times a day for Constipation 02/26/2024 03/07/2024 MiraLax Oral Packet 17 GM 17 Give 17 gram by mout h as needed for Constipation daily 02/25/2024 03/07/2024 Roxicodone Oral Tablet 5 MG 5 mg Give 5 mg by mouth every 6 hours as needed for Pain 02/25/2024 03/07/2024 ceFAZolin Sodium Intravenous Solution Reconstituted 2 8 h Use 2 gram intravenously every 8 hours for Discitis and Osteomyelitis until 03/19/2024 13:59 03/06/2024 03/07/2024 Medications Administered Medication Dose Frequency Status Start Date End Date Naloxone HCl Liquid 4 MG/0.1ML 1 02/01/2024 Methadose Oral Concentrate 10 MG/ML 125 mL 03/07/2024 Acetaminophen Tablet 325 MG 2 {tbl} 02/01/2024 Acetaminophen Tablet 325 MG 2 {tbl} 02/01/2024 ceFAZolin Sodium Intravenous Solution Reconstituted 2 8 h 03/05/2024 Sodium Chloride Flush Intravenous Solution 0.9 % 10 mL 8 h 03/07/2024 Sodium Chloride Flush Intravenous Solution 0.9 % 10 mL 12 h 03/07/2024 oxyCODONE HCl Oral Tablet 10 MG 1 {tbl} 02/20/2024 Vancomycin HCl Intravenous Solution 1.25 12 h Absent from facility 02/21/2024 Ferrous Gluconate Oral Tablet 324 mg 48 h 03/06/2024 Vitamin C Oral Tablet 500 MG 500 mg 24 h 03/07/2024 Senna Oral Tablet 8.6 mg 12 h 03/07/2024 MiraLax Oral Packet 17 GM 17 02/07 Roxicodone Oral Tablet 5 MG 5 mg 03/07/2024 ceFAZolin Sodium Intravenous Solution Reconstituted 2 8 h 03/07/2024 Problems Problem Status Start Date End Date OSTEOMYELITIS OF [place], T HORACIC REGION (Primary) (M46.24 - ICD-10-CM) ACTIVE 02/01/2024 DISCITIS, UNSPECIFIED, THORA CIC REGION (M46.44 - ICD-10-CM) ACTIVE 02/01/2024 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, RECURRENT (A04.71 - ICD-10-CM) ACTIVE 02/01/2024 SEPSIS DUE TO METHICILLIN BUNCH SCEPTIBLE STAPHYLOCOCCUS AUREUS (A41.01 - ICD-10-CM) ACTIVE 02/01/2024 TYPE 2 DIABETES MELLITUS WIT HOUT COMPLICATIONS (E11.9 - ICD-10-CM) ACTIVE 02/01/2024 WEAKNESS (R53.1 - ICD-10-CM) ACTIVE 02/01/2024 DIFFICULTY IN WALKING, NOT E LSEWHERE CLASSIFIED (R26.2 - ICD-10-CM) ACTIVE 02/01/2024 OTHER PSYCHOACTIVE SUBSTANCE ABUSE, UNCOMPLICATED (F19.10 - ICD-10-CM) ACTIVE 02/01/2024 INFLUENZA DUE TO UNIDENTIFIE D INFLUENZA VIRUS WITH OTHER RESPIRATORY MANIFESTATIONS (J11.1 - ICD-10-CM) ACTIVE 02/01/2024 PAIN, UNSPECIFIED (R52 - ICD-10-CM) ACTIVE 01/31 OTHER SPECIFIED COUNSELING (Z71.89 - ICD-10-CM) ACTIVE 02/01/2024 BACTEREMIA (R78.81 - ICD-10-CM) ACTIVE ANXIETY DISORDER DUE TO KNOW N PHYSIOLOGICAL CONDITION (F06.4 - ICD-10-CM) ACTIVE 02/13/2024 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 - ICD-10-CM) ACTIVE 02/13/2024 CELLULITIS OF CHEST WALL (L03.313 - ICD-10-CM) ACTIVE 02/01/2024 Encounters Encounter Performer Performer Role Encounter Diagnoses Location Date Leave - Discharged / [facility] 4 02:28 pm EST - 5 09:50 pm EST Leave - Discharged / Transferred to another hospital - [facility] - Acute care [facility] 05:40 am EST - 06:00 pm EST Discharge - Left against medical advice, or discontinued care - Other [facility] 04:35 pm EST - 01:48 pm EST Social History Vital Signs Vital Sign Reading Time Taken painLevel 0 {score} 03/07/2024 05:15 pm EST painLevel 0 {score} 03/07/2024 07:39 am EST painLevel 6 {score} 03/07/2024 06:30 am EST painLevel 0 {score} 03/07/2024 01:23 am EST painLevel 0 {score} 03/06/2024 11:42 pm EST painLevel 0 {score} 03/06/2024 11:41 pm EST painLevel 5 {score} 03/06/2024 04:50 pm EST painLevel 0 {score} 03/06/2024 02:22 pm EST painLevel 0 {score} 03/06/2024 11:04 am EST painLevel 0 {score} 03/06/2024 02:09 am EST painLevel 0 {score} 03/06/2024 02:09 am EST painLevel 7 {score} 03/06/2024 12:55 am EST painLevel 0 {score} 03/05/2024 10:18 pm EST painLevel 0 {score} 03/05/2024 05:18 pm EST painLevel 5 {score} 03/05/2024 05:12 pm EST painLevel 0 {score} 03/05/2024 02:46 pm EST painLevel 0 {score} 03/05/2024 02:44 pm EST painLevel 0 {score} 03/05/2024 06:41 am EST painLevel 6 {score} 03/05/2024 05:18 am EST painLevel 0 {score} 03/05/2024 02:27 am EST painLevel 0 {score} 03/04/2024 09:42 pm EST painLevel 0 {score} 03/04/2024 10:38 am EST painLevel 0 {score} 03/04/2024 10:37 am EST painLevel 7 {score} 03/04/2024 08:31 am EST painLevel 0 {score} 03/04/2024 02:04 am EST painLevel 0 {score} 03/04/2024 02:04 am EST painLevel 5 {score} 03/03/2024 10:05 pm EST painLevel 6 {score} 03/03/2024 07:00 pm EST oxygenSaturation 98 % 03/02/2024 12:3 0 am EST heartrate 75 /min 03/02/2024 12:30 am EST temperature 97.8 [degF] 03/02/2024 12:30 am EST systolicValue 108 mm[Hg] 03/02/2024 12:30 am EST diastolicValue 66 mm[Hg] 03/02/2024 12:30 am EST respirations 18 /min 03/02/2024 12:30 am EST
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
--- OUTSIDE RECORDS SUMMARY | 2024-03-22 10:49 | XMS_ITS | Encounter Summary ---
Author Organization [employer] Address [address] [place] [address] Care Team Providers Care Professor Of Special Education Name Role Phone Bruna Preston MD Primary Care Provider [phone] Encounter Details Date Type Department Care Team (Latest Contact Info) Description 03/21/2024 Travel Social History Tobacco Use Types Packs/Day Years [...] your housing situation today? I have sera ibanez 12/09/[address] you li [...] Orientation Straight 12/17/2022 12 :41 PM EST documented as of this encounter Plan of Treatment Upcoming Encounters Date Type Department Care Team (Late st Contact Info) Description 05/09/2024 2:00 PM EDT Office Visit [facility] [address] [place] [address] Bruna Preston MD [address] [place] [address] documented as of this encounter Visit Diagnoses Not on filedocumented in this encounter Additional Health Concerns Assessment Noted Time PHQ-9 Depression Total Score: 0 12/09/19 24 8:57 AM EDT documented as of this encounter Care Teams Professor Of Special Education Relationship Specialty Start Date End Date Bruna Preston MD [address] [place] [address] PCP - General Family Medicine 03/08/24 documented as of this encounter
--- OUTSIDE RECORDS SUMMARY | 2024-03-22 10:49 | XMS_ITS | Encounter Summary ---
Author Organization [employer] Address [address] [place] [address] Care Team Providers Care Forestry Pilot Name Role Phone Carla Narvaez NP Primary Care Provider [phone] Reason for Visit * Reason Comments Care Coordination CM/CHW outreach Encounter Details Date Type Department Care Team (Latest Contact Info) Description 02/23/2024 Patient Outreach [facility] [address] [place] [address] Carla Narvaez NP [address] [place] [address] Care Coordination (CM/CHW outreach) Social History Tobacco Use Types Packs/Day Years Used Date Smoking Tobacco: Former Cigarettes 0.5 25.1 S tarted: 2000 Smokeless Tobacco: Never Alcohol Use Standard Drinks/Week [...] PM EST documented as of this encounter Progress Notes * Blanquita Gonzáles - 02/23/2024 9:42 AM EST CHW Blanquita Gonzáles, placed outbound call to patient in regards to offer Adult Complex Care Program and SDOH services. No answer at this time. CHW LVM introducing herself from [facility] with CHW's name, department and direct contact number requesting call back. Will re-attempt to contact within 5 days. and address not confirmed. documented in this encounter Plan of Treatment Upcoming Encounters Date Type Department Care Team (Late st Contact Info) Description 05/09/2024 2:00 PM EDT Office Visit [facility] [address] [place] [address] Bruna Preston MD [address] [place] [address] documented as of this encounter Visit Diagnoses Not on filedocumented in this encounter Additional Health Concerns Assessment Noted Time PHQ-9 Depression Total Score: 0 12/09/19 24 8:57 AM EDT documented as of this encounter Care Teams Forestry Pilot Relationship Specialty Start Date End Date Carla Narvaez NP [address] [place] [address] PCP - General Family Medicine 12/16/23 03/07/24 documented as of this encounter
--- OUTSIDE RECORDS SUMMARY | 2024-03-22 10:49 | XMS_ITS | Encounter Summary ---
Author Organization [employer] Address [address] [facility] 7t [place] [address] Care Team Providers Care Tree Feller Name Role Phone Carla Narvaez NP Primary Care Provider [phone] Bruna Preston MD Primary Care Provider [phone] Reason for Visit * Reason Onset Date Comments new patient visit 12/01/2023 Encounter Details Date Type Department Care Team ([facility] Contact Info) Description 12/01/2023 Telephone [facility] [address] [place] [address] Doni Pearl MD [address] [place] [phone] new patient visit Social History Tobacco Use Types Packs/Day Years Used Date Smoking Tobacco: Never Assessed Sex and Gender Information Value Date Recorded Sex Assigned at Male 12/17/2022 12:41 PM EST Legal Sex Male 12:21 PM EST Gender Identity Male 12/17/2022 12:41 PM EST Sexual Orientation Straight 12/17/2022 12 :41 PM EST documented as of this encounter Miscellaneous Notes * Telephone Encounter - Manuel Levy - 12/01/2023 2:04 PM EDT TC placed to patient for scheduling of new patient visit. Agreed to 12/[address] Carballo Pt will want to transfer to another pcp in [place] Medical Conditions: Diabetes Hernia Currently has a blood infection ( er notes in chart ) Pt needing referrals to rehabs Apptmnt reminder and release form sent via mail . documented in this encounter Plan of Treatment Upcoming Encounters Date Type Department Care Team ([facility] st Contact Info) Description 05/09/2024 2:00 PM EDT Office Visit [facility] [address] [place] [address] Bruna Preston MD [address] [place] [address] documented as of this encounter Visit Diagnoses Not on filedocumented in this encounter Care Teams Tree Feller Relationship Specialty Start Date End Date Carla Narvaez NP [address] [place], [place] [phone] PCP - General Family Medicine 12/16/23 03/07/24 Bruna Preston MD [address] [place] [address] PCP - General Family Medicine 03/08/24 documented as of this encounter
--- OUTSIDE RECORDS SUMMARY | 2024-03-22 10:49 | XMS_ITS | Encounter Summary ---
Author Organization [employer] Address [address] [facility] [address] 7[address] [place] [address] Care Team Providers Care Building Operator Name Role Phone Bruna Preston MD Primary Care Provider [phone] Reason for Visit * Reason Onset Date Comments Hospital Follow-up 03/21/2024 Encounter Details Date Type Department Care Team ([facility] st Contact Info) Description 03/21/2024 Telephone [facility] [address] [place], [place] [phone] Bruna Preston MD [address] [place] [address] Hospital Follow-up Social History Tobacco Use Types Packs/Day Years [...] encounter Miscellaneous Notes * Telephone Encounter - German Guillen RN - 03/21/2024 10:58 AM EST Patient walked in requesting to speak to trade show manager re: appt. Patient reports that he is having a lot of back pain as he left [facility] AMA on 03/07/24. Patient was on doxycycline he states and hasnot had it since he left the rehab but was told he needed to be on it for life. Per infectious disease note on 03/08/24 patient needs to continue doxycycline. Attempted to contact [facility] [place] to see if they were going to be continuing the Rx as per note states Plan Finish Daptomycin on 03/19. Start Doxycycline after. See us in one month. Unable to reach them received voicemail x 2. Patient booked for HDF appt as he was in patient rehab until 03/07/24 for today at 11:[address] [facility]. Had patient sign release to get documents from [facility]. documented in this encounter Plan of Treatment Upcoming Encounters Date Type Department Care Team (Late st Contact Info) Description 05/09/2024 2:00 PM EDT Office Visit [facility] [address] [place] [address] Bruna Preston MD [address] [place] [address] documented as of this encounter Visit Diagnoses Not on filedocumented in this encounter Additional Health Concerns Assessment Noted Time PHQ-9 Depression Total Score: 0 12/09/19 24 8:57 AM EDT documented as of this encounter Care Teams Building Operator Relationship Specialty Start Date End Date Bruna Preston MD [address] [place] [address] PCP - General Family Medicine 03/08/24 documented as of this encounter
--- OUTSIDE RECORDS SUMMARY | 2024-03-22 10:49 | XMS_ITS | Encounter Summary ---
Author Organization [employer] Address [address] [facility] 7t [place] [address] Care Team Providers Care Free Lance Model Name Role Phone Bruna Preston MD Primary Care Provider [phone] Reason for Referral * Imaging (STAT) - Authorized Specialty Diagnoses / Procedures Referred By Contleana t Referred To Contact Radiology Diagnoses Other osteomyelitis, multiple sites (CMS/HCC) Procedures CT Thoracic Spine w/ Contrast Rosaura James FNP [address] [place] [address] Phone: tel: fax: [address] Phone: tel: fax: Referral ID Status Reason Start Date Expiration Date V isits Requested Visits Authorized [id number] Authorized 03/21/2024 03/21/2025 1 1 Reason for Visit * Reason Comments Hospital follow up Encounter Details Date Type Department Care Team (Late st Contact Info) Description 03/21/2024 11:30 AM EST Office Visit [facility] [address] [place], [place] [phone] Rosaura James FNP [address] [place], [place] [phone] Other osteomyelitis, multiple sites (CMS/HCC) (Primary Dx); Type 2 diabetes mellitus without complication, without long-term current use of insulin ([facility]); Substance use disorder Social History Tobacco Use Types Packs/Day Years [...] PM EST documented as of this encounter Last Filed Vital Signs Vital Sign Reading [...] Mass Index 28.2 03/21/2024 11:05 AM EST documented in this encounter Progress Notes * [facility], ENERGY CONTROL OFFICER - 03/21/2024 11:30 AM EST SUBJECTIVE: Saul Caro is a 44 y.o. year old male who presents for HDF . Denies recent illness, injury, or hospitalization. HPI -Patient with polysubstance use disorder and IVDU, with history of MSSA bacteremia and sepsis. - In November [address] thoracic spine which showed discitis/osteomyelitis [facility] neurosurgery was consulted with no surgical intervention advised. Patient was treated with IV antibiotics but left AMA before completing full course. Patient returned to [facility] ED on 01/23/2024 with worsening back pain. Repeat CT scan showed advanced disc Guiatuss and osteomyelitis at T8 11-T12; unchanged from prior imaging. 6 week course of vancomycin, Kefzol advised per ID. PICC line placed 01/27/2024 . Echocardiogram was negative for vegetations. Hospital stay complicated by C. difficile infection tx'd w/ vancomycin and influenza tx'd w/ Tamiflu. Patient was discharged on 01/31 to complete tx at short-term rehab in [place]. -He had initial visit with Dr. Jeniffer MARIN on 02/27/2024. Plan to complete daptomycin on 03/19 and continue on doxycycline. -Today patient reports he left rehab AMA on 03/07/1929 due to dissatisfaction with care. He reports worsening back pain since this time. Has had 2 episodes of chills/subjective fever however he attributes this to missing his methadone doses -Records from rehab are not available at time of visit Social History Social History Narrative Not on file Patient Active Problem List Diagnosis Encounter for medical examination to establish care Bacteremia Tobacco dependence Past Surgical History: Procedure Laterality Date HIATAL HERNIA REPAIR 2015 Family History Problem Relation Name Age of Onset Asthma Mother No Known Problems Father Colon cancer Maternal Grandfather Prostate cancer Maternal Grandfather Review of Systems Constitutional: Negative for activity change, diaphoresis, fatigue, fever and unexpected weight change. Eyes: Negative for visual disturbance. Respiratory: Negative for apnea, cough, chest tightness and shortness of breath. Cardiovascular: Negative for chest pain, palpitations and leg swelling. Gastrointestinal: Negative for abdominal pain and nausea. Musculoskeletal: Positive for back pain. Neurological: Negative for dizziness, syncope, light-headedness and headaches. OBJECTIVE: Vitals: 03/21/24 1105 BP: 130/80 Pulse: 80 Resp: 20 Temp: 97.3 ??F (36.3 ??C) SpO2: 98% Physical Exam Constitutional: Appearance: Normal appearance. HENT: Head: Normocephalic. Right Ear: External ear normal. Left Ear: External ear normal. Nose: Nose normal. Eyes: Conjunctiva/sclera: Conjunctivae normal. Cardiovascular: Rate and Rhythm: Normal rate and regular rhythm. Heart sounds: Normal heart sounds. Pulmonary: Effort: Pulmonary effort is normal. Breath sounds: Normal breath sounds. Musculoskeletal: Right lower leg: No edema. Left lower leg: No edema. Skin: General: Skin is warm and dry. Capillary Refill: Capillary refill takes less than 2 seconds. Neurological: General: No focal deficit present. Mental Status: He is alert and oriented to person, place, and time. Psychiatric: Mood and Affect: Mood normal. Behavior: Behavior normal. ASSESSMENT/PLAN 1. Other osteomyelitis, multiple sites ([facility]) (Primary) -Patient left rehab before completing full course of daptomycin. He completed 5 weeks and 5 days ofhis 6-week Vanco, kefzol course -Given worsening pain, subjective chills in setting of incomplete treatment for osteomyelitis patient was advised to return to emergency department for further evaluation and pain management. Patientdeclines. He was advised of risks of untreated/incomplete treatment of osteomyelitis including worsening of condition, widespread infection, . - Will order stat thoracic spine CT to check stability of lesions - Will check baseline labs and inflammatory markers - Patient agrees to emergency department eval pending CT scan and lab results if advised - He has follow-up appointment scheduled with infectious disease in 2 weeks. ADDENDUM: Consulted with Dr. Swift who was able to review CT images from 01/2024 at which time lesions appeared stable. Advised to start doxycycline with close ID and PCP follow-up. Patient was unable to be scheduled for CT scan today due to insurance issues. I called patient and reviewed plan. Patient agrees to start doxycycline. Strict ED cautions were advised. - Sed Rate by Modified Westergren; Future - C-reactive Protein; Future - CBC auto differential; Future - Comprehensive Metabolic Panel; Future - Sed Rate by Modified Westergren - C-reactive Protein - CBC auto differential - Comprehensive Metabolic Panel - CT Thoracic Spine w/ Contrast; Future - CT Thoracic Spine w/ Contrast - doxycycline (Vibra-Tabs) 100 MG tablet; Take 1 tablet (100 mg) by mouth 2 times daily. Take with a full glass of water and do not lie down for at least 30 minutes after. Dispense: 60 tablet; Refill: 1 2. Type 2 diabetes mellitus without complication, without long-term current use of insulin ([facility]) Patient reports history of diabetes previously on metformin monotherapy. Per chart review patient does not seem to have been taking metformin for several years. His A1c in office today was 5.3, POC glucose 81. Will hold off on starting any antiglycemic medications at this time 3. Substance use disorder - On methadone - Same day CRS support services offered to patient which he declines. -Will send Narcan Rx to pharmacy Follow Up: Patient is aware of upcoming appointments with infectious disease. Has transfer of care appointment scheduled with Dr. Preston in May. Current Outpatient Medications on File Prior to Visit Medication Sig Dispense Refill levETIRAcetam (Keppra) 500 MG tablet TAKE 1 TABET ORALLY EVERY 12 HOURS FOR 1 MONTH oxyCODONE (Roxicodone) 5 MG immediate release tablet Take 5 mg by mouth every 6 (six) hours if needed. Ventolin HFA 108 (90 Base) MCG/ACT inhaler INHALE 1 PUFF BY MOUTH 4 TIMES A DAY NEEDED FOR WHEEZE/SHORTNESS OF BREATH No current facility-administered medications on file prior to visit. documented in this encounter Plan of Treatment Upcoming Encounters Date Type Department Care Team (Late st Contact Info) Description 05/09/2024 2:00 PM EDT Office Visit [facility] [address] [place] [address] Bruna Preston MD [address] [place] [address] Scheduled Orders Name Type Priority Associated Diagnoses Orde r Schedule Sed Rate by Modified Westergren Lab Routine Other osteomyelitis, multiple sites ([facility]) Expected: 03/21/2024, Expires: 03/21/2025 C-reactive Protein Lab Routine Other osteomyelitis, multiple sites ([facility]) Expected: 03/21/2024 (Approximate), Expires: 03/21/2025 CBC auto differential Lab Routine Other osteomyelitis, multiple sites ([facility]) Expected: 03/21/2024 (Approximate), Expires: 03/21/2025 Comprehensive Metabolic Panel Lab Routine Other osteomyelitis, multiple sites ([facility]) Expected: 03/21/2024 (Approximate), Expires: 03/21/2025 CT Thoracic Spine w/ Contrast Imaging STAT Other osteomyelitis, multiple sites ([facility]) Expected: 03/21/2024, Expires: 03/21/2025 documented as of this encounter Procedures Procedure Name Priority Date/Time Associated Diagnosis Comments POCT GLYCATED HEMOGLOBIN, TOTAL Routine 03/21/2024 4:41 PM EST Type 2 diabetes mellitus without complication, without long-term current use of insulin [place] POCT GLUCOSE Routine 03/21/2024 4:41 PM EST Type 2 diabetes mellitus without complication, without long-term current use of insulin [place] documented in this encounter Results * POCT Glucose (03/21/2024 4:41 PM EST) Glucose Blood, POC 81 60 - 200 mg/dL Blood Capillary blood specimen / Unknown 03/21/2024 4:41 PM EST [facility] POINT OF CARE TEST ENTER/EDIT ORDERABLES Final Result * POCT HGB A1C (03/21/2024 4:41 PM EST) Hemoglobin A1C 5.3 4.0 - 6.0 % Blood 03/21/2024 4:41 PM EST [facility] POINT OF CARE TEST ENTER/EDIT ORDERABLES Final Result documented in this encounter Visit Diagnoses Diagnosis Other osteomyelitis, multiple sites ([facility])- Primary Type 2 diabetes mellitus without complication, without long-term current use of insulin ([facility]) Substance use disorder documented in this encounter Additional Health Concerns Assessment Noted Time PHQ-9 Depression Total Score: 0 12/09/19 24 8:57 AM EDT documented as of this encounter Care Teams Free Lance Model Relationship Specialty Start Date End Date Bruna Preston MD [address] [place] [phone] PCP - General Family Medicine 03/08/24 documented as of this encounter
--- OUTSIDE RECORDS SUMMARY | 2024-03-22 10:49 | XMS_ITS ---
Author Organization [facility] Address Unknown Problems Problem Status Start Date End Date SEPSIS DUE TO OTHER SPECIFIE D STAPHYLOCOCCUS (Primary) (A41.1 - ICD-10-CM) ACTIVE 11/18/2023 CELLULITIS OF CHEST WALL (L03.313 - ICD-10-CM) ACTIVE 11/18/2023 OPIOID ABUSE, UNCOMPLICATED (F11.10 - ICD-10-CM) ACTIV E 11/18/2023 OTHER ASTHMA (J45.998 - ICD-10-CM) ACTIVE 2023 TYPE 2 DIABETES MELLITUS WIT HOUT COMPLICATIONS (E11.9 - ICD-10-CM) ACTIVE 11/18/2023 WEAKNESS (R53.1 - ICD-10-CM) ACTIVE 11/18/2023 OTHER PSYCHOACTIVE SUBSTANCE USE, UNSPECIFIED, UNCOMPLICATED (F19.90 - ICD-10-CM) ACTIVE 11/22/2023 OTHER SPECIFIED COUNSELING (Z71.89 - ICD-10-CM) ACTIVE 11/18/2023 WHEEZING (R06.2 - ICD-10-CM) ACTIVE 11/18/2023 BACTEREMIA (R78.81 - ICD-10-CM) ACTIVE 4 Encounters Encounter Performer Performer Role Encounter Diagnoses Location Date Discharge - Left against medical advice, or discontinued care [facility] 11/18/2023 08:49 pm EDT - 11/26/2023 12:21 pm EDT Immunizations Vaccine Date TB 2 Step Mantoux Skin Test Tdap (Tetanus/ Diptheria) PCV 20 Hepatitis A - Adult dose (PFIZER) COVID-19 Vaccine 2023 - 2024 Influenza, split virus, trivalent, PF 20 - 2024 Social History
[2024-03-22 11:13] LABS: MANUAL DIFF FLAG NO
[2024-03-22] MEDS: Ketorolac Tromethamine 15 MG/ML VIAL IVPUSH (11:14)
[2024-03-22 11:16] LABS: Basophils Percent Auto 0.4 % (0-2); Eosinophils Absolute Auto 0.2 X10*3/uL (0.0-0.4); Eosinophils Percent Auto 3.4 % (0-4); Hematocrit 31.3 % (42.0-52.0); Hemoglobin 9.8 g/dl (14.0-18.0); Imm Gran Abs Auto 0.02 X10*3/uL (0.00-0.03); Imm Gran Pct Auto 0.3 % (0.0-0.4); Lymphocytes Percent Auto 15.3 % (20-40); Mean Corpuscular HGB Conc 31.3 g/dl (31.0-36.0); Mean Corpuscular Hemoglobin 22.7 pg (27.0-33.0); Mean Corpuscular Volume 72.6 fL (80.0-98.0); Mean Platelet Volume 9.2 fL (9.4-12.4); Monocytes Absolute Auto 0.5 X10*3/uL (0.1-1.2); Neutrophils Absolute Auto 4.9 x10*3/uL (2.0-8.3); Neutrophils Percent Auto 72.6 % (45-73); Platelet Count 258 X10*3/uL (160-400); Red Blood Count 4.31 X10*6/uL (4.60-5.80); Red Cell Distribution Width 19.3 % (11.0-16.0); White Blood Count 6.8 X10*3/uL (4.8-10.8)
[2024-03-22 11:36] LABS: Lactic Acid 0.8 mmol/L (0.5-2.0)
[2024-03-22 11:40] LABS: Alanine Aminotransferase 11 U/L (0-40); Alkaline Phosphatase 81 U/L (39-117); Anion Gap 15 (12-20); Aspartate Amino Transferase 41 U/L (5-37); Bilirubin Direct 0.2 mg/dL (0.0-0.5); Bilirubin Total 0.3 mg/dL (0.0-1.0); Blood Urea Nitrogen 18 mg/dL (9-16); C Reactive Protein 12.62 mg/dL (< or = 0.50); Calcium 9.7 mg/dL (8.4-10.2); Carbon Dioxide 26 mmol/L (22-29); Chloride 100 mmol/L (96-108); Creatinine Clr Calc Pharmacy 140.3; Estimated Glomerular Filt Rate > 60; Glucose Random 58 mg/dL (60-115); Lipase 7 U/L (8-78); Magnesium 2.3 mg/dL (1.6-2.6); Potassium 4.8 mmol/L (3.3-5.1); Sodium 136 mmol/L (135-145); Total Protein 9.2 g/dL (6.5-8.0)
[2024-03-22 11:55] LABS: Erythrocyte Sedimentation Rate 83 MM/HR (0-15)
[2024-03-22 12:03] LABS: Amphetamine Screen Urine Not Detected (Not Detect); Barbiturates, Urine Not Detected (Not Detect); Benzodiazepines Screen Urine Not Detected (Not Detect); Buprenorphine Scr Not Detected (Not Detect); Cannabinoid Screen Urine Not Detected (Not Detect); Cocaine Screen Urine POSITIVE (Not Detect); Fentanyl, urine POSITIVE (Not Detect); Methadone Screen, Urine Positive (Not Detect); Opiate Screen Urine POSITIVE (Not Detect); Oxycodone Screen Urine Not Detected (Not Detect); Phencyclidine Screen Urine Not Detected (Not Detect)
[2024-03-22 12:10] LABS: Glucose, Whole Blood 79 mg/dL (60-115)
[2024-03-22] MEDS: Morphine Sulfate 4 MG/ML CARTRIDGE IVPUSH (12:25)
[2024-03-22] MEDS: iohexoL 350 MG/ML 100 ML INFUS..BTL IV (13:12)
[2024-03-22] MEDS: Piperacillin Sodium/Tazobactam 3.375 GM in 0.9 % Sodium Chloride 50 ML IV (13:23)
[2024-03-22] MEDS: vancomycin/NS 2,000 MG/500 ML PLAST..BAG 250 MG IV (13:50)
[2024-03-22 14:43] LABS: Glucose, Whole Blood 83 mg/dL (60-115)
--- NOTE | 2024-03-22 17:53 | PC.NURSE ---
Plan for [facility] transfer, awaiting bed assgn. Pt asleep with intermittent periods of restlessness. Updated Laila (g/f) with permission pt.
--- NOTE | 2024-03-22 20:44 | PC.NURSE ---
this rn provided report to ems prior to transport to [facility] this rn called rn to rn report to Alysa reed rn.
== END 2024-03-22 20:50 | disposition short-term general hospital (02) ==
PROVIDERS: Physician Assistant Medical; Emergency Provider Emergency Medicine Emergency Medical Services
DX: M46.24 Osteomyelitis of vertebra, thoracic region (principal); M54.2 Cervicalgia; M54.50 Low back pain, unspecified; M54.6 Pain in thoracic spine; Z51.81 Encounter for therapeutic drug level monitoring; Z79.899 Other long term (current) drug therapy
CPT/HCPCS: 36415; 72126; 72129; 72132; 80048; 80076; 80307; 81001; 82947; 83605; 83690; 83735; 85025; 85652; 86140; 87040; 87086; 96365; 96366; 96367; 96375; 99285; J1885; J2270; J2543; J3370; Q9967

== ENCOUNTER → 2024-03-22 10:34 | Outpatient (BNV) | payer MEDICAID, SELFPAY | PROVIDERS: Emergency Provider Emergency Medicine Emergency Medical Services; Visit Provider Radiology Diagnostic Radiology | DX: F19.10 Other psychoactive substance abuse, uncomplicated (principal) | CPT/HCPCS: 72126; 72129; 72132 ==

== ENCOUNTER 2024-07-28 15:30 | Emergency (ER) | payer OTHER, SELFPAY ==
--- NOTE | ~2024-07-28 | XR_ITS ---
CLINICAL HISTORY: cp 1 view chest x-ray Comparison: None provided Findings: Mild diffuse interstitial prominence. There is a small airspace opacity in the left lower lobe medially. No pleural effusion or pneumothorax. Cardiomediastinal silhouette is accentuated by portable technique and suboptimal inspiratory effort. No acute fracture. IMPRESSION: 1. Mild hypoventilation. 2. Probable interstitial pneumonitis with superimposed left lower lobe pneumonia. This document has been electronically signed by: Karina Benitez DO on 07/28/2024 18:24:13
[2024-07-28 15:40] VITALS: BP 121/67; BP 124/71; PULSE 71; RESP 12; TEMP 36.6; O2SAT 94; O2SAT 98; BMI 30.8
--- NOTE | 2024-07-28 15:46 | PC.NURSE ---
Addendum entered by Elizabeth Arreola RN 07/28/24 15:49: patient has diabetes, non compliant with medications poc 117 in ED. patient has hx of seizures and tbi Original Note: patient presents to ED after being brought in by EMS. patient was in car, bystander stated patient took 1/5 bag heroin. patient received 1mg narcan by ems. patient maintaining own airway, arousable to noxious stimuli but not able to answer questions/follow commands. security at bedside for patient exchange operator, patient in hospital attire. belongings secured on [employer]. patient resting at this time, resp even and unlabored.
[2024-07-28 15:47] LABS: Glucose, Whole Blood 117 mg/dL (60-115)
--- NOTE | 2024-07-28 16:41 | ED.OVERDOSE ---
HPI - Overdose General Chief Complaint: Overdose Stated Complaint: ? of OD Time Seen by Provider: 07/28/24 15:34 History of Present Illness HPI Narrative: Patient is a 44-year-old male with a history of polysubstance abuse. History of heroin abuse. Bystander noted patient has used heroin. Subsequently was unresponsive. EMS on arrival give patient some Narcan. Patient started breathing. Was sent to the ED for further evaluation. Related Data Previous Rx's ?Medication ?Instructions ?Recorded cefazolin 2 gram/50 mL in dextrose 50 ml IV Q8H Diskitis 32 days #117 01/27/24 (iso-osmotic) intravenous piggyback ea oxycodone 5 mg tablet 10 mg (2 x 5 mg) PO Q4H PRN Pain, 01/27/24 Moderate(Pain Scale 4-6) #30 tabs methadone 10 mg/mL oral 125 mg (12.5 mL) PO DAILY@0800 1 02/01/24 concentrate (Methadose) day #12.5 mL doxycycline hyclate 100 mg capsule 100 mg PO BID 30 days #60 caps 02/27/24 doxycycline hyclate 100 mg capsule 100 mg PO BID cough 7 days #14 caps 07/28/24 Allergies Allergy/AdvReac Type Severity Reaction Status Date / Time No Known Allergies (No Known Allergy Verified 07/28/24 15:42 Allergies*) Review of Systems Review of Systems: Extremely lethargic unable to provide detailed review of systems PMFSH Past Medical History Medical History Sepsis Staphylococcus aureus bacteremia Opioid abuse Left against medical advice IVDU (intravenous drug user) Type 2 diabetes mellitus Hiatal hernia Social History Social History Household Members: Family Housing: Apartment Do you presently have visiting nurse or other home services: No Alcohol intake: never Patient Tobacco Use Status: Current everyday Tobacco user Tobacco use type: Cigarette Cigarette Packs Per Day: 1 Cigarettes Per Day: 20.0 Substance Use Type: Heroin Advance Directives: No Advance Directives Information Provided: No Do you have a plan to hurt others: No Plan service: No Physical Exam Vital Signs: Vital Signs: Last Vital Signs Temp 98.2 F 07/28/24 19:22 Pulse 98 07/28/24 19:22 Resp 20 07/28/24 19:22 BP 110/68 07/28/24 19:22 Pulse Ox 94 07/28/24 19:22 O2 Del Method Room Air 07/28/24 19:22 BMI result Body Mass Index 30.8 Appearance: Lethargic arousable to painful stimuli Eyes: Pupils equal, round and reactive to light. ENT: Pharynx normal. Neck: Normal inspection. Neck supple. No lymph nodes noted. No crepitus CVS: Normal heart rate and rhythm. Pulses normal. Normal S1 and S2 Respiratory: No respiratory distress. Breath sounds normal. No Wheezing. No rales Abdomen: Soft and nontender. No rigidity. No distention. good BS x4 Skin: Skin warm and dry. Normal skin color. Normal skin turgor. Extremities: No lower extremity edema. Neurovascular intact to all extremities. No Lacerations. No Rash Neuro: Moving extremities to painful stimuli Medical Decision Making Medical Decision Making MDM Narrative: Patient monitored in the emergency department for 5 hours now is awake alert wants to leave. Admits to using heroin. A chest x-ray was done when patient had decreased responsiveness. The x-ray showed a question left-sided infiltrate. Patient refused blood work. Did not want further treatment. Wants to leave. Explained to patient that he has a pneumonia will start patient on antibiotics. Will have patient closely follow-up on an outpatient basis. Will give patient food. Will give patient Narcan. Left AMA. Patient did not want detox. Differential Diagnosis Differential Diagnoses: The differential diagnosis associated with the presentation includes Pneumonia, narcotic overdose Admission/Observation Consideration of admission/observation: Escalation of care including admission/observation considered Lab Data [facility] Lab Attestation statement: I reviewed the patient's lab results. Labs: Lab Results 07/28/24 Range/Units 15:44 POC Glucose 117 H (60-115) mg/dL Independent Interpretation I performed an independent interpretation of an: Plain X-Ray (Question left-sided infiltrate) Radiology Impression Discussion of test interpretation with radiology: I have reviewed the radiologist's reading. External Record Review External record reviewed: Office record Chronic Conditions Previous history of polysubstance abuse previous history of osteomyelitis Social Determinants Patient?s care significantly limited by Social Determinants of Health including: Problems related to primary support group Discharge Plan Discharge Clinical Impression: Opioid abuse Pneumonia Qualifiers: Pneumonia type: aspiration pneumonia Aspiration pneumonia type: unspecified Laterality: right Lung location: upper lobe of lung Qualified Code(s): J69.0 - Pneumonitis due to inhalation of food and vomit Patient Disposition: Left Against Medical Advice Instructions: Community Acquired Pneumonia (DC), Narcotic Use Disorder (ED), Opioid Use Disorder (ED) Prescriptions: New doxycycline hyclate 100 mg capsule 100 mg PO BID 7 Days Qty: 14 0RF No Action cefazolin in dextrose (iso-os) 2 gram/50 mL Piggyback 50 ml IV Q8H 32 Days Qty: 117 0RF Rx Instructions: Kefzol 2 gram q8 hours, for 39 more days, ending March 06, 2024 oxycodone 5 mg Tablet 10 mg PO Q4H PRN (Reason: Pain, Moderate(Pain Scale 4-6)) Qty: 30 0RF Rx Instructions: Partial Fill upon patient request. methadone [Methadose] 10 mg/mL Concentrate 125 mg PO DAILY@0800 1 Days Qty: 12.5 0RF Rx Instructions: Partial Fill upon patient request. doxycycline hyclate 100 mg capsule 100 mg PO BID 30 Days Qty: 60 1RF Referrals: [facility] [Primary Care Provider, Medical] - 3 days Stand Alone Forms: Against Medical Advice Print Language: Egyptian
[2024-07-28 17:33] VITALS: BP 109/70; PULSE 65; RESP 12; O2SAT 97
[2024-07-28 19:22] VITALS: BP 110/68; PULSE 98; RESP 20; TEMP 36.8; O2SAT 94
--- NOTE | 2024-07-28 19:28 | PC.NURSE ---
this rn assumed care of pt, pt awake and alert and set up with snacks at this time, vss.
[2024-07-28 20:30] VITALS: BP 110/68; PULSE 98; RESP 20; TEMP 36.8; O2SAT 94
[2024-07-28] MEDS: Naloxone HCl Nasal TAKE HOME 4 MG SPRAY 8 MG NOSTRILALT (20:44)
[2024-07-28] MEDS: Doxycycline Monohydrate 100 MG CAPSULE PO (20:44)
--- NOTE | 2024-07-28 20:58 | PC.NURSE ---
pt given belongings on discharge and assisted to waiting room. ambulatory with steady gait.
== END 2024-07-28 20:59 | disposition home or self-care (01) ==
PROVIDERS: Emergency Provider Emergency Medicine Emergency Medical Services
DX: F19.10 Other psychoactive substance abuse, uncomplicated (principal); F11.20 Opioid dependence, uncomplicated; J69.0 Pneumonitis due to inhalation of food and vomit; R53.83 Other fatigue; E11.9 Type 2 diabetes mellitus without complications; F17.210 Nicotine dependence, cigarettes, uncomplicated
CPT/HCPCS: 71045; 82947; 99283; 99284

== ENCOUNTER → 2024-07-28 16:45 | Outpatient (BNV) | payer MEDICAID, SELFPAY | PROVIDERS: Emergency Provider Emergency Medicine Emergency Medical Services; Visit Provider Radiology Diagnostic Radiology | DX: R07.9 Chest pain, unspecified (principal) | CPT/HCPCS: 71045 ==

== ENCOUNTER 2024-09-25 08:08 | Emergency (ER) | payer OTHER, SELFPAY ==
[2024-09-25 08:23] VITALS: BP 118/71; PULSE 68; RESP 18; TEMP 36.6; O2SAT 98; BMI 25.1
[2024-09-25 09:01] LABS: Appearance Urine Clear; Glucose Urine UA Negative (Negative); PH 6.5 (5.0-9.0); Specific Gravity - Urine 1.020 (1.005-1.025)
[2024-09-25 09:08] LABS: Cannabinoid Screen Urine Not Detected (Not Detect)
[2024-09-25 09:16] LABS: Anion Gap 15 (12-20); Blood Urea Nitrogen 19 mg/dL (9-16); Calcium 9.0 mg/dL (8.4-10.2); Carbon Dioxide 23 mmol/L (22-29); Chloride 106 mmol/L (96-108); Creatinine Clr Calc Pharmacy 155.2; Estimated Glomerular Filt Rate > 60; Potassium 5.1 mmol/L (3.3-5.1); Sodium 139 mmol/L (135-145)
[2024-09-25 09:50] LABS: Hematocrit 34.8 % (42.0-52.0); Hemoglobin 10.4 g/dl (14.0-18.0); Imm Gran Abs Auto 0.01 X10*3/uL (0.00-0.03); Imm Gran Pct Auto 0.2 % (0.0-0.4); Lymphocytes Absolute Auto 1.5 X10*3/uL (1.2-4.9); Mean Corpuscular HGB Conc 29.9 g/dl (31.0-36.0); Mean Corpuscular Hemoglobin 21.4 pg (27.0-33.0); Mean Corpuscular Volume 71.5 fL (80.0-98.0); NRBC Abs Auto 0.000 X10*3/uL (0.0-0.012); NRBC Pct Auto 0.0 /100WBC (0.0-0.2); Platelet Count 189 X10*3/uL (160-400); Red Blood Count 4.87 X10*6/uL (4.60-5.80); White Blood Count 4.4 X10*3/uL (4.8-10.8)
[2024-09-25 09:52] LABS: MANUAL DIFF FLAG NO
--- NOTE | 2024-09-25 10:39 | ED_ITS ---
HPI - Medical Clearance General Chief complaint: Medical Clearance Stated complaint: needs medical clearance Time Seen by Provider: 09/25/24 10:32 Source: patient and RN notes reviewed Mode of arrival: ambulatory Limitations: no limitations History of Present Illness ED Provider: Maria L Vigil PA-C HPI Narrative: This is a 44-year-old male, with a past medical history of MSSA bacteremia, polysubstance use disorder, here for medical clearance. Patient reports that he would like to go to a sober living facility, states that he already has been set up with [facility] and he just needs medical clearance in order to do so. Patient states that he is feeling well, he is currently on methadone, has not received his dose today, however will go to his methadone facility this morning and get his dosing before going to [place]. Patient states that he is feeling well, he has no current complaints. No chest pain, shortness for breath, abdominal pain, nausea, vomiting or diarrhea. No urinary symptoms. No changes to bowel habits. No back pain. He states that he has not used any illicit drugs over a month. No alcohol use No other complaints or concerns at this time. MD complaint: medical clearance requested Alleged Intoxication: Yes Related Information Previous Rx's ?Medication ?Instructions ?Recorded cefazolin 2 gram/50 mL in dextrose 50 ml IV Q8H Diskit is 32 days #117 01/27/24 (iso-osmotic) intravenous piggyback ea oxycodone 5 mg tablet 10 mg (2 x 5 mg) PO Q4H PRN Pain, 01/27/24 Moderate(Pain Scale 4-6) #30 tabs methadone 10 mg/mL oral 125 mg (12.5 mL) PO DAILY@08 00 1 02/01/24 concentrate (Methadose) day #12.5 mL doxycycline hyclate 100 mg capsule 100 mg PO BID 30 da ys #60 caps 02/27/24 doxycycline hyclate 100 mg capsule 100 mg PO BID cough 7 days #14 caps 07/28/24 Allergies Allergy/AdvReac Type Severity Reaction Status Date / Time No Known Allergies (No Known Allergy Verified 09/25/24 08:26 Allergies*) Review of Systems 2 Review of Systems: Yes all other systems are reviewed and are negative Constitutional: Constitutional: Reports as per HPI [facility] Past Medical History Medical History Sepsis Staphylococcus aureus bacteremia Opioid abuse Left against medical advice IVDU (intravenous drug user) Type 2 diabetes mellitus Hiatal hernia Social History Social History Household Members: Family Housing: Apartment Do you presently have visiting nurse or other home services: No Alcohol intake: never Patient Tobacco Use Status: Current everyday Tobacco user Tobacco use type: Cigarette Cigarette Packs Per Day: 1 Cigarettes Per Day: 20.0 Substance Use Type: Heroin Advance Directives: No Advance Directives Information Provided: No Do you have a plan to hurt others: No Plan service: No Physical Exam 2 Vital Signs: Vital Signs: Last Vital Signs Temp 98 F 09/25/24 10:55 Pulse 68 09/25/24 10:55 Resp 18 09/25/24 10:55 BP 118/71 09/25/24 10:55 Pulse Ox 98 09/25/24 10:55 O2 Del Method Room Air 09/25/24 08:23 BMI result Body Mass Index 25.1 Const: General: cooperative, comfortable and no acute distress O rientation/consciousness: patient oriented x3 Limitations: no limitations HEENT: Head: Yes normal to inspection, Yes normocephalic and Yes atraumatic Ears: hearing grossly normal bilaterally General nose exam: Normal external nose present Face and sinus: Yes normal facial exam Mouth: Normal oral and palatal mucosa present, oropharynx normal and moist mucous membranes Throat: Yes posterior oropharynx normal Eyes: General: appearance normal, both eyes and all related structures E yelids: Yes eyelids normal Conjunctivae: conjunctivae normal Sclerae: s clerae normal Pupils: Equal, round and reactive pupils present EOM: EOMs intact bilaterally Neck: Neck: Yes normal visual inspection, Yes full ROM and Yes no lymphadenopathy Lymphatic: no lymphadenopathy noted Chest: Chest palpation & inspection: normal inspection of the chest Resp: Effort & Inspection: normal respiratory effort and able to speak in complete sentences Auscultation: clear to auscultation bilaterally, no crackles, no rales, no rhonchi and no wheezes Cardio: Rate: regular rate Rhythm: regular rhythm Heart sounds: S1 normal heart sound present and S2 normal heart sound present GI: Inspection: Yes normal to inspection Skin: General skin exam: no rashes or lesions noted Trauma: no lacerations or abrasions Wounds: no wounds Neuro: General: patient oriented x3 and moves all extremities Cranial nerves: Yes Equal, round and reactive pupils present Extrem: General: Yes normal to inspection Right upper extremity: normal to inspection Left upper extremity: normal to inspection Right lower extremity: normal to inspection Left lower extremity: normal to inspection Medical Decision Making Medical Decision Making [facility] Narrative: This is a 44-year-old male, with a past medical history of substance use disorder, here for medical clearance patient reports that he would like to go to a sober living facility in the just need blood work and urine sample. On arrival, vital signs within normal limits. He is speaking full sentences under no acute distress. He reports no recent illness. He is feeling well. Last use illicit drugs greater than 1 month ago. Labs were performed prior to my evaluation, he has slight leukopenia at 4.4, H&H revealing a microcytic anemia, stable, similar to previous. Chemistry revealing no acute findings. Urine revealing no acute infection. Chemistry within normal limits. Given that patient is feeling well, has no current complaints, and had a normal physical exam, I discussed this with patient. He will follow-up with the primary care regarding slight leukopenia. He has no evidence of infection. He reports no back pain. He was previously seen at [facility] in March after having a spinal abscess that was treated with IV antibiotics. He reports no numbness, tingling, or weakness in the lower extremities. No back pain. No other complaints or concerns at this time. Differential Diagnosis Differential Diagnoses: The differential diagnosis associated with the presentation includes Depression, anxiety, wellness check, opioid use disorder Lab Data [facility] Lab Attestation statement: I reviewed the patient's lab results. See MDM and course 09/25/24 09:43 09/25/24 08:48 Labs: Lab Results 09/25/24 09/25/24 09/25/24 Range/Units 08:47 08:48 09:43 WBC 4.4 L (4.8-10.8) X10*3/uL RBC 4.87 (4.60-5.80) X10*6/uL Hgb 10.4 L (14.0-18.0) g/dl Hct 34.8 L (42.0-52.0) % MCV 71.5 L (80.0-98.0) fL MCH 21.4 L (27.0-33.0) pg MCHC 29.9 L (31.0-36.0) g/dl RDW 22.0 H (11.0-16.0) % Plt Count 189 D (160-400) X10*3/uL MPV 9.6 (9.4-12.4) fL Immature Gran % (Auto) 0.2 (0.0-0.4) % Neut % (Auto) 50.6 (45-73) % Lymph % (Auto) 32.9 (20-40) % [place] % (Auto) 11.3 H (2-11) % Eos % (Auto) 4.1 H (0-4) % Baso % (Auto) 0.9 (0-2) % Lymph # (Auto) 1.5 (1.2-4.9) X10*3/uL [place] # (Auto) 0.5 (0.1-1.2) X10*3/uL Eos # (Auto) 0.2 (0.0-0.4) X10*3/uL Baso # (Auto) 0.0 (0.0-0.2) X10*3/uL Abs Immat Gran (auto) 0.01 (0.00-0.03) X10*3/uL Absolute Neuts (auto) 2.2 (2.0-8.3) x10*3/uL Absolute Nucleated RBC 0.000 (0.0-0.012) X10*3/uL Nucleated RBC % (auto) 0.0 (0.0-0.2) /100WBC Sodium 139 (135-145) mmol/L Potassium 5.1 (3.3-5.1) mmol/L Chloride 106 (96-108) mmol/L Carbon Dioxide 23 (22-29) mmol/L Anion Gap 15 (12-20) BUN 19 H (9-16) mg/dL Creatinine 0.66 (0.5-1.4) mg/dL Estim Creat Clear Calc 155.2 Estimated GFR > 60 Random Glucose 76 (60-115) mg/dL Calcium 9.0 D (8.4-10.2) mg/dL Urine Color Yellow Urine Appearance Clear Urine pH 6.5 (5.0-9.0) Ur Specific [place] 1.020 (1.005-1.025) Urine Protein Negative (Neg-Trace) mg/dL Urine Glucose (UA) Negative (Negative) mg/dL Urine Ketones Negative (Negative) mg/dL Urine Blood Negative (Negative) Urine Nitrite Negative (Negative) Ur Leukocyte Esterase Negative (Negative) Urine Opiates Screen Not Detected (Not Detect) Ur Buprenorphine Scrn Not Detected (Not Detect) ng/mL Ur Oxycodone Screen Not Detected (Not Detect) ng/mL Urine Methadone Screen Positive H (Not Detect) ng/mL Urine Fentanyl Screen Not Detected (Not Detect) Ur Barbiturates Screen Not Detected (Not Detect) Ur Phencyclidine Scrn Not Detected (Not Detect) Ur Amphetamines Screen Not Detected (Not Detect) U Benzodiazepines Scrn Not Detected (Not Detect) Urine Cocaine Screen Not Detected (Not Detect) U Marijuana (THC) Screen Not Detected (Not Detect) Discharge Plan Discharge Clinical Impression: Normal exam Patient Disposition: Home, Self-Care Instructions: Normal Exam (ED) Additional Instructions: Saul was seen in the emergency department for a medical clearance. You had a normal physical exam. Your vital signs were within normal limits. At this point, I believe that it is appropriate to medically clear you for you to go to a sober living facility. Your white blood cell count was slightly low at 4.4, this may be your usual, please have your last repeated in several weeks. You have a slight anemia, this is similar to previous blood work that was performed previously. Please follow-up with your primary care physician regarding this visit. Your blood work was reassuring, urine does not appear to be infected. Your urine screen was positive for methadone only. If any new or worsening symptoms occur including but not limited to chest pain, shortness of breath, severe back pain, please seek emergent care. Prescriptions: No Action doxycycline hyclate 100 mg capsule 100 mg PO BID 7 Days Qty: 14 0RF cefazolin in dextrose (iso-os) 2 gram/50 mL Piggyback 50 ml IV Q8H 32 Days Qty: 117 0RF Rx Instructions: Kefzol 2 gram q8 hours, for 39 more days, ending March 06, 2024 oxycodone 5 mg Tablet 10 mg PO Q4H PRN (Reason: Pain, Moderate(Pain Scale 4-6)) Qty: 30 0RF Rx Instructions: Partial Fill upon patient request. methadone [Methadose] 10 mg/mL Concentrate 125 mg PO DAILY@0800 1 Days Qty: 12.5 0RF Rx Instructions: Partial Fill upon patient request. doxycycline hyclate 100 mg capsule 100 mg PO BID 30 Days Qty: 60 1RF Interventions: ED Discharge Assessment Last Done: 09/25/24 10:55 Discharge Date/Time: 09/25/24 10:56 Print Language: Puerto Rican
[2024-09-25 10:55] VITALS: BP 118/71; PULSE 68; RESP 18; TEMP 36.6; O2SAT 98
--- OUTSIDE RECORDS SUMMARY | 2024-09-25 10:55 | XMS_ITS ---
Author Name [facility] Organization Unknown Care Team Organization Name Specialty Phone Email Start Date End Da te [facility] Michael Vasquez Primary [facility] 12/15/2021 09/26/2023
== END 2024-09-25 10:56 | disposition home or self-care (01) ==
PROVIDERS: Emergency Provider Emergency Medicine
DX: F11.20 Opioid dependence, uncomplicated (principal)
CPT/HCPCS: 36415; 80048; 80307; 81003; 85025; 99282; 99283

== ENCOUNTER 2024-09-28 14:39 | Outpatient (REF) | payer OTHER, SELFPAY ==
--- NOTE | ~2024-09-28 | XR_ITS ---
EXAMINATION: XR THORACIC SPINE CLINICAL INFORMATION: pain and palpable deformity in midback COMPARISON: CT on March 22, 2024 TECHNIQUE: 3 views of the thoracic spine were obtained. FINDINGS: There is non-segmentation or fusion of T9-10. There is wedge-shaped deformity of T11 and T12 with possible bony fusion or severe narrowing across the disc level. There is mild to moderate disc space narrowing with anterior osteophytes present in the mid to upper thoracic spine. XR/XR thoracic spine 3V IMPRESSION: Chronic changes at T9-10 and T11-12. Multilevel degenerative disc disease. Electronically signed by: Naresh Roe MD 09/28/2024 03:06 PM EDT
--- NOTE | ~2024-09-28 | XR_ITS ---
EXAMINATION: XR SHOULDER, RIGHT CLINICAL INFORMATION: loss of strength COMPARISON: None available. TECHNIQUE: Three views of the right shoulder. FINDINGS: Small marginal osteophyte is present inferior glenoid and medial humeral head. Joint spaces preserved. AC joint is intact and unremarkable. There is no dislocation. XR/XR shoulder RT min 2V IMPRESSION: Mild degenerative change. Electronically signed by: Naresh Roe MD 09/28/2024 03:01 PM EDT
--- OUTSIDE RECORDS SUMMARY | 2024-09-28 13:45 | XMS_ITS | Encounter Summary ---
Author Organization [employer] Address [address] [place] [address] Care Team Providers Care Leather Goods Maker Name Role Phone Bruna Preston MD Primary Care Provider [phone] Reason for Visit * Reason Comments transfer pt Encounter Details Date Type Department Care Team ([facility] st Contact Info) Description 09/28/2024 1:45 PM EDT Office Visit [facility] [address], [place] [phone] Brnua Preston MD [address], [place] [phone] Type 2 diabetes mellitus without complication, without long-term current use of insulin ([facility]) (Primary Dx); Dietary counseling; Exercise counseling; Overweight; Chronic bilateral thoracic back pain; Methadone maintenance therapy patient ([facility]); Chronic right shoulder pain Social History Tobacco Use Types Packs/Day Years Used Date Smoking Tobacco: Former Cigarettes 0.5 25.6 S tarted: 2000 Smokeless Tobacco: Never Alcohol Use Standard Drinks/Week Comments Never 0 (1 standard drink = 0.6 oz pur e alcohol) Depression Answer Date Recorded Patient Health Questionnaire-9 Score 0 12/09/2023 Patient Health Questionnaire-9 Score 0 12/09/2023 Last PHQ-9: Questionnaire Data Not on file 1 02/07/2023 Housing Stability Answer Date Recorded What is your housing situation today? I do not have housing (Staying with others, in a hotel, in a usp, living outside on the street, on a beach, in a car, or in a park 04/30/[address] you li ve. Do you have problems with any of the following? None of the above 04/30/2024 Food Insecurity Answer Date Recorded Within the [...] from getting things needed for daily living? Yes, it has kept me from non-medical meetings, work, or getting things that I need 04/30/2024 Utilities Answer Date Recorded In the past 12 months, has t he electric, gas, oil or water company threatened to shut off services in your home? No 12/09/2023 Depression Answer Date Recorded Patient Health Questionnaire-2 Score 0 12/09/2023 Internet Access Answer Date Recorded Internet Access Q1 No 04/30/2024 Internet Access Q2 I cannot afford it 04/30/2024 Sex and Gender Information Value Date Recorded Sex Assigned at Male 12/17/2022 12:41 PM EST Legal Sex Male 12:21 PM EST Gender Identity Male 12/17/2022 12:41 PM EST Sexual Orientation Straight 12/17/2022 12 :41 PM EST documented as of this encounter Last Filed Vital Signs Vital Sign Reading Time Taken Comments Blood Pressure 130/70 09/28/2024 2:17 PM EDT Pulse 74 09/28/2024 2:17 PM EDT Temperature 36.8 C (98.3 F) 09/28/2024 2:17 PM EDT Respiratory Rate 20 09/28/2024 2:17 PM EDT Oxygen Saturation 98% 09/28/2024 2:17 PM EDT Inhaled Oxygen Concentration - - Weight 87.1 kg (192 lb) 09/28/2024 2:17 PM EDT Height 180.3 cm (5' 11 ) 09/28/2024 2:17 PM EDT Body Mass Index 26.78 09/28/2024 2:17 PM EDT documented in this encounter Plan of Treatment Scheduled Orders Name Type Priority Associated Diagnoses Orde r Schedule XR Thoracic Spine 3 Views Imaging Routine Chronic bilateral thoracic back pain Expected: 09/28/2024, Expires: 09/28/2025 XR Shoulder 2+ Views Right Imaging Routine Chronic right shoulder pain Expected: 09/28/2024, Expires: 09/28/2025 documented as of this encounter Procedures Procedure Name Priority Date/Time Associated Diagnosis Comments POCT GLYCATED HEMOGLOBIN, TOTAL Routine 09/28/2024 2:23 PM EDT Type 2 diabetes mellitus without complication, without long-term current use of insulin ([facility]) POCT GLUCOSE Routine 09/28/2024 2:19 PM EDT Type 2 diabetes mellitus without complication, without long-term current use of insulin ([facility]) documented in this encounter Results * POCT HGB A1C (09/28/2024 2:23 PM EDT) Hemoglobin A1C 5.4 4.0 - 5.7 % QC Media Lot # [id number] Lot# Expiration Date 4162,027 Blood 09/28/2024 2:23 PM EDT Bruna Preston MD POINT OF CARE TEST ENTER/EDIT ORDERABLES Final Result * POCT Glucose (09/28/2024 2:19 PM EDT) Glucose Blood, POC 121 60 - 200 mg/dL QC Media Lot # [id number] Lot# Expiration Date 2312,026 Blood Capillary blood specimen / Unknown 09/28/2024 2:19 PM EDT Result [facility] Bruna Preston MD POINT OF CARE TEST ENTER/EDIT ORDERABLES Final Result documented in this encounter Visit Diagnoses Diagnosis Type 2 diabetes mellitus without complication, without long-term current use of insulin ([facility])- Primary Dietary counseling Dietary surveillance and counseling Exercise counseling Overweight Chronic bilateral 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
== END 2024-09-28 14:40 | disposition home or self-care (01) ==
LOC: HO.HHCX 14:39
PROVIDERS: PCP General Practice; Visit Provider General Practice
DX: M25.511 Pain in right shoulder (principal); M54.6 Pain in thoracic spine; G89.29 Other chronic pain
CPT/HCPCS: 72072; 73030

== ENCOUNTER → 2024-09-28 14:46 | Outpatient (BNV) | payer OTHER, SELFPAY | PROVIDERS: PCP General Practice; Visit Provider Radiology Diagnostic Radiology | DX: M51.34 Other intervertebral disc degeneration, thoracic region (principal); R53.1 Weakness | CPT/HCPCS: 72072; 73030 ==

== ENCOUNTER 2024-11-21 14:58 | Outpatient (AMB) | payer OTHER, SELFPAY ==
[2024-11-21 15:03] VITALS: PULSE 78; O2SAT 98; BMI 29.0
--- NOTE | 2024-11-21 15:03 | MHC.OFFVIS ---
Vital Signs 11/21/24 15:03 Height 5 ft 11 in Weight 208 lb BMI 29.0 Pulse 78 Pulse Source Pulse Oximeter Pulse Oximetry (%) 98 Intake Visit Reasons: C reff/cellulititis Allergies No Known Allergies (No Known Allergies*) Allergy (Verified 11/21/24 15:03) HPI Comments Details: History of Present Illness The patient is a 44-year-old male presenting with chronic back pain. He has a documented history of spinal osteomyelitis, previously treated with intravenous antibiotics as well as oral doxycycline, which he found beneficial. The patient's osteomyelitis is a chronic condition, possibly involving a low-grade ongoing infection, and has expressed interest in resuming doxycycline. Additionally, the patient has noted symptoms of depression. Review of Systems - Musculoskeletal: Reports chronic back pain. - Psychiatric: Reports depression. Physical Exam - Vitals- Stable - Oropharynx- Clear - Lungs- Clear - Cardiovascular- Heart rate and rhythm clear - Abdomen- Soft, not tender Results Plan Patient was informed and verbally consented to the use of an ambient scribe for clinic note documentation during this visit. 1. Osteomyelitis of vertebra, cervical region M46.22 HCC 39 Prescribe oral doxycycline 100 mg twice daily for one month with five refills, based on previous patient-reported improvement. Plan to reassess in 6 months. 2. Depression Monitor symptoms and discuss mental health management during follow-up visits. Discussion Notes I discussed with the patient the option to restart doxycycline as he previously experienced improvement of his back pain with this medication. I explained that doxycycline's anti-inflammatory and anti-infectious properties might provide symptomatic relief. The patient agreed to restart doxycycline and was informed about the follow-up plan. Furthermore, I mentioned the need to monitor the patient's depression symptoms, ensuring ongoing mental health support as necessary. We scheduled the next evaluation in 6 months, and I will send correspondence to his primary care provider. Medical Decision Making In evaluating this patient, considering his chronic spinal osteomyelitis and previous effective response to doxycycline, my decision to restart doxycycline therapy at 100 mg BID was influenced by its dual role in managing both infection and inflammation. The chronic nature of his osteomyelitis necessitates sustained treatment and monitoring, with planned reassessment in 6 months for treatment efficacy. I also noted the presence of depression, necessitating consideration in his overall health management. My approach aims at reducing symptom burden while stabilizing his condition long-term. Patient Instructions - Take doxycycline 100 mg twice daily as prescribed. - Continue medication for one month with five refills available if needed. - Monitor for improvements or changes in back pain. - Report any new or worsening symptoms immediately. - Plan to return for a follow-up evaluation in 6 months. - Stay attentive to mental health and inform if depression symptoms worsen. [facility] Medical History Sepsis Staphylococcus aureus bacteremia Opioid abuse Left against medical advice IVDU (intravenous drug user) Type 2 diabetes mellitus Hiatal hernia Social History Household Members: Family Housing: Apartment Do you presently have visiting nurse or other home services: No Alcohol intake: never Patient Tobacco Use Status: Current everyday Tobacco user Tobacco use type: Cigarette Cigarette Packs Per Day: 1 Cigarettes Per Day: 20.0 Substance Use Type: Heroin service: No Physical Exam Vital Signs: Last Vital Signs Pulse 78 11/21/24 15:03 Pulse Ox 98 11/21/24 15:03 BMI result Body Mass Index 29.0 Assessment & Plan Assessment & Plan (1) Acute osteomyelitis of thoracic spine: Code(s): M46.24 - Osteomyelitis of vertebra, thoracic region Category: Medical Plan as above Medications: New doxycycline hyclate 100 mg PO BID 60 caps 5RF 30 days Coding Level of Care Code Est Pt Level 3 (33122) Diagnoses Acute osteomyelitis of thoracic spine M46.24
== END 2024-11-21 15:38 | disposition home or self-care (01) ==
LOC: HO.HID 14:58
PROVIDERS: PCP General Practice; Visit Provider Internal Medicine
DX: M46.24 Osteomyelitis of vertebra, thoracic region (principal)
CPT/HCPCS: 99213

== ENCOUNTER → 2024-11-21 14:58 | Outpatient (BNVA) | payer OTHER, SELFPAY | PROVIDERS: PCP General Practice; Visit Provider Internal Medicine | DX: M46.24 Osteomyelitis of vertebra, thoracic region (principal) | CPT/HCPCS: 99212 ==